=== PATIENT | female | born 1940 | race Caucasian/White ===

== ENCOUNTER 2020-07-22 11:00 | Outpatient (RCR) | payer MEDICARE, SELFPAY ==
--- NOTE | 2020-08-18 10:13 | MHC.PT.DC ---
[facility] [place] Office [place] Office [place] Office [address] Tamika Chowdhury [address] [phone] F: [phone] F: [phone] F: [phone] F: [phone] Physical Therapy Discharge Report Diagnosis: closed fx of phalanx of R great toe Date of Surgery: NA Date of Evaluation: 06/17/20 Date of Discharge: 07/22/20 Treatments to Date: 12 Cancellations to Date: 0 No Shows to Date: 0 Discharge Status: Achieved Goals Improved Function Independent with HEP Discharge Summary: Patient is I in program, improved balance noted, improved pain tolerance noted. She has an extensive HEP to continue on her own and is able to continue independently and safely. She demos no LOB when challenged dynamically. Educated on continuing HEP and speaking with MD about referral back to cardiac rehab as she reports that she would like to return. Also educated her on following up about a podiatry referral for hallux valgus and shoe inserts. DC to HEP at this time, chart was kept open for 30 days prior to DC in case patient returned with questions or needed re-ed about HEP Electronically signed by: Akanksha Tracey PT Please sign and return to therapist. Thank you for your referral.
== END 2020-08-18 10:39 | disposition home or self-care (01) ==
LOC: HO.PTCHIC 11:00
PROVIDERS: PCP Internal Medicine; Visit Provider Physician Assistant
DX: S92.414D Nondisplaced fracture of proximal phalanx of right great toe, subsequent encounter for fracture with routine healing (principal); X58.XXXD Exposure to other specified factors, subsequent encounter
CPT/HCPCS: 97110; 97112

== ENCOUNTER 2020-07-26 07:22 | Outpatient (REF) | payer MEDICARE, SELFPAY ==
[2020-07-26 10:26] LABS: Alanine Aminotransferase 12 U/L (0-31); Anion Gap 11 (12-20); Aspartate Amino Transferase 27 U/L (5-31); Blood Urea Nitrogen 19 mg/dL (9-16); Calcium 8.8 mg/dL (8.4-10.2); Carbon Dioxide 30 mmol/L (22-29); Chloride 104 mmol/L (96-108); Cholesterol 132 mg/dL; Estimated Glomerular Filt Rate 58; Glucose Random 84 mg/dL (60-115); HDL Cholesterol 46 mg/dL; LDL Cholesterol Calculated 74 mg/dl; Potassium 3.8 mmol/l (3.3-5.1); Sodium 141 mmol/L (135-145); Triglycerides 63 mg/dL
== END 2020-07-26 07:23 | disposition home or self-care (01) ==
LOC: HO.LAB 07:22
PROVIDERS: PCP Internal Medicine; Visit Provider Nurse Practitioner Family
DX: I25.10 Atherosclerotic heart disease of native coronary artery without angina pectoris (principal)
CPT/HCPCS: 80048; 80061; 84450; 84460

== ENCOUNTER → 2020-08-26 13:02 | Outpatient (BNVA) | payer MEDICARE, SELFPAY | PROVIDERS: PCP Internal Medicine; Visit Provider Internal Medicine Cardiovascular Disease | DX: Z45.018 Encounter for adjustment and management of other part of cardiac pacemaker (principal); I50.30 Unspecified diastolic (congestive) heart failure; I48.20 Chronic atrial fibrillation, unspecified; I25.10 Atherosclerotic heart disease of native coronary artery without angina pectoris; Z79.01 Long term (current) use of anticoagulants; Z79.899 Other long term (current) drug therapy | CPT/HCPCS: 99212 ==

== ENCOUNTER 2020-11-25 13:18 | Outpatient (REF) | payer MEDICARE, SELFPAY ==
[2020-11-25 15:38] LABS: Anion Gap 12 (12-20); Blood Urea Nitrogen 24 mg/dL (9-16); Carbon Dioxide 29 mmol/L (22-29); Chloride 100 mmol/L (96-108); Estimated Glomerular Filt Rate 51; Glucose Random 99 mg/dL (60-115); Potassium 4.2 mmol/L (3.3-5.1); Sodium 137 mmol/L (135-145)
[2020-11-25 15:43] LABS: B Type Natriuretic Peptide 147 pg/mL (<100)
== END 2020-11-25 13:19 | disposition home or self-care (01) ==
LOC: HO.LAB 13:18
PROVIDERS: PCP Internal Medicine; Visit Provider Internal Medicine Cardiovascular Disease
DX: I50.30 Unspecified diastolic (congestive) heart failure (principal); I48.20 Chronic atrial fibrillation, unspecified; I25.10 Atherosclerotic heart disease of native coronary artery without angina pectoris; Z79.01 Long term (current) use of anticoagulants; Z79.899 Other long term (current) drug therapy; Z45.018 Encounter for adjustment and management of other part of cardiac pacemaker
CPT/HCPCS: 36415; 80048; 83880; 99212

== ENCOUNTER 2021-02-10 10:57 | Outpatient (REF) | payer MEDICARE, SELFPAY ==
[2021-02-10 12:45] LABS: Anion Gap 12 (12-20); Blood Urea Nitrogen 31 mg/dL (9-16); Calcium 9.9 mg/dL (8.4-10.2); Carbon Dioxide 31 mmol/L (22-29); Chloride 104 mmol/L (96-108); Estimated Glomerular Filt Rate 47; Glucose Random 97 mg/dL (60-115); Sodium 142 mmol/L (135-145)
== END 2021-02-10 10:58 | disposition home or self-care (01) ==
LOC: HO.LAB 10:57
PROVIDERS: PCP Internal Medicine; Referring Provider Internal Medicine; Visit Provider Internal Medicine Cardiovascular Disease
DX: I50.30 Unspecified diastolic (congestive) heart failure (principal); I48.20 Chronic atrial fibrillation, unspecified; I25.10 Atherosclerotic heart disease of native coronary artery without angina pectoris; I71.4 Abdominal aortic aneurysm, without rupture; Z95.0 Presence of cardiac pacemaker; Z79.899 Other long term (current) drug therapy
CPT/HCPCS: 36415; 80048; 99212

== ENCOUNTER 2021-04-07 08:54 | Outpatient (REF) | payer MEDICARE, SELFPAY ==
--- NOTE | ~2021-04-07 | MM_ITS ---
EXAMINATION: BONE DENSITOMETRY CLINICAL INDICATION: Other specified disorders of bone density and structure. COMPARISON: Previous BD dated 12/18/2017 and baseline BD dated 04/28/2008. TECHNIQUE: Using a ALOSKO DXA System (software version: 13.1) manufactured by [employer], dual-energy x-ray absorptiometry was performed of the lumbar spine and left hip. The images are of good technical quality. Summary results are attached. FINDINGS: AP SPINE L1-L4: Current: BMD 1.147 g/cm2, Z-score 1.6, T-score -0.3, normal, 0.3% decrease from previous, 9.0% decrease from baseline (<5% change is not significant). Prior: BMD 1.151 g/cm2. Baseline: BMD 1.261 g/cm2. LEFT FEMUR, NECK: Current: BMD 0.651 g/cm2, Z-score -0.5, T-score -2.8, osteoporosis. Prior: BMD 0.702 g/cm2. Baseline: BMD 0.796 g/cm2. LEFT FEMUR, TOTAL: Current: BMD 0.661 g/cm2, Z-score -0.6, T-score -2.7, osteoporosis, 13.4% decrease from previous, 24.1% decrease from baseline (<5% change is not significant). Prior: BMD 0.763 g/cm2. Baseline: BMD 0.871 g/cm2. IDENTIFIED RISK FACTORS: Height loss, low calcium intake, history of fracture (adult), menopause. HISTORY OF FRACTURE: Wrist. Other. MEDICATIONS: None listed. MM/XR DEXA axial skeleton IMPRESSION: 1. DIAGNOSIS: Severe osteoporosis based on the lowest T-score value of -2.8 in the femur neck and fracture history applying World Health Organization criteria. 2. 10-YEAR FRACTURE RISK PREDICTION, FRAX: Major osteoporotic fracture (clinical spine, forearm, hip or shoulder) 30.6%. Hip fracture 11.4%. 3. Treatment Recommendations: NOF guidelines recommend consideration for treatment in postmenopausal women and men age 50 and older presenting with the following: -A hip or vertebral (clinical or morphometric) fracture. -T-score less than or equal to -2.5 at the femoral neck or spine after appropriate evaluation to exclude secondary causes. -Low bone mass at the hip or spine and a 10-year fracture probability by FRAX of greater than or equal to 3% for hip fracture or greater than or equal to 20% for major osteoporotic fracture based on the [place] adapted WHO algorithm. 4. Other Recommendations: All treatment decisions require clinical judgment and consideration of individual patient factors, including patient preferences, comorbidities, previous drug use, risk factors not captured in the FRAX model (e.g. frailty, falls, vitamin D deficiency, increased bone turnover, interval significant decline in bone density) and possible under or overestimation of fracture risk by FRAX. Additional medical evaluation for secondary cause of low bone mineral density may be appropriate. FUTURE SCAN RECOMMENDATION: People with diagnosed cases of osteoporosis or at high risk for fracture should have regular bone mineral density tests. For patients eligible for Medicare, routine testing is allowed once every 2 years. The testing frequency can be increased to one year for patients who have rapidly progressing disease, those who are receiving or discontinuing medical therapy to restore bone mass, or have additional risk factors.
== END 2021-04-07 08:55 | disposition home or self-care (01) ==
LOC: HO.MAMMO 08:54
PROVIDERS: Visit Provider Internal Medicine
DX: Z13.820 Encounter for screening for osteoporosis (principal); M85.89 Other specified disorders of bone density and structure, multiple sites; R29.890 Loss of height; E58 Dietary calcium deficiency; Z78.0 Asymptomatic menopausal state
CPT/HCPCS: 77080

== ENCOUNTER → 2021-05-06 08:24 | Outpatient (REF) | payer MEDICARE, SELFPAY ==
--- NOTE | 2021-05-06 08:28 | CA_ITS ---
Transthoracic Echocardiogram Patient (Last, First, Middle): Bobbi Dow M Gender: Female Date of : 1940 Age: 80 Procedure Date: 05/06/2021 Procedure Type: Transthoracic Echocardiogram Location: OP Height: 160.02 cm Weight: 62.6 kg BSA: 1.65 m2 Heart Rate: bpm BP: 142 / 68 mmHg Geoscientist: Referring MD: Leonard Smart MD Symptoms: I50.30 - Unspecified diastolic (congestive) heart failure Study Quality: Good ECG Rhythm: Atrial Fibrillation Conclusions: - The left ventricular systolic function is mildly decreased. The calculated ejection fraction is 53% by biplane method. - The basal inferior segment is akinetic. - There is mildly decreased right ventricular systolic function. - Severe biatrial enlargement. - There is moderate mitral valve regurgitation. The mitral regurgitation jet is a wall impinging jet. Possible underestimation. - There is severe tricuspid valve regurgitation. - The right ventricular systolic pressure is 73 mmHg. Severe pulmonary hypertension is present. Findings Left Ventricle Normal left ventricular cavity size. There is normal left ventricular wall thickness. The left ventricular systolic function is mildly decreased. The calculated ejection fraction is 53% by biplane method. Diastolic function is indeterminate on the basis of available data. Wall Motion Rest Echo Findings The basal inferior segment is akinetic. Right Ventricle Normal right ventricular cavity size. There is mildly decreased right ventricular systolic function. There is a pacemaker wire seen in the right ventricle. TAPSE 1.5cm. Atria Severe biatrial enlargement. Aortic Valve There is a normal trileaflet aortic valve. There is mild calcification of the aortic valve. There is no aortic valve stenosis. There is mild aortic valve regurgitation. Mitral Valve The posterior mitral leaflet has restricted mobility. There is mild mitral annular calcification. There is moderate mitral valve regurgitation. The mitral regurgitation jet is a wall impinging jet. There is no mitral valve stenosis. Pulmonic Valve The pulmonic valve was not well visualized. There is trace to mild pulmonic valve regurgitation. Tricuspid Valve Normal tricuspid valve structure. There is severe tricuspid valve regurgitation. The right ventricular systolic pressure is 73 mmHg. Severe pulmonary hypertension is present. Great Vessels The asc aorta is normal in size. Small plaque is seen in the sino tubular ridge. Venous The inferior vena cava is moderately dilated. Pericardium/Pleural There is no evidence of pericardial effusion. Prior Study Comparison No significant change compared to prior study dated: 03/24/2020. Measurements 2D Linear Measurements RVIDd: 3.95 RVIDd Index: 2.39 IVSd: 1.01 0.6-0.9/0.6-1.0 cm LVIDd: 5.06 3.9-5.3/4.2-5.9 cm LVIDd Index: 3.07 2.4-3.2/2.2-3.1 cm/m2 LVIDs: 3.33 2.0-3.6 cm LVPWd: 1.11 0.7-1.1 cm Ao Root: 3.10 2.1-3.5 cm LA Diam: 5.50 2.7-3.8/3.0-4.0 cm LAIDs Index: 3.33 1.5-2.3 cm/m2 LV Mass: 250.22 67-162/88-224 g LV Mass Index: 151.65 43-95/49-115 g/m2 LVOT Diam: 2.00 3.0+(-)1.3 cm 2D Systolic Function EF 4C: 46.90 >55% EF 2C: 54.10 >55% EF BiP: 53.10 >55% Mitral Valve MR Vol - PW Dopp: 64.40 MR VTI: 1.61 MR ERO: 40.00 MR Alias Servando: 0.32 MR RAD: 1.00 Aortic Valve AoV Pk Servando: 1.95 AoV Mn Servando: 1.15 AoV VTI: 0.38 AoV Pk Grad: 15.00 Aov Mn Grad: 6.00 SEBASTIAN Cont.VTI: 1.48 LVOT LVOT Pk Servando: 0.75 LVOT Mn Servando: 0.51 LVOT VTI: 0.18 LVOT Pk Grad: 2.00 LVOT Mn Grad: 1.00 LVOT Diam: 2.00 LVOT Area: 3.14 Right Ventricle TAPSE (mm): 1.46 Tricuspid Valve TR Pk Servando: 3.82 TR Pk Grad: 58.00 RA Press: 15.00 RVSP: 73.00 Great Vessels Aorta Ao Root-2D: 3.10 2.0-3.7 cm Ao Asc: 3.20 2.1-3.4 cm Ao Arch: 2.20 Updated in Other Vendor System with Status of Final Dario Flowers MD electronically signed on 05/07/2021 1:50:16 PM with status of Final
== END ==
LOC: HO.CARD 08:24
PROVIDERS: Visit Provider Internal Medicine Cardiovascular Disease
DX: I50.30 Unspecified diastolic (congestive) heart failure (principal)
CPT/HCPCS: 93306

== ENCOUNTER 2021-05-09 07:48 | Outpatient (REF) | payer MEDICARE, SELFPAY ==
--- NOTE | ~2021-05-09 | US_ITS ---
EXAMINATION: US RETROPERITONEAL LIMITED (AORTA) CLINICAL INFORMATION: Abdominal aortic aneurysm, without rupture. COMPARISON: Ultrasound abdominal aorta dated 11/21/2018 and 10/29/2017. TECHNIQUE: Ballesteros-scale, color Doppler and spectral Doppler evaluation of the abdominal aorta. FINDINGS: There is scattered atherosclerotic disease. In addition, there is a 3.3 x 3.6 cm mid abdominal aortic aneurysm. Previously, this area measured 3.2 x 3.6 cm on a study dated 11/21/2018. The measurements of the aorta in maximum AP and transverse dimensions respectively are as follows: Proximal: 2.8 x 2.7 cm. Mid: 3.3 x 3.6 cm. Distal: 2.9 x 2.9 cm. PSV: 45 cm/sec The measurements of the common iliac arteries in maximum dimensions are as follows: Right: AP: 1.1 cm. TRV: 1.4 cm. There is diffuse atherosclerotic plaque present with elevated velocities suggesting hemodynamically significant stenoses. Left: AP: 1.0 cm. TRV: 1.2 cm. There is diffuse atherosclerotic plaque present with elevated velocities suggesting hemodynamically significant stenoses. The inferior vena cava is mildly prominent at the junction with the diaphragm, measuring 4.0 cm. US/US abdominal aortic aneurysm IMPRESSION: 1.There is diffuse atherosclerotic plaque present with elevated velocities suggesting hemodynamically significant stenoses. 2. Possible bilateral iliac artery hemodynamically significant disease.
== END 2021-05-09 07:49 | disposition home or self-care (01) ==
LOC: HO.US 07:48
PROVIDERS: Visit Provider Internal Medicine Cardiovascular Disease
DX: I71.4 Abdominal aortic aneurysm, without rupture (principal)
CPT/HCPCS: 76706

== ENCOUNTER 2021-05-19 12:32 | Outpatient (REF) | payer MEDICARE, SELFPAY ==
[2021-05-19 14:40] LABS: Anion Gap 14 (12-20); Blood Urea Nitrogen 30 mg/dL (9-16); Calcium 9.4 mg/dL (8.4-10.2); Carbon Dioxide 25 mmol/L (22-29); Chloride 103 mmol/L (96-108); Estimated Glomerular Filt Rate 48; Glucose Random 96 mg/dL (60-115); Magnesium 2.3 mg/dL (1.6-2.6); Potassium 4.3 mmol/L (3.3-5.1); Sodium 138 mmol/L (135-145)
== END 2021-05-19 12:33 | disposition home or self-care (01) ==
LOC: HO.LAB 12:32
PROVIDERS: PCP Internal Medicine; Referring Provider Internal Medicine; Visit Provider Internal Medicine Cardiovascular Disease
DX: I50.30 Unspecified diastolic (congestive) heart failure (principal); I48.20 Chronic atrial fibrillation, unspecified; I73.9 Peripheral vascular disease, unspecified; I25.10 Atherosclerotic heart disease of native coronary artery without angina pectoris; Z79.01 Long term (current) use of anticoagulants; Z45.018 Encounter for adjustment and management of other part of cardiac pacemaker
CPT/HCPCS: 36415; 80048; 83735; 93005; 99212

== ENCOUNTER 2021-07-07 12:50 | Outpatient (REF) | payer MEDICARE, SELFPAY ==
--- NOTE | ~2021-07-07 | US_ITS ---
EXAMINATION: US LOWER EXTREMITY DUPLEX, BILATERAL CLINICAL INFORMATION: R93.6 - Abnormal findings on diagnostic imaging of limbs. COMPARISON: Ultrasound 05/09/2021, CT abdomen and pelvis 03/24/2020 TECHNIQUE: Real-time ultrasound and Doppler techniques (integrating B-mode 2-D vascular images, Doppler spectral analysis and color-flow Doppler imaging) were utilized to interrogate the lower extremities. FINDINGS: RIGHT LEG: Common iliac artery: 177 cm/s, multiphasic External iliac artery: 144 cm/s, multiphasic Common femoral artery: 132 cm/s, multiphasic There is a prominent irregular shadowing plaque at the mid to distal portion of the common femoral. Profunda femoris artery: 109 cm/s, high resistance monophasic Superficial femoral artery (proximal): 135 cm/s, multiphasic Superficial femoral artery (mid): 96.7 cm/s, multiphasic Superficial femoral artery (distal): 123 cm/s, multiphasic Popliteal artery: 85.7 cm/s, multiphasic Peroneal artery: 58.5 cm/s, multiphasic Distal posterior tibial artery: 69.6 cm/s, multiphasic LEFT LEG: Common iliac artery: 109 cm/s, multiphasic External iliac artery: 64.7 cm/s, multiphasic Common femoral artery: 98.8 cm/s, multiphasic Profunda femoris artery: 85.7 cm/s, multiphasic Superficial femoral artery (proximal): 101 cm/s, multiphasic Superficial femoral artery (mid): 96.9 cm/s, multiphasic Superficial femoral artery (distal): 94.4 cm/s, multiphasic Popliteal artery: 75.8 cm/s, multiphasic Peroneal artery: 66.2 cm/s, multiphasic Posterior tibial artery: 58 cm/s, multiphasic In the left lower quadrant, there is an anechoic cystic 2.7 x 2.2 x 2.7 cm structure without internal features adjacent to the iliac vessels which likely corresponds with left adnexal cyst seen on prior CT. US/US arterial duplex LE BI IMPRESSION: On the right wall, there is prominent, irregular plaque at the mid to distal portion of the common femoral artery, multiphasic flow is seen throughout the right lower extremity arterial vasculature. No evidence of hemodynamically significant stenosis of the left lower extremity vasculature.
== END 2021-07-07 12:51 | disposition home or self-care (01) ==
LOC: HO.US 12:50
PROVIDERS: Visit Provider Nurse Practitioner Family
DX: I10 Essential (primary) hypertension (principal); I71.4 Abdominal aortic aneurysm, without rupture; R93.6 Abnormal findings on diagnostic imaging of limbs
CPT/HCPCS: 93925

== ENCOUNTER 2021-08-16 16:29 | Outpatient (REF) | payer MEDICARE, SELFPAY ==
[2021-08-16 17:05] LABS: Appearance Urine CLEAR; Color Urine YELLOW; Glucose Urine UA NEG (NEG); Leukocyte Esterase Urine NEG (NEG); Nitrite Urine NEG (NEG); Specific Gravity - Urine <= 1.005 (1.005-1.025); UACC Culture Trigger NO; Urine Blood TRACE (NEG); Urine Ketones NEG (NEG); Urine Protein NEG (NEG-TRACE)
[2021-08-16 17:16] LABS: Bacteria Urine TRACE /LPF; Mucus Urine TRACE /LPF; Squamous Epithelial Cell Urine TRACE /LPF
[2021-08-16 17:17] LABS: RBC Urine 0-2 /HPF (0); WBC Urine 0 /HPF (0-4)
== END 2021-08-16 16:30 | disposition home or self-care (01) ==
LOC: HO.LAB 16:29
PROVIDERS: PCP Internal Medicine; Visit Provider Internal Medicine
DX: R31.9 Hematuria, unspecified (principal)
CPT/HCPCS: 81001

== ENCOUNTER 2021-10-10 14:00 | Outpatient (RCR) | payer MEDICARE, SELFPAY ==
--- NOTE | 2021-07-20 14:16 | MHC.PT.EP ---
[facility] [place] Office [place] Office [place] Office [address] Elise Chowdhury [address] [phone] F: [phone] F: [phone] F: [phone] F: [phone] Physical Therapy Plan of Care Date of Evaluation: Date of Surgery: Diagnosis: This is an 80 yo female presenting to skilled PT with a script for BLE weakness. Assessment: This is an 80 yo female presenting to skilled PT with a script for BLE weakness. Patient reporting to PT stating that she would like to improve the strength in B feet and legs as well as improve balance. She also reports that she wants to stop or reduce muscle cramps at night. The patient also reports that she would like to go to the [facility] gym activities however would like to start with PT first to build confidence. She has been doing a lot of yard work and reports increased symptoms in feet when standing loner than 2 hrs. Pain is located BLE and feet, described as pressure and burning at times. She has symptoms at rest and with movement. She has an extensive cardiac history and has impaired sensation and blood flow in BLE. Assessment reveals pain that ranges up to a 6/10. She demos decreased ankle ROM, decreased BLE strength, impaired gait pattern with decreased balance (observed and with measurable tests ie Michelle SOPT and DGI), impaired sensation in BLE as well as gross functional decline with standing tolerance, walking and general strength. She is a good candidate for skilled PT 2x/wk for 5wks. Frequency and Duration: The patient will be seen 2x/wk for 5wks Short Term Goals: I in HEP Shelter Goals: Start classes at [facility] Improve BLE strength to at least 4+/5 Improve DGI by 5 points Tolerate at least 20 secs in all balance Michelle components Treatment Plan: Modalities to reduce pain, spasms and effusion. Manual therapy to restore motion and function. Therapeutic exercise to improve strength and flexibility. Neuromuscular re-education for posture and balance. Therapeutic activities to return to functional activities of daily living. Electronically signed by: Akanksha Tracey PT Please sign and return to therapist. Thank you for your referral.
--- NOTE | 2021-10-13 13:18 | MHC.PT.DC ---
[facility] [place] Office [place] Office [place] Office [address] Tamika Chowdhury [address] [phone] F: [phone] F: [phone] F: [phone] F: [phone] Physical Therapy Discharge Report Diagnosis: This is an 80 yo female presenting to skilled PT with a script for BLE weakness. Date of Surgery: Date of Evaluation: 07/20/21 Date of Discharge: 10/13/21 Treatments to Date: 11 Cancellations to Date: 0 No Shows to Date: 0 Discharge Status: Achieved Goals Improved Function Independent with HEP Discharge Summary: At the last tx session HEP was reviewed and added a BKFO due to some acute pain from trying exercise equipment at the [facility]. She overall has 4/5 grossly strength of LEs. She has started [facility] ex independently. Her DGI was 18/24 compared to 15/24 at . She is able to demonstrate improved functional balance in the clinic. She is motivated to continue with HEP and appropriate to d/c to HEP at this time. Electronically signed by: Akanksha Tracey PT Please sign and return to therapist. Thank you for your referral.
== END 2021-10-13 13:19 | disposition home or self-care (01) ==
LOC: HO.PTCHIC 14:00
PROVIDERS: PCP Internal Medicine; Visit Provider Internal Medicine
DX: R29.898 Other symptoms and signs involving the musculoskeletal system (principal)
CPT/HCPCS: 97110; 97112; 97162

== ENCOUNTER → 2021-11-17 10:59 | Outpatient (BNVA) | payer MEDICARE, SELFPAY | PROVIDERS: PCP Internal Medicine; Referring Provider Internal Medicine; Visit Provider Internal Medicine Cardiovascular Disease | DX: Z45.018 Encounter for adjustment and management of other part of cardiac pacemaker (principal); I48.20 Chronic atrial fibrillation, unspecified; I25.10 Atherosclerotic heart disease of native coronary artery without angina pectoris | CPT/HCPCS: 99212 ==

== ENCOUNTER 2021-11-18 08:48 | Outpatient (REF) | payer MEDICARE, SELFPAY ==
[2021-11-18 10:23] LABS: Anion Gap 11 (12-20); Blood Urea Nitrogen 31 mg/dL (9-16); Calcium 9.5 mg/dL (8.4-10.2); Carbon Dioxide 28 mmol/L (22-29); Chloride 108 mmol/L (96-108); Cholesterol 138 mg/dL; Estimated Glomerular Filt Rate 50; Glucose Random 95 mg/dL (60-115); HDL Cholesterol 48 mg/dL; LDL Cholesterol Calculated 82 mg/dl; Potassium 4.5 mmol/L (3.3-5.1); Sodium 142 mmol/L (135-145); Triglycerides 43 mg/dL
== END 2021-11-18 08:49 | disposition home or self-care (01) ==
LOC: HO.LAB 08:48
PROVIDERS: PCP Internal Medicine; Visit Provider Internal Medicine Cardiovascular Disease
DX: I73.9 Peripheral vascular disease, unspecified (principal); I48.20 Chronic atrial fibrillation, unspecified; I25.10 Atherosclerotic heart disease of native coronary artery without angina pectoris
CPT/HCPCS: 36415; 80048; 80061

== ENCOUNTER 2022-02-20 07:59 | Emergency (ER) | payer MEDICARE, SELFPAY ==
--- NOTE | 2022-02-20 | ECG_ITS ---
Test Reason : cp Blood Pressure : / mmHG Vent. Rate : 079 BPM Atrial Rate : 082 BPM P-R Int : 000 ms QRS Dur : 104 ms QT Int : 378 ms P-R-T Axes : 000 -30 014 degrees QTc Int : 433 ms Atrial fibrillation Left axis deviation Minimal voltage criteria for LVH, may be normal variant ( Saleem product ) Possible Anterior infarct , age undetermined Abnormal ECG When compared with ECG of 23-MAR-2020 12:46, No significant changes seen Referred By: Generic ED Physician Electronically Signed By:JACQUE CRUMP
--- NOTE | ~2022-02-20 | XR_ITS ---
EXAMINATION: XR CHEST CLINICAL INFORMATION: Weakness COMPARISON: 03/29/2020 TECHNIQUE: Frontal view of the chest was obtained. FINDINGS: Dual-lead pacemaker stably positioned with respect to the enlarged cardiac silhouette. Pulmonary venous congestion. Rox B-lines diffuse prominence of the interstitial. No pleural effusion or pneumothorax. No acute or suspicious osseous abnormalities. XR/XR chest 1V IMPRESSION: Cardiomegaly and pulmonary venous congestion with mild interstitial edema.
[2022-02-20 08:26] LABS: MANUAL DIFF FLAG NO
[2022-02-20 08:27] VITALS: BP 145/70; PULSE 80; RESP 18; TEMP 36.9; O2SAT 98; BMI 23.2
[2022-02-20 08:33] LABS: Basophils Percent Auto 0.9 % (0-2); Eosinophils Absolute Auto 0.1 X10*3/uL (0.0-0.4); Eosinophils Percent Auto 1.6 % (0-4); Hematocrit 35.7 % (37.0-47.0); Hemoglobin 12.1 g/dl (12.0-16.0); Imm Gran Abs Auto 0.01 X10*3/uL (0.00-0.03); Imm Gran Pct Auto 0.2 % (0.0-0.4); Lymphocytes Absolute Auto 0.8 X10*3/uL (1.2-4.9); Lymphocytes Percent Auto 18.3 % (20-40); Mean Corpuscular HGB Conc 33.9 g/dl (31.0-35.0); Mean Corpuscular Hemoglobin 31.7 pg (27.0-33.0); Mean Corpuscular Volume 93.5 fL (80.0-98.0); Mean Platelet Volume 9.8 fL (9.4-12.3); Monocytes Absolute Auto 0.5 X10*3/uL (0.1-1.2); Monocytes Percent Auto 11.3 % (2-11); Neutrophils Absolute Auto 2.9 x10*3/uL (2.0-8.3); Neutrophils Percent Auto 67.7 % (45-73); Platelet Count 120 X10*3/uL (160-400); Red Blood Count 3.82 X10*6/uL (4.20-5.50); Red Cell Distribution Width 12.9 % (11.0-16.0); White Blood Count 4.3 X10*3/uL (4.8-10.8)
[2022-02-20 08:51] LABS: Anion Gap 14 (12-20); Carbon Dioxide 23 mmol/L (22-29); Chloride 99 mmol/L (96-108); Magnesium 2.1 mg/dL (1.6-2.6); Potassium 4.3 mmol/L (3.3-5.1); Sodium 132 mmol/L (135-145)
[2022-02-20 09:10] LABS: Appearance Urine CLEAR; Glucose Urine UA NEG (NEG); Leukocyte Esterase Urine NEG (NEG); Nitrite Urine NEG (NEG); PH 6.5 (5.0-8.0); Specific Gravity - Urine <= 1.005 (1.005-1.025); Urine Blood NEG (NEG); Urine Ketones NEG (NEG); Urine Protein NEG (NEG-TRACE)
[2022-02-20 09:12] LABS: Blood Urea Nitrogen 21 mg/dL (9-16); Calcium 9.4 mg/dL (8.4-10.2); Creatinine Clr Calc Pharmacy 36.6; Estimated Glomerular Filt Rate 54; Glucose Random 109 mg/dL (60-115)
[2022-02-20 09:13] LABS: Color Urine COLORLESS
[2022-02-20 09:23] LABS: COVID-19 Test Negative (Negative); IDNOW Serial# 55D5AD1C
[2022-02-20 09:45] VITALS: BP 135/61; PULSE 70; RESP 15; O2SAT 97
--- NOTE | 2022-02-20 09:54 | ED.CHESTPAIN ---
HPI - Chest Pain General Chief Complaint: Chest Pain Stated Complaint: heart problems , cramps Time Seen by Provider: 02/20/22 08:27 Source: patient, family and old records reviewed Mode of arrival: ambulatory Limitations: no limitations History of Present Illness MD complaint: chest pain (restless legs, muscle cramps, doesn't feel well, palpitations) Onset (ago): week(s) (2) Timing of current episode: episodic Prior episodes: Yes Onset: during rest and during exertion Pain location: substernal Pain radiation: none Severity: mild Quality: heaviness Relieving factors: nothing Exacerbating factors: movement Context: other (no recent events did receive 4th booster on mother's day) Associated symptoms: dyspnea, palpitations and other (muscle cramps, overall doesn't feel well, wiped out, fatigue, no recent dental work or procedures prior endocarditis in the past of [place]) Treatment prior to arrival: none Related Data Home Medications Medication Instructions Recorded Confirmed furosemide 40 mg tablet 40 mg PO QAM tab 05/19/21 11/17/21 Previous Rx's Medication Instructions Recorded amoxicillin 500 mg capsule 2,000 mg PO ONCE #4 cap 03/16/21 diphenhydramine HCl 25 mg capsule 25 mg PO BID PRN 3 Days #6 cap 05/19/21 (Benadryl) valsartan 40 mg tablet 40 mg PO BID #180 tab 08/31/21 apixaban 5 mg tablet (Eliquis) 5 mg PO BID 90 Days #180 tab 11/18/21 atorvastatin 20 mg tablet 20 mg PO BEDTIME 90 Days #90 tab 11/18/21 lorazepam 0.5 mg tablet (Ativan) 0.5 mg PO BEDTIME PRN #5 tab 02/20/22 Allergies Allergy/AdvReac Type Severity Reaction Status Date / Time ibuprofen [IBUPROFEN] Allergy Severe THROAT LUMP Unverified 07/05/21 14:34 olmesartan [From BENICAR] Allergy Severe WHEEZING Unverified 07/05/21 14:34 Gadolinium-Containing Allergy Mild HIVES Unverified 07/05/21 14:34 Contrast Medi [Gadolinium-Containing Agents] Iodinated Contrast Media Allergy Mild RASH Unverified 07/05/21 14:34 [IV Dye, Iodine Containing] oneil Allergy Mild RASH Unverified 07/05/21 14:34 Sulfa (Sulfonamide Allergy Mild RASH Verified 07/05/21 14:34 Antibiotics) amiodarone [AMIODARONE] Allergy Unknown THYROID Verified 07/05/21 14:34 TOXICOSIS amlodipine [From NORVASC] Allergy Unknown WHEEZING Verified 07/05/21 14:34 aspirin [ASPIRIN] Allergy Unknown THROAT Verified 07/05/21 14:34 LUMP HEAVY WHEEZING, wheezing, wheezing azithromycin [From ZITHROMAX] Allergy Unknown NAUSEA/VOMITING, Verified 07/05/21 14:34 nausea and vomiting bee pollen [Bee Stings] Allergy Unknown EDEMA, ALL Unverified 07/05/21 14:34 INSECT STINGS capsaicin [CAPSAICIN] Allergy Unknown RASH Unverified 07/05/21 14:34 clopidogrel [From PLAVIX] Allergy Unknown THROAT Verified 07/05/21 14:34 LUMP HEAVY WHEEZING diltiazem [Cardizem] Allergy Unknown rash Verified 07/05/21 14:34 methimazole [METHIMAZOLE] Allergy Unknown RASH Verified 07/05/21 14:34 sulfamethoxazole Allergy Unknown RASH Unverified 07/05/21 14:34 [From BACTRIM] trimethoprim [From BACTRIM] Allergy Unknown RASH Unverified 07/05/21 14:34 escitalopram [From Lexapro] Allergy Wheezing Verified 07/05/21 15:01 clarithromycin [From Biaxin] AdvReac Mild N/V Verified 07/05/21 14:34 codeine [Codeine] AdvReac Mild N/V Verified 07/05/21 14:34 levofloxacin [From Levaquin] AdvReac Mild N/V Unverified 07/05/21 14:34 Dye [facility] Blue 1 Allergy Unknown rash Uncoded 07/05/21 14:34 Review of Systems Review of Systems: Constitutional : No Weight loss, No Fever, pos Chills, pos malaise ENT/Mouth : No sore throat, No Rhinorrhea Eyes: No Eye Pain, No Swelling Cardiovascular : pos Chest Pain, pos SOB, no Dyspnea on Exertion, No Orthopnea, No Edema, pos Palpitations Respiratory : No Cough, No Sputum Gastrointestinal : pos Nausea, No Vomiting, No Diarrhea, No abdominal Pain, No Hematochezia, No Melena Genitourinary : No Dysuria, No Urinary Frequency Musculoskeletal : No joint pain, No Myalgias, No Joint Swelling, pos muscle cramps Skin : No Skin Lesions, No rash Neuro : pos Weakness, No Numbness, No Dizziness, No Headache Psych : No Anxiety/Panic, No Depression Heme/Lymph: No Bruising, No Lymphadenopathy Endocrine : No Polyuria, No Polydipsia All other systems reviewed and are negative [facility] Past Medical History Attestation statement: The following information was validated with the patient. 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 Paternal Grandfather CVD (cardiovascular disease) Paternal Grandmother No problems noted. Child No Financial Resp No problems noted. Social History Social History Housing: House Alcohol intake: current Alcohol intake frequency: a few times a week Alcohol type: hard liquor Patient Tobacco Use Status: Former Tobacco user Years Smoked: 40 years Use of substances other than those prescribed or required for medical reasons: No Advance Directives: No Advance Directives Information Provided: No Current occupational status: retired Physical Exam Vital Signs: Vital Signs: Last Vital Signs Temp 98.5 F 02/20/22 08:27 Pulse 70 02/20/22 09:45 Resp 15 02/20/22 09:45 BP 135/61 02/20/22 09:45 Pulse Ox 97 02/20/22 09:45 BMI result Body Mass Index 23.2 Appearance: Alert. Oriented X3. No acute distress. Eyes: Pupils equal, round and reactive to light. ENT: Pharynx normal. Neck: Normal inspection. Neck supple. CVS: Normal heart rate and rhythm. Pulses normal. Murmur noted Respiratory: No respiratory distress. Breath sounds normal. Abdomen: Soft and nontender. Skin: Skin warm and dry. Normal skin color. Normal skin turgor. Extremities: No lower extremity edema. No calf ttp Neuro: Oriented X 3. No motor deficit. No sensory deficit. Course Course Course Narrative: refuses lasix, mild edema mild elevation in BNP, no pneumonia no UTI, trop flat, infl markers negative, CPK negative cultures sent off no acute findings today HR has been in 80s and 70s while in ED hx of endocarditis but has no WBC count no infl markers and cultures were sent off discussed sending home with medications - low dose family requesting for sleep family to stay with patient given age and eliquis use MDM - Chest Pain MDM Narrative Medical decision making narrative: 81 yo female with hx of CAD, CHF, endocarditis, afib on eliquis, osteophenia, AAA, PPM, tricuspid regurgitation here with c/o just not feeling well x 2 weeks - at this time will need labs, cultures, CXR, UA, BNP, troponin and EKG - she has some chest pain as well troponin 28. Malaise in setting of prior endocarditis but patient denies recent procedures or events. Lab Data Result diagrams: 02/20/22 08:22 02/20/22 08:22 Labs: Lab Results 02/20/22 02/20/22 02/20/22 Range/Units 08:22 08:22 08:22 WBC 4.3 L (4.8-10.8) X10*3/uL RBC 3.82 L (4.20-5.50) X10*6/uL Hgb 12.1 (12.0-16.0) g/dl Hct 35.7 L (37.0-47.0) % MCV 93.5 (80.0-98.0) fL MCH 31.7 (27.0-33.0) pg MCHC 33.9 (31.0-35.0) g/dl RDW 12.9 (11.0-16.0) % Plt Count 120 L (160-400) X10*3/uL MPV 9.8 (9.4-12.3) fL Immature Gran % (Auto) 0.2 (0.0-0.4) % Neut % (Auto) 67.7 (45-73) % Lymph % (Auto) 18.3 L (20-40) % [place] % (Auto) 11.3 H (2-11) % Eos % (Auto) 1.6 (0-4) % Baso % (Auto) 0.9 (0-2) % Lymph # (Auto) 0.8 L (1.2-4.9) X10*3/uL [place] # (Auto) 0.5 (0.1-1.2) X10*3/uL Eos # (Auto) 0.1 (0.0-0.4) X10*3/uL Baso # (Auto) 0.0 (0.0-0.2) X10*3/uL Abs Immat Gran (auto) 0.01 (0.00-0.03) X10*3/uL Absolute Neuts (auto) 2.9 (2.0-8.3) x10*3/uL Absolute Nucleated RBC 0.000 (0.0-0.012) X10*3/uL Nucleated RBC % (auto) 0.0 (0.0-0.2) /100WBC Sodium 132 L (135-145) mmol/L Potassium 4.3 (3.3-5.1) mmol/L Chloride 99 (96-108) mmol/L Carbon Dioxide 23 (22-29) mmol/L Anion Gap 14 (12-20) BUN 21 H (9-16) mg/dL Creatinine 0.98 (0.5-1.4) mg/dL Estim Creat Clear Calc 36.6 Estimated GFR 54 Random Glucose 109 (60-115) mg/dL Lactic Acid (0.5-2.0) mmol/L Calcium 9.4 (8.4-10.2) mg/dL Magnesium 2.1 (1.6-2.6) mg/dL Total Creatine Kinase 66 (26-140) U/L Troponin I High Sens 28.0 H (<3.5-17.0) ng/L C-Reactive Protein (< or = 0.50) mg/dL B-Natriuretic Peptide (<100) pg/mL Procalcitonin ng/mL Urine Color Urine Appearance Urine pH (5.0-8.0) Ur Specific [place] (1.005-1.025) Urine Protein (NEG-TRACE) MG/DL Urine Glucose (UA) (NEG) MG/DL Urine Ketones (NEG) MG/DL Urine Blood (NEG) Urine Nitrite (NEG) Ur Leukocyte Esterase (NEG) COVID-19 ([facility]) (Negative) COVID-19 Clin Com 02/20/22 02/20/22 02/20/22 Range/Units 08:59 08:59 10:03 WBC (4.8-10.8) X10*3/uL RBC (4.20-5.50) X10*6/uL Hgb (12.0-16.0) g/dl Hct (37.0-47.0) % MCV (80.0-98.0) fL MCH (27.0-33.0) pg MCHC (31.0-35.0) g/dl RDW (11.0-16.0) % Plt Count (160-400) X10*3/uL MPV (9.4-12.3) fL Immature Gran % (Auto) (0.0-0.4) % Neut % (Auto) (45-73) % Lymph % (Auto) (20-40) % [place] % (Auto) (2-11) % Eos % (Auto) (0-4) % Baso % (Auto) (0-2) % Lymph # (Auto) (1.2-4.9) X10*3/uL [place] # (Auto) (0.1-1.2) X10*3/uL Eos # (Auto) (0.0-0.4) X10*3/uL Baso # (Auto) (0.0-0.2) X10*3/uL Abs Immat Gran (auto) (0.00-0.03) X10*3/uL Absolute Neuts (auto) (2.0-8.3) x10*3/uL Absolute Nucleated RBC (0.0-0.012) X10*3/uL Nucleated RBC % (auto) (0.0-0.2) /100WBC Sodium (135-145) mmol/L Potassium (3.3-5.1) mmol/L Chloride (96-108) mmol/L Carbon Dioxide (22-29) mmol/L Anion Gap (12-20) BUN (9-16) mg/dL Creatinine (0.5-1.4) mg/dL Estim Creat Clear Calc Estimated GFR Random Glucose (60-115) mg/dL Lactic Acid 0.9 (0.5-2.0) mmol/L Calcium (8.4-10.2) mg/dL Magnesium (1.6-2.6) mg/dL Total Creatine Kinase (26-140) U/L Troponin I High Sens (<3.5-17.0) ng/L C-Reactive Protein (< or = 0.50) mg/dL B-Natriuretic Peptide (<100) pg/mL Procalcitonin ng/mL Urine Color COLORLESS Urine Appearance CLEAR Urine pH 6.5 (5.0-8.0) Ur Specific [place] <= 1.005 (1.005-1.025) Urine Protein NEG (NEG-TRACE) MG/DL Urine Glucose (UA) NEG (NEG) MG/DL Urine Ketones NEG (NEG) MG/DL Urine Blood NEG (NEG) Urine Nitrite NEG (NEG) Ur Leukocyte Esterase NEG (NEG) COVID-19 ([facility]) Negative (Negative) COVID-19 Clin Com See Note 02/20/22 02/20/22 02/20/22 Range/Units 10:03 10:03 10:03 WBC (4.8-10.8) X10*3/uL RBC (4.20-5.50) X10*6/uL Hgb (12.0-16.0) g/dl Hct (37.0-47.0) % MCV (80.0-98.0) fL MCH (27.0-33.0) pg MCHC (31.0-35.0) g/dl RDW (11.0-16.0) % Plt Count (160-400) X10*3/uL MPV (9.4-12.3) fL Immature Gran % (Auto) (0.0-0.4) % Neut % (Auto) (45-73) % Lymph % (Auto) (20-40) % [place] % (Auto) (2-11) % Eos % (Auto) (0-4) % Baso % (Auto) (0-2) % Lymph # (Auto) (1.2-4.9) X10*3/uL [place] # (Auto) (0.1-1.2) X10*3/uL Eos # (Auto) (0.0-0.4) X10*3/uL Baso # (Auto) (0.0-0.2) X10*3/uL Abs Immat Gran (auto) (0.00-0.03) X10*3/uL Absolute Neuts (auto) (2.0-8.3) x10*3/uL Absolute Nucleated RBC (0.0-0.012) X10*3/uL Nucleated RBC % (auto) (0.0-0.2) /100WBC Sodium (135-145) mmol/L Potassium (3.3-5.1) mmol/L Chloride (96-108) mmol/L Carbon Dioxide (22-29) mmol/L Anion Gap (12-20) BUN (9-16) mg/dL Creatinine (0.5-1.4) mg/dL Estim Creat Clear Calc Estimated GFR Random Glucose (60-115) mg/dL Lactic Acid (0.5-2.0) mmol/L Calcium (8.4-10.2) mg/dL Magnesium (1.6-2.6) mg/dL Total Creatine Kinase (26-140) U/L Troponin I High Sens 30.1 H (<3.5-17.0) ng/L C-Reactive Protein 0.32 (< or = 0.50) mg/dL B-Natriuretic Peptide 199 H (<100) pg/mL Procalcitonin 0.20 ng/mL Urine Color Urine Appearance Urine pH (5.0-8.0) Ur Specific [place] (1.005-1.025) Urine Protein (NEG-TRACE) MG/DL Urine Glucose (UA) (NEG) MG/DL Urine Ketones (NEG) MG/DL Urine Blood (NEG) Urine Nitrite (NEG) Ur Leukocyte Esterase (NEG) COVID-19 ([facility]) (Negative) COVID-19 Clin Com ECG Data ECG #1: Attestation: I personally reviewed and interpreted this ECG as follows: ECG interpretation date: 02/20/22 ECG interpretation time: 12:37 Interpretation: Rate: 70s Rhythm: afib [place]: keft Normal QRS complex. ST T wave : normal no [place] qTC: normal prior studies: no change from prior The study has been interpreted contemporaneously by me. . 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
[2022-02-20 10:23] LABS: Lactic Acid 0.9 mmol/L (0.5-2.0)
[2022-02-20 10:31] LABS: C Reactive Protein 0.32 mg/dL (< or = 0.50)
[2022-02-20 10:34] LABS: Troponin-I High Sensitivity 30.1 ng/L (<3.5-17.0)
[2022-02-20 11:08] LABS: B Type Natriuretic Peptide 199 pg/mL (<100)
== END 2022-02-20 13:11 | disposition home or self-care (01) ==
PROVIDERS: Emergency Provider Emergency Medicine; PCP Internal Medicine
DX: R07.89 Other chest pain (principal); G25.81 Restless legs syndrome; R00.2 Palpitations; R06.02 Shortness of breath; Z20.822 Contact with and (suspected) exposure to COVID-19; Z79.899 Other long term (current) drug therapy; Z87.891 Personal history of nicotine dependence
CPT/HCPCS: 36415; 71045; 80048; 80051; 81003; 82550; 83605; 83735; 83880; 84145; 84484; 85025; 86140; 87635; 93005; 96374; 99284

== ENCOUNTER 2022-02-24 11:38 | Outpatient (REF) | payer MEDICARE, SELFPAY ==
--- NOTE | ~2022-02-24 | XR_ITS ---
EXAMINATION: XR FOOT, LEFT CLINICAL INFORMATION: Left foot pain. COMPARISON: None TECHNIQUE: AP, lateral, and oblique views of the left foot. FINDINGS: There is generalized osteopenia. The interphalangeal and metatarsophalangeal joints are unremarkable. Moderate tarsometatarsal degenerative joint changes are seen with joint space narrowing, periarticular sclerosis and marginal osteophyte formation. A prominent osteophyte is seen along the dorsal margin. The tarsal bones are normally aligned. Mild dorsal soft tissue swelling is seen. XR/XR foot LT min 3V IMPRESSION: Mild focal dorsal soft tissue swelling overlying moderate tarsometatarsal degenerative joint changes suggesting osteoarthritis. No overt acute osseous abnormality.
== END 2022-02-24 11:39 | disposition home or self-care (01) ==
LOC: HO.HMGCX 11:38
PROVIDERS: PCP Internal Medicine; Visit Provider Internal Medicine
DX: S99.922D Unspecified injury of left foot, subsequent encounter (principal)
CPT/HCPCS: 73630

== ENCOUNTER → 2022-04-04 13:52 | Outpatient (BNVA) | payer MEDICARE, SELFPAY | PROVIDERS: PCP Internal Medicine; Visit Provider Surgery Vascular Surgery | DX: I83.11 Varicose veins of right lower extremity with inflammation (principal); I73.9 Peripheral vascular disease, unspecified; I71.4 Abdominal aortic aneurysm, without rupture | CPT/HCPCS: 99202 ==

== ENCOUNTER 2022-04-06 10:02 | Outpatient (REF) | payer MEDICARE, SELFPAY ==
--- NOTE | ~2022-04-06 | US_ITS ---
EXAMINATION: US LOWER EXTREMITY VENOUS (REFLUX EXAM), BILATERAL CLINICAL INDICATION: Chronic venous insufficiency with varicose veins with pain and inflammation COMPARISON: None. TECHNIQUE: Color flow triplex imaging and compression Doppler was performed to evaluate both the deep and the superficial systems bilaterally. To evaluate the superficial system, the examination was performed in the upright position. Color-flow Doppler ultrasound and compression ultrasound were utilized. In addition, maneuvers were utilized to demonstrate reflux. FINDINGS: 1. DEEP VENOUS ULTRASOUND OF THE RIGHT LOWER EXTREMITY: Common Femoral Vein: Compressible, normal respiratory variation and augmented flow. Femoral Vein: Compressible, normal color flow and augmentation. Popliteal Vein: Compressible, normal augmentation. Deep Reflux: There is no evidence of reflux in the deep system in either the common femoral vein or the popliteal vein. There is no evidence of a Duckworth's cyst. 2. SUPERFICIAL ULTRASOUND WITH DOPPLER OF RIGHT LOWER EXTREMITY: GREAT SAPHENOUS VEIN: Saphenofemoral Junction: 9.1 mm; No evidence of reflux. Proximal Thigh: 8.3 mm; No evidence of reflux. Mid Thigh: 1.6 mm; No evidence of reflux. Above Knee: 1.6 mm; reflux measuring 2.9 seconds At Knee: 4.6 mm; reflux measuring 3.0 seconds Below Knee: 3.1 mm; No evidence of reflux. Mid Calf: 2.4 mm; reflux measuring greater than 3 seconds Ankle: 3.9 mm; No evidence of reflux. DUPLICATED GREAT SAPHENOUS VEIN: There is a lateral duplicated great saphenous vein measuring 5.6 mm without significant reflux SMALL SAPHENOUS VEIN: Proximal: 2.5 mm; No evidence of reflux. Distal: 2.7 mm; No evidence of reflux. VEIN OF GIACOMINI: None Imaged. PERFORATORS: None Imaged VARICOSITIES: Varicose vein seen arising from the lateral duplicated great saphenous vein at the level of the groin measuring 4.7 mm without significant reflux. There is a varicose vein branch arising from the proximal great saphenous vein in the thigh measuring 3.4 mm without significant reflux. Varicose vein branch is seen off the distal thigh great saphenous vein measuring 2.3 mm with reflux of 3 seconds. There is a varicose vein branch seen in the proximal calf off the great saphenous vein measuring 3.1 mm with reflux measuring greater than 3 seconds 3. DEEP VENOUS ULTRASOUND OF THE LEFT LOWER EXTREMITY: Common Femoral Vein: Compressible, normal respiratory variation and augmented flow. Femoral Vein: Compressible, normal color flow and augmentation. Popliteal Vein: Compressible, normal augmentation. Deep Reflux: There is no evidence of reflux in the deep system in either the common femoral vein or the popliteal vein. There is no evidence of a Duckworth's cyst. 4. SUPERFICIAL ULTRASOUND WITH DOPPLER OF LEFT LOWER EXTREMITY: GREAT SAPHENOUS VEIN: Saphenofemoral Junction: 12.9 mm; No evidence of reflux. Proximal Thigh: 6.2 mm; No evidence of reflux. Mid Thigh: 2.2 mm; No evidence of reflux. Above Knee: 3.2 mm; reflux measuring 2.9 seconds At Knee: 2.3 mm; reflux measuring 2.8 seconds Below Knee: 3.8 mm; No evidence of reflux. Mid Calf: 1.8 mm; No evidence of reflux. Ankle: 2.0 mm; No evidence of reflux. DUPLICATED GREAT SAPHENOUS VEIN: There is a lateral duplicated great saphenous vein measuring 2.8 mm without significant reflux SMALL SAPHENOUS VEIN: Proximal: 1.9 mm; No evidence of reflux. Distal: 2.1 mm; No evidence of reflux. VEIN OF GIACOMINI: None Imaged. PERFORATORS: None Imaged VARICOSITIES: There is a varicose vein branch arising off the great saphenous vein in the proximal thigh measuring 3.4 mm with reflux measuring 2.9 seconds. US/US venous duplex LE BI IMPRESSION: 1. No evidence of deep venous thrombosis 2. Segmental areas of reflux in the bilateral great saphenous veins 3. Bilateral lower extremity varicose veins, right greater than left as described above
== END 2022-04-06 10:03 | disposition home or self-care (01) ==
LOC: HO.US 10:02
PROVIDERS: PCP Internal Medicine; Visit Provider Surgery Vascular Surgery
DX: I83.11 Varicose veins of right lower extremity with inflammation (principal)
CPT/HCPCS: 93970

== ENCOUNTER → 2022-04-13 14:15 | Outpatient (BNVA) | payer MEDICARE, SELFPAY | PROVIDERS: PCP Internal Medicine; Visit Provider Surgery Vascular Surgery | DX: I83.11 Varicose veins of right lower extremity with inflammation (principal); I71.4 Abdominal aortic aneurysm, without rupture | CPT/HCPCS: 99212 ==

== ENCOUNTER 2022-05-03 13:45 | Outpatient (REF) | payer MEDICARE, SELFPAY ==
[2022-05-03 14:55] LABS: Anion Gap 12 (12-20); Blood Urea Nitrogen 27 mg/dL (9-16); Calcium 9.1 mg/dL (8.4-10.2); Carbon Dioxide 25 mmol/L (22-29); Chloride 104 mmol/L (96-108); Estimated Glomerular Filt Rate 51; Glucose Random 96 mg/dL (60-115); Potassium 4.2 mmol/L (3.3-5.1); Sodium 137 mmol/L (135-145)
[2022-05-03 14:59] LABS: B Type Natriuretic Peptide 228 pg/mL (<100)
== END 2022-05-03 13:46 | disposition home or self-care (01) ==
LOC: HO.LAB 13:45
PROVIDERS: PCP Internal Medicine; Visit Provider Internal Medicine Cardiovascular Disease
DX: Z45.018 Encounter for adjustment and management of other part of cardiac pacemaker (principal); I50.30 Unspecified diastolic (congestive) heart failure; I25.10 Atherosclerotic heart disease of native coronary artery without angina pectoris; I48.91 Unspecified atrial fibrillation
CPT/HCPCS: 36415; 80048; 83880; 99212

== ENCOUNTER → 2022-05-05 12:40 | Outpatient (REF) | payer MEDICARE, SELFPAY ==
--- NOTE | 2022-05-05 12:43 | CA_ITS ---
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 The visually estimated ejection fraction is between 45-50%. - The basal inferior and basal inferoseptal segments are akinetic. - There is mildly decreased right ventricular systolic function. - Severe biatrial enlargement. - There is moderate mitral valve regurgitation. - There is severe tricuspid valve regurgitation. - Mild pulmonary hypertension is present. Findings Left Ventricle Normal left ventricular cavity size. The left ventricular systolic function is mildly decreased. The visually estimated ejection fraction is between 45 50%. There is evidence of regional wall motion abnormalities. Diastolic function is indeterminate on the basis of available data. There is mild septal asymmetric hypertrophy. Wall Motion Rest Echo Findings The basal inferior and basal inferoseptal segments are akinetic. Right Ventricle Moderately increased right ventricular cavity size. There is mildly decreased right ventricular systolic function. There is a pacemaker wire seen in the right ventricle. Atria Severe biatrial enlargement. Aortic Valve There is mild calcification of the aortic valve. There is no aortic valve stenosis. There is mild aortic valve regurgitation. Mitral Valve The posterior mitral leaflet has restricted mobility. There is moderate mitral valve regurgitation. The mitral regurgitation jet is a wall impinging jet. There is no mitral valve stenosis. Pulmonic Valve There is trace to mild pulmonic valve regurgitation. Tricuspid Valve There is severe tricuspid valve regurgitation. The right ventricular systolic pressure is 44 mmHg. Mild pulmonary hypertension is present. Great Vessels The asc aorta is normal in size. Small plaque is seen in the sino tubular ridge. Venous The inferior vena cava is dilated and collapses less than 50% with inspiration. Pericardium/Pleural There is no evidence of pericardial effusion. Prior Study Comparison Changes noted compared to prior study dated: 05/06/2021. Pulmonary hypertension improved, but could also be underestimation. Measurements 2D Linear Measurements IVSd: 1.02 0.6-0.9/0.6-1.0 cm LVIDd: 4.98 3.9-5.3/4.2-5.9 cm LVIDd Index: 3.09 2.4-3.2/2.2-3.1 cm/m2 LVIDs: 3.52 2.0-3.6 cm LVPWd: 0.88 0.7-1.1 cm LA Diam: 5.10 2.7-3.8/3.0-4.0 cm LAIDs Index: 3.17 1.5-2.3 cm/m2 LV Mass: 209.95 67-162/88-224 g LV Mass Index: 130.40 43-95/49-115 g/m2 LVOT Diam: 2.30 3.0+(-)1.3 cm 2D Systolic Function EF 4C: 49.50 >55% Mitral Valve MR Vol - PW Dopp: 68.25 MR VTI: 1.75 MR ERO: 39.00 MR Alias Servando: 0.39 MR RAD: 0.90 Aortic Valve AoV Pk Servando: 1.33 AoV Mn Servando: 0.89 AoV VTI: 0.24 AoV Pk Grad: 7.00 Aov Mn Grad: 3.00 SEBASTIAN Cont.VTI: 2.16 AI Pk Servando: 3.37 AI [place]: 1.82 LVOT LVOT Pk Servando: 0.61 LVOT Mn Servando: 0.42 LVOT VTI: 0.13 LVOT Pk Grad: 1.00 LVOT Mn Grad: 1.00 LVOT Diam: 2.30 LVOT Area: 4.15 Right Ventricle TAPSE (mm): 15.50 TVS' Servando: 11.60 Tricuspid Valve TR Pk Servando: 2.71 TR Pk Grad: 29.00 RA Press: 15.00 RVSP: 44.00 Great Vessels Aorta Sinus of Valsalva: 3.30 2.0-3.5 cm Ao Asc: 3.40 2.1-3.4 cm Pulmonary Valve PV Pk Servando: 0.73 Peak PV Grad: 2.00 Updated in Other Vendor System with Status of Final Dario Flowers MD electronically signed on 05/07/2022 11:37:33 AM with status of Final
== END ==
LOC: HO.CARD 12:40
PROVIDERS: Visit Provider Internal Medicine Cardiovascular Disease
DX: I50.30 Unspecified diastolic (congestive) heart failure (principal)
CPT/HCPCS: 93306

== ENCOUNTER 2022-06-14 10:45 | Outpatient (REF) | payer MEDICARE, SELFPAY ==
--- NOTE | ~2022-06-14 | XR_ITS ---
EXAMINATION: XR HIP, RIGHT CLINICAL INFORMATION: Right hip pain. COMPARISON: Right femur radiographs dated 05/06/2020. TECHNIQUE: Two views of the right hip. FINDINGS: Severe right hip joint space narrowing with mild subchondral sclerosis. Marginal osteophytes with femoral neck buttressing. No concerning lytic or blastic osseous lesion. No acute fracture or dislocation. Partially visualized degenerative arthritis at the right sacroiliac joint and symphysis pubis. XR/XR hip RT min 2V IMPRESSION: Severe right hip osteoarthritis, progressed when compared to the prior radiographs.
== END 2022-06-14 10:46 | disposition home or self-care (01) ==
LOC: HO.HMGCX 10:45
PROVIDERS: PCP Internal Medicine; Visit Provider Internal Medicine
DX: M25.551 Pain in right hip (principal); M16.11 Unilateral primary osteoarthritis, right hip
CPT/HCPCS: 73502

== ENCOUNTER 2022-07-05 15:30 | Outpatient (REF) | payer MEDICARE, SELFPAY ==
[2022-07-05 15:45] LABS: MANUAL DIFF FLAG NO
[2022-07-05 15:59] LABS: Eosinophils Absolute Auto 0.1 X10*3/uL (0.0-0.4); Eosinophils Percent Auto 1.3 % (0-4); Hemoglobin 12.1 g/dl (12.0-16.0); Imm Gran Abs Auto 0.01 X10*3/uL (0.00-0.03); Imm Gran Pct Auto 0.2 % (0.0-0.4); Mean Corpuscular Volume 100.5 fL (80.0-98.0); Mean Platelet Volume 10.5 fL (9.4-12.3); PLT CLUMP 1; SCAN SMEAR FLAG 1
[2022-07-05 16:01] LABS: Basophils Percent Auto 0.9 % (0-2); Hematocrit 37.4 % (37.0-47.0); Lymphocytes Percent Auto 20.5 % (20-40); Mean Corpuscular HGB Conc 32.4 g/dl (31.0-35.0); Mean Corpuscular Hemoglobin 32.5 pg (27.0-33.0); Monocytes Absolute Auto 0.5 X10*3/uL (0.1-1.2); Monocytes Percent Auto 9.7 % (2-11); Neutrophils Absolute Auto 3.1 x10*3/uL (2.0-8.3); Neutrophils Percent Auto 67.4 % (45-73); Platelet Count 114 X10*3/uL (160-400); Red Blood Count 3.72 X10*6/uL (4.20-5.50); White Blood Count 4.6 X10*3/uL (4.8-10.8)
[2022-07-05 16:19] LABS: Anion Gap 17 (12-20); Blood Urea Nitrogen 30 mg/dL (9-16); Calcium 8.7 mg/dL (8.4-10.2); Carbon Dioxide 22 mmol/L (22-29); Chloride 104 mmol/L (96-108); Estimated Glomerular Filt Rate 45; Glucose Random 98 mg/dL (60-115); Potassium 4.5 mmol/L (3.3-5.1); Sodium 138 mmol/L (135-145)
[2022-07-05 16:29] LABS: B Type Natriuretic Peptide 234 pg/mL (<100)
== END 2022-07-05 15:31 | disposition home or self-care (01) ==
LOC: HO.LAB 15:30
PROVIDERS: PCP Internal Medicine; Visit Provider Nurse Practitioner Family
DX: I50.9 Heart failure, unspecified (principal); R06.02 Shortness of breath; I48.91 Unspecified atrial fibrillation; I34.0 Nonrheumatic mitral (valve) insufficiency; I07.1 Rheumatic tricuspid insufficiency
CPT/HCPCS: 36415; 80048; 83880; 85025; 99212

== ENCOUNTER 2022-07-10 12:26 | Outpatient (REF) | payer MEDICARE, SELFPAY ==
--- NOTE | ~2022-07-10 | XR_ITS ---
EXAMINATION: XR PELVIS CLINICAL INFORMATION: Hip pain COMPARISON: Radiographs right hip 06/14/2022, CT abdomen and pelvis 05/06/2020. TECHNIQUE: AP view of the pelvis. FINDINGS: No fracture, dislocation, or destructive process. No diastases SI joints or pubis. There are degenerative changes lower lumbar spine with dextrocurvature. Multilevel disc narrowing and bridging osteophytes similar to CT 2019. Again, there are degenerative changes bilateral SI joints and mild osteitis pubis. There are osteoarthritic changes right hip similar to recent films 06/14/2022. Mild osteoarthritis left hip. XR/XR pelvis 1-2V IMPRESSION: -Multilevel degenerative changes lumbosacral spine. Mild osteitis pubis. -Osteoarthritis right hip.
== END 2022-07-10 12:27 | disposition home or self-care (01) ==
LOC: HO.HOSX 12:26
PROVIDERS: Visit Provider Physician Assistant
DX: M25.551 Pain in right hip (principal); M16.11 Unilateral primary osteoarthritis, right hip
CPT/HCPCS: 72170; 99202

== ENCOUNTER 2022-07-13 09:45 | Outpatient (REF) | payer MEDICARE, SELFPAY ==
[2022-07-13 11:23] LABS: Appearance Urine Clear; Color Urine Yellow; Glucose Urine UA Negative (Negative); Leukocyte Esterase Urine Negative (Negative); Nitrite Urine Negative (Negative); PH 6.5 (5.0-9.0); Urine Blood Negative (Negative); Urine Ketones Negative (Negative); Urine Protein Negative (Neg-Trace)
== END 2022-07-13 09:46 | disposition home or self-care (01) ==
LOC: HO.HMGCLDS 09:45
PROVIDERS: PCP Internal Medicine; Visit Provider Internal Medicine
DX: R31.9 Hematuria, unspecified (principal)
CPT/HCPCS: 81003

== ENCOUNTER 2022-08-08 11:40 | Outpatient (REF) | payer MEDICARE, SELFPAY ==
[2022-08-08 13:07] LABS: Anion Gap 17 (12-20); Blood Urea Nitrogen 38 mg/dL (9-16); Calcium 9.1 mg/dL (8.4-10.2); Carbon Dioxide 22 mmol/L (22-29); Chloride 106 mmol/L (96-108); Estimated Glomerular Filt Rate 51; Glucose Random 87 mg/dL (60-115); Potassium 4.6 mmol/L (3.3-5.1); Sodium 140 mmol/L (135-145)
[2022-08-08 13:13] LABS: B Type Natriuretic Peptide 217 pg/mL (<100)
== END 2022-08-08 11:41 | disposition home or self-care (01) ==
LOC: HO.LAB 11:40
PROVIDERS: PCP Internal Medicine; Visit Provider Internal Medicine Cardiovascular Disease
DX: I50.9 Heart failure, unspecified (principal); I48.91 Unspecified atrial fibrillation; I25.10 Atherosclerotic heart disease of native coronary artery without angina pectoris; Z95.0 Presence of cardiac pacemaker
CPT/HCPCS: 36415; 80048; 83880; 99212

== ENCOUNTER 2022-09-07 14:00 | Outpatient (RCR) | payer MEDICARE, SELFPAY ==
--- NOTE | 2022-07-19 15:01 | MHC.PT.EP ---
[facility] [place] Office [place] Office [place] Office [address] Tamika Chowdhury [address] [phone] F: [phone] F: [phone] F: [phone] F: [phone] Physical Therapy Plan of Care Date of Evaluation: Date of Surgery: Diagnosis: OA of R hip Assessment: Patient is an 81 year old L handed female who presents with s/s consistent with R hip OA/pain. She does not work but does like to stay active and is currently enjoying working outside in her garden before winter. Patient past medical history is complex and includes pacemaker, AAA, osteoporosis and CHF in addition to other co-morbidities. Current impairments include pain, posture, ROM, strength, activity tolerance and functional mobility. Functional limitations include decreased ability to walk, transfer, stand, negotiate stairs, sleep, garden and be active. Patient is motivated with good rehab potential. Skilled PT will address impairments and functional limitations in order to achieve goals. Frequency and Duration: The patient will be seen 2x/week for 5 weeks Short Term Goals: I with HEP - 2 weeks R hip ER to 30 - 3 weeks Able to use stepper 10 min without rest - 3 weeks [place] Goals: Hip flexion AROM 110 - 5 weeks LEFS 40/80 - 5 weeks R hip strength 4-/5 - 5 weeks ABle to walk/stand > 30 minutes - 5 weeks Treatment Plan: Modalities to reduce pain, spasms and effusion. Manual therapy to restore motion and function. Therapeutic exercise to improve strength and flexibility. Neuromuscular re-education for posture and balance. Therapeutic activities to return to functional activities of daily living. Electronically signed by: Poli Laurent, PT Please sign and return to therapist. Thank you for your referral.
--- NOTE | 2022-09-19 10:50 | MHC.PT.DC ---
[facility] [place] Office [place] Office [place] Office [address] Tamika Chowdhury [address] [phone] F: [phone] F: [phone] F: [phone] F: [phone] Physical Therapy Discharge Report Diagnosis: OA of R hip Date of Surgery: Date of Evaluation: 07/19/22 Date of Discharge: 09/19/22 Treatments to Date: 14 Cancellations to Date: No Shows to Date: Discharge Status: Improved Function Independent with HEP Discharge Summary: 09/06; Pt challenged with balance exs. Pt bridge is able to perform with less pain and difficulty. Pt transfering I onto and off bed. Pt DC with HEP 09/05; Pt gets relief from exs. Pt has 1 visit remaining before DC. 08/29; Pt I with HEP. Pt has 2 anila appts and DC. 08/23; Pt I with transfer on table supine to prone. Pt quad and psaos tight in prone. 100 knee flexion. 08/22; Pt c/o ant L hip pain with add stretch reduced range and trent[place] well 08/17; Pt reported feeling better after stretches and exs. Pt exs daily at home. 08/15; Pt challenged with foam balance exs. Pt R hip int rot 15 degrees afterpasive stretching. 08/10; Pt amb in with guarded gait, but after RX felt looser. Pt challenged withbalnce activities. Int rot limited with c/o groin pain. 08/08; Pt fatigued after hip strengthening. Pt cont with int rot limitation. Improved strides with gait with sc. 10.25; Pt has pain with int rot and limitation. Pt fatigued after hip strengthening. [place] well. 07/26; Pt amb with walking stick. Pt very limited with rotations and hip ext. Pt tole exs with no c/o increased pain, only stretching. NV add hip abd, ext 07/24/22: pt has been having a lot of pain from flu shot and weather and overall not feeling great. believes she is too old for hip replacement as well. 07/21/22: pt progressed with ROM today. pt requires a good attitude to cut through her pessimistic nature at times. she does participate in what is asked of her so far. Patient is an 81 year old L handed female who presents with s/s consistent with R hip OA/pain. She does not work but does like to stay active and is currently enjoying working outside in her garden before winter. Patient past medical history is complex and includes pacemaker, AAA, osteoporosis and CHF in addition to other co-morbidities. Current impairments include pain, posture, ROM, strength, activity tolerance and functional mobility. Functional limitations include decreased ability to walk, transfer, stand, negotiate stairs, sleep, garden and be active. Patient is motivated with good rehab potential. Skilled PT will address impairments and functional limitations in order to achieve goals. Electronically signed by: Poli Laurent, PT Please sign and return to therapist. Thank you for your referral.
== END 2022-09-19 10:55 | disposition home or self-care (01) ==
LOC: HO.PTCHIC 14:00
PROVIDERS: Visit Provider Physician Assistant
DX: M16.11 Unilateral primary osteoarthritis, right hip (principal)
CPT/HCPCS: 97110; 97112; 97163

== ENCOUNTER → 2022-10-13 10:46 | Outpatient (BNVA) | payer MEDICARE, SELFPAY | PROVIDERS: PCP Internal Medicine; Visit Provider Surgery | DX: Z45.010 Encounter for checking and testing of cardiac pacemaker pulse generator [battery] (principal); Z92.29 Personal history of other drug therapy; Z79.01 Long term (current) use of anticoagulants | CPT/HCPCS: 99202 ==

== ENCOUNTER 2022-10-25 12:30 | Outpatient (REF) | payer MEDICARE, SELFPAY ==
[2022-10-25 12:42] LABS: MANUAL DIFF FLAG NO
[2022-10-25 13:47] LABS: INTERNATIONAL NORM RATIO 1.4 (0.9-1.1); Prothrombin Time 15.8 SEC (10.0-13.1)
[2022-10-25 13:49] LABS: Basophils Percent Auto 0.7 % (0-2); Eosinophils Absolute Auto 0.1 X10*3/uL (0.0-0.4); Hematocrit 39.6 % (37.0-47.0); Hemoglobin 12.6 g/dl (12.0-16.0); Imm Gran Abs Auto 0.01 X10*3/uL (0.00-0.03); Imm Gran Pct Auto 0.2 % (0.0-0.4); Lymphocytes Absolute Auto 1.1 X10*3/uL (1.2-4.9); Lymphocytes Percent Auto 26.8 % (20-40); Mean Corpuscular HGB Conc 31.8 g/dl (31.0-35.0); Mean Corpuscular Hemoglobin 32.3 pg (27.0-33.0); Mean Corpuscular Volume 101.5 fL (80.0-98.0); Mean Platelet Volume 11.3 fL (9.4-12.3); Monocytes Absolute Auto 0.5 X10*3/uL (0.1-1.2); Monocytes Percent Auto 12.8 % (2-11); Neutrophils Absolute Auto 2.3 x10*3/uL (2.0-8.3); Neutrophils Percent Auto 57.5 % (45-73); Platelet Count 102 X10*3/uL (160-400); Red Cell Distribution Width 14.5 % (11.0-16.0); White Blood Count 4.1 X10*3/uL (4.8-10.8)
[2022-10-25 14:37] LABS: Anion Gap 12 (12-20); Blood Urea Nitrogen 34 mg/dL (9-16); Calcium 9.1 mg/dL (8.4-10.2); Carbon Dioxide 26 mmol/L (22-29); Chloride 106 mmol/L (96-108); Estimated Glomerular Filt Rate 40; Glucose Random 90 mg/dL (60-115); Potassium 4.2 mmol/L (3.3-5.1); Sodium 140 mmol/L (135-145)
== END 2022-10-25 12:31 | disposition home or self-care (01) ==
LOC: HO.LAB 12:30
PROVIDERS: PCP Internal Medicine; Visit Provider Nurse Practitioner Family
DX: Z95.0 Presence of cardiac pacemaker (principal)
CPT/HCPCS: 36415; 80048; 85025; 85610

== ENCOUNTER 2022-11-02 06:00 | Day surgery (SDC) | payer MEDICARE, SELFPAY ==
[2022-10-26 13:26] VITALS: BMI 22.6
--- NOTE | 2022-11-01 09:37 | HO.ANESPROP2 ---
Documented by User: Uma Guillen NP 11/01/22 09:42 HPI - Anesthesia Eval Consult details Narrative: 81yo F for Pacemaker Generator Change Eliquis for afib *Multiple Med Allergies* PMFSH Active Problems Active Problems: All Active Problems (Updated 10/13/22 @ 13:26 by Elise Ramirez PA-C) Pacemaker at end of battery life (Acute) Cardiac pacemaker in situ (Acute ~2009) Atrial fibrillation, chronic (Acute ~2009) History of penitentiary anticoagulant use (Acute ~2009) CAD (coronary artery disease) (Acute) CHF (congestive heart failure) (Acute) AAA (abdominal aortic aneurysm) (Acute) Hypertension, essential (Acute) Mitral regurgitation (Acute) Tricuspid regurgitation (Acute) PVD (peripheral vascular disease) (Acute) Varicose veins of right lower extremity with inflammation (Acute) Shortness of breath (Acute) Edema (Acute) Osteoporosis (Acute ~2020) Tubular adenoma of colon (Acute ~2000) Major depression, recurrent (Acute) Anxiety, generalized (Acute) Difficulty sleeping (Acute) Leg cramps (Acute) Primary osteoarthritis of right hip (Acute) Blood in urine (Acute) Ex-smoker (Acute) Hearing impaired (Acute) Diverticulosis (Acute) Lactose intolerance (Acute) Abnormal ultrasound of lower extremity (Acute) Fall (Acute) Superficial bruising of abdominal wall (Acute) Traumatic ecchymosis of left lower leg (Acute) Traumatic ecchymosis of left shoulder (Acute) Traumatic hematoma of head (Acute) Hip pain, right (Acute) Past Medical History Medical History AAA (abdominal aortic aneurysm) Atrial fibrillation, chronic (~2009) Blood in urine CAD (coronary artery disease) Cardiac pacemaker in situ (~2009) Diverticulosis Ex-smoker Hearing impaired History of cardiac arrest (~2009) 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 (~2009) History of right breast cancer (~1992) Hypertension, essential Lactose intolerance Mitral regurgitation Osteoporosis (~2020) Tricuspid regurgitation Tubular adenoma of colon (~2000) Family History Family History Father CVD (cardiovascular disease) Mother CVD (cardiovascular disease) Myocardial infarction Maternal Grandmother Unknown family medical history Maternal Grandfather No problems noted. Paternal Grandfather CVD (cardiovascular disease) Paternal Grandmother No problems noted. Child No Financial Resp No problems noted. Surgical History Surgical History History of cardiac cath History of cardioversion History of colonoscopy History of eye surgery History of hand surgery History of heart artery stent History of lumpectomy History of pacemaker Social History Social History Housing: House Are you a primary manager progressive care to a significant other at home: No Do you presently have visiting nurse or other home services: No Alcohol intake: current Alcohol intake frequency: a few times a month Alcohol type: hard liquor Patient Tobacco Use Status: Former Tobacco user Quit Date: age 59 Tobacco use type: Cigarette Years Smoked: 40 e-Cigarette/Vaping Use: Never Used Use of substances other than those prescribed or required for medical reasons: No Have you been hit, kicked, punched, or otherwise hurt by someone within the past year? If so, by whom?: No Are you DNR?: Yes Advance Directives Information Provided: Yes (has MOLST FORM) Advance Directives on File: Yes Advance Directives Date on File: 10/29/17 Recently lost weight without trying: No Eating poorly because of decreased appetite: No Nutrition Risks: Surgical patient >75years Poor oral hygiene: No Current occupational status: retired Cognitive needs: No Hearing needs: Yes (deaf in right ear, left ear has a hearing aid) Vision needs: Yes Meds Allergies Allergy/AdvReac Type Severity Reaction Status Date / Time ibuprofen [IBUPROFEN] Allergy Severe THROAT LUMP Verified 10/13/22 11:26 olmesartan [From BENICAR] Allergy Severe WHEEZING Verified 10/13/22 11:26 Gadolinium-Containing Allergy Mild HIVES Verified 10/13/22 11:26 Contrast Medi [Gadolinium-Containing Agents] Iodinated Contrast Media Allergy Mild RASH Verified 10/13/22 11:26 [IV Dye, Iodine Containing] oneil Allergy Mild RASH Verified 10/13/22 11:26 Sulfa (Sulfonamide Allergy Mild RASH Verified 10/13/22 11:26 Antibiotics) amiodarone [AMIODARONE] Allergy Unknown THYROID Verified 10/13/22 11:26 TOXICOSIS amlodipine [From NORVASC] Allergy Unknown WHEEZING Verified 10/13/22 11:26 aspirin [ASPIRIN] Allergy Unknown THROAT Verified 10/13/22 11:26 LUMP HEAVY WHEEZING, wheezing, wheezing azithromycin [From ZITHROMAX] Allergy Unknown NAUSEA/VOMITING, Verified 10/13/22 11:26 nausea and vomiting bee pollen [Bee Stings] Allergy Unknown EDEMA, ALL Verified 10/13/22 11:26 INSECT STINGS capsaicin [CAPSAICIN] Allergy Unknown RASH Verified 10/13/22 11:26 clopidogrel [From PLAVIX] Allergy Unknown THROAT Verified 10/13/22 11:26 LUMP HEAVY WHEEZING diltiazem [Cardizem] Allergy Unknown rash Verified 10/13/22 11:26 methimazole [METHIMAZOLE] Allergy Unknown RASH Verified 10/13/22 11:26 sulfamethoxazole Allergy Unknown RASH Verified 10/13/22 11:26 [From BACTRIM] trimethoprim [From BACTRIM] Allergy Unknown RASH Verified 10/13/22 11:26 escitalopram [From Lexapro] Allergy Wheezing Verified 10/13/22 11:26 clarithromycin [From Biaxin] AdvReac Mild N/V Verified 10/13/22 11:26 codeine [Codeine] AdvReac Mild N/V Verified 10/13/22 11:26 levofloxacin [From Levaquin] AdvReac Mild N/V Verified 10/13/22 11:26 Dye JAIL Blue 1 Allergy Unknown rash Uncoded 10/13/22 11:26 Home Medications Medication Instructions Recorded Confirmed Last Taken Type furosemide 40 mg tablet 20 mg PO QAM for edema 08/08/22 10/26/22 Unknown History Exam Exam Date and Time: November 01, 2022 0937 Height,Weight and Vital Signs: Height 5 ft 3 in Weight 58.06 kg Pertinent Lab Results Pertinent Lab Results: Laboratory Tests 10/25/22 10/25/22 12:42 12:42 WBC 4.1 L Hgb 12.6 Hct 39.6 Plt Count 102 L Sodium 140 Potassium 4.2 Chloride 106 Carbon Dioxide 26 BUN 34 H Creatinine 1.27 Narrative Narrative: Cardiac Device Check 08/2022 Details: Single-chamber Medtronic pacemaker in place.? Programmed in VVI at 50 beats per minute.? Ventricular pacing 15.6% of the time.? Ventricular pacing thresholds adequate.? Ventricular sensitivity is adequate.? Pacing lead impedance is stable.? Battery life is at about 5 months EKG 02/2022 Vent. Rate : 079 BPM ? ? Atrial Rate : 082 BPM ?? P-R Int : 000 ms? QRS Dur : 104 ms ? ? QT Int : 378 ms ? ? ? P-R-T Axes : 000 -30 014 degrees ?? QTc Int : 433 ms ? Atrial fibrillation Left axis deviation Minimal voltage criteria for LVH, may be normal variant ( Saleem product ) Possible Anterior infarct , age undetermined Abnormal ECG When compared with ECG of 23-MAR-2020 12:46, No significant changes seen ECHO 04/2022 Conclusions: - The left ventricular systolic function is mildly decreased.? ? The visually estimated ejection fraction is between 45-50%.? ? ? - The basal inferior and basal inferoseptal segments are ? akinetic.? - There is mildly decreased right ventricular systolic function. - Severe biatrial enlargement. ? - There is moderate mitral valve regurgitation.? - There is severe tricuspid valve regurgitation. ? - Mild pulmonary hypertension is present.? ? ? Assessment and Plan Assessment Anesthesia Assessment: Chart Reviewed Documented by User: Avtar Carney MD 11/02/22 08:23 [facility] Past Medical History Medical History AAA (abdominal aortic aneurysm) Atrial fibrillation, chronic (~2009) Blood in urine CAD (coronary artery disease) Cardiac pacemaker in situ (~2009) Diverticulosis Ex-smoker Hearing impaired History of cardiac arrest (~2009) History of penitentiary anticoagulant use (~2009) History of right breast cancer (~1992) Hypertension, essential Lactose intolerance Mitral regurgitation Osteoporosis (~2020) Tricuspid regurgitation Tubular adenoma of colon (~2000) Family History Family History Father CVD (cardiovascular disease) Mother CVD (cardiovascular disease) Myocardial infarction Maternal Grandmother Unknown family medical history Maternal Grandfather No problems noted. Paternal Grandfather CVD (cardiovascular disease) Paternal Grandmother No problems noted. Child No Financial Resp No problems noted. Family history of problems with anesthesia: No Surgical History Surgical History History of cardiac cath History of cardioversion History of colonoscopy History of eye surgery History of hand surgery History of heart artery stent History of lumpectomy History of pacemaker History of Problems with Anesthesia: No Social History Social History Housing: House Are you a primary manager progressive care to a significant other at home: No Do you presently have visiting nurse or other home services: No Alcohol intake: current Alcohol intake frequency: a few times a month Alcohol type: hard liquor Patient Tobacco Use Status: Former Tobacco user Quit Date: age 59 Tobacco use type: Cigarette Years Smoked: 40 e-Cigarette/Vaping Use: Never Used Use of substances other than those prescribed or required for medical reasons: No Have you been hit, kicked, punched, or otherwise hurt by someone within the past year? If so, by whom?: No Are you DNR?: Yes Advance Directives Information Provided: Yes (has MOLST FORM) Advance Directives on File: Yes Advance Directives Date on File: 10/29/17 Recently lost weight without trying: No Eating poorly because of decreased appetite: No Nutrition Risks: Surgical patient >75years Poor oral hygiene: No Current occupational status: retired Cognitive needs: No Hearing needs: Yes (deaf in right ear, left ear has a hearing aid) Vision needs: Yes Meds Allergies Allergy/AdvReac Type Severity Reaction Status Date / Time ibuprofen [IBUPROFEN] Allergy Severe THROAT LUMP Verified 10/13/22 11:26 olmesartan [From BENICAR] Allergy Severe WHEEZING Verified 10/13/22 11:26 Gadolinium-Containing Allergy Mild HIVES Verified 10/13/22 11:26 Contrast Medi [Gadolinium-Containing Agents] Iodinated Contrast Media Allergy Mild RASH Verified 10/13/22 11:26 [IV Dye, Iodine Containing] oneil Allergy Mild RASH Verified 10/13/22 11:26 Sulfa (Sulfonamide Allergy Mild RASH Verified 10/13/22 11:26 Antibiotics) amiodarone [AMIODARONE] Allergy Unknown THYROID Verified 10/13/22 11:26 TOXICOSIS amlodipine [From NORVASC] Allergy Unknown WHEEZING Verified 10/13/22 11:26 aspirin [ASPIRIN] Allergy Unknown THROAT Verified 10/13/22 11:26 LUMP HEAVY WHEEZING, wheezing, wheezing azithromycin [From ZITHROMAX] Allergy Unknown NAUSEA/VOMITING, Verified 10/13/22 11:26 nausea and vomiting bee pollen [Bee Stings] Allergy Unknown EDEMA, ALL Verified 10/13/22 11:26 INSECT STINGS capsaicin [CAPSAICIN] Allergy Unknown RASH Verified 10/13/22 11:26 clopidogrel [From PLAVIX] Allergy Unknown THROAT Verified 10/13/22 11:26 LUMP HEAVY WHEEZING diltiazem [Cardizem] Allergy Unknown rash Verified 10/13/22 11:26 methimazole [METHIMAZOLE] Allergy Unknown RASH Verified 10/13/22 11:26 sulfamethoxazole Allergy Unknown RASH Verified 10/13/22 11:26 [From BACTRIM] trimethoprim [From BACTRIM] Allergy Unknown RASH Verified 10/13/22 11:26 escitalopram [From Lexapro] Allergy Wheezing Verified 10/13/22 11:26 clarithromycin [From Biaxin] AdvReac Mild N/V Verified 10/13/22 11:26 codeine [Codeine] AdvReac Mild N/V Verified 10/13/22 11:26 levofloxacin [From Levaquin] AdvReac Mild N/V Verified 10/13/22 11:26 Dye JAIL Blue 1 Allergy Unknown rash Uncoded 10/13/22 11:26 Home Medications Medication Instructions Recorded Confirmed Last Taken Type furosemide 40 mg tablet 20 mg PO QAM for edema 08/08/22 10/26/22 Unknown History Exam Airway Mallampati Class: II TM Dist: >3cm Neck ROM: Limited Loose/Missing/Broken Teeth: No Heart: irreg Lungs: cta Assessment and Plan Final Anesthetic Review Family History of Problems with Anesthesia: No History of Problems with Anesthesia: No NPO: Yes ASA Class: III Final Preanesthetic Review: No Changes in Pt Med Stat, Meds/Allgs Chart Reviewed, Consent Obtained/Reviewed, Anes Risks/Benef Reviewed and DNR Form (If Appl.) Patient Risk: Intermediate Procedure Risk: Low Anesthetic Plan Anesthetic Plan: Agree w/ Assess. and Plan Disposition: Standard PACU
[2022-11-02] MEDS: Lactated Ringers 1,000 ML 50 ML IVCONT (06:28)
[2022-11-02 06:49] VITALS: BP 121/64; PULSE 75; RESP 18; TEMP 36.6; O2SAT 98
--- NOTE | 2022-11-02 07:32 | PC.NURSE ---
Dr. Carney aware that patient states that bilateral lower leg edema is her baseline - 1-2+. He is also aware that patient stated that she is not sleeping well at night x many months due to feeling as if she has trouble breathing. States seeing Dr. Bing blake. LILIYA. Dr. Carney aware.
--- NOTE | 2022-11-02 07:44 | PC.NURSE ---
written order for procedure in chart from dr. yanez. [facility] unavailable to him.
--- NOTE | 2022-11-02 08:49 | P.OP_ITS ---
Operative Note Operative Note Date of Service: 11/02/22 Narrative: Preoperative diagnosis: Pacemaker end of life Postoperative diagnosis: Same Operation: Dual-chamber pacemaker generator change Surgeon: Benjie Barlow MD Anesthesia: Local with sedation Specimens: None EBL: Minimal Operative findings: The generator were removed was a Medtronic with serial number [id number]. the pacemaker implanted was a Medtronic serial number [id number]. Pacemaker lead parameters were in the atrial lead P waves probably AFib or flutter 0.5 mV and impedance of 380 Ohms. In the ventricular lead R- wave 10.5 mV with an impedance of 399 Ohms and a threshold of 1 volt at 0.4 milliseconds stable when compared to prior interrogation. Patient tolerated the procedure well. Operation in detail: The patient was brought the operating room, placed supine on the operative table, anesthesia monitoring devices were placed, and the patient was gently sedated. The left infraclavicular area was then prepped and draped in a standard sterile fashion and a time-out was performed confirming the correct patient, site, and procedure. After injection of local anesthetic, a 3 cm incision was made directly over the old pacemaker generator which was palpable. This was carried down with combin ation of sharp dissection and minimal electrocautery to open up the capsule at the generator was within. The generator was were then removed from its pocket and the leads were taken out of the receptacles and placed directly into the new generator. These leads were then tested and were working appropriately. The pocket was then copiously irrigated with antibiotic solution and the excess wire and generator were then placed back into the pocket. The wound was then closed with a deep running 3-0 Vicryl suture followed by running 3-0 Vicryl suture and Dermabond glue on the skin. Patient tolerated the procedure well. Patient was then awoken from anesthesia and brought to the recovery room in stable condition.
[2022-11-02 08:52] VITALS: BP 102/53; PULSE 65; RESP 16; TEMP 37.2; O2SAT 94
[2022-11-02 09:07] VITALS: BP 101/52; PULSE 60; RESP 16; TEMP 37.1; O2SAT 95
== END 2022-11-02 09:41 | disposition home or self-care (01) ==
PROVIDERS: PCP Internal Medicine; Visit Provider Surgery
PROC: (CPT 33228; principal; 2022-11-02 07:30)
DX: Z45.018 Encounter for adjustment and management of other part of cardiac pacemaker (principal); I48.20 Chronic atrial fibrillation, unspecified; I71.40 Abdominal aortic aneurysm, without rupture, unspecified; I07.1 Rheumatic tricuspid insufficiency; I25.10 Atherosclerotic heart disease of native coronary artery without angina pectoris; Z98.61 Coronary angioplasty status; I10 Essential (primary) hypertension; M81.0 Age-related osteoporosis without current pathological fracture; I34.0 Nonrheumatic mitral (valve) insufficiency; Z79.01 Long term (current) use of anticoagulants; Z79.899 Other long term (current) drug therapy; Z88.1 Allergy status to other antibiotic agents; Z88.2 Allergy status to sulfonamides; Z88.8 Allergy status to other drugs, medicaments and biological substances; Z91.041 Radiographic dye allergy status; Z87.891 Personal history of nicotine dependence
CPT/HCPCS: 33228; C1785; J0690; J3010; J3370

== ENCOUNTER 2022-11-08 10:59 | Outpatient (REF) | payer MEDICARE, SELFPAY ==
[2022-11-08 13:39] LABS: Anion Gap 13 (12-20); Blood Urea Nitrogen 48 mg/dL (9-16); Calcium 9.2 mg/dL (8.4-10.2); Carbon Dioxide 26 mmol/L (22-29); Chloride 106 mmol/L (96-108); Estimated Glomerular Filt Rate 40; Glucose Random 87 mg/dL (60-115); Magnesium 2.2 mg/dL (1.6-2.6); Potassium 4.6 mmol/L (3.3-5.1); Sodium 140 mmol/L (135-145)
[2022-11-08 13:41] LABS: B Type Natriuretic Peptide 821 pg/mL (<100)
== END 2022-11-08 11:00 | disposition home or self-care (01) ==
LOC: HO.LAB 10:59
PROVIDERS: PCP Internal Medicine; Referring Provider Internal Medicine; Visit Provider Internal Medicine Cardiovascular Disease
DX: I50.30 Unspecified diastolic (congestive) heart failure (principal); I48.20 Chronic atrial fibrillation, unspecified; I25.10 Atherosclerotic heart disease of native coronary artery without angina pectoris; Z79.899 Other long term (current) drug therapy; Z95.0 Presence of cardiac pacemaker
CPT/HCPCS: 36415; 80048; 83735; 83880; 99212

== ENCOUNTER → 2022-11-17 09:30 | Outpatient (BNVA) | payer MEDICARE, SELFPAY | PROVIDERS: PCP Internal Medicine; Visit Provider Surgery | DX: Z13.89 Encounter for screening for other disorder (principal) ==

== ENCOUNTER 2022-12-21 13:06 | Outpatient (REF) | payer MEDICARE, SELFPAY ==
[2022-12-21 15:43] LABS: B Type Natriuretic Peptide 1271 pg/mL (<100)
[2022-12-21 15:44] LABS: Anion Gap 19 (12-20); Blood Urea Nitrogen 48 mg/dL (9-16); Calcium 9.5 mg/dL (8.4-10.2); Carbon Dioxide 22 mmol/L (22-29); Chloride 105 mmol/L (96-108); Estimated Glomerular Filt Rate 31; Glucose Random 97 mg/dL (60-115); Magnesium 2.5 mg/dL (1.6-2.6); Potassium 4.4 mmol/L (3.3-5.1); Sodium 142 mmol/L (135-145)
== END 2022-12-21 13:07 | disposition home or self-care (01) ==
LOC: HO.LAB 13:06
PROVIDERS: PCP Internal Medicine; Referring Provider Internal Medicine; Visit Provider Internal Medicine Cardiovascular Disease
DX: I50.30 Unspecified diastolic (congestive) heart failure (principal)
CPT/HCPCS: 36415; 80048; 83735; 83880; 99212

== ENCOUNTER 2022-12-28 11:02 | Outpatient (REF) | payer MEDICARE, SELFPAY ==
[2022-12-28 12:58] LABS: B Type Natriuretic Peptide 533 pg/mL (<100)
[2022-12-28 12:59] LABS: Anion Gap 13 (12-20); Blood Urea Nitrogen 46 mg/dL (9-16); Calcium 8.7 mg/dL (8.4-10.2); Carbon Dioxide 25 mmol/L (22-29); Chloride 104 mmol/L (96-108); Estimated Glomerular Filt Rate 33; Glucose Random 131 mg/dL (60-115); Magnesium 2.6 mg/dL (1.6-2.6); Potassium 4.4 mmol/L (3.3-5.1); Sodium 138 mmol/L (135-145)
== END 2022-12-28 11:03 | disposition home or self-care (01) ==
LOC: HO.LAB 11:02
PROVIDERS: Visit Provider Internal Medicine Cardiovascular Disease
DX: I48.20 Chronic atrial fibrillation, unspecified (principal); I73.9 Peripheral vascular disease, unspecified; I10 Essential (primary) hypertension
CPT/HCPCS: 36415; 80048; 83735; 83880

== ENCOUNTER → 2023-02-05 14:06 | Outpatient (BNVA) | payer MEDICARE, SELFPAY | PROVIDERS: PCP Internal Medicine; Referring Provider Internal Medicine; Visit Provider Internal Medicine Cardiovascular Disease | DX: I50.9 Heart failure, unspecified (principal); I25.10 Atherosclerotic heart disease of native coronary artery without angina pectoris; I10 Essential (primary) hypertension; I48.20 Chronic atrial fibrillation, unspecified; R53.83 Other fatigue; R63.5 Abnormal weight gain; R60.0 Localized edema; Z98.890 Other specified postprocedural states; Z95.5 Presence of coronary angioplasty implant and graft; Z95.0 Presence of cardiac pacemaker | CPT/HCPCS: 99212 ==

== ENCOUNTER 2023-02-14 09:09 | Outpatient (REF) | payer MEDICARE, SELFPAY ==
[2023-02-14 11:08] LABS: B Type Natriuretic Peptide 841 pg/mL (<100)
[2023-02-14 11:14] LABS: Anion Gap 13 (12-20); Blood Urea Nitrogen 42 mg/dL (9-16); Calcium 9.1 mg/dL (8.4-10.2); Carbon Dioxide 28 mmol/L (22-29); Chloride 104 mmol/L (96-108); Estimated Glomerular Filt Rate 34; Glucose Random 93 mg/dL (60-115); Potassium 3.8 mmol/L (3.3-5.1); Sodium 141 mmol/L (135-145)
== END 2023-02-14 09:10 | disposition home or self-care (01) ==
LOC: HO.LAB 09:09
PROVIDERS: PCP Internal Medicine; Visit Provider Internal Medicine Cardiovascular Disease
DX: I50.9 Heart failure, unspecified (principal)
CPT/HCPCS: 36415; 80048; 83880

== ENCOUNTER → 2023-03-15 11:20 | Outpatient (BNVA) | payer MEDICARE, SELFPAY | PROVIDERS: PCP Internal Medicine; Referring Provider Internal Medicine; Visit Provider Internal Medicine Cardiovascular Disease | DX: Z45.018 Encounter for adjustment and management of other part of cardiac pacemaker (principal); I50.9 Heart failure, unspecified; I25.10 Atherosclerotic heart disease of native coronary artery without angina pectoris; I48.20 Chronic atrial fibrillation, unspecified | CPT/HCPCS: 99212 ==

== ENCOUNTER 2023-03-19 08:58 | Outpatient (REF) | payer MEDICARE, SELFPAY ==
[2023-03-19 11:43] LABS: B Type Natriuretic Peptide 413 pg/mL (<100)
[2023-03-19 11:56] LABS: Anion Gap 16 (12-20); Blood Urea Nitrogen 42 mg/dL (9-16); Calcium 9.1 mg/dL (8.4-10.2); Carbon Dioxide 27 mmol/L (22-29); Chloride 101 mmol/L (96-108); Estimated Glomerular Filt Rate 37; Glucose Random 137 mg/dL (60-115); Magnesium 2.4 mg/dL (1.6-2.6); Potassium 3.6 mmol/L (3.3-5.1); Sodium 140 mmol/L (135-145)
== END 2023-03-19 08:59 | disposition home or self-care (01) ==
LOC: HO.LAB 08:58
PROVIDERS: PCP Internal Medicine; Visit Provider Internal Medicine Cardiovascular Disease
DX: I50.30 Unspecified diastolic (congestive) heart failure (principal)
CPT/HCPCS: 36415; 80048; 83735; 83880

== ENCOUNTER 2023-03-23 11:27 | Emergency (ER) | payer MEDICARE, SELFPAY ==
[2023-03-23 11:36] VITALS: BP 126/72; PULSE 89; RESP 20; TEMP 36.8; O2SAT 98; BMI 19.9
--- NOTE | 2023-03-23 11:37 | ED.GENADULT ---
HPI - General Adult General Chief complaint: Epistaxis Stated complaint: NOSE BLEED Time Seen by Provider: 03/23/23 11:36 Source: patient and EMS Mode of arrival: EMS Limitations: no limitations History of Present Illness HPI narrative: Patient is a 82 year old assigned female at with a history of chronic a-fib not on anticoagulation medications, PVD, and CHF presenting to the emergency department today with a nose bleed. Patient states that she has had a right sided nose bleed for a few hours today and this is the third time over the last month that her right nostril has begun bleeding. Patient denies any dizziness, lightheadedness, abdominal pain, nausea, vomiting, fever, chills, blurry vision, double vision, loss of vision, chest pain, difficulty breathing, shortness of breath, back pain, night sweats, pain with urination, increased urinary frequency, increased urinary urgency, blood in her urine or stool, syncope or a near syncopal episode, recent trauma or falls, bowel incontinence, bladder incontinence, bowel retention, bladder retention, or any other complaints at this time. Onset (ago): hour(s) Severity: mild Severity scale (1-10): 3 Relieving factors: none Exacerbating factors: none Associated symptoms: denies other symptoms Treatments prior to arrival: none Related Data Previous Rx's Medication Instructions Recorded bumetanide 2 mg tablet 2 mg PO DAILY #30 tabs 02/05/23 metolazone 2.5 mg tablet 2.5 mg PO Q OTHER DAY #20 tabs 03/15/23 potassium chloride 20 mEq oral 20 meq PO BID 30 days #60 ea 03/15/23 packet Allergies Allergy/AdvReac Type Severity Reaction Status Date / Time ibuprofen [IBUPROFEN] Allergy Severe THROAT LUMP Verified 02/05/23 14:14 olmesartan [From BENICAR] Allergy Severe WHEEZING Verified 02/05/23 14:14 Gadolinium-Containing Allergy Mild HIVES Verified 02/05/23 14:14 Contrast Medi [Gadolinium-Containing Agents] Iodinated Contrast Media Allergy Mild RASH Verified 02/05/23 14:14 [IV Dye, Iodine Containing] oneil Allergy Mild RASH Verified 02/05/23 14:14 Sulfa (Sulfonamide Allergy Mild RASH Verified 02/05/23 14:14 Antibiotics) amiodarone [AMIODARONE] Allergy Unknown THYROID Verified 02/05/23 14:14 TOXICOSIS amlodipine [From NORVASC] Allergy Unknown WHEEZING Verified 02/05/23 14:14 aspirin [ASPIRIN] Allergy Unknown THROAT Verified 02/05/23 14:14 LUMP HEAVY WHEEZING, wheezing, wheezing azithromycin [From ZITHROMAX] Allergy Unknown NAUSEA/VOMITING, Verified 02/05/23 14:14 nausea and vomiting bee pollen [Bee Stings] Allergy Unknown EDEMA, ALL Verified 02/05/23 14:14 INSECT STINGS capsaicin [CAPSAICIN] Allergy Unknown RASH Verified 02/05/23 14:14 clopidogrel [From PLAVIX] Allergy Unknown THROAT Verified 02/05/23 14:14 LUMP HEAVY WHEEZING diltiazem [Cardizem] Allergy Unknown rash Verified 02/05/23 14:14 methimazole [METHIMAZOLE] Allergy Unknown RASH Verified 02/05/23 14:14 sulfamethoxazole Allergy Unknown RASH Verified 02/05/23 14:14 [From BACTRIM] trimethoprim [From BACTRIM] Allergy Unknown RASH Verified 02/05/23 14:14 escitalopram [From Lexapro] Allergy Wheezing Verified 02/05/23 14:14 clarithromycin [From Biaxin] AdvReac Mild N/V Verified 02/05/23 14:14 codeine [Codeine] AdvReac Mild N/V Verified 02/05/23 14:14 levofloxacin [From Levaquin] AdvReac Mild N/V Verified 02/05/23 14:14 Dye HALF-WAY Blue 1 Allergy Unknown rash Uncoded 10/13/22 11:26 Review of Systems Constitutional: Constitutional: Reports no additional constitutional complaints, Denies chills, Denies fever(s) and Denies night sweats Eyes: Eyes: Reports no additional eye complaints, Denies blurry vision, Denies change in vision, Denies diplopia, Denies eye discharge, Denies loss of vision and Denies eye pain ENT: Denies dizziness and Reports epistaxis Cardiovascular: Cardiovascular: Reports no additional cardiovascular complaints, Denies chest pain, Denies lightheadedness, Denies Loss of Consciousness and Denies dyspnea Respiratory: Respiratory: Reports no additional respiratory complaints and Denies dyspnea Gastrointestinal: Gastrointestinal: Reports no additional gastrointestinal complaints, Denies abdominal pain, Denies melena, Denies hematochezia, Denies change in bowel habits and Denies change in stool character Genitourinary: Genitourinary: Denies hematuria, Denies urinary frequency, Denies dysuria, Denies urinary incontinence, Denies urinary hesitancy and Denies urinary urgency Musculoskeletal: Musculoskeletal: Reports no additional musculoskeletal complaints, Denies numbness and Denies tingling Neurologic: Denies dizziness, Denies loss of vision, Denies numbness and Denies tingling Psychiatric: Psychiatric: Reports no additional psychiatric complaints Endocrine: Endocrine: Reports no additional endocrine complaints Hematologic/Lymphatic: Hematologic/Lymphatic: Reports no additional hematologic/lymphatic complaints Allergic/Immunologic: Allergic/Immunologic: Reports no additional allergic/immunologic complaints [facility] Past Medical History Attestation statement: The following information was validated with the patient. 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) History of right breast cancer (~1992) Hypertension, essential Lactose intolerance Mitral regurgitation Osteoporosis (~2020) Pacemaker at end of battery life Tricuspid regurgitation Tubular adenoma of colon (~2000) Surgical History History of cardiac cath History of cardioversion History of colonoscopy History of eye surgery History of hand surgery History of heart artery stent History of lumpectomy History of pacemaker Family History Family History Father CVD (cardiovascular disease) Mother CVD (cardiovascular disease) Myocardial infarction Maternal Grandmother Unknown family medical history Maternal Grandfather No problems noted. Paternal Grandfather CVD (cardiovascular disease) Paternal Grandmother No problems noted. Child No Financial Resp No problems noted. Social History Social History Housing: House Are you a primary health care / medical job titles to a significant other at home: No Do you presently have visiting nurse or other home services: No Alcohol intake: current Alcohol intake frequency: a few times a month Alcohol type: hard liquor Patient Tobacco Use Status: Former Tobacco user Quit Date: age 59 Tobacco use type: Cigarette Years Smoked: 40 e-Cigarette/Vaping Use: Never Used Advance Directives: Yes Advance Directives on File: Yes Advance Directives Date on File: 10/29/17 Current occupational status: retired Cognitive needs: No Hearing needs: Yes (deaf in right ear, left ear has a hearing aid) Vision needs: Yes Physical Exam ED Vital Signs: Vital Signs - 24 hr 03/23/23 11:36 Temperature 98.3 F Pulse Rate 89 Respiratory Rate 20 Blood Pressure 126/72 Pulse Oximetry 98 Oxygen Delivery Method Room Air BMI result Body Mass Index 19.9 Const General: cooperative, no acute distress, alert and awake Nutritional Appearance: well nourished Orientation/consciousness: patient oriented x3 Limitations: no limitations HENMT Head: Yes normal to inspection and Yes atraumatic Ears: hearing grossly normal bilaterally and external ears normal General nose exam: Normal external nose present, no nasal discharge noted and Epistaxis present on the right anterior source, active bleeding and clots present Face and sinus: Yes normal facial exam, No abrasion and No laceration Mouth: Normal oral and palatal mucosa present, no drooling and no muffled voice Eyes General: appearance normal, both eyes and all related structures Periorbital: periorbital findings normal Eyelids: Yes eyelids normal Conjunctivae: conjunctivae normal Pupils: Equal, round and reactive pupils present EOM: EOMs intact bilaterally Neck Neck: Yes normal visual inspection, Yes full ROM and Yes no lymphadenopathy Chest Chest palpation & inspection: normal inspection of the chest Resp Effort & Inspection: normal respiratory effort and able to speak in complete sentences GI Inspection: Yes normal to inspection Neuro General: patient oriented x3 and moves all extremities Cranial nerves: Yes Equal, round and reactive pupils present Cognition (Neuro): normal cognition Motor exam (neuro): 5/5 motor strength present throughout Sensory Exam: Normal double simultaneous stimulation for sensation Coordination: [id number] test normal Extrem General: Yes normal to inspection, Yes full ROM and Yes capillary refill normal Psych Appearance: grossly normal Mental Status: mental status grossly normal Affect: normal affect Attitude: cooperative Thought process: Normal thought process present Thought content: Normal thought content present Insight: Good insight present (Psych) Medications Administered Discontinued Medications Generic Name Dose Route Start Last Admin Trade Name Freq PRN Reason Stop Dose Admin Cocaine HCl 4 ml 03/23/23 11:43 03/23/23 11:49 Cocaine Hcl 4 % 4 Ml Solution TOPICAL 03/23/23 11:44 4 ml ONCE ONE Administration Protocol Oxymetazoline HCl 2 spray 03/23/23 11:43 03/23/23 11:49 Oxymetazoline Hcl 0.05 % Nasal 15 Ml [place] NOSTRIL-B 03/23/23 11:44 2 spray ONCE ONE Administration Tranexamic Acid 500 mg 03/23/23 11:43 03/23/23 11:49 Tranexamic Acid 1,000 Mg/10 Ml Vial INTRANASAL 03/23/23 11:44 500 mg ONCE ONE Administration Procedures Epistaxis Control Time Out Performed: Yes Nostril: Yes right Nose prepped with: Yes cocaine 4% Direct inspection: Yes anterior source identified Direct inspection method: Yes otoscope Clots removed by: Yes suction Epistaxis treatment: Yes nasal tampon Results of treatment: Yes bleeding controlled and Yes treatment well tolerated Complications: Yes none Medical Decision Making Medical Decision Making MDM Narrative: Patient is an 82 year old assigned female at with a history of a-fib not on anticoagulant medications, CHF, and PVD presenting to the emergency department today with a nose bleed. Patient's physical exam was as noted in the physical exam portion of this chart. Patient's nose was temporarily packed with a rhino-rocket and re-examined after 30 minutes. Patient's bleeding stopped upon re-eval, packing was removed, and patient continued to have bleeding controlled. I explained my physical exam findings to the patient and the patient's daughter. I answered all questions asked by the patient and the patient's daughter. I stressed the importance of the patient taking her medication as prescribed. I stressed the importance of the patient following up with her primary care provider and an ENT. I stressed the importance of the patient returning to the emergency department immediately if her symptoms were to worsen or if she were to develop any dizziness, shortness of breath, difficulty breathing, chest pain, blurry vision, loss of vision, nausea, vomiting, abdominal pain, fever, chills, back pain, or any other complaints. Patient and the patient's daughter verbalized agreement and understanding with this treatment plan and discharge. Differential Diagnosis Differential Diagnoses: The differential diagnosis associated with the presentation includes epistaxis Admission/Observation Consideration of admission/observation: Escalation of care including admission/observation considered Had the bleeding been unable to be controlled, patient would have been transferred to a facility with an ENT. Independent Historian Clinical information obtained from an independent historian. History obtained from or confirmed by: Other (patient's daughter provided additional history and confirmed the history provided by the patient) Critical Care Time Critical Care Time Critical Care Time: Yes Total Critical Care Time: 30 Attestation: I spent 30 minutes of Critical Care Time with this patient. This does not include time spent on separately reported billable procedures. Discharge Plan Discharge Clinical Impression: Epistaxis Patient Disposition: Home, Self-Care Instructions: Nosebleed (ED) Additional Instructions: Do NOT blow your nose for 72 hours. Follow up with your primary care provider and an ENT. Return to the emergency department immediately if your symptoms worsen or if you develop any dizziness, shortness of breath, difficulty breathing, chest pain, blurry vision, loss of vision, nausea, vomiting, abdominal pain, fever, chills, back pain, or any other complaints. Prescriptions: No Action potassium chloride 20 mEq packet 20 meq PO BID 30 Days Qty: 60 5RF Rx Instructions: Pt needs oral packets as she can not swallow the pill form bumetanide 2 mg tablet 2 mg PO DAILY Qty: 30 5RF metolazone 2.5 mg tablet 2.5 mg PO Q OTHER DAY Qty: 20 2RF Ref[place]: [facility] [place]] (Call to establish and follow up with a primary care provider. If you already have a primary care provider, please follow up with them.) [facility] [place] Group] (Call to establish and follow up with a primary care provider. If you already have a primary care provider, please follow up with them.) [facility] [Provider Group] (Call to establish and follow up with a primary care provider. If you already have a primary care provider, please follow up with them.) [facility] [Physician] - (Call to establish and follow up with an ENT specialist. ) Interventions: ED Discharge Assessment Last Done: 03/23/23 13:23 Discharge Date/Time: 03/23/23 13:39 Print Language: Hungarian
[2023-03-23] MEDS: Cocaine HCl 4 % 4 ML SOLUTION TOPICAL (11:49)
[2023-03-23] MEDS: Oxymetazoline HCl 0.05 % Nasal 15 ML SPRAY 2 SPRAY NOSTRIL-B (11:49)
[2023-03-23] MEDS: Tranexamic Acid 1,000 MG/10 ML VIAL 500 MG INTRANASAL (11:49)
== END 2023-03-23 13:39 | disposition home or self-care (01) ==
PROVIDERS: Emergency Provider Emergency Medicine
DX: R04.0 Epistaxis (principal); Z79.899 Other long term (current) drug therapy
CPT/HCPCS: 30901; 99283; C9143

== ENCOUNTER 2023-05-08 09:37 | Outpatient (RCR) | payer MEDICARE, SELFPAY ==
--- NOTE | 2023-05-08 12:35 | MHC.PT.EP ---
[facility] [place] [facility] [place] [facility] [place] [facility] [address] Tamika Chowdhury [address] [phone] F: [phone] F: [phone] F: [phone] F: [phone] Physical Therapy Plan of Care Date of Evaluation: Date of Surgery: Diagnosis: This is an 82 yo female presenting to skilled PT with a script for BLE strengthening. Assessment: This is an 82 yo female presenting to skilled PT with a script for BLE strengthening. This patient has been to this facility a number of times in the past for the same diagnosis. Today she reports that things in general have been getting harder including but not limited to ADLs, yardwork and balance. She wants to work on her strength for her UE and LE. In terms of pain she has restless leg syndrome, muscle cramps in her legs and arms and swelling from cardiac involvement. Currently she is ambulating with a walking stick, lives at home alone and has grab bars in the bathroom. She has occasional help from neighbors but could reports that she could use services. She has a transfer chair and walker at home (uses this more for exercises or when she is having a hard time with mobility due to her heart). Her laundry is in the basement and she lives on the second floor (she occasionally needs to scoot up on her bottom and has a hand rail ascending on the right only). She is fearful of falling, declining health and age related decline in general body strength and functional mobility. Assessment reveals pain that ranges from 4-7/10. Patient demos decreased shoulder and cervical ROM, strength of UB and LB, impaired balance noted per MALACHI SOPT, decreased gait pattern and need for AD training/functional training and decreased endurance. Based on functional limitations, impaired QOL and decreased balance patient is a good candidate for skilled PT 2x/wk for 4wks. Frequency and Duration: The patient will be seen 2x/wk for 4wks Short Term Goals: (in 2 weeks) I in [facility] Demo proper functional squat mechanics, safety with transfers and gait Baseline for [facility] [employer] Goals: (in 4 weeks) transition to I program on own vs senior center demo at least 1 MMT grade improvement in BLE understand safe balance exercises to maintain on own at home Treatment Plan: Modalities to reduce pain, spasms and effusion. Manual therapy to restore motion and function. Therapeutic exercise to improve strength and flexibility. Neuromuscular re-education for posture and balance. Therapeutic activities to return to functional activities of daily living. Electronically signed by: Akanksha Tracey PT Please sign and return to therapist. Thank you for your referral.
--- NOTE | 2023-06-15 07:59 | MHC.PT.DC ---
[facility] [place] Office [place] Office [place] Office [address] Tamika Chowdhury [address] [phone] F: [phone] F: [phone] F: [phone] F: [phone] Physical Therapy Discharge Report Diagnosis: This is an 82 yo female presenting to skilled PT with a script for BLE strengthening. Date of Surgery: Date of Evaluation: 05/08/23 Date of Discharge: 06/06/23 Treatments to Date: 1 Cancellations to Date: 0 No Shows to Date: 0 Discharge Status: Patient Elected to Stop Discharge Summary: This is an 82 yo female presenting to skilled PT with a script for BLE strengthening. This patient has been to this facility a number of times in the past for the same diagnosis. Today she reports that things in general have been getting harder including but not limited to ADLs, yardwork and balance. She wants to work on her strength for her UE and LE. In terms of pain she has restless leg syndrome, muscle cramps in her legs and arms and swelling from cardiac involvement. Currently she is ambulating with a walking stick, lives at home alone and has grab bars in the bathroom. She has occasional help from neighbors but could reports that she could use services. She has a transfer chair and walker at home (uses this more for exercises or when she is having a hard time with mobility due to her heart). Her laundry is in the basement and she lives on the second floor (she occasionally needs to scoot up on her bottom and has a hand rail ascending on the right only). She is fearful of falling, declining health and age related decline in general body strength and functional mobility. Assessment reveals pain that ranges from 4-7/10. Patient demos decreased shoulder and cervical ROM, strength of UB and LB, impaired balance noted per MALACHI SOPT, decreased gait pattern and need for AD training/functional training and decreased endurance. Based on functional limitations, impaired QOL and decreased balance patient is a good candidate for skilled PT 2x/wk for 4wks. Patient called the following week to cancel remaining visits due to complications with her health. Her chart was kept open for 30 days in case her status changed and then DC'd. Electronically signed by: Akanksha Tracey PT Please sign and return to therapist. Thank you for your referral.
== END 2023-06-15 07:59 | disposition home or self-care (01) ==
LOC: HO.PTCHIC 09:37
PROVIDERS: PCP Internal Medicine; Visit Provider Internal Medicine
DX: R29.898 Other symptoms and signs involving the musculoskeletal system (principal)
CPT/HCPCS: 97110; 97162; 97163

== ENCOUNTER 2023-05-15 10:32 | Outpatient (AMB) | payer MEDICARE, SELFPAY ==
[2023-05-15 10:39] VITALS: BP 120/74; PULSE 72; BMI 20.4
--- NOTE | 2023-05-15 10:39 | MHC.OFFVIS ---
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: Plate Shop Helper Present Accompanied by: Friend Allergies ibuprofen [IBUPROFEN] Allergy (Severe, Verified 03/30/23 12:09) THROAT LUMP olmesartan [From BENICAR] Allergy (Severe, Verified 03/30/23 12:09) WHEEZING Gadolinium-Containing Contrast Medi [Gadolinium-Containing Agents] Allergy (Mild, Verified 03/30/23 12:09) HIVES Iodinated Contrast Media [IV Dye, Iodine Containing] Allergy (Mild, Verified 03/30/23 12:09) RASH oneil Allergy (Mild, Verified 03/30/23 12:09) RASH Sulfa (Sulfonamide Antibiotics) Allergy (Mild, Verified 03/30/23 12:09) RASH amiodarone [AMIODARONE] Allergy (Unknown, Verified 03/30/23 12:09) THYROID TOXICOSIS amlodipine [From NORVASC] Allergy (Unknown, Verified 03/30/23 12:09) WHEEZING aspirin [ASPIRIN] Allergy (Unknown, Verified 03/30/23 12:09) THROAT LUMP HEAVY WHEEZING, wheezing, wheezing azithromycin [From ZITHROMAX] Allergy (Unknown, Verified 03/30/23 12:09) NAUSEA/VOMITING, nausea and vomiting bee pollen [Bee Stings] Allergy (Unknown, Verified 03/30/23 12:09) EDEMA, ALL INSECT STINGS capsaicin [CAPSAICIN] Allergy (Unknown, Verified 03/30/23 12:09) RASH clopidogrel [From PLAVIX] Allergy (Unknown, Verified 03/30/23 12:09) THROAT LUMP HEAVY WHEEZING diltiazem [Cardizem] Allergy (Unknown, Verified 03/30/23 12:09) rash methimazole [METHIMAZOLE] Allergy (Unknown, Verified 03/30/23 12:09) RASH sulfamethoxazole [From BACTRIM] Allergy (Unknown, Verified 03/30/23 12:09) RASH trimethoprim [From BACTRIM] Allergy (Unknown, Verified 03/30/23 12:09) RASH escitalopram [From Lexapro] Allergy (Verified 03/30/23 12:09) Wheezing clarithromycin [From Biaxin] Adverse Reaction (Mild, Verified 03/30/23 12:09) N/V codeine [Codeine] Adverse Reaction (Mild, Verified 03/30/23 12:09) N/V levofloxacin [From Levaquin] Adverse Reaction (Mild, Verified 03/30/23 12:09) N/V Dye [facility] Blue 1 Allergy (Unknown, Uncoded 10/13/22 11:26) rash Medication List - Last Reconciled 05/15/23 by Leonard Smart MD amoxicillin 2,000 mg (4 x 500 mg) PO ONCE bumetanide 2 mg PO DAILY metolazone 2.5 mg PO DAILY PRN potassium chloride 20 mEq PO BID 30 days HPI HPI Comments History of Present Illness Details Bobbi comes for follow-up of her heart failure. She has had good response to addition of metolazone. Her weight today is 118 lb. Finally she does not have worsening shortness of breath, orthopnea, leg edema, abdominal distension. She is most bothered by her recurrent nose bleeds. She underwent repeat cauterization of her right nostril yesterday in the ENT office. She is very discussed it with this. She is currently not on any blood thinners. She says she is very anxious about this. She has not had any lightheadedness or low blood pressure issues at home. She continues to have issues with cramping. 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) History of right breast cancer (~1992) Hypertension, essential Lactose intolerance Mitral regurgitation Osteoporosis (~2020) Pacemaker at end of battery life Tricuspid regurgitation Tubular adenoma of colon (~2000) Surgical History History of cardiac cath History of cardioversion History of colonoscopy History of eye surgery History of hand surgery History of heart artery stent History of lumpectomy History of pacemaker Family History Father CVD (cardiovascular disease) Mother CVD (cardiovascular disease) Myocardial infarction Maternal Grandmother Unknown family medical history Maternal Grandfather No problems noted. Paternal Grandfather CVD (cardiovascular disease) Paternal Grandmother No problems noted. Child No Financial Resp No problems noted. Social History Housing: House Are you a primary resident care supervisor to a significant other at home: No Do you presently have visiting nurse or other home services: No Alcohol intake: current Alcohol intake frequency: a few times a month Alcohol type: hard liquor Patient Tobacco Use Status: Former Tobacco user Quit Date: age 59 Tobacco use type: Cigarette Years Smoked: 40 e-Cigarette/Vaping Use: Never Used Advance Directives Date on File: 10/29/17 Current occupational status: retired Cognitive needs: No Hearing needs: Yes (deaf in right ear, left ear has a hearing aid) Vision needs: Yes Review of Systems Const Denies chills, Denies fatigue, Denies fever(s), Denies frequent falls, Denies weakness, Denies weight gain and Denies weight loss ENT Denies dizziness Card Denies chest pain, Denies leg edema, Denies lightheadedness, Denies palpitations, Denies dyspnea, Denies dyspnea on exertion, Denies orthopnea and Denies other (loss of consciousness) Resp Denies cough, Denies dyspnea and Denies dyspnea on exertion GI Denies hematochezia and Denies change in stool character Musc Denies abnormal gait, Denies muscle weakness, Denies numbness, Denies radiating pain into limb and Denies tingling Neuro Denies abnormal gait, Denies dizziness, Denies frequent falls, Denies numbness, Denies tingling and Denies weakness Endo Denies fatigue and Denies palpitations Physical Exam Vital Signs: Last Vital Signs Pulse 72 05/15/23 10:39 BP 120/74 05/15/23 10:39 BMI result Body Mass Index 20.4 Const General: cooperative, comfortable and no acute distress Orientation/consciousness: patient oriented x3 Neck Other: Pulsation of neck vein, likely V wave from TR Neck: Yes normal visual inspection and Yes no JVD (Pulsatile V-waves) Resp Effort & Inspection: normal respiratory effort Auscultation: clear to auscultation bilaterally, no crackles, no rales, no rhonchi and no wheezes Cardio Rate: regular rate Rhythm: abnormal rhythm Heart sounds: S1 normal heart sound present, S2 normal heart sound present, no gallops, Murmur heart sound present (Systolic murmur in mitral position) and no rubs Peripheral pulses: Peripheral pulses 2+ throughout GI Inspection: Yes Abdominal wall edema Neuro General: patient oriented x3 Extrem Other: Trace pitting edema in each lower leg, left upper leg General: Yes normal to inspection, No clubbing, No cyanosis and Yes edema Psych Appearance: grossly normal Mental Status: mental status grossly normal Speech and movement: Normal speech and movement present Office Procedures Cardiac Device Check Cardiac Device Check Details: Single-chamber Medtronic pacemaker in place. Programmed in VVI at 60 beats per minute. Ventricular pacing less than 50% of the time. Ventricular pacing thresholds adequate. Ventricular sensing is adequate. Pacing lead impedance is stable. Battery life is adequate 55029-MQ Cardiac Device Check, leadless/single lead pacemaker Procedure code (CPT) selection complete Assessment & Plan Assessment & Plan (1) CHF (congestive heart failure): Code(s): I50.9 - Heart failure, unspecified Plan: CHF, advanced with underlying significant tricuspid regurgitation as well as mitral regurgitation, predominantly right-sided heart failure syndrome related to chronic atrial fibrillation marked right atrial enlargement related to atrial fibrillation secondary tricuspid regurgitation. Clinically today appears much improved additional metolazone. Her dry weight is 118 lb. We advised to continue to monitor her weight on a daily basis and use metolazone on days when she has weight gain and/or has abdominal distention leg edema. Management of heart failure was discussed. Overall prognosis is limited and guarded. This was discussed with her. Management will be strictly by diuretic therapy. Goals of therapy were discussed. Encouraged to participate in physical therapy and exercise program. Will check electrolytes today including magnesium given that she has significant cramping. Need for diuretic therapy was discussed with her. (2) Atrial fibrillation, chronic: Onset Date: ~2009 Code(s): I48.20 - Chronic atrial fibrillation, unspecified Plan: Chronic rate control atrial fibrillation. Continue current rate control strategy with currently not on any medications. She is having recurrent epistaxis and has stopped her oral anticoagulant therapy. We discussed the risk of stroke. Discussed the alternatives with Watchman device. She is currently not interested as this will require bridging oral anticoagulation therapy. (3) Cardiac pacemaker in situ: Onset Date: ~2009 Comment: (single-chamber Medtronic - DCPP placed 2009 - now VVI - replaced 2022) Code(s): Z95.0 - Presence of cardiac pacemaker Plan: Cardiac pacemaker in-situ, working well. Reprogrammed for adequate function. Follow up in 3 months time. (4) CAD (coronary artery disease): Comment: (s/p stented RCA 2009 and circumflex 2013) Code(s): I25.10 - Atherosclerotic heart disease of [place]in[place] coronary artery without angina pectoris Plan: CAD stable without any symptoms of angina at current point in time. Currently not on statin therapy which has been recommended in the past. She is currently not interested any new medications. Also not on any antihypertensives but her blood pressure is well optimized advised to call me with any symptoms of angina. Will follow up in the clinic in 3 months time. Greater than 40 minutes was spent in managing her complex care Orders: Orders Basic Metabolic Panel Today I50.9 - Heart failure, unspecified B Type Natriuretic Peptide Today I50.9 - Heart failure, unspecified Magnesium Today I50.30 - Unspecified diastolic (congestive) heart failure, I50.9 - Heart failure, unspecified Medications: Refilled amoxicillin take 1-2 hr prior to dental work 2,000 mg (4 x 500 mg) PO ONCE 4 caps 1RF Coding Level of Care Code Est Pt Level 5 (95794) Diagnoses CHF (congestive heart failure) I50.9 Atrial fibrillation, chronic I48.20 Cardiac pacemaker in situ Z95.0 CAD (coronary artery disease) I25.10 CPT Codes Cardiac Device Check - Cardiac Device 1: [id number] Cardiac Device Check, leadless/single lead pacemaker ([id number])
== END 2023-05-15 11:31 | disposition home or self-care (01) ==
PROVIDERS: PCP Internal Medicine; Referring Provider Internal Medicine; Visit Provider Internal Medicine Cardiovascular Disease
DX: I50.9 Heart failure, unspecified (principal); I48.20 Chronic atrial fibrillation, unspecified; Z95.0 Presence of cardiac pacemaker; I25.10 Atherosclerotic heart disease of native coronary artery without angina pectoris
CPT/HCPCS: 93279; 99215

== ENCOUNTER 2023-05-15 10:32 | Outpatient (REF) | payer MEDICARE, SELFPAY ==
[2023-05-15 13:10] LABS: Anion Gap 12 (12-20); Blood Urea Nitrogen 47 mg/dL (9-16); Calcium 9.3 mg/dL (8.4-10.2); Carbon Dioxide 28 mmol/L (22-29); Chloride 102 mmol/L (96-108); Estimated Glomerular Filt Rate 40; Glucose Random 98 mg/dL (60-115); Magnesium 2.6 mg/dL (1.6-2.6); Potassium 3.9 mmol/L (3.3-5.1); Sodium 138 mmol/L (135-145)
[2023-05-15 13:14] LABS: B Type Natriuretic Peptide 706 pg/mL (<100)
== END 2023-05-15 10:33 | disposition home or self-care (01) ==
LOC: HO.LAB 10:32
PROVIDERS: PCP Internal Medicine; Referring Provider Internal Medicine; Visit Provider Internal Medicine Cardiovascular Disease
DX: I50.30 Unspecified diastolic (congestive) heart failure (principal)
CPT/HCPCS: 36415; 80048; 83735; 83880; 99212

== ENCOUNTER 2023-05-17 11:13 | Emergency (ER) | payer MEDICARE, SELFPAY ==
[2023-05-17 11:40] VITALS: BP 108/56; BP 129/60; PULSE 58; PULSE 62; RESP 16; TEMP 36.6; O2SAT 96; O2SAT 98; BMI 20.3
--- NOTE | 2023-05-17 11:47 | ED.GENADULT ---
HPI - General Adult General Chief complaint: Epistaxis Stated complaint: NOSEBLEED FEELING WEAK Time Seen by Provider: 05/17/23 11:40 Source: patient and EMS Mode of arrival: EMS Limitations: no limitations History of Present Illness HPI narrative: Patient is an 82 year old assigned female at with a history of chronic a-fib not on anticoagulation medications, PVD, and CHF presenting to the emergency department today with a nose bleed. Patient states that previously had a right sided nose bleed, was seen here, the bleeding was fixed and she was better. Patient states that on Sunday of this week, 05/14/2023, she saw ENT who cauterized some vessels in her right nostril. Patient states that this morning she picked at a scab in her right nostril and 10 minutes later, she began to have a nose bleed. Patient states that her nose has since stopped bleeding since she arrived. Patient denies any dizziness, lightheadedness, abdominal pain, nausea, vomiting, fever, chills, blurry vision, double vision, loss of vision, chest pain, difficulty breathing, shortness of breath, back pain, night sweats, pain with urination, increased urinary frequency, increased urinary urgency, blood in her urine or stool, syncope or a near syncopal episode, recent trauma or falls, bowel incontinence, bladder incontinence, bowel retention, bladder retention, or any other complaints at this time. Onset (ago): minute(s) Severity: mild Relieving factors: none Exacerbating factors: none Associated symptoms: denies other symptoms Treatments prior to arrival: none Related Data Home Medications Medication Instructions Recorded Confirmed metolazone 2.5 mg tablet 2.5 mg PO DAILY PRN 05/15/23 05/15/23 Previous Rx's Medication Instructions Recorded bumetanide 2 mg tablet 2 mg PO DAILY #30 tabs 02/05/23 potassium chloride 20 mEq oral 20 meq PO BID 30 days #60 ea 03/15/23 packet amoxicillin 500 mg capsule 2,000 mg PO ONCE #4 caps 05/15/23 Allergies Allergy/AdvReac Type Severity Reaction Status Date / Time ibuprofen [IBUPROFEN] Allergy Severe THROAT LUMP Verified 03/30/23 12:09 olmesartan [From BENICAR] Allergy Severe WHEEZING Verified 03/30/23 12:09 Gadolinium-Containing Allergy Mild HIVES Verified 03/30/23 12:09 Contrast Medi [Gadolinium-Containing Agents] Iodinated Contrast Media Allergy Mild RASH Verified 03/30/23 12:09 [IV Dye, Iodine Containing] oneil Allergy Mild RASH Verified 03/30/23 12:09 Sulfa (Sulfonamide Allergy Mild RASH Verified 03/30/23 12:09 Antibiotics) amiodarone [AMIODARONE] Allergy Unknown THYROID Verified 03/30/23 12:09 TOXICOSIS amlodipine [From NORVASC] Allergy Unknown WHEEZING Verified 03/30/23 12:09 aspirin [ASPIRIN] Allergy Unknown THROAT Verified 03/30/23 12:09 LUMP HEAVY WHEEZING, wheezing, wheezing azithromycin [From ZITHROMAX] Allergy Unknown NAUSEA/VOMITING, Verified 03/30/23 12:09 nausea and vomiting bee pollen [Bee Stings] Allergy Unknown EDEMA, ALL Verified 03/30/23 12:09 INSECT STINGS capsaicin [CAPSAICIN] Allergy Unknown RASH Verified 03/30/23 12:09 clopidogrel [From PLAVIX] Allergy Unknown THROAT Verified 03/30/23 12:09 LUMP HEAVY WHEEZING diltiazem [Cardizem] Allergy Unknown rash Verified 03/30/23 12:09 methimazole [METHIMAZOLE] Allergy Unknown RASH Verified 03/30/23 12:09 sulfamethoxazole Allergy Unknown RASH Verified 03/30/23 12:09 [From BACTRIM] trimethoprim [From BACTRIM] Allergy Unknown RASH Verified 03/30/23 12:09 escitalopram [From Lexapro] Allergy Wheezing Verified 03/30/23 12:09 clarithromycin [From Biaxin] AdvReac Mild N/V Verified 03/30/23 12:09 codeine [Codeine] AdvReac Mild N/V Verified 03/30/23 12:09 levofloxacin [From Levaquin] AdvReac Mild N/V Verified 03/30/23 12:09 Dye [facility] Blue 1 Allergy Unknown rash Uncoded 10/13/22 11:26 Review of Systems Constitutional: Constitutional: Reports no additional constitutional complaints, Denies chills, Denies fever(s) and Denies night sweats Eyes: Eyes: Reports no additional eye complaints, Denies blurry vision, Denies change in vision, Denies diplopia, Denies eye discharge, Denies loss of vision and Denies eye pain ENT: Denies dizziness and Reports epistaxis (right nostril - now resolved.) Cardiovascular: Cardiovascular: Reports no additional cardiovascular complaints, Denies chest pain, Denies lightheadedness, Denies Loss of Consciousness and Denies dyspnea Respiratory: Respiratory: Reports no additional respiratory complaints and Denies dyspnea Gastrointestinal: Gastrointestinal: Reports no additional gastrointestinal complaints, Denies abdominal pain, Denies melena, Denies hematochezia, Denies change in bowel habits and Denies change in stool character Genitourinary: Genitourinary: Denies hematuria, Denies urinary frequency, Denies dysuria, Denies urinary incontinence, Denies urinary hesitancy and Denies urinary urgency Musculoskeletal: Musculoskeletal: Reports no additional musculoskeletal complaints, Denies numbness and Denies tingling Neurologic: Denies dizziness, Denies loss of vision, Denies numbness and Denies tingling Psychiatric: Psychiatric: Reports no additional psychiatric complaints Endocrine: Endocrine: Reports no additional endocrine complaints Hematologic/Lymphatic: Hematologic/Lymphatic: Reports no additional hematologic/lymphatic complaints Allergic/Immunologic: Allergic/Immunologic: Reports no additional allergic/immunologic complaints [facility] Past Medical History Attestation statement: The following information was validated with the patient. 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) History of right breast cancer (~1992) Hypertension, essential Lactose intolerance Mitral regurgitation Osteoporosis (~2020) Pacemaker at end of battery life Superficial bruising of abdominal wall Traumatic ecchymosis of left lower leg Traumatic ecchymosis of left shoulder Traumatic hematoma of head Tricuspid regurgitation Tubular adenoma of colon (~2000) Surgical History History of cardiac cath History of cardioversion History of colonoscopy History of eye surgery History of hand surgery History of heart artery stent History of lumpectomy History of pacemaker Family History Family History Father CVD (cardiovascular disease) Mother CVD (cardiovascular disease) Myocardial infarction Maternal Grandmother Unknown family medical history Maternal Grandfather No problems noted. Paternal Grandfather CVD (cardiovascular disease) Paternal Grandmother No problems noted. Child No Financial Resp No problems noted. Social History Social History Housing: House Are you a primary pet care worker to a significant other at home: No Do you presently have visiting nurse or other home services: No Alcohol intake: never Patient Tobacco Use Status: Former Tobacco user Quit Date: age 59 Tobacco use type: Cigarette Years Smoked: 40 Smoked in Last 30 Days: No e-Cigarette/Vaping Use: Never Used Use of substances other than those prescribed or required for medical reasons: No Advance Directives: Yes Advance Directives on File: Yes Advance Directives Date on File: 10/29/17 Current occupational status: retired Cognitive needs: No Hearing needs: Yes (deaf in right ear, left ear has a hearing aid) Vision needs: Yes Physical Exam ED Vital Signs: Vital Signs - 24 hr 05/17/23 11:40 Temperature 97.9 F Pulse Rate 58 Respiratory Rate 16 Blood Pressure 108/56 L Pulse Oximetry 96 Oxygen Delivery Method Room Air BMI result Body Mass Index 20.3 Const General: cooperative, no acute distress, alert and awake Nutritional Appearance: well nourished Orientation/consciousness: patient oriented x3 Limitations: no limitations HENMT Head: Yes normal to inspection and Yes atraumatic Ears: hearing grossly normal bilaterally and external ears normal General nose exam: Normal external nose present, no nasal discharge noted and no epistaxis Face and sinus: Yes normal facial exam, No abrasion and No laceration Mouth: Normal oral and palatal mucosa present, no drooling and no muffled voice Eyes General: appearance normal, both eyes and all related structures Periorbital: periorbital findings normal Eyelids: Yes eyelids normal Conjunctivae: conjunctivae normal Pupils: Equal, round and reactive pupils present EOM: EOMs intact bilaterally Neck Neck: Yes normal visual inspection, Yes full ROM and Yes no lymphadenopathy Chest Chest palpation & inspection: normal inspection of the chest Resp Effort & Inspection: normal respiratory effort and able to speak in complete sentences GI Inspection: Yes normal to inspection Neuro General: patient oriented x3 and moves all extremities Cranial nerves: Yes Equal, round and reactive pupils present Cognition (Neuro): normal cognition Motor exam (neuro): 5/5 motor strength present throughout Sensory Exam: Normal double simultaneous stimulation for sensation Coordination: [id number] test normal Extrem General: Yes normal to inspection, Yes full ROM and Yes capillary refill normal Psych Appearance: grossly normal Mental Status: mental status grossly normal Affect: normal affect Attitude: cooperative Thought process: Normal thought process present Thought content: Normal thought content present Insight: Good insight present (Psych) Medical Decision Making Medical Decision Making MDM Narrative: Patient is an 82 year old assigned female at with a history of a-fib not on anticoagulant medications, CHF, and PVD presenting to the emergency department today with a nose bleed. Patient's physical exam was as noted in the physical exam portion of this chart. Patient was kept in the department for >1 hour and never had bleeding while in the department. I explained my physical exam findings to the patient. I answered all questions asked by the patient and. I stressed the importance of the patient taking her medication as prescribed. I stressed the importance of the patient following up with her primary care provider and her ENT. I stressed the importance of the patient returning to the emergency department immediately if her symptoms were to worsen or if she were to develop any dizziness, shortness of breath, difficulty breathing, chest pain, blurry vision, loss of vision, nausea, vomiting, abdominal pain, fever, chills, back pain, or any other complaints. Patient verbalized agreement and understanding with this treatment plan and discharge. Differential Diagnosis Differential Diagnoses: The differential diagnosis associated with the presentation includes Resolved epistaxis Chronic epistaxis Independent Historian Clinical information obtained from an independent historian. History obtained from or confirmed by: EMS (EMS provided additional history and confirmed the history provided by the patient. ) External Record Review External record reviewed: Other (reviewed previous ED recrods.) Discharge Plan Discharge Clinical Impression: Epistaxis Patient Disposition: Home, Self-Care Instructions: Nosebleed (ED) Additional Instructions: Do NOT blow your nose. Follow up with your primary care provider and your ENT. Return to the emergency department immediately if your symptoms worsen or if you develop any dizziness, shortness of breath, difficulty breathing, chest pain, blurry vision, loss of vision, nausea, vomiting, abdominal pain, fever, chills, back pain, or any other complaints. Prescriptions: No Action potassium chloride 20 mEq packet 20 meq PO BID 30 Days Qty: 60 5RF Rx Instructions: Pt needs oral packets as she can not swallow the pill form bumetanide 2 mg tablet 2 mg PO DAILY Qty: 30 5RF amoxicillin 500 mg capsule 2,000 mg PO ONCE Qty: 4 1RF Rx Instructions: take 1-2 hr prior to dental work metolazone 2.5 mg tablet 2.5 mg PO DAILY PRN [place]: [facility] [place] [facility] [place]] (Call to establish and follow up with a primary care provider. If you already have a primary care provider, please follow up with them.) [facility] [place] [facility] Group] (Call to establish and follow up with a primary care provider. If you already have a primary care provider, please follow up with them.) [facility] [place] [facility] [place] Group] (Call to establish and follow up with a primary care provider. If you already have a primary care provider, please follow up with them.) [facility] [Physician] - (Follow up with your ENT.) Print Language: Venezuelan
[2023-05-17 14:33] VITALS: BP 105/44; PULSE 60; RESP 16; TEMP 36.6; O2SAT 97
== END 2023-05-17 15:20 | disposition home or self-care (01) ==
PROVIDERS: Emergency Provider Student in an Organized Health Care Education/Training Program
DX: R04.0 Epistaxis (principal)
CPT/HCPCS: 99283; 99284

== ENCOUNTER → 2023-05-17 23:59 | Outpatient (BNV) | payer MEDICARE, OTHER, SELFPAY ==
--- NOTE | 2023-05-21 11:04 | A.OFFVIS_ITS ---
Intake Intake Visit Reasons: Remote Pacer monitoring- Clinical Ink Allergies ibuprofen [IBUPROFEN] Allergy (Severe, Verified 05/20/23 20:31) THROAT LUMP olmesartan [From BENICAR] Allergy (Severe, Verified 05/20/23 20:31) WHEEZING Gadolinium-Containing Contrast Medi [Gadolinium-Containing Agents] Allergy (Mild, Verified 05/20/23 20:31) HIVES Iodinated Contrast Media [IV Dye, Iodine Containing] Allergy (Mild, Verified 05/20/23 20:31) RASH oneil Allergy (Mild, Verified 05/20/23 20:31) RASH Sulfa (Sulfonamide Antibiotics) Allergy (Mild, Verified 05/20/23 20:31) RASH amiodarone [AMIODARONE] Allergy (Unknown, Verified 05/20/23 20:31) THYROID TOXICOSIS amlodipine [From NORVASC] Allergy (Unknown, Verified 05/20/23 20:31) WHEEZING aspirin [ASPIRIN] Allergy (Unknown, Verified 05/20/23 20:31) THROAT LUMP HEAVY WHEEZING, wheezing, wheezing azithromycin [From ZITHROMAX] Allergy (Unknown, Verified 05/20/23 20:31) NAUSEA/VOMITING, nausea and vomiting bee pollen [Bee Stings] Allergy (Unknown, Verified 05/20/23 20:31) EDEMA, ALL INSECT STINGS capsaicin [CAPSAICIN] Allergy (Unknown, Verified 05/20/23 20:31) RASH clopidogrel [From PLAVIX] Allergy (Unknown, Verified 05/20/23 20:31) THROAT LUMP HEAVY WHEEZING diltiazem [Cardizem] Allergy (Unknown, Verified 05/20/23 20:31) rash methimazole [METHIMAZOLE] Allergy (Unknown, Verified 05/20/23 20:31) RASH sulfamethoxazole [From BACTRIM] Allergy (Unknown, Verified 05/20/23 20:31) RASH trimethoprim [From BACTRIM] Allergy (Unknown, Verified 05/20/23 20:31) RASH escitalopram [From Lexapro] Allergy (Verified 05/20/23 20:31) Wheezing clarithromycin [From Biaxin] Adverse Reaction (Mild, Verified 05/20/23 20:31) N/V codeine [Codeine] Adverse Reaction (Mild, Verified 05/20/23 20:31) N/V levofloxacin [From Levaquin] Adverse Reaction (Mild, Verified 05/20/23 20:31) N/V Dye [facility] Blue 1 Allergy (Unknown, Uncoded 10/13/22 11:26) rash PFSH Medical History AAA (abdominal aortic aneurysm) Abnormal ultrasound of lower extremity Atrial fibrillation, chronic (~2009) Blood in urine CAD (coronary artery disease) Cardiac pacemaker in situ (~2009) Diverticulosis Ex-smoker Fall Hearing impaired Hip pain, right History of cardiac arrest (~2009) 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 (~2009) History of right breast cancer (~1992) Hypertension, essential Lactose intolerance Mitral regurgitation Osteoporosis (~2020) Pacemaker at end of battery life Superficial bruising of abdominal wall Traumatic ecchymosis of left lower leg Traumatic ecchymosis of left shoulder Traumatic hematoma of head Tricuspid regurgitation Tubular adenoma of colon (~2000) Surgical History History of cardiac cath History of cardioversion History of colonoscopy History of eye surgery History of hand surgery History of heart artery stent History of lumpectomy History of pacemaker Family History Father CVD (cardiovascular disease) Mother CVD (cardiovascular disease) Myocardial infarction Maternal Grandmother Unknown family medical history Maternal Grandfather No problems noted. Paternal Grandfather CVD (cardiovascular disease) Paternal Grandmother No problems noted. Child No Financial Resp No problems noted. Social History Housing: House Are you a primary furnace caretaker to a significant other at home: No Do you presently have visiting nurse or other home services: No Alcohol intake: never Patient Tobacco Use Status: Former Tobacco user Quit Date: age 59 Tobacco use type: Cigarette Years Smoked: 40 e-Cigarette/Vaping Use: Never Used Advance Directives Date on File: 10/29/17 Current occupational status: retired Cognitive needs: No Hearing needs: Yes (deaf in right ear, left ear has a hearing aid) Vision needs: Yes Office Procedures Cardiac Device Check Cardiac Device Check Details: Remote pacemaker report generated 05/17/2023. Pacemaker function is adequate [id number] Cardiac Device Interrogation, pacemaker Procedure code (CPT) selection complete Coding Level of Care Code Procedure Only Diagnoses CPT Codes Cardiac Device Check - Cardiac Device 12: [id number] Cardiac Device Interrogation, pacemaker ([id number])
== END ==
PROVIDERS: Visit Provider Internal Medicine Cardiovascular Disease
DX: I48.20 Chronic atrial fibrillation, unspecified (principal); Z95.0 Presence of cardiac pacemaker
CPT/HCPCS: 93294

== ENCOUNTER 2023-05-20 20:30 | Emergency (ER) | payer MEDICARE, SELFPAY ==
[2023-05-20 20:32] VITALS: BP 115/49; PULSE 87; RESP 18; TEMP 36.7; O2SAT 96; BMI 26.4
[2023-05-20 21:08] LABS: MANUAL DIFF FLAG NO
[2023-05-20 21:09] LABS: Basophils Percent Auto 0.9 % (0-2); Eosinophils Absolute Auto 0.1 X10*3/uL (0.0-0.4); Eosinophils Percent Auto 1.7 % (0-4); Hematocrit 35.4 % (37.0-47.0); Hemoglobin 11.6 g/dl (12.0-16.0); Imm Gran Abs Auto 0.01 X10*3/uL (0.00-0.03); Imm Gran Pct Auto 0.2 % (0.0-0.4); Lymphocytes Absolute Auto 0.9 X10*3/uL (1.2-4.9); Lymphocytes Percent Auto 20.4 % (20-40); Mean Corpuscular HGB Conc 32.8 g/dl (31.0-35.0); Mean Corpuscular Hemoglobin 33.2 pg (27.0-33.0); Mean Corpuscular Volume 101.4 fL (80.0-98.0); Mean Platelet Volume 10.7 fL (9.4-12.3); Monocytes Absolute Auto 0.5 X10*3/uL (0.1-1.2); Neutrophils Absolute Auto 3.1 x10*3/uL (2.0-8.3); Neutrophils Percent Auto 66.8 % (45-73); Red Blood Count 3.49 X10*6/uL (4.20-5.50); Red Cell Distribution Width 14.1 % (11.0-16.0); White Blood Count 4.6 X10*3/uL (4.8-10.8)
[2023-05-20 21:16] LABS: INTERNATIONAL NORM RATIO 1.3 (0.9-1.1); Prothrombin Time 15.7 SEC (11.1-13.3)
[2023-05-20 21:19] LABS: Partial Thromboplastin Time 32.5 SEC (26.0-36.4)
[2023-05-20 21:31] LABS: Alanine Aminotransferase 10 U/L (0-31); Alkaline Phosphatase 85 U/L (39-117); Anion Gap 18 (12-20); Aspartate Amino Transferase 28 U/L (5-31); Bilirubin Total 2.2 mg/dL (0.0-1.0); Blood Urea Nitrogen 60 mg/dL (9-16); Calcium 9.3 mg/dL (8.4-10.2); Carbon Dioxide 24 mmol/L (22-29); Chloride 103 mmol/L (96-108); Creatinine Clr Calc Pharmacy 17.9; Estimated Glomerular Filt Rate 30; Glucose Random 103 mg/dL (60-115); Potassium 3.8 mmol/L (3.3-5.1); Sodium 141 mmol/L (135-145); Total Protein 7.4 g/dL (6.5-8.0)
[2023-05-20 21:35] LABS: Platelet Count 97 X10*3/uL (160-400)
--- NOTE | 2023-05-20 21:51 | ED_ITS ---
HPI - General Adult General Chief complaint: Epistaxis Stated complaint: nose bleed all week. wont stop Time Seen by Provider: 05/20/23 21:50 Source: patient, family (patient's daughter), EMS and old records reviewed Mode of arrival: EMS Limitations: no limitations History of Present Illness HPI narrative: Patient is an 82 year old assigned female at with a history of chronic a- fib not on anticoagulation medications, PVD, and CHF presenting to the emergency department today with a nose bleed and intermittent lightheadedness. Patient states that previously had a right sided nose bleed, was seen here, the bleeding was fixed and she was better. Patient states that on Sunday of last week, 05/14/2023, she saw ENT who cauterized some vessels in her right nostril. Patient states that she continues to get intermittent right sided nose bleeds. Patient states that the bleeding has again stopped as she arrived in the department tonight. Patient denies any dizziness, abdominal pain, nausea, vomiting, fever, chills, blurry vision, double vision, loss of vision, chest pain, difficulty breathing, shortness of breath, back pain, night sweats, pain with urination, increased urinary frequency, increased urinary urgency, blood in her urine or stool, syncope or a near syncopal episode, recent trauma or falls, bowel incontinence, bladder incontinence, bowel retention, bladder retention, or any other complaints at this time. Onset (ago): week(s) Relieving factors: none Exacerbating factors: none Associated symptoms: denies other symptoms Treatments prior to arrival: none Related Data Home Medications Medication Instructions Recorded Confirmed metolazone 2.5 mg tablet 2.5 mg PO DAILY PRN 05/15/23 05/15/23 Previous Rx's Medication Instructions Recorded bumetanide 2 mg tablet 2 mg PO DAILY #30 tabs 02/05/23 potassium chloride 20 mEq oral 20 meq PO BID 30 days #60 ea 03/15/23 packet amoxicillin 500 mg capsule 2,000 mg PO ONCE #4 caps 05/15/23 Allergies Allergy/AdvReac Type Severity Reaction Status Date / Time ibuprofen [IBUPROFEN] Allergy Severe THROAT LUMP Verified 05/20/23 20:31 olmesartan [From BENICAR] Allergy Severe WHEEZING Verified 05/20/23 20:31 Gadolinium-Containing Allergy Mild HIVES Verified 05/20/23 20:31 Contrast Medi [Gadolinium-Containing Agents] Iodinated Contrast Media Allergy Mild RASH Verified 05/20/23 20:31 [IV Dye, Iodine Containing] oneil Allergy Mild RASH Verified 05/20/23 20:31 Sulfa (Sulfonamide Allergy Mild RASH Verified 05/20/23 20:31 Antibiotics) amiodarone [AMIODARONE] Allergy Unknown THYROID Verified 05/20/23 20:31 TOXICOSIS amlodipine [From NORVASC] Allergy Unknown WHEEZING Verified 05/20/23 20:31 aspirin [ASPIRIN] Allergy Unknown THROAT Verified 05/20/23 20:31 LUMP HEAVY WHEEZING, wheezing, wheezing azithromycin [From ZITHROMAX] Allergy Unknown NAUSEA/VOMITING, Verified 05/20/23 20:31 nausea and vomiting bee pollen [Bee Stings] Allergy Unknown EDEMA, ALL Verified 05/20/23 20:31 INSECT STINGS capsaicin [CAPSAICIN] Allergy Unknown RASH Verified 05/20/23 20:31 clopidogrel [From PLAVIX] Allergy Unknown THROAT Verified 05/20/23 20:31 LUMP HEAVY WHEEZING diltiazem [Cardizem] Allergy Unknown rash Verified 05/20/23 20:31 methimazole [METHIMAZOLE] Allergy Unknown RASH Verified 05/20/23 20:31 sulfamethoxazole Allergy Unknown RASH Verified 05/20/23 20:31 [From BACTRIM] trimethoprim [From BACTRIM] Allergy Unknown RASH Verified 05/20/23 20:31 escitalopram [From Lexapro] Allergy Wheezing Verified 05/20/23 20:31 clarithromycin [From Biaxin] AdvReac Mild N/V Verified 05/20/23 20:31 codeine [Codeine] AdvReac Mild N/V Verified 05/20/23 20:31 levofloxacin [From Levaquin] AdvReac Mild N/V Verified 05/20/23 20:31 Dye [facility] Blue 1 Allergy Unknown rash Uncoded 10/13/22 11:26 Review of Systems Constitutional: Constitutional: Reports no additional constitutional complaints, Denies chills, Denies fever(s) and Denies night sweats Eyes: Eyes: Reports no additional eye complaints, Denies blurry vision, Denies change in vision, Denies diplopia, Denies eye discharge, Denies loss of vision and Denies eye pain ENT: Denies dizziness and Reports epistaxis (intermittently over the last few weeks, now absent.) Cardiovascular: Cardiovascular: Reports no additional cardiovascular complaints, Denies chest pain, Denies lightheadedness, Denies Loss of Consciousness and Denies dyspnea Respiratory: Respiratory: Reports no additional respiratory complaints and Denies dyspnea Gastrointestinal: Gastrointestinal: Reports no additional gastrointestinal complaints, Denies abdominal pain, Denies melena, Denies hematochezia, Denies change in bowel habits and Denies change in stool character Genitourinary: Genitourinary: Denies hematuria, Denies urinary frequency, Denies dysuria, Denies urinary incontinence, Denies urinary hesitancy and Denies urinary urgency Musculoskeletal: Musculoskeletal: Reports no additional musculoskeletal complaints, Denies numbness and Denies tingling Neurologic: Denies dizziness, Denies loss of vision, Denies numbness and Denies tingling Comments: intermittent lightheadedness Psychiatric: Psychiatric: Reports no additional psychiatric complaints Endocrine: Endocrine: Reports no additional endocrine complaints Hematologic/Lymphatic: Hematologic/Lymphatic: Reports no additional hematologic/lymphatic complaints Allergic/Immunologic: Allergic/Immunologic: Reports no additional allergic/immunologic complaints [facility] Past Medical History Attestation statement: The following information was validated with the patient. (all information was validated with the patient's daughter) Source: old records reviewed and obtained from family (patient's daughter provided additional history and confirmed the history provided by the patient.) Medical History AAA (abdominal aortic aneurysm) Abnormal ultrasound of lower extremity Atrial fibrillation, chronic (~2009) Blood in urine CAD (coronary artery disease) Cardiac pacemaker in situ (~2009) Diverticulosis Ex-smoker Fall Hearing impaired Hip pain, right History of cardiac arrest (~2009) History of nursing home anticoagulant use (~2009) History of right breast cancer (~1992) Hypertension, essential Lactose intolerance Mitral regurgitation Osteoporosis (~2020) Pacemaker at end of battery life Superficial bruising of abdominal wall Traumatic ecchymosis of left lower leg Traumatic ecchymosis of left shoulder Traumatic hematoma of head Tricuspid regurgitation Tubular adenoma of colon (~2000) Surgical History History of cardiac cath History of cardioversion History of colonoscopy History of eye surgery History of hand surgery History of heart artery stent History of lumpectomy History of pacemaker Family History Family History Father CVD (cardiovascular disease) Mother CVD (cardiovascular disease) Myocardial infarction Maternal Grandmother Unknown family medical history Maternal Grandfather No problems noted. Paternal Grandfather CVD (cardiovascular disease) Paternal Grandmother No problems noted. Child No Financial Resp No problems noted. Social History Social History Housing: House Are you a primary district manager primary care sales to a significant other at home: No Do you presently have visiting nurse or other home services: No Alcohol intake: never Patient Tobacco Use Status: Former Tobacco user Quit Date: age 59 Tobacco use type: Cigarette Years Smoked: 40 Smoked in Last 30 Days: No e-Cigarette/Vaping Use: Never Used Advance Directives: Yes Advance Directives on File: Yes Advance Directives Date on File: 10/29/17 Current occupational status: retired Cognitive needs: No Hearing needs: Yes (deaf in right ear, left ear has a hearing aid) Vision needs: Yes Physical Exam ED Vital Signs: Vital Signs - 24 hr 05/20/23 20:32 05/20/23 23:16 Temperature 98.1 F Pulse Rate 87 67 Respiratory Rate 18 14 Blood Pressure 115/49 L 120/60 Pulse Oximetry 96 97 Oxygen Delivery Method Room Air Room Air BMI result Body Mass Index 26.4 Const General: cooperative, no acute distress, alert and awake Nutritional Appearance: well nourished Orientation/consciousness: patient oriented x3 Limitations: no limitations HENMT Head: Yes normal to inspection and Yes atraumatic Ears: hearing grossly normal bilaterally and external ears normal General nose exam: Normal external nose present, no nasal discharge noted and no epistaxis Face and sinus: Yes normal facial exam, No abrasion and No laceration Mouth: Normal oral and palatal mucosa present, no drooling and no muffled voice Eyes General: appearance normal, both eyes and all related structures Periorbital: periorbital findings normal Eyelids: Yes eyelids normal Conjunctivae: conjunctivae normal Pupils: Equal, round and reactive pupils present EOM: EOMs intact bilaterally Neck Neck: Yes normal visual inspection, Yes full ROM and Yes no lymphadenopathy Chest Chest palpation & inspection: normal inspection of the chest Resp Effort & Inspection: normal respiratory effort and able to speak in complete sentences Auscultation: clear to auscultation bilaterally Cardio Rate: regular rate Rhythm: regular rhythm GI Inspection: Yes normal to inspection Neuro General: patient oriented x3 and moves all extremities Cranial nerves: Yes Equal, round and reactive pupils present Cognition (Neuro): normal cognition Motor exam (neuro): 5/5 motor strength present throughout Sensory Exam: Normal double simultaneous stimulation for sensation Coordination: [id number] test normal Extrem General: Yes normal to inspection, Yes full ROM and Yes capillary refill normal Psych Appearance: grossly normal Mental Status: mental status grossly normal Affect: normal affect Attitude: cooperative Thought process: Normal thought process present Thought content: Normal thought content present Insight: Good insight present (Psych) Medications Administered Discontinued Medications Generic Name Dose Route Start Last Admin Trade Name Freq PRN Reason Stop Dose Admin Sodium Chloride 1,000 mls @ 999 mls/hr 05/20/23 22:00 05/20/23 22:18 Ns IV 05/20/23 23:00 999 mls/hr .[id number] YUSEF Administration Medical Decision Making Medical Decision Making [facility] Narrative: Patient is an 82 year old assigned female at with a history of a-fib not on anticoagulant medications, CHF, and PVD presenting to the emergency department today with a resolved nose bleed and intermittent lightheadedness. Patient's physical exam was as noted in the physical exam portion of this chart. Patient was kept in the department for >1 hour and never had bleeding while in the department. Patient's lab work showed a slightly elevated CR of 1.62. The rest of the patient's results were grossly normal. Patient was given a liter of fluid while in the department. I explained my physical exam findings to the patient and the patient's daughter. I answered all questions asked by the patient and the patient's daughter. I stressed the importance of the patient taking her medication as prescribed. I stressed the importance of the patient following up with her primary care provider and an ENT. The patient expressed concern that her current ENT would not be able to reach the bleeding source and requested that I provide her with information about other ENTs in the area. Patient again declined to have her nose packed. I stressed the importance of the patient returning to the emergency department immediately if her symptoms were to worsen or if she were to develop any dizziness, shortness of breath, difficulty breathing, chest pain, blurry vision, loss of vision, nausea, vomiting, abdominal pain, fever, chills, back pain, or any other complaints. Patient and the patient's daughter verbalized agreement and understanding with this treatment plan and discharge. Differential Diagnosis Differential Diagnoses: The differential diagnosis associated with the presentation includes Resolved nose bleed Intermittent lightheadedness Dehydration Anxiety Admission/Observation Consideration of admission/observation: Escalation of care including admission/observation considered Patient would have been admitted to the hospital had her work up had any findings where hospital admission was appropriate and her clinical presentation warranted hospital admission. Lab Data [facility] Lab Attestation statement: I reviewed the patient's lab results. My interpretation of these results are in the MDM portion of this note. 05/20/23 21:01 05/20/23 21:01 Labs: Lab Results 05/20/23 05/20/23 05/20/23 Range/Units 21:01 21: 21:01 WBC 4.6 L (4.8-10.8) X10*3/uL RBC 3.49 L (4.20-5.50) X10*6/uL Hgb 11.6 L (12.0-16.0) g/dl Hct 35.4 L (37.0-47.0) % MCV 101.4 H (80.0-98.0) fL MCH 33.2 H (27.0-33.0) pg MCHC 32.8 (31.0-35.0) g/dl RDW 14.1 (11.0-16.0) % Plt Count 97 L (160-400) X10*3/uL MPV 10.7 (9.4-12.3) fL Immature Gran % (Auto) 0.2 (0.0-0.4) % Neut % (Auto) 66.8 (45-73) % Lymph % (Auto) 20.4 (20-40) % [place] % (Auto) 10.0 (2-11) % Eos % (Auto) 1.7 (0-4) % Baso % (Auto) 0.9 (0-2) % Lymph # (Auto) 0.9 L (1.2-4.9) X10*3/uL [place] # (Auto) 0.5 (0.1-1.2) X10*3/uL Eos # (Auto) 0.1 (0.0-0.4) X10*3/uL Baso # (Auto) 0.0 (0.0-0.2) X10*3/uL Abs Immat Gran (auto) 0.01 (0.00-0.03) X10*3/uL Absolute Neuts (auto) 3.1 (2.0-8.3) x10*3/uL Absolute Nucleated RBC 0.000 (0.0-0.012) X10*3/uL Nucleated RBC % (auto) 0.0 (0.0-0.2) /100WBC PT 15.7 H (11.1-13.3) SEC INR 1.3 H (0.9-1.1) APTT 32.5 (26.0-36.4) SEC Sodium 141 (135-145) mmol/L Potassium 3.8 (3.3-5.1) mmol/L Chloride 103 (96-108) mmol/L Carbon Dioxide 24 (22-29) mmol/L Anion Gap 18 (12-20) BUN 60 H (9-16) mg/dL Creatinine 1.62 H (0.5-1.4) mg/dL Estim Creat Clear Calc 17.9 Estimated GFR 30 Random Glucose 103 (60-115) mg/dL Calcium 9.3 (8.4-10.2) mg/dL Total Bilirubin 2.2 H (0.0-1.0) mg/dL AST 28 (5-31) U/L ALT 10 (0-31) U/L Alkaline Phosphatase 85 (39-117) U/L Total Protein 7.4 (6.5-8.0) g/dL Albumin 4.0 (3.5-5.0) g/dL Independent Historian Clinical information obtained from an independent historian. History obtained from or confirmed by: Other (patient's daughter provided additional history and confirmed the history provided by the patient.) External Record Review External record reviewed: Other (reviewed all previous records.) Critical Care Time Critical Care Time Critical Care Time: Yes Total Critical Care Time: 40 Attestation: I spent 40 minutes of Critical Care Time with this patient. This does not include time spent on separately reported billable procedures. Discharge Plan Discharge Clinical Impression: Epistaxis, recurrent, Dehydration Patient Disposition: Home, Self-Care Instructions: Dehydration (ED), Nosebleed (ED) Additional Instructions: Drink plenty of fluids. DO NOT BLOW YOUR NOSE. Follow up with your primary care provider and an ENT. Return to the emergency department immediately if your symptoms worsen or if you develop any dizziness, shortness of breath, difficulty breathing, chest pain, blurry vision, loss of vision, nausea, vomiting, abdominal pain, fever, chills, back pain, or any other complaints. [facility], [facility] phone # [phone] [place] phone # [phone] [facility] Locations: [place], [place], [place], [place], [place] Phone (for all locations) # [phone] [facility] phone # [phone] [facility] phone # [phone] Prescriptions: No Action potassium chloride 20 mEq packet 20 meq PO BID 30 Days Qty: 60 5RF Rx Instructions: Pt needs oral packets as she can not swallow the pill form bumetanide 2 mg tablet 2 mg PO DAILY Qty: 30 5RF amoxicillin 500 mg capsule 2,000 mg PO ONCE Qty: 4 1RF Rx Instructions: take 1-2 hr prior to dental work metolazone 2.5 mg tablet 2.5 mg PO DAILY PRN Interventions: ED Discharge Assessment Last Done: 05/20/23 23:17 Discharge Date/Time: 05/20/23 23:17
[2023-05-20] MEDS: 0.9 % Sodium Chloride 1,000 ML 999 ML IV (22:18)
[2023-05-20 23:16] VITALS: BP 120/60; PULSE 67; RESP 14; O2SAT 97
== END 2023-05-20 23:17 | disposition home or self-care (01) ==
PROVIDERS: Physician Assistant; Emergency Provider Internal Medicine
DX: R04.0 Epistaxis (principal); E86.0 Dehydration; Z87.891 Personal history of nicotine dependence; Z79.899 Other long term (current) drug therapy
CPT/HCPCS: 36415; 80053; 85025; 85610; 85730; 99284

== ENCOUNTER 2023-05-29 12:09 | Outpatient (AMB) | payer MEDICARE, SELFPAY ==
[2023-05-29 12:13] VITALS: BP 110/54; PULSE 58; O2SAT 98; BMI 26.7
--- NOTE | 2023-05-29 12:13 | MHC.PC.OV ---
Vital Signs 05/29/23 12:13 Height 4 ft 8 in Weight 119 lb 4 oz BMI 26.7 BP 110/54 L Blood Pressure Location Lt brachial Position Sitting Pulse 58 Pulse Source Pulse Oximeter Pulse Oximetry (%) 98 Oxygen Delivery Method Room Air Intake Visit Reasons: Discuss anxiety medication Allergies ibuprofen [IBUPROFEN] Allergy (Severe, Verified 05/29/23 12:14) THROAT LUMP olmesartan [From BENICAR] Allergy (Severe, Verified 05/29/23 12:14) WHEEZING Gadolinium-Containing Contrast Medi [Gadolinium-Containing Agents] Allergy (Mild, Verified 05/29/23 12:14) HIVES Iodinated Contrast Media [IV Dye, Iodine Containing] Allergy (Mild, Verified 05/29/23 12:14) RASH oneil Allergy (Mild, Verified 05/29/23 12:14) RASH Sulfa (Sulfonamide Antibiotics) Allergy (Mild, Verified 05/29/23 12:14) RASH amiodarone [AMIODARONE] Allergy (Unknown, Verified 05/29/23 12:14) THYROID TOXICOSIS amlodipine [From NORVASC] Allergy (Unknown, Verified 05/29/23 12:14) WHEEZING aspirin [ASPIRIN] Allergy (Unknown, Verified 05/29/23 12:14) THROAT LUMP HEAVY WHEEZING, wheezing, wheezing azithromycin [From ZITHROMAX] Allergy (Unknown, Verified 05/29/23 12:14) NAUSEA/VOMITING, nausea and vomiting bee pollen [Bee Stings] Allergy (Unknown, Verified 05/29/23 12:14) EDEMA, ALL INSECT STINGS capsaicin [CAPSAICIN] Allergy (Unknown, Verified 05/29/23 12:14) RASH clopidogrel [From PLAVIX] Allergy (Unknown, Verified 05/29/23 12:14) THROAT LUMP HEAVY WHEEZING diltiazem [Cardizem] Allergy (Unknown, Verified 05/29/23 12:14) rash methimazole [METHIMAZOLE] Allergy (Unknown, Verified 05/29/23 12:14) RASH sulfamethoxazole [From BACTRIM] Allergy (Unknown, Verified 05/29/23 12:14) RASH trimethoprim [From BACTRIM] Allergy (Unknown, Verified 05/29/23 12:14) RASH escitalopram [From Lexapro] Allergy (Verified 05/29/23 12:14) Wheezing clarithromycin [From Biaxin] Adverse Reaction (Mild, Verified 05/29/23 12:14) N/V codeine [Codeine] Adverse Reaction (Mild, Verified 05/29/23 12:14) N/V levofloxacin [From Levaquin] Adverse Reaction (Mild, Verified 05/29/23 12:14) N/V Dye LONG-TERM Blue 1 Allergy (Unknown, Uncoded 10/13/22 11:26) rash Medication List - Last Reconciled 05/29/23 by Mimi Benjamin MD bumetanide 2 mg PO DAILY metolazone 2.5 mg PO DAILY PRN potassium chloride 20 mEq PO BID 30 days Tobacco use date assessed: 05/29/23 Fall risk assessment: No Falls in past year Last assessed Fall Risk: 05/29/23 Dental Screening Dental Screen Date: 05/29/23 Did you have a dental visit in the last 12 months?: Yes Did you have a dental problem in the last 6 months where you did not have access to dental care?: No Was dental information given to patient?: No HPI Discuss anxiety medication HPI Details Patient is elderly female who is dealing with cardiac issues Which is causing extreme fatigue and tiredness now also feeling depressed Tells me that she feels lonely and cry easily. Having difficulty sleeping at night as well She is here today with her daughter patient is in wheelchair. I am starting her on Lexapro 5 mg she is to have follow-up in 3 weeks Also complaining of constipation and is taking Dulcolax which is helping. 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) History of right breast cancer (~1992) Hypertension, essential Lactose intolerance Mitral regurgitation Osteoporosis (~2020) Pacemaker at end of battery life Superficial bruising of abdominal wall Traumatic ecchymosis of left lower leg Traumatic ecchymosis of left shoulder Traumatic hematoma of head Tricuspid regurgitation Tubular adenoma of colon (~2000) Surgical History History of cardiac cath History of cardioversion History of colonoscopy History of eye surgery History of hand surgery History of heart artery stent History of lumpectomy History of pacemaker Family History Father CVD (cardiovascular disease) Mother CVD (cardiovascular disease) Myocardial infarction Maternal Grandmother Unknown family medical history Maternal Grandfather No problems noted. Paternal Grandfather CVD (cardiovascular disease) Paternal Grandmother No problems noted. Child No Financial Resp No problems noted. Social History Housing: House Are you a primary career professional to a significant other at home: No Do you presently have visiting nurse or other home services: No Alcohol intake: never Patient Tobacco Use Status: Former Tobacco user Quit Date: age 59 Tobacco use type: Cigarette Years Smoked: 40 e-Cigarette/Vaping Use: Never Used Advance Directives Date on File: 10/29/17 Current occupational status: retired Cognitive needs: No Hearing needs: Yes (deaf in right ear, left ear has a hearing aid) Vision needs: Yes Questionnaire PHQ-9 Over the last 2 weeks, how often have you been bothered by any of the following problems? 1. Little interest or pleasure in doing things: nearly every day 2. Feeling down, depressed, or hopeless: nearly every day 3. Trouble falling or staying asleep, or sleeping too much: nearly every day 4. Feeling tired or having little energy: nearly every day 5. Poor appetite or overeating: more than half the days 6. Feeling bad about yourself - or that you are a failure or have let yourself or your family down: several days 7. Trouble concentrating on things, such as reading the newspaper or watching television: not at all 8. Moving or speaking so slowly that other people could have noticed. Or the opposite - being so fidgety or restless that you have been moving around a lot more than usual: not at all 9. Thoughts that you would be better off or of hurting yourself in some way: not at all Total score: 15 Depression Screening Interpretation: Positive 18752 - PHQ-9 Billing: Yes Source: Developed by Drs. Derek Stock, Anali Alfaro, Taco Conti and colleagues, with an educational brandan from [employer]. AUDIT C Alcohol Use Questionnaire (AUDIT-C) 1. How often do you have a drink containing alcohol?: Never 3. How often do you have six or more drinks on one occasion?: Never Total Score: 0 Score Reviewed/Action Taken: Yes Review of Systems Const Denies chills and Denies fever(s) Card Denies chest pain Resp Denies cough and Denies hemoptysis GI Denies diarrhea and Denies nausea Skin/Breast Denies rash Neuro Reports no additional complaints Psych Reports no additional complaints Endo Reports no additional complaints Physical exam (Primary Care) Vital Signs: Last Vital Signs Pulse 58 05/29/23 12:13 BP 110/54 L 05/29/23 12:13 Pulse Ox 98 05/29/23 12:13 Oxygen Delivery Method Room Air 05/29/23 12:13 BMI result Body Mass Index 26.7 Tobacco/Smoking Status: Tobacco use Status Tobacco use date assessed 05/29/23 05/29/23 12:15 Patient Tobacco Use Status Former Tobacco user 05/29/23 12:15 Tobacco use type Cigarette 05/29/23 12:15 e-Cigarette/Vaping Use Never Used 05/29/23 12:15 Depression Screening Interpretation: Positive Const General: cooperative, comfortable and no acute distress Orientation/consciousness: patient oriented x3 HENMT Head: Yes normocephalic Eyes General: appearance normal, both eyes and all related structures Resp Effort & Inspection: normal respiratory effort, no cough and no stridor Cardio Heart sounds: S1 normal heart sound present and S2 normal heart sound present Skin General skin exam: turgor normal Neuro General: patient oriented x3, tone normal and moves all extremities Assessment and Plan Assessment & Plan (1) Thrombocytopenia: Code(s): D69.6 - Thrombocytopenia, unspecified (2) Atrial fibrillation, chronic: Onset Date: ~2009 Code(s): I48.20 - Chronic atrial fibrillation, unspecified (3) CHF (congestive heart failure): Code(s): I50.9 - Heart failure, unspecified (4) Major depression, recurrent: Code(s): F33.9 - Major depressive disorder, recurrent, unspecified Plan Patient is elderly female who is dealing with cardiac issues Which is causing extreme fatigue and tiredness now also feeling depressed Tells me that she feels lonely and cry easily. Having difficulty sleeping at night She is here today with her daughter patient is in wheelchair. I am starting her on Lexapro 5 mg she is to have follow-up in 3 weeks Also complaining of constipation and is taking Dulcolax which is helping. Going over her labs I noticed that her platelet count is dropping gradually I am booking appointment with hematology to discuss it further Especially that patient is having recurrent nose bleed as well she is currently seeing Dr. Eid for that. Orders: Referrals Hematology & Oncology Referral D69.6 - Thrombocytopenia, unspecified Medications: New escitalopram oxalate 5 mg PO DAILY 30 tabs 0RF 30 days Coding Level of Care Code Est Pt Level 4 (16105) Diagnoses Thrombocytopenia D69.6 Atrial fibrillation, chronic I48.20 CHF (congestive heart failure) I50.9 Major depression, recurrent F33.9
== END 2023-05-29 12:55 | disposition home or self-care (01) ==
PROVIDERS: Visit Provider Internal Medicine
DX: D69.6 Thrombocytopenia, unspecified (principal); I48.20 Chronic atrial fibrillation, unspecified; I50.9 Heart failure, unspecified; F33.9 Major depressive disorder, recurrent, unspecified
CPT/HCPCS: 99214

== ENCOUNTER 2023-06-06 07:29 | Outpatient (REF) | payer MEDICARE, SELFPAY ==
--- NOTE | ~2023-06-06 | CT_ITS ---
EXAMINATION: CT MAXILLOFACIAL WITHOUT CONTRAST CLINICAL INFORMATION: Recurrent epistaxis COMPARISON: None TECHNIQUE: Multidetector helical imaging was performed in the axial plane using landmarks protocol with generation of coronal and sagittal reformatted images. This CT examination was performed using dose optimization techniques as appropriate, variously including the following: *Automated exposure control *Adjustment of mA and/or kV according to patient size (this includes techniques or standardized protocols for targeted exams where dose is matched to indication/reason for exam; i.e. extremities or head) *Use of iterative reconstruction technique DLP: 82 mGy-cm FINDINGS: FRONTAL SINUSES AND DRAINAGE PATHWAYS: The frontal sinuses are clear. The frontal recesses are patent. MAXILLARY SINUSES AND DRAINAGE PATHWAYS: Trace mucosal thickening in the alveolar recess of the right maxillary sinus. Left maxillary sinus is clear.. The maxillary ostia and infundibula are patent. ETHMOID SINUSES: The ethmoid air cells are clear. The ethmoid roofs appear intact and are symmetric. SPHENOID SINUS AND DRAINAGE PATHWAYS: The sphenoid sinus is clear.. The sphenoid ostia and sphenoethmoidal recesses are patent. NASAL PASSAGE: The nasal passages are clear. The osseous nasal septum is slightly deviated to the right with small rightward osseous spur projecting towards the right middle turbinate. Paradoxical middle turbinates are noted. ADDITIONAL RELEVANT FINDINGS: The lamina papyracea are intact. No demonstrated abnormalities of the orbits. The carotid canals are normally covered by bone. No significant maxillary periapical disease. The temporomandibular joints are normal. The mastoid air cells and middle ear cavities are well aerated. Limited evaluation of the intracranial structures without significant abnormalities. CT/CT sinus wo IV con IMPRESSION: The paranasal sinuses and nasal cavity are clear. No etiology for epistaxis is identified. Mild rightward deviation and osseous spurring of the nasal septum
== END 2023-06-06 07:30 | disposition home or self-care (01) ==
LOC: HO.CT 07:29
PROVIDERS: Visit Provider Otolaryngology
DX: R04.0 Epistaxis (principal)
CPT/HCPCS: 70486

== ENCOUNTER → 2023-06-06 08:45 | Outpatient (BNV) | payer MEDICARE, SELFPAY | PROVIDERS: PCP Internal Medicine; Visit Provider Internal Medicine | DX: D61.818 Other pancytopenia (principal); D64.9 Anemia, unspecified | CPT/HCPCS: 99204; 99213; 99214 ==

== ENCOUNTER 2023-06-19 08:50 | Outpatient (AMB) | payer MEDICARE, SELFPAY ==
--- NOTE | 2023-06-19 08:51 | MHC.PC.OV ---
Intake Visit Reasons: 3 week follow up/Per Dr. Benjamin Allergies ibuprofen [IBUPROFEN] Allergy (Severe, Verified 06/19/23 08:52) THROAT LUMP olmesartan [From BENICAR] Allergy (Severe, Verified 06/19/23 08:52) WHEEZING Gadolinium-Containing Contrast Medi [Gadolinium-Containing Agents] Allergy (Mild, Verified 06/19/23 08:52) HIVES Iodinated Contrast Media [IV Dye, Iodine Containing] Allergy (Mild, Verified 06/19/23 08:52) RASH oneil Allergy (Mild, Verified 06/19/23 08:52) RASH Sulfa (Sulfonamide Antibiotics) Allergy (Mild, Verified 06/19/23 08:52) RASH amiodarone [AMIODARONE] Allergy (Unknown, Verified 06/19/23 08:52) THYROID TOXICOSIS amlodipine [From NORVASC] Allergy (Unknown, Verified 06/19/23 08:52) WHEEZING aspirin [ASPIRIN] Allergy (Unknown, Verified 06/19/23 08:52) THROAT LUMP HEAVY WHEEZING, wheezing, wheezing azithromycin [From ZITHROMAX] Allergy (Unknown, Verified 06/19/23 08:52) NAUSEA/VOMITING, nausea and vomiting bee pollen [Bee Stings] Allergy (Unknown, Verified 06/19/23 08:52) EDEMA, ALL INSECT STINGS capsaicin [CAPSAICIN] Allergy (Unknown, Verified 06/19/23 08:52) RASH clopidogrel [From PLAVIX] Allergy (Unknown, Verified 06/19/23 08:52) THROAT LUMP HEAVY WHEEZING diltiazem [Cardizem] Allergy (Unknown, Verified 06/19/23 08:52) rash methimazole [METHIMAZOLE] Allergy (Unknown, Verified 06/19/23 08:52) RASH sulfamethoxazole [From BACTRIM] Allergy (Unknown, Verified 06/19/23 08:52) RASH trimethoprim [From BACTRIM] Allergy (Unknown, Verified 06/19/23 08:52) RASH escitalopram [From Lexapro] Allergy (Verified 06/19/23 08:52) Wheezing clarithromycin [From Biaxin] Adverse Reaction (Mild, Verified 06/19/23 08:52) N/V codeine [Codeine] Adverse Reaction (Mild, Verified 06/19/23 08:52) N/V levofloxacin [From Levaquin] Adverse Reaction (Mild, Verified 09/12/23 08:52) N/V Dye [facility] Blue 1 Allergy (Unknown, Uncoded 10/13/22 11:26) rash Medication List - Last Reconciled 06/19/23 by Mimi Benjamin MD bumetanide 2 mg PO DAILY escitalopram oxalate 5 mg PO DAILY 30 days metolazone 2.5 mg PO DAILY PRN potassium chloride 20 mEq PO BID 30 days Tobacco use date assessed: 06/19/23 Fall risk assessment: No Falls in past year Last assessed Fall Risk: 06/19/23 Dental Screening Dental Screen Date: 06/19/23 Did you have a dental visit in the last 12 months?: Yes Did you have a dental problem in the last 6 months where you did not have access to dental care?: No Was dental information given to patient?: Patient has dentist HPI 3 week follow up/Per Dr. Benjamin HPI Details Patient is 82-year-old female with multiple medical problems including congestive heart failure atrial fibrillation failure to thrive Depression difficulty sleeping unable to gain weight. She is seeing number of providers Recently she had seen Hematology [facility] for pancytopenia and had labs done. She wanted me to go over the lab reports which I did for the patient her hemoglobin is slightly low but stable. I have noticed her creatinine is 1.6. Patient tells me that she was told by Cardiology not to drink more than 4 or 5 cups of water a day. There is a possibility that creatinine values high because of dehydration. I would like her to repeat labs again I have told her to drink 3 cups of water in the morning before she go for the blood test. She has been started on Lexapro 5 mg when she verbalized to feeling very depressed last time she was crying easily unable to sleep at night She is doing much better she has stopped crying and her moods are stable now. However she is still struggling with sleeping. We will book another telemedicine visit in 1 week to go over the lab reports. 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) History of cardiac arrest (~2009) Osteoporosis (~2020) Tubular adenoma of colon (~2000) Pacemaker at end of battery life Blood in urine Superficial bruising of abdominal wall Traumatic ecchymosis of left lower leg Traumatic ecchymosis of left shoulder Traumatic hematoma of head Fall Hip pain, right Abnormal ultrasound of lower extremity AAA (abdominal aortic aneurysm) CAD (coronary artery disease) Cardiac pacemaker in situ (~2009) Mitral regurgitation Tricuspid regurgitation Diverticulosis Ex-smoker Hearing impaired Lactose intolerance History of right breast cancer (~1992) Hypertension, essential Atrial fibrillation, chronic (~2009) Surgical History History of colonoscopy History of hand surgery History of heart artery stent History of pacemaker History of lumpectomy History of cardiac cath History of cardioversion History of eye surgery Family History Father CVD (cardiovascular disease) Mother CVD (cardiovascular disease) Myocardial infarction Maternal Grandmother Unknown family medical history Maternal Grandfather No problems noted. Paternal Grandfather CVD (cardiovascular disease) Paternal Grandmother No problems noted. Child No Financial Resp No problems noted. Social History Household Members: Children Housing: House Are you a primary medical care administrator to a significant other at home: No Do you presently have visiting nurse or other home services: No Alcohol intake: never Patient Tobacco Use Status: Former Tobacco user Quit Date: age 59 Tobacco use type: Cigarette Years Smoked: 40 e-Cigarette/Vaping Use: Never Used Advance Directives Date on File: 10/29/17 service: No Current occupational status: retired Cognitive needs: No Hearing needs: Yes (deaf in right ear, left ear has a hearing aid) Vision needs: Yes Questionnaire AUDIT C Alcohol Use Questionnaire (AUDIT-C) 1. How often do you have a drink containing alcohol?: Never 3. How often do you have six or more drinks on one occasion?: Never Total Score: 0 Score Reviewed/Action Taken: Yes Review of Systems Const Denies chills and Denies fever(s) Card Denies chest pain Resp Denies cough and Denies hemoptysis GI Denies diarrhea and Denies nausea Skin/Breast Denies rash Neuro Reports no additional complaints Psych Reports no additional complaints Endo Reports no additional complaints Physical exam (Primary Care) Tobacco/Smoking Status: Tobacco use Status Tobacco use date assessed 06/19/23 06/19/23 08:53 Patient Tobacco Use Status Former Tobacco user 06/19/23 08:53 Tobacco use type Cigarette 06/19/23 08:53 e-Cigarette/Vaping Use Never Used 06/19/23 08:53 Telehealth Telehealth Location of provider rendering services: practice address Location of patient: address on file Patient Identification confirmed using: Name, : Yes Telehealth method: voice only Patient verbally consented to treatment: Yes Patient verbally consented to billing insurance company: Yes Patient informed of any privacy concerns related to visit: Yes Assessment and Plan Assessment & Plan (1) Elevated creatine kinase: Code(s): R74.8 - Abnormal levels of other serum enzymes (2) Major depression, recurrent: Code(s): F33.9 - Major depressive disorder, recurrent, unspecified Qualifiers: Active/Remission status: in partial remission Qualified Code(s): F33.41 - Major depressive disorder, recurrent, in partial remission (3) Pancytopenia: Code(s): D61.818 - Other pancytopenia (4) Thrombocytopenia: Code(s): D69.6 - Thrombocytopenia, unspecified (5) Atrial fibrillation, chronic: Onset Date: ~2009 Code(s): I48.20 - Chronic atrial fibrillation, unspecified (6) Difficulty sleeping: Code(s): G47.9 - Sleep disorder, unspecified Plan Patient is 82-year-old female with multiple medical problems including congestive heart failure atrial fibrillation failure to thrive Depression difficulty sleeping unable to gain weight. She is seeing number of providers Recently she had seen Hematology [facility] for pancytopenia and had labs done. She wanted me to go over the lab reports which I did for the patient her hemoglobin is slightly low but stable. I have noticed her creatinine is 1.6. Patient tells me that she was told by Cardiology not to drink more than 4 or 5 cups of water a day. There is a possibility that creatinine values high because of dehydration. I would like her to repeat labs again I have told her to drink 3 cups of water in the morning before she go for the blood test. She has been started on Lexapro 5 mg when she verbalized to feeling very depressed last time she was crying easily unable to sleep at night She is doing much better she has stopped crying and her moods are stable now. However she is still struggling with sleeping. We will book another telemedicine visit in 1 week to go over the lab reports. Orders: Orders Complete Blood Count Auto Diff Today D61.818 - Other pancytopenia, D69.6 - Thrombocytopenia, unspecified, F33.9 - Major depressive disorder, recurrent, unspecified, G47.9 - Sleep disorder, unspecified, I48.20 - Chronic atrial fibrillation, unspecified, R74.8 - Abnormal levels of other serum enzymes Basic Metabolic Panel Today D61.818 - Other pancytopenia, D69.6 - Thrombocytopenia, unspecified, F33.9 - Major depressive disorder, recurrent, unspecified, G47.9 - Sleep disorder, unspecified, I48.20 - Chronic atrial fibrillation, unspecified, R74.8 - Abnormal levels of other serum enzymes Medications: Changed From escitalopram oxalate 5 mg PO DAILY 30 days 30 tabs 0RF To escitalopram oxalate 5 mg PO DAILY 90 days 90 tabs 0RF Coding Level of Care Code Tele Est Pt Level 4 (22466) Diagnoses Elevated creatine kinase R74.8 Recurrent major depressive disorder, in partial remission F33.41 Active/Remission status: in partial remission Pancytopenia D61.818 Thrombocytopenia D69.6 Atrial fibrillation, chronic I48.20 Difficulty sleeping G47.9 Comment 5 prep, 15 with patient, 10 charting / meds
== END 2023-06-19 14:43 | disposition home or self-care (01) ==
LOC: HO.HMGC 08:50
PROVIDERS: PCP Internal Medicine; Visit Provider Internal Medicine
DX: D69.6 Thrombocytopenia, unspecified (principal); F33.41 Major depressive disorder, recurrent, in partial remission; D61.818 Other pancytopenia; I48.20 Chronic atrial fibrillation, unspecified; R74.8 Abnormal levels of other serum enzymes; G47.9 Sleep disorder, unspecified
CPT/HCPCS: 99443

== ENCOUNTER 2023-06-20 09:36 | Outpatient (REF) | payer MEDICARE, SELFPAY ==
[2023-06-20 10:05] LABS: MANUAL DIFF FLAG NO
[2023-06-20 10:17] LABS: Basophils Absolute Auto 0.1 X10*3/uL (0.0-0.2); Basophils Percent Auto 1.3 % (0-2); Eosinophils Absolute Auto 0.1 X10*3/uL (0.0-0.4); Eosinophils Percent Auto 2.6 % (0-4); Hematocrit 35.8 % (37.0-47.0); Hemoglobin 11.7 g/dl (12.0-16.0); Imm Gran Abs Auto 0.01 X10*3/uL (0.00-0.03); Imm Gran Pct Auto 0.3 % (0.0-0.4); Lymphocytes Absolute Auto 1.4 X10*3/uL (1.2-4.9); Lymphocytes Percent Auto 34.4 % (20-40); Mean Corpuscular HGB Conc 32.7 g/dl (31.0-35.0); Mean Corpuscular Hemoglobin 33.1 pg (27.0-33.0); Mean Corpuscular Volume 101.4 fL (80.0-98.0); Monocytes Absolute Auto 0.5 X10*3/uL (0.1-1.2); Neutrophils Absolute Auto 1.9 x10*3/uL (2.0-8.3); Neutrophils Percent Auto 49.4 % (45-73); Red Blood Count 3.53 X10*6/uL (4.20-5.50); Red Cell Distribution Width 13.8 % (11.0-16.0); White Blood Count 3.9 X10*3/uL (4.8-10.8)
[2023-06-20 10:25] LABS: Platelet Count 94 X10*3/uL (160-400)
[2023-06-20 10:40] LABS: Anion Gap 14 (12-20); Blood Urea Nitrogen 33 mg/dL (9-16); Calcium 8.9 mg/dL (8.4-10.2); Carbon Dioxide 26 mmol/L (22-29); Chloride 102 mmol/L (96-108); Estimated Glomerular Filt Rate 39; Glucose Random 100 mg/dL (60-115); Potassium 3.6 mmol/L (3.3-5.1); Sodium 138 mmol/L (135-145)
== END 2023-06-20 09:37 | disposition home or self-care (01) ==
LOC: HO.LAB 09:36
PROVIDERS: Visit Provider Internal Medicine
DX: D61.818 Other pancytopenia (principal); I48.20 Chronic atrial fibrillation, unspecified; F33.9 Major depressive disorder, recurrent, unspecified; G47.9 Sleep disorder, unspecified; R74.8 Abnormal levels of other serum enzymes
CPT/HCPCS: 36415; 80048; 85025

== ENCOUNTER 2023-06-28 08:15 | Outpatient (AMB) | payer MEDICARE, SELFPAY ==
--- NOTE | 2023-06-28 08:16 | MHC.PC.OV ---
Intake Visit Reasons: Discuss Lab~ Allergies ibuprofen [IBUPROFEN] Allergy (Severe, Verified 06/28/23 08:16) THROAT LUMP olmesartan [From BENICAR] Allergy (Severe, Verified 06/28/23 08:16) WHEEZING Gadolinium-Containing Contrast Medi [Gadolinium-Containing Agents] Allergy (Mild, Verified 06/28/23 08:16) HIVES Iodinated Contrast Media [IV Dye, Iodine Containing] Allergy (Mild, Verified 06/28/23 08:16) RASH oneil Allergy (Mild, Verified 06/28/23 08:16) RASH Sulfa (Sulfonamide Antibiotics) Allergy (Mild, Verified 06/28/23 08:16) RASH amiodarone [AMIODARONE] Allergy (Unknown, Verified 06/28/23 08:16) THYROID TOXICOSIS amlodipine [From NORVASC] Allergy (Unknown, Verified 06/28/23 08:16) WHEEZING aspirin [ASPIRIN] Allergy (Unknown, Verified 06/28/23 08:16) THROAT LUMP HEAVY WHEEZING, wheezing, wheezing azithromycin [From ZITHROMAX] Allergy (Unknown, Verified 06/28/23 08:16) NAUSEA/VOMITING, nausea and vomiting bee pollen [Bee Stings] Allergy (Unknown, Verified 06/28/23 08:16) EDEMA, ALL INSECT STINGS capsaicin [CAPSAICIN] Allergy (Unknown, Verified 06/28/23 08:16) RASH clopidogrel [From PLAVIX] Allergy (Unknown, Verified 06/28/23 08:16) THROAT LUMP HEAVY WHEEZING diltiazem [Cardizem] Allergy (Unknown, Verified 06/28/23 08:16) rash methimazole [METHIMAZOLE] Allergy (Unknown, Verified 06/28/23 08:16) RASH sulfamethoxazole [From BACTRIM] Allergy (Unknown, Verified 06/28/23 08:16) RASH trimethoprim [From BACTRIM] Allergy (Unknown, Verified 06/28/23 08:16) RASH escitalopram [From Lexapro] Allergy (Verified 06/28/23 08:16) Wheezing clarithromycin [From Biaxin] Adverse Reaction (Mild, Verified 06/28/23 08:16) N/V codeine [Codeine] Adverse Reaction (Mild, Verified 06/28/23 08:16) N/V levofloxacin [From Levaquin] Adverse Reaction (Mild, Verified 06/28/23 08:16) N/V Dye DETENTION Blue 1 Allergy (Unknown, Uncoded 10/13/22 11:26) rash Medication List - Last Reconciled 06/28/23 by Mimi Benjamin MD bumetanide 2 mg PO DAILY escitalopram oxalate 5 mg PO DAILY 90 days metolazone 2.5 mg PO DAILY PRN potassium chloride 20 mEq PO BID 30 days Tobacco use date assessed: 06/28/23 Last assessed Fall Risk: 06/28/23 Dental Screening Dental Screen Date: 06/28/23 Did you have a dental visit in the last 12 months?: No Did you have a dental problem in the last 6 months where you did not have access to dental care?: No Was dental information given to patient?: Patient declined HPI Discuss Lab~ HPI Details Patient is 82-year-old female this is a tele medicine is to go over her labs. Her kidney functions has improved from last month her creatinine is no 1.31 it was 1.62. BUN has also reduced. Her H&H is stable. Patient have abdominal ultrasound scheduled for tomorrow, she continued to have constipation. However she is moving her bowels every day but they are hard she can see the She is taking Dulcolax. She does not offer any other complaints today. 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) History of cardiac arrest (~2009) Osteoporosis (~2020) Tubular adenoma of colon (~2000) Pacemaker at end of battery life Blood in urine Superficial bruising of abdominal wall Traumatic ecchymosis of left lower leg Traumatic ecchymosis of left shoulder Traumatic hematoma of head Fall Hip pain, right Abnormal ultrasound of lower extremity AAA (abdominal aortic aneurysm) CAD (coronary artery disease) Cardiac pacemaker in situ (~2009) Mitral regurgitation Tricuspid regurgitation Diverticulosis Ex-smoker Hearing impaired Lactose intolerance History of right breast cancer (~1992) Hypertension, essential Atrial fibrillation, chronic (~2009) Surgical History History of colonoscopy History of hand surgery History of heart artery stent History of pacemaker History of lumpectomy History of cardiac cath History of cardioversion History of eye surgery Family History Father CVD (cardiovascular disease) Mother CVD (cardiovascular disease) Myocardial infarction Maternal Grandmother Unknown family medical history Maternal Grandfather No problems noted. Paternal Grandfather CVD (cardiovascular disease) Paternal Grandmother No problems noted. Child No Financial Resp No problems noted. Social History Household Members: Children Housing: House Are you a primary long term care pharmacist to a significant other at home: No Do you presently have visiting nurse or other home services: No Alcohol intake: never Patient Tobacco Use Status: Former Tobacco user Quit Date: age 59 Tobacco use type: Cigarette Years Smoked: 40 e-Cigarette/Vaping Use: Never Used Advance Directives Date on File: 10/29/17 service: No Current occupational status: retired Cognitive needs: No Hearing needs: Yes (deaf in right ear, left ear has a hearing aid) Vision needs: Yes Questionnaire AUDIT C Alcohol Use Questionnaire (AUDIT-C) 1. How often do you have a drink containing alcohol?: Never 3. How often do you have six or more drinks on one occasion?: Never Total Score: 0 Score Reviewed/Action Taken: Yes Review of Systems Const Denies chills and Denies fever(s) ENT Denies epistaxis and Denies nasal discharge Card Denies chest pain Resp Denies chest congestion, Denies cough and Denies hemoptysis GI Denies diarrhea and Denies nausea Skin/Breast Denies rash Neuro Reports no additional complaints Psych Reports no additional complaints Endo Reports no additional complaints Physical exam (Primary Care) Tobacco/Smoking Status: Tobacco use Status Tobacco use date assessed 06/28/23 06/28/23 08:17 Patient Tobacco Use Status Former Tobacco user 06/28/23 08:17 Tobacco use type Cigarette 06/28/23 08:17 e-Cigarette/Vaping Use Never Used 06/28/23 08:17 Telehealth Telehealth Location of provider rendering services: practice address Location of patient: address on file Patient Identification confirmed using: Name, : Yes Telehealth method: voice only Patient verbally consented to treatment: Yes Patient verbally consented to billing insurance company: Yes Patient informed of any privacy concerns related to visit: Yes Minutes spent on Phone/Video with Pt.: 13 Assessment and Plan Assessment & Plan (1) Pancytopenia: Code(s): D61.818 - Other pancytopenia Plan Patient is 82-year-old female this is a tele medicine is to go over her labs. Her kidney functions has improved from last month her creatinine is no 1.31 it was 1.62. BUN has also reduced. Her H&H is stable. plts are stable and are in 90s Patient have abdominal ultrasound scheduled for tomorrow, she continued to have constipation. However she is moving her bowels every day but they are hard she can see the She is taking Dulcolax. She does not offer any other complaints today. Coding Level of Care Code Tele Est Pt Level 3 (15734) Diagnoses Pancytopenia D61.818
== END 2023-06-28 09:35 | disposition home or self-care (01) ==
LOC: HO.HMGC 08:15
PROVIDERS: PCP Internal Medicine; Visit Provider Internal Medicine
DX: D61.818 Other pancytopenia (principal)
CPT/HCPCS: 99442

== ENCOUNTER 2023-06-29 09:08 | Outpatient (REF) | payer MEDICARE, SELFPAY ==
--- NOTE | ~2023-06-29 | US_ITS ---
EXAMINATION: US ABDOMEN COMPLETE CLINICAL INFORMATION: Question hepatosplenomegaly. COMPARISON: CT abdomen and pelvis 05/06/2020. Renal ultrasound 02/06/2019. X-ray KUB 01/11/2017. TECHNIQUE: Real-time imaging of the abdominal viscera. FINDINGS: PANCREAS: Normal. ABDOMINAL AORTA: Abdominal aorta is aneurysmally dilated and measured 3.6 x 3.5 cm and distally INFERIOR VENA CAVA: Inferior vena cava is prominent, measured 4.5 cm LIVER: Liver is cirrhotic with mildly nodular contour, surrounded by trace of ascites. There left lobe of the liver measured 9.1 cm in the right lobe measured 15.5 cm. The liver contour is normal. Parenchymal echogenicity is normal. No focal hepatic lesion. There is no intrahepatic biliary duct dilatation seen. GALLBLADDER: Gallbladder wall isn't thickened and there are impacted stones in the gallbladder neck gallbladder wall measured 1.0 cm there is trace of pericholecystic fluid sonographic Jaffe's sign reported negative COMMON BILE DUCT: Normal in caliber measuring 0.5 cm in diameter. RIGHT KIDNEY: There is lower pole 3.0 x 2.1 x 2.2 cm cyst in interpolar area 0.8 x 0.5 x 0.6 cm cyst. No hydronephrosis or renal calculi. The kidney measures 10.6 cm in maximum dimension. LEFT KIDNEY: There are several small cysts with the largest in the interpolar area measured 1.2 x 1.1 x 1.4 cm in the upper pole 0.8 x 0.7 x 0.5 cm No hydronephrosis or renal calculi. The kidney measures 10.4 cm in maximum dimension. SPLEEN: Normal. The spleen measures 10.1 cm in maximum dimension. FREE FLUID: None. US/US abdomen complete IMPRESSION: 1. Cirrhotic liver with trace of ascites. 2. Cholelithiasis with impacted stones in the gallbladder neck. Thickened gallbladder wall. 3. Bilateral renal cysts. 4. Abdominal aortic aneurysm.
== END 2023-06-29 09:09 | disposition home or self-care (01) ==
LOC: HO.US 09:08
PROVIDERS: PCP Internal Medicine; Visit Provider Internal Medicine
DX: D69.6 Thrombocytopenia, unspecified (principal)
CPT/HCPCS: 76700

== ENCOUNTER 2023-08-16 12:48 | Outpatient (AMB) | payer MEDICARE, SELFPAY ==
--- NOTE | 2023-08-16 12:55 | MHC.OFFVIS ---
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 Allergies ibuprofen [IBUPROFEN] Allergy (Severe, Verified 06/28/23 08:16) THROAT LUMP olmesartan [From BENICAR] Allergy (Severe, Verified 06/28/23 08:16) WHEEZING Gadolinium-Containing Contrast Medi [Gadolinium-Containing Agents] Allergy (Mild, Verified 06/28/23 08:16) HIVES Iodinated Contrast Media [IV Dye, Iodine Containing] Allergy (Mild, Verified 06/28/23 08:16) RASH oneil Allergy (Mild, Verified 06/28/23 08:16) RASH Sulfa (Sulfonamide Antibiotics) Allergy (Mild, Verified 06/28/23 08:16) RASH amiodarone [AMIODARONE] Allergy (Unknown, Verified 06/28/23 08:16) THYROID TOXICOSIS amlodipine [From NORVASC] Allergy (Unknown, Verified 06/28/23 08:16) WHEEZING aspirin [ASPIRIN] Allergy (Unknown, Verified 06/28/23 08:16) THROAT LUMP HEAVY WHEEZING, wheezing, wheezing azithromycin [From ZITHROMAX] Allergy (Unknown, Verified 06/28/23 08:16) NAUSEA/VOMITING, nausea and vomiting bee pollen [Bee Stings] Allergy (Unknown, Verified 06/28/23 08:16) EDEMA, ALL INSECT STINGS capsaicin [CAPSAICIN] Allergy (Unknown, Verified 06/28/23 08:16) RASH clopidogrel [From PLAVIX] Allergy (Unknown, Verified 06/28/23 08:16) THROAT LUMP HEAVY WHEEZING diltiazem [Cardizem] Allergy (Unknown, Verified 06/28/23 08:16) rash methimazole [METHIMAZOLE] Allergy (Unknown, Verified 06/28/23 08:16) RASH sulfamethoxazole [From BACTRIM] Allergy (Unknown, Verified 06/28/23 08:16) RASH trimethoprim [From BACTRIM] Allergy (Unknown, Verified 06/28/23 08:16) RASH escitalopram [From Lexapro] Allergy (Verified 06/28/23 08:16) Wheezing clarithromycin [From Biaxin] Adverse Reaction (Mild, Verified 06/28/23 08:16) N/V codeine [Codeine] Adverse Reaction (Mild, Verified 06/28/23 08:16) N/V levofloxacin [From Levaquin] Adverse Reaction (Mild, Verified 06/28/23 08:16) N/V Dye CARE HOME Blue 1 Allergy (Unknown, Uncoded 10/13/22 11:26) rash Medication List - Last Reconciled 08/16/23 by Leonard Smart MD bumetanide 2 mg PO DAILY escitalopram oxalate 5 mg PO DAILY metolazone 2.5 mg PO DAILY PRN potassium chloride 20 mEq PO DAILY PRN HPI HPI Comments History of Present Illness Details Bobbi comes for follow-up. She says she was recently told in Hematology that she has cirrhosis or liver and is blind in to see GI in the future. She continues to have symptoms of fatigue. She took metolazone about a week ago, this is the 1st time she took in the last 3 months. She has been otherwise taking bumetanide. Her dry weight is 110 111 lb. She denies any prolonged palpitation irregular heartbeat. No lightheadedness, syncope. No orthopnea, PND. She tries to walk with help of her wheelchair around the corner. She has been losing muscle mass. 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) History of cardiac arrest (~2009) Osteoporosis (~2020) Tubular adenoma of colon (~2000) Pacemaker at end of battery life Blood in urine Superficial bruising of abdominal wall Traumatic ecchymosis of left lower leg Traumatic ecchymosis of left shoulder Traumatic hematoma of head Fall Hip pain, right Abnormal ultrasound of lower extremity AAA (abdominal aortic aneurysm) CAD (coronary artery disease) Cardiac pacemaker in situ (~2009) Mitral regurgitation Tricuspid regurgitation Diverticulosis Ex-smoker Hearing impaired Lactose intolerance History of right breast cancer (~1992) Hypertension, essential Atrial fibrillation, chronic (~2009) Surgical History History of colonoscopy History of hand surgery History of heart artery stent History of pacemaker History of lumpectomy History of cardiac cath History of cardioversion History of eye surgery Family History Father CVD (cardiovascular disease) Mother CVD (cardiovascular disease) Myocardial infarction Maternal Grandmother Unknown family medical history Maternal Grandfather No problems noted. Paternal Grandfather CVD (cardiovascular disease) Paternal Grandmother No problems noted. Child No Financial Resp No problems noted. Social History Household Members: Children Housing: House Are you a primary intensive care medicine specialist to a significant other at home: No Do you presently have visiting nurse or other home services: No Alcohol intake: never Patient Tobacco Use Status: Former Tobacco user Quit Date: age 59 Tobacco use type: Cigarette Years Smoked: 40 e-Cigarette/Vaping Use: Never Used Advance Directives Date on File: 10/29/17 service: No Current occupational status: retired Cognitive needs: No Hearing needs: Yes (deaf in right ear, left ear has a hearing aid) Vision needs: Yes Review of Systems Const Denies chills, Denies fatigue, Denies fever(s), Denies frequent falls, Denies weakness, Denies weight gain and Denies weight loss ENT Denies dizziness Card Denies chest pain, Denies leg edema, Denies lightheadedness, Denies palpitations, Denies dyspnea, Denies dyspnea on exertion, Denies orthopnea and Denies other (loss of consciousness) Resp Denies cough, Denies dyspnea and Denies dyspnea on exertion GI Denies hematochezia and Denies change in stool character Musc Denies abnormal gait, Denies muscle weakness, Denies numbness, Denies radiating pain into limb and Denies tingling Neuro Denies abnormal gait, Denies dizziness, Denies frequent falls, Denies numbness, Denies tingling and Denies weakness Endo Denies fatigue and Denies palpitations Physical Exam Vital Signs: Last Vital Signs Pulse 60 08/16/23 12:56 BP 118/64 08/16/23 12:56 BMI result Body Mass Index 18.9 Const General: cooperative, comfortable and no acute distress Orientation/consciousness: patient oriented x3 Neck Other: Pulsation of neck vein, likely V wave from TR Neck: Yes normal visual inspection and Yes no JVD (Pulsatile V-waves) Resp Effort & Inspection: normal respiratory effort Auscultation: clear to auscultation bilaterally, no crackles, no rales, no rhonchi and no wheezes Cardio Rate: regular rate Rhythm: abnormal rhythm Heart sounds: S1 normal heart sound present, S2 normal heart sound present, no gallops, Murmur heart sound present (Systolic murmur in mitral position) and no rubs Peripheral pulses: Peripheral pulses 2+ throughout GI Inspection: Yes Abdominal wall edema Neuro General: patient oriented x3 Extrem Other: Trace pitting edema in each lower leg, left upper leg General: Yes normal to inspection, No clubbing, No cyanosis and Yes edema Psych Appearance: grossly normal Mental Status: mental status grossly normal Speech and movement: Normal speech and movement present Office Procedures Cardiac Device Check Cardiac Device Check Details: Single-chamber Medtronic pacemaker in place. Programmed in VVI at 60 beats per minute. Ventricular pacing 67% of the time. Ventricular pacing thresholds adequate and reprogrammed to enhance battery life. Ventricular sensing is adequate. Pacing lead impedance is stable. Battery life is excellent at about 13 years 21220-[id number] Cardiac Device Check, leadless/single lead pacemaker Procedure code (CPT) selection complete Assessment & Plan Assessment & Plan (1) CHF (congestive heart failure): Code(s): I50.9 - Heart failure, unspecified Plan: Patient with congestive heart failure, clinically appears to be euvolemic and well compensated. This is secondary to multiple factors including chronic atrial fibrillation with massive biatrial enlargement with predominantly right heart failure related to RV systolic dysfunction severe tricuspid regurgitation. Overall prognosis is guarded. Some of her symptoms are related to chronic atrial fibrillation as well as RV dysfunction. There is no treatment besides avoidance of congestiion. We discussed about weight base management of heart failure. Continue current bumetanide dose and metolazone as need be if she has greater than 2 lb weight gain in a day. She understands this management well. Continue to monitor renal function every 3 months. Overall progressive nature of RV dysfunction with severe tricuspid regurgitation was noted. She also has cirrhosis or liver most likely due to significant tricuspid regurgitation right heart failure. (2) CAD (coronary artery disease): Comment: (s/p stented RCA 2009 and circumflex 2013) Code(s): I25.10 - Atherosclerotic heart disease of [place] coronary artery without angina pectoris Plan: Remote CAD without any obvious symptoms at current point time. No symptoms of angina. However most likely masked by her reduced exercise capacity. She is currently not on aspirin therapy as she does not want to take it due to recurrent epistaxis in the past. She also not on statin therapy and may not be advisable given her advanced heart failure syndrome as well as cirrhosis of the liver. Blood pressure is well optimized at this point in time. (3) Atrial fibrillation, chronic: Onset Date: ~2009 Code(s): I48.20 - Chronic atrial fibrillation, unspecified Plan: Chronic rate control atrial fibrillation. Currently not on any rate control strategy. She is also not on oral anticoagulation therapy as of her own volition due to recurrent epistaxis. Risk of stroke was discussed with her. (4) Cardiac pacemaker in situ: Onset Date: ~2009 Comment: (single-chamber Medtronic - DCPP placed 2009 - now VVI - replaced 2022) Code(s): Z95.0 - Presence of cardiac pacemaker Plan: Cardiac pacemaker in-situ for bradycardia with chronic atrial fibrillation. Pacemaker is working well. Will follow remotely. (5) Tricuspid regurgitation: Code(s): I07.1 - Rheumatic tricuspid insufficiency Plan: Significant tricuspid regurgitation which is related to significant enlargement of right atrium is right ventricle and pacemaker lead. This is unlikely to be amenable to repair as this appears to be more off of mechanical problem. This was discussed with her. Progressive nature of heart failure syndrome related tricuspid regurgitation was discussed with her. Will follow up with her in 3 months time. Thank you for allowing me to partake in the care. Orders: Orders CA echo transthoracic complete Today I50.9 - Heart failure, unspecified Medications: Changed From escitalopram oxalate 5 mg PO DAILY 90 days 90 tabs 0RF To escitalopram oxalate 5 mg PO DAILY From potassium chloride Pt needs oral packets as she can not swallow the pill form 20 mEq PO BID 30 days 60 ea 5RF To potassium chloride Pt needs oral packets as she can not swallow the pill form 20 mEq PO DAILY PRN Coding Level of Care Code Est Pt Level 5 (72507) Diagnoses CHF (congestive heart failure) I50.9 CAD (coronary artery disease) I25.10 Atrial fibrillation, chronic I48.20 Cardiac pacemaker in situ Z95.0 Tricuspid regurgitation I07.1 CPT Codes Cardiac Device Check - Cardiac Device 1: [id number] Cardiac Device Check, leadless/single lead pacemaker ([id number])
[2023-08-16 12:56] VITALS: BP 118/64; PULSE 60; BMI 18.9
== END 2023-08-16 13:25 | disposition home or self-care (01) ==
PROVIDERS: PCP Internal Medicine; Visit Provider Internal Medicine Cardiovascular Disease
DX: I50.9 Heart failure, unspecified (principal); I25.10 Atherosclerotic heart disease of native coronary artery without angina pectoris; I48.20 Chronic atrial fibrillation, unspecified; Z95.0 Presence of cardiac pacemaker; I07.1 Rheumatic tricuspid insufficiency
CPT/HCPCS: 93279; 99214

== ENCOUNTER → 2023-08-16 12:48 | Outpatient (BNVA) | payer MEDICARE, SELFPAY | PROVIDERS: PCP Internal Medicine; Visit Provider Internal Medicine Cardiovascular Disease | DX: Z45.018 Encounter for adjustment and management of other part of cardiac pacemaker (principal); I25.10 Atherosclerotic heart disease of native coronary artery without angina pectoris; I50.9 Heart failure, unspecified; I48.20 Chronic atrial fibrillation, unspecified; I07.1 Rheumatic tricuspid insufficiency | CPT/HCPCS: 99212 ==

== ENCOUNTER → 2023-08-16 23:59 | Outpatient (BNV) | payer MEDICARE, SELFPAY ==
--- NOTE | 2023-08-17 15:56 | A.OFFVIS_ITS ---
Intake Intake Visit Reasons: Remote Device Check- [employer] Allergies ibuprofen [IBUPROFEN] Allergy (Severe, Verified 06/28/23 08:16) THROAT LUMP olmesartan [From BENICAR] Allergy (Severe, Verified 06/28/23 08:16) WHEEZING Gadolinium-Containing Contrast Medi [Gadolinium-Containing Agents] Allergy (Mild, Verified 06/28/23 08:16) HIVES Iodinated Contrast Media [IV Dye, Iodine Containing] Allergy (Mild, Verified 06/28/23 08:16) RASH oneil Allergy (Mild, Verified 06/28/23 08:16) RASH Sulfa (Sulfonamide Antibiotics) Allergy (Mild, Verified 06/28/23 08:16) RASH amiodarone [AMIODARONE] Allergy (Unknown, Verified 06/28/23 08:16) THYROID TOXICOSIS amlodipine [From NORVASC] Allergy (Unknown, Verified 06/28/23 08:16) WHEEZING aspirin [ASPIRIN] Allergy (Unknown, Verified 06/28/23 08:16) THROAT LUMP HEAVY WHEEZING, wheezing, wheezing azithromycin [From ZITHROMAX] Allergy (Unknown, Verified 06/28/23 08:16) NAUSEA/VOMITING, nausea and vomiting bee pollen [Bee Stings] Allergy (Unknown, Verified 06/28/23 08:16) EDEMA, ALL INSECT STINGS capsaicin [CAPSAICIN] Allergy (Unknown, Verified 06/28/23 08:16) RASH clopidogrel [From PLAVIX] Allergy (Unknown, Verified 06/28/23 08:16) THROAT LUMP HEAVY WHEEZING diltiazem [Cardizem] Allergy (Unknown, Verified 06/28/23 08:16) rash methimazole [METHIMAZOLE] Allergy (Unknown, Verified 06/28/23 08:16) RASH sulfamethoxazole [From BACTRIM] Allergy (Unknown, Verified 06/28/23 08:16) RASH trimethoprim [From BACTRIM] Allergy (Unknown, Verified 06/28/23 08:16) RASH escitalopram [From Lexapro] Allergy (Verified 06/28/23 08:16) Wheezing clarithromycin [From Biaxin] Adverse Reaction (Mild, Verified 06/28/23 08:16) N/V codeine [Codeine] Adverse Reaction (Mild, Verified 06/28/23 08:16) N/V levofloxacin [From Levaquin] Adverse Reaction (Mild, Verified 06/28/23 08:16) N/V Dye SNF Blue 1 Allergy (Unknown, Uncoded 10/13/22 11:26) rash PFSH Medical History 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) History of cardiac arrest (~2009) Osteoporosis (~2020) Tubular adenoma of colon (~2000) Pacemaker at end of battery life Blood in urine Superficial bruising of abdominal wall Traumatic ecchymosis of left lower leg Traumatic ecchymosis of left shoulder Traumatic hematoma of head Fall Hip pain, right Abnormal ultrasound of lower extremity AAA (abdominal aortic aneurysm) CAD (coronary artery disease) Cardiac pacemaker in situ (~2009) Mitral regurgitation Tricuspid regurgitation Diverticulosis Ex-smoker Hearing impaired Lactose intolerance History of right breast cancer (~1992) Hypertension, essential Atrial fibrillation, chronic (~2009) Surgical History History of colonoscopy History of hand surgery History of heart artery stent History of pacemaker History of lumpectomy History of cardiac cath History of cardioversion History of eye surgery Family History Father CVD (cardiovascular disease) Mother CVD (cardiovascular disease) Myocardial infarction Maternal Grandmother Unknown family medical history Maternal Grandfather No problems noted. Paternal Grandfather CVD (cardiovascular disease) Paternal Grandmother No problems noted. Child No Financial Resp No problems noted. Social History Household Members: Children Housing: House Are you a primary care companion to a significant other at home: No Do you presently have visiting nurse or other home services: No Alcohol intake: never Patient Tobacco Use Status: Former Tobacco user Quit Date: age 59 Tobacco use type: Cigarette Years Smoked: 40 e-Cigarette/Vaping Use: Never Used Advance Directives Date on File: 10/29/17 service: No Current occupational status: retired Cognitive needs: No Hearing needs: Yes (deaf in right ear, left ear has a hearing aid) Vision needs: Yes Office Procedures Cardiac Device Check Cardiac Device Check Details: Remote pacemaker report generated 08/16/2023. Pacemaker function is adequate [id number] Cardiac Device Interrogation, pacemaker Procedure code (CPT) selection complete Coding Level of Care Code Procedure Only CPT Codes Cardiac Device Check - Cardiac Device 12: [id number] Cardiac Device Interrogation, pacemaker ([id number])
== END ==
PROVIDERS: PCP Internal Medicine; Visit Provider Internal Medicine Cardiovascular Disease
DX: I48.20 Chronic atrial fibrillation, unspecified (principal); Z95.0 Presence of cardiac pacemaker
CPT/HCPCS: 93294

== ENCOUNTER → 2023-09-12 12:49 | Outpatient (REF) | payer MEDICARE, SELFPAY ==
--- NOTE | 2023-09-12 12:55 | CA_ITS ---
Transthoracic Echocardiogram Patient (Last, First, Middle): Bobbi Dow M Gender: Female Date of : 1940 Age: 82 Procedure Date: 09/12/2023 Procedure Type: Transthoracic Echocardiogram Location: OP Height: 162.56 cm Weight: 49.9 kg BSA: 1.52 m2 Heart Rate: 76 bpm BP: 118 / 60 mmHg [employer] Psychologist: FOUZIA Referring MD: Leonard Smart MD Symptoms: I50.9 - Heart failure, unspecified Study Quality: Adequate ECG Rhythm: Paced Conclusions: - The left ventricular systolic function is moderately decreased. The visually estimated ejection fraction is between 30-35%. - Evidence suggests grade III (severe) diastolic dysfunction. - The apical inferior, basal inferior, apical septum, and mid anteroseptal segments are akinetic. - Moderately increased right ventricular cavity size. - Severe biatrial enlargement. - There is severe mitral valve regurgitation. The mitral regurgitation jet is directed posteriorly. - There is severe tricuspid valve regurgitation. - Severe pulmonary hypertension is present. - The inferior vena cava is severely dilated and collapses less than 50% with inspiration. Findings Left Ventricle Normal left ventricular cavity size. There is normal left ventricular wall thickness. The left ventricular systolic function is moderately decreased. The visually estimated ejection fraction is between 30-35%. There is evidence of regional wall motion abnormalities. Evidence suggests grade III (severe) diastolic dysfunction. Wall Motion Rest Echo Findings The apical inferior, basal inferior, apical septum, and mid anteroseptal segments are akinetic. Right Ventricle Moderately increased right ventricular cavity size. There is mildly decreased right ventricular systolic function. Atria Severe biatrial enlargement. Aortic Valve There is mild calcification of the aortic valve. There is mild aortic valve regurgitation. No significant aortic stenosis. Mitral Valve There is mild anterior mitral leaflet thickening. The posterior mitral leaflet has restricted mobility. There is mild mitral annular calcification. There is severe mitral valve regurgitation. The mitral regurgitation jet is directed posteriorly. Pulmonic Valve There is trace pulmonic valve regurgitation. Tricuspid Valve There is severe tricuspid valve regurgitation. Severe pulmonary hypertension is present. Great Vessels The asc aorta is normal in size. Small plaque is seen in the sino tubular ridge. Venous The inferior vena cava is severely dilated and collapses less than 50% with inspiration. Pericardium/Pleural There is no evidence of pericardial effusion. Prior Study Comparison Changes noted compared to prior study dated: 05/05/2022. LVEF decreased. Measurements 2D Linear Measurements IVSd: 0.73 0.6-0.9/0.6-1.0 cm LVIDd: 4.94 3.9-5.3/4.2-5.9 cm LVIDd Index: 3.25 2.4-3.2/2.2-3.1 cm/m2 LVIDs: 4.20 2.0-3.6 cm LVPWd: 0.66 0.7-1.1 cm LA Diam: 5.50 2.7-3.8/3.0-4.0 cm LAIDs Index: 3.62 1.5-2.3 cm/m2 LV Mass: 138.16 67-162/88-224 g LV Mass Index: 90.89 43-95/49-115 g/m2 LVOT Diam: 2.10 3.0+(-)1.3 cm 2D Systolic Function EF 4C: 46.90 >55% Mitral Valve MV Pk E: 1.60 MV PK A: 0.49 MV Decel Time: 150.00 E/A: 3.30 E'Lateral: 12.10 E'Medial: 7.22 E/E' Med: 22.20 E/E' Lat: 13.20 PHT: 44.00 MVA PHT: 5.00 Decel Box Elder: 10.64 MR Vol - PW Dopp: 63.55 MR VTI: 1.55 MR ERO: 41.00 MR Alias Servando: 0.41 MR RAD: 0.90 Aortic Valve AoV Pk Servando: 1.54 AoV Mn Servando: 1.04 AoV VTI: 0.28 AoV Pk Grad: 10.00 Aov Mn Grad: 5.00 SEBASTIAN Cont.VTI: 1.54 AI Pk Servando: 3.35 AI VTI: 1.52 AI Box Elder: 1.83 LVOT LVOT Pk Servando: 0.69 LVOT Mn Servando: 0.53 LVOT VTI: 0.15 LVOT Pk Grad: 2.00 LVOT Mn Grad: 1.00 LVOT Diam: 2.10 LVOT Area: 3.46 Diastolic Function MV Pk E: 1.60 MV Pk A: 0.49 E/A: 3.30 E'Medial: 7.22 E/E' Med: 22.20 E' Laterial: 12.10 E/E' Lat: 13.20 Right Ventricle TAPSE (mm): 18.90 TVS' Servando: 9.30 Tricuspid Valve TR Pk Servando: 3.89 TR Pk Grad: 61.00 RA Press: 15.00 RVSP: 76.00 Great Vessels Aorta Sinus of Valsalva: 3.10 2.0-3.5 cm Ao Asc: 2.90 2.1-3.4 cm Pulmonary Valve PV Pk Servando: 0.55 Peak PV Grad: 1.00 TN Pk Servando: 2.17 Updated in Other Vendor System with Status of Final Dario Flowers MD electronically signed on 09/14/2023 2:54:26 PM with status of Final
== END ==
LOC: HO.CARD 12:49
PROVIDERS: PCP Internal Medicine; Visit Provider Internal Medicine Cardiovascular Disease
DX: I50.9 Heart failure, unspecified (principal)
CPT/HCPCS: 93306

== ENCOUNTER → 2023-09-12 12:55 | Outpatient (BNV) | payer MEDICARE, SELFPAY | PROVIDERS: PCP Internal Medicine; Visit Provider Internal Medicine | DX: I34.0 Nonrheumatic mitral (valve) insufficiency (principal); I35.1 Nonrheumatic aortic (valve) insufficiency | CPT/HCPCS: 93306 ==

== ENCOUNTER 2023-09-27 12:43 | Outpatient (REF) | payer MEDICARE, SELFPAY ==
[2023-09-27 15:54] LABS: Thyroid Stimulating Hormone 2.74 uIU/mL (0.32-4.0)
[2023-09-28 08:18] LABS: HBS Num1 > 1000.00 mIU/mL (0-7.99); HBc Num1 3.39 S/CO (0.00-0.79); HBsAGNum1 0.45 S/CO (0.00-0.99); Hepatitis A Antibody IgM 0.11 Index (0-0.79); Hepatitis B Surface Antigen Negative (Negative); ~HepC Num1 0.15 S/CO (0.00-0.79); ~Hepatitis A Antibody IgM Nonreactive (Nonreactive); ~Hepatitis B Surface Antibody REACTIVE (Nonreactive); ~Hepatitis C Antibody Nonreactive (Nonreactive)
[2023-09-28 09:08] LABS: HBc Num2 3.45 S/CO; HBc Num3 3.53 S/CO; Hepatitis B Core Antibody Reactive (Nonreactive)
[2023-09-28 12:23] LABS: Alpha Fetoprotein 1.6 ng/mL
[2023-09-28 21:49] LABS: Alpha 1 Anti-trypsin 191 mg/dL (83-199); Transglutaminase IgA 1.3 U/mL
[2023-10-02 15:22] LABS: Anti Nuclear Antibody Screen POSITIVE (NEGATIVE); Anti Nuclear Antibody Titer 1:40 titer
[2023-10-02 15:29] LABS: Mitochondrial Antibodies NEGATIVE (NEGATIVE)
[2023-10-02 16:49] LABS: Smooth Muscle Antibody 24 U (<20)
[2023-10-04 15:32] LABS: Endomysial IgA Antibody Negative (Negative)
== END 2023-09-27 12:44 | disposition home or self-care (01) ==
LOC: HO.LAB 12:43
PROVIDERS: PCP Internal Medicine; Visit Provider Physician Assistant
DX: K74.60 Unspecified cirrhosis of liver (principal); D64.9 Anemia, unspecified; R79.89 Other specified abnormal findings of blood chemistry; K59.09 Other constipation; Z92.29 Personal history of other drug therapy; Z95.0 Presence of cardiac pacemaker; Z11.59 Encounter for screening for other viral diseases; Z72.89 Other problems related to lifestyle
CPT/HCPCS: 36415; 82103; 82105; 84443; 86015; 86038; 86039; 86231; 86364; 86381; 86704; 86706; 86709; 86803; 87340; 99202

== ENCOUNTER 2023-09-27 12:43 | Outpatient (AMB) | payer MEDICARE, SELFPAY ==
--- NOTE | 2023-09-27 12:46 | MHC.OFFVIS ---
Intake Vital Signs 09/27/23 12:47 Height 5 ft 4 in Weight 105 lb 13.15 oz BMI 18.2 BP 114/60 Blood Pressure Location Lt brachial Position Sitting Pulse 56 Pulse Oximetry (%) 98 Intake Visit Reasons: Anemia - Per Dr. Rosario Intake Note: Patient presents to in office visit today as a new patient for anemia. CC: Patient reports a lot of weight loss (about 17 pounds), liver issues, and heart failure. Last colonoscopy in [address] Johnson. Allergies ibuprofen [IBUPROFEN] Allergy (Severe, Verified 09/27/23 12:53) THROAT LUMP olmesartan [From BENICAR] Allergy (Severe, Verified 09/27/23 12:53) WHEEZING Gadolinium-Containing Contrast Medi [Gadolinium-Containing Agents] Allergy (Mild, Verified 09/27/23 12:53) HIVES Iodinated Contrast Media [IV Dye, Iodine Containing] Allergy (Mild, Verified 09/27/23 12:53) RASH oneil Allergy (Mild, Verified 09/27/23 12:53) RASH Sulfa (Sulfonamide Antibiotics) Allergy (Mild, Verified 09/27/23 12:53) RASH amiodarone [AMIODARONE] Allergy (Unknown, Verified 09/27/23 12:53) THYROID TOXICOSIS amlodipine [From NORVASC] Allergy (Unknown, Verified 09/27/23 12:53) WHEEZING aspirin [ASPIRIN] Allergy (Unknown, Verified 09/27/23 12:53) THROAT LUMP HEAVY WHEEZING, wheezing, wheezing azithromycin [From ZITHROMAX] Allergy (Unknown, Verified 09/27/23 12:53) NAUSEA/VOMITING, nausea and vomiting bee pollen [Bee Stings] Allergy (Unknown, Verified 09/27/23 12:53) EDEMA, ALL INSECT STINGS capsaicin [CAPSAICIN] Allergy (Unknown, Verified 09/27/23 12:53) RASH clopidogrel [From PLAVIX] Allergy (Unknown, Verified 09/27/23 12:53) THROAT LUMP HEAVY WHEEZING diltiazem [Cardizem] Allergy (Unknown, Verified 09/27/23 12:53) rash methimazole [METHIMAZOLE] Allergy (Unknown, Verified 09/27/23 12:53) RASH sulfamethoxazole [From BACTRIM] Allergy (Unknown, Verified 09/27/23 12:53) RASH trimethoprim [From BACTRIM] Allergy (Unknown, Verified 09/27/23 12:53) RASH escitalopram [From Lexapro] Allergy (Verified 09/27/23 12:53) Wheezing clarithromycin [From Biaxin] Adverse Reaction (Mild, Verified 09/27/23 12:53) N/V codeine [Codeine] Adverse Reaction (Mild, Verified 09/27/23 12:53) N/V levofloxacin [From Levaquin] Adverse Reaction (Mild, Verified 09/27/23 12:53) N/V Dye MCFP Blue 1 Allergy (Unknown, Uncoded 10/13/22 11:26) rash HPI HPI Comments History of Present Illness Details A 82 y/o F- referrred with anemia- she is here with her daughter-they say - were not aware that she had any liver issues. She does report having some type of hepatitis many years ago she bleed with hepatitis-C. 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 She has been losing weight, however she is very self-sufficient She makes it very clear if she has any issues she does not want any invasive treatment Appetite is not great, She tends to be constipated however associates with not eating very much. She has no nausea, vomiting fever or chills. No abdominal pain or rectal US/US abdomen complete IMPRESSION: 1. Cirrhotic liver with trace of ascites. 2. Cholelithiasis with impacted stones in the gallbladder neck. Thickened gallbladder wall. 3. Bilateral renal cysts. 4. Abdominal aortic aneurysm. [facility] Medical History (Updated 10/03/23 @ 11:52 by Nasra Acuna PA-C) History of watermaster anticoagulant use (~2009) History of cardiac arrest (~2009) Osteoporosis (~2020) Tubular adenoma of colon (~2000) Pacemaker at end of battery life Blood in urine Superficial bruising of abdominal wall Traumatic ecchymosis of left lower leg Traumatic ecchymosis of left shoulder Traumatic hematoma of head Fall Hip pain, right Abnormal ultrasound of lower extremity AAA (abdominal aortic aneurysm) CAD (coronary artery disease) Cardiac pacemaker in situ (~2009) Mitral regurgitation Tricuspid regurgitation Diverticulosis Ex-smoker Hearing impaired Lactose intolerance History of right breast cancer (~1992) Hypertension, essential Atrial fibrillation, chronic (~2009) Surgical History History of colonoscopy History of hand surgery History of heart artery stent History of pacemaker History of lumpectomy History of cardiac cath History of cardioversion History of eye surgery Family History Father CVD (cardiovascular disease) Mother CVD (cardiovascular disease) Myocardial infarction Maternal Grandmother Unknown family medical history Maternal Grandfather No problems noted. Paternal Grandfather CVD (cardiovascular disease) Paternal Grandmother No problems noted. Child No Financial Resp No problems noted. Social History Household Members: Children Housing: House Are you a primary critical care cns to a significant other at home: No Do you presently have visiting nurse or other home services: No Alcohol intake: never Patient Tobacco Use Status: Former Tobacco user Quit Date: age 59 Tobacco use type: Cigarette Years Smoked: 40 e-Cigarette/Vaping Use: Never Used Advance Directives Date on File: 10/29/17 service: No Current occupational status: retired Cognitive needs: No Hearing needs: Yes (deaf in right ear, left ear has a hearing aid) Vision needs: Yes Review of Systems Const All systems reviewed & are unremarkable except as noted in HPI and below Denies anorexia, Denies chills, Denies fever(s), Reports poor appetite and Reports weight loss Card Denies chest pain and Denies dyspnea Resp Denies dyspnea GI Denies abdominal pain, Denies hematochezia, Reports constipation, Denies heartburn, Denies nausea and Denies vomiting Physical Exam Vital Signs: Last Vital Signs Pulse 56 09/27/23 12:47 BP 114/60 09/27/23 12:47 Pulse Ox 98 09/27/23 12:47 BMI result Body Mass Index 18.2 Const General: cooperative and comfortable Nutritional Appearance: thin Orientation/consciousness: patient oriented x3 Limitations: no limitations Eyes Sclerae: sclerae normal Resp Effort & Inspection: normal respiratory effort and able to speak in complete sentences Auscultation: clear to auscultation bilaterally, no rales, rhonchi and no wheezes Cardio Rate: regular rate Rhythm: regular rhythm Heart sounds: S1 normal heart sound present and S2 normal heart sound present GI Palpation (GI): Soft to palpation, nontender and no guarding Percussion: Yes normal to percussion Auscultation: normal bowel sounds Skin General skin exam: no rashes or lesions noted Neuro General: patient oriented x3 Psych Appearance: well kempt Mental Status: mental status grossly normal Speech and movement: Clear speech present Affect: normal affect Attitude: cooperative Thought process: Normal thought process present Thought content: Normal thought content present Insight: Good insight present (Psych) Judgement: Good judgement present (Psych) Results Reviewed Results Reviewed: US/US abdomen complete IMPRESSION: 1. Cirrhotic liver with trace of ascites. 2. Cholelithiasis with impacted stones in the gallbladder neck. Thickened gallbladder wall. 3. Bilateral renal cysts. 4. Abdominal aortic aneurysm. Assessment & Plan Assessment & Plan (1) Cirrhosis: Comment: Q6 month eval U/S/ labs- U/S due December- Code(s): K74.60 - Unspecified cirrhosis of liver Plan: Labs and ultrasound (2) Anemia: Code(s): D64.9 - Anemia, unspecified Plan: Recheck labs, (3) Chronic constipation: Comment: Hard stool-stool softener Code(s): K59.09 - Other constipation Plan: Maintain high-fiber diet Colace 200 q.h.s. (4) History of watermaster anticoagulant use: Onset Date: ~2009 Code(s): Z92.29 - Personal history of other drug therapy (5) Cardiac pacemaker in situ: Onset Date: ~2009 Comment: (single-chamber Medtronic - DCPP placed 2009 - now VVI - replaced 2022) Code(s): Z95.0 - Presence of cardiac pacemaker Plan: Continue to follow with cardiology Plan labs today repeat U/S December Orders: Orders MASHA Reflex Titer and Pattern 09/27/23 K74.60 - Unspecified cirrhosis of liver Mitochondrial Antibody 09/27/23 K74.60 - Unspecified cirrhosis of liver Alpha 1 Anti-trypsin 09/27/23 K74.60 - Unspecified cirrhosis of liver Endomysial IgA rflx Titer 09/27/23 D64.9 - Anemia, unspecified Transglutaminase IgA 09/27/23 K74.60 - Unspecified cirrhosis of liver Smooth Muscle Antibody 09/27/23 K74.60 - Unspecified cirrhosis of liver Hepatitis A,B,C Profile 09/27/23 R79.89 - Other specified abnormal findings of blood chemistry Alpha Fetoprotein 09/27/23 K74.60 - Unspecified cirrhosis of liver Thyroid Stimulating Hormone 09/27/23 D64.9 - Anemia, unspecified, K74.60 - Unspecified cirrhosis of liver US abdomen complete 09/27/23 K74.60 - Unspecified cirrhosis of liver Medications: New docusate sodium (Colace) 200 mg (2 x 100 mg) PO BEDTIME 60 caps 5RF Patient Instructions: A very pleasant, alert 82-year-old female referred with anemia she is accompanied by her daughter-history unclear Review of records-discussed labs as well as ultrasound-cirrhosis Importance of abstaining from alcohol Monitoring every 6 months with blood work as well as abdominal ultrasound which will be due in December order placed Opportunity for questions, answered to their satisfaction Consulted also with Dr. Mondragon, patient prefers no invasive interventions. She will do labs to include hepatitis serologies-for further eval Encouraged to call with questions or concerns Will follow back to discuss results of labs as well as weight monitor Coding Level of Care Code New Pt Level 4 (29383) Diagnoses Cirrhosis K74.60 Anemia D64.9 Chronic constipation K59.09 History of nursing home anticoagulant use Z92.29 Cardiac pacemaker in situ Z95.0 Time Spent (min) 45 Comment Daughter present, consulted
[2023-09-27 12:47] VITALS: BP 114/60; PULSE 56; O2SAT 98; BMI 18.2
== END 2023-09-27 13:40 | disposition home or self-care (01) ==
PROVIDERS: PCP Internal Medicine; Visit Provider Physician Assistant
DX: K74.60 Unspecified cirrhosis of liver (principal); D64.9 Anemia, unspecified; K59.09 Other constipation; Z92.29 Personal history of other drug therapy; Z95.0 Presence of cardiac pacemaker
CPT/HCPCS: 99204; 99214

== ENCOUNTER 2023-10-11 08:31 | Outpatient (AMB) | payer MEDICARE, SELFPAY ==
--- NOTE | 2023-10-11 09:33 | MHC.PC.OV ---
Intake Visit Reasons: Medication F/U [phone] Allergies ibuprofen [IBUPROFEN] Allergy (Severe, Verified 10/11/23) THROAT LUMP olmesartan [From BENICAR] Allergy (Severe, Verified 10/11/23) WHEEZING Gadolinium-Containing Contrast Medi [Gadolinium-Containing Agents] Allergy (Mild, Verified 10/11/23) HIVES Iodinated Contrast Media [IV Dye, Iodine Containing] Allergy (Mild, Verified 10/11/23) RASH oneil Allergy (Mild, Verified 10/11/23) RASH Sulfa (Sulfonamide Antibiotics) Allergy (Mild, Verified 10/11/23) RASH amiodarone [AMIODARONE] Allergy (Unknown, Verified 10/11/23) THYROID TOXICOSIS amlodipine [From NORVASC] Allergy (Unknown, Verified 10/11/23) WHEEZING aspirin [ASPIRIN] Allergy (Unknown, Verified 10/11/23) THROAT LUMP HEAVY WHEEZING, wheezing, wheezing azithromycin [From ZITHROMAX] Allergy (Unknown, Verified 10/11/23) NAUSEA/VOMITING, nausea and vomiting bee pollen [Bee Stings] Allergy (Unknown, Verified 10/11/23) EDEMA, ALL INSECT STINGS capsaicin [CAPSAICIN] Allergy (Unknown, Verified 10/11/23) RASH clopidogrel [From PLAVIX] Allergy (Unknown, Verified 10/11/23) THROAT LUMP HEAVY WHEEZING diltiazem [Cardizem] Allergy (Unknown, Verified 10/11/23:) rash methimazole [METHIMAZOLE] Allergy (Unknown, Verified 10/11/23) RASH sulfamethoxazole [From BACTRIM] Allergy (Unknown, Verified 10/11/23) RASH trimethoprim [From BACTRIM] Allergy (Unknown, Verified 10/11/23) RASH escitalopram [From Lexapro] Allergy (Verified 10/11/23) Wheezing clarithromycin [From Biaxin] Adverse Reaction (Mild, Verified 10/11/23:) N/V codeine [Codeine] Adverse Reaction (Mild, Verified 10/11/23) N/V levofloxacin [From Levaquin] Adverse Reaction (Mild, Verified 10/11/23 09:33) N/V Dye INTERMEDIATE Blue 1 Allergy (Unknown, Uncoded 10/13/22 11:26) rash Medication List - Last Reconciled 10/11/23 by Mimi Benjamin MD bumetanide 2 mg PO DAILY docusate sodium (Colace) 200 mg (2 x 100 mg) PO BEDTIME escitalopram oxalate 5 mg PO DAILY metolazone 2.5 mg PO DAILY PRN Tobacco use date assessed: 10/11/23 Fall risk assessment: No Falls in past year Last assessed Fall Risk: 10/11/23 Dental Screening Dental Screen Date: 10/11/23 Did you have a dental visit in the last 12 months?: No Did you have a dental problem in the last 6 months where you did not have access to dental care?: No Was dental information given to patient?: No HPI Medication F/U [phone] HPI Details Patient is 82-year-old female this is a telemedicine conference Patient suffer from anxiety and is benefitting from Lexapro 5 mg she is requesting a refill on that which I have sent for 3 months and 1 refill. She also had ultrasound of her abdomen which showed cirrhosis of liver and gallstones. She has appointment with Dr Mondragon to go over the plan. 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 use (~2009) History of cardiac arrest (~2009) Osteoporosis (~2020) Tubular adenoma of colon (~2000) Pacemaker at end of battery life Blood in urine Superficial bruising of abdominal wall Traumatic ecchymosis of left lower leg Traumatic ecchymosis of left shoulder Traumatic hematoma of head Fall Hip pain, right Abnormal ultrasound of lower extremity AAA (abdominal aortic aneurysm) CAD (coronary artery disease) Cardiac pacemaker in situ (~2009) Mitral regurgitation Tricuspid regurgitation Diverticulosis Ex-smoker Hearing impaired Lactose intolerance History of right breast cancer (~1992) Hypertension, essential Atrial fibrillation, chronic (~2009) Surgical History History of colonoscopy History of hand surgery History of heart artery stent History of pacemaker History of lumpectomy History of cardiac cath History of cardioversion History of eye surgery Family History Father CVD (cardiovascular disease) Mother CVD (cardiovascular disease) Myocardial infarction Maternal Grandmother Unknown family medical history Maternal Grandfather No problems noted. Paternal Grandfather CVD (cardiovascular disease) Paternal Grandmother No problems noted. Child No Financial Resp No problems noted. Social History Household Members: Children Housing: House Are you a primary assistant child care teacher to a significant other at home: No Do you presently have visiting nurse or other home services: No Alcohol intake: never Patient Tobacco Use Status: Former Tobacco user Quit Date: age 59 Tobacco use type: Cigarette Years Smoked: 40 e-Cigarette/Vaping Use: Never Used Advance Directives Date on File: 10/29/17 service: No Current occupational status: retired Cognitive needs: No Hearing needs: Yes (deaf in right ear, left ear has a hearing aid) Vision needs: Yes Questionnaire AUDIT C Alcohol Use Questionnaire (AUDIT-C) 1. How often do you have a drink containing alcohol?: Never 3. How often do you have six or more drinks on one occasion?: Never Total Score: 0 Score Reviewed/Action Taken: Yes Review of Systems Const Denies chills and Denies fever(s) ENT Denies epistaxis and Denies nasal discharge Card Denies chest pain Resp Denies chest congestion, Denies cough and Denies hemoptysis Skin/Breast Denies rash Neuro Reports no additional complaints Psych Reports no additional complaints Endo Reports no additional complaints Physical exam (Primary Care) Tobacco/Smoking Status: Tobacco use Status Tobacco use date assessed 10/11/23 10/11/23 09:35 Patient Tobacco Use Status Former Tobacco user 10/11/23 09:35 Tobacco use type Cigarette 10/11/23 09:35 e-Cigarette/Vaping Use Never Used 10/11/23 09:35 Telehealth Telehealth Location of provider rendering services: practice address Location of patient: address on file Patient Identification confirmed using: Name, : Yes Telehealth method: voice only Patient verbally consented to treatment: Yes Patient verbally consented to billing insurance company: Yes Patient informed of any privacy concerns related to visit: Yes Minutes spent on Phone/Video with Pt.: 16 Assessment and Plan Assessment & Plan (1) Major depression, recurrent: Code(s): F33.9 - Major depressive disorder, recurrent, unspecified Qualifiers: Active/Remission status: in partial remission Qualified Code(s): F33.41 - Major depressive disorder, recurrent, in partial remission (2) Anxiety, generalized: Code(s): F41.1 - Generalized anxiety disorder (3) Cirrhosis: Comment: Q6 month eval U/S/ labs- U/S due December- Code(s): K74.60 - Unspecified cirrhosis of liver Qualifiers: Hepatic cirrhosis type: unspecified hepatic cirrhosis Ascites presence: with ascites Qualified Code(s): K74.60 - Unspecified cirrhosis of liver; R18.8 - Other ascites Plan Patient is 82-year-old female this is a telemedicine conference Patient suffer from anxiety and is benefitting from Lexapro 5 mg she is requesting a refill on that which I have sent for 3 months and 1 refill. She also had ultrasound of her abdomen which showed cirrhosis of liver and gallstones. She has appointment with Dr Mondragon to go over the plan. Medications: Refilled escitalopram oxalate 5 mg PO DAILY 90 tabs 1RF escitalopram oxalate 5 mg PO DAILY 90 tabs 0RF Coding Level of Care Code Tele New Pt Level 3 (55888) Diagnoses Recurrent major depressive disorder, in partial remission F33.41 Active/Remission status: in partial remission Anxiety, generalized F41.1 Cirrhosis of liver with ascites, unspecified hepatic cirrhosis type K74.60; R18.8 Hepatic cirrhosis type: unspecified hepatic cirrhosis Ascites presence: with ascites
== END 2023-10-11 16:17 | disposition home or self-care (01) ==
LOC: HO.HMGC 08:31
PROVIDERS: PCP Internal Medicine; Visit Provider Internal Medicine
DX: F33.41 Major depressive disorder, recurrent, in partial remission (principal); K74.60 Unspecified cirrhosis of liver; F41.1 Generalized anxiety disorder; R18.8 Other ascites
CPT/HCPCS: 99442

== ENCOUNTER 2023-11-02 08:26 | Outpatient (REF) | payer MEDICARE, SELFPAY ==
--- NOTE | ~2023-11-02 | US_ITS ---
EXAMINATION: US ABDOMEN COMPLETE CLINICAL INFORMATION: Unspecified cirrhosis of liver. COMPARISON: Ultrasound abdomen complete 06/29/2023. CT chest, abdomen and pelvis 05/06/2020. Renal ultrasound 02/06/2019. X-ray KUB 01/11/2017. TECHNIQUE: Real-time imaging of the abdominal viscera. Limited visualization due to bowel gas. FINDINGS: PANCREAS: Limited visualization of pancreatic tail and head. Imaged portion of pancreatic body is unremarkable. ABDOMINAL AORTA: Redemonstration of distal abdominal aortic aneurysm measuring 3.3 cm AP and 3.3 cm transverse, previously 3.6 x 3.5 cm. INFERIOR VENA CAVA: Enlarged inferior vena cava measures 4.5 cm, previously 4.5 cm. LIVER: Redemonstration of cirrhotic appearance of the liver. Increased hepatic parenchymal heterogeneity and echogenicity could be associated with hepatocellular disease/hepatic steatosis and substantially limits visualization. Right hepatic lobe measures 15 cm and left hepatic lobe 9 cm. Trace amount of ascites along the inferior margin of the liver. GALLBLADDER: Multiple gallstones. Gallbladder wall thickness of 0.36 cm. COMMON BILE DUCT: Normal in caliber measuring 0.2 cm in diameter. RIGHT KIDNEY: Multiple renal cysts, largest mid pole 3 x 2 x 2 cm with benign features. Additional smaller cysts are difficult to characterize due to limited visualization. No hydronephrosis or renal calculi. The kidney measures 11.0 cm in maximum dimension. LEFT KIDNEY: 1.0 cm mid pole cyst with benign features. Additional smaller cysts, some of which are difficult to characterize due to bowel gas. No hydronephrosis or renal calculi. The kidney measures 10.4 cm in maximum dimension. SPLEEN: Normal. The spleen measures 10.2 cm in maximum dimension. FREE FLUID: None. US/US abdomen complete IMPRESSION: 1. Redemonstration of distal abdominal aortic aneurysm measuring 3.3 cm AP and 3.3 cm transverse, previously 3.6 x 3.5 cm. Enlarged inferior vena cava. 2. Redemonstration of cirrhotic appearance of the liver with trace adjacent ascites. Increased hepatic parenchymal heterogeneity and echogenicity could be associated with hepatocellular disease/hepatic steatosis and substantially limits visualization. 3. Cholelithiasis with gallbladder wall thickening of 0.36 cm.
== END 2023-11-02 08:27 | disposition home or self-care (01) ==
LOC: HO.US 08:26
PROVIDERS: PCP Internal Medicine; Visit Provider Physician Assistant
DX: K74.60 Unspecified cirrhosis of liver (principal)
CPT/HCPCS: 76700

== ENCOUNTER 2023-11-19 11:21 | Outpatient (AMB) | payer MEDICARE, SELFPAY ==
--- NOTE | 2023-11-19 11:26 | MHC.OFFVIS ---
Intake Vital Signs 11/19/23 11:27 Height 5 ft 4 in Weight 110 lb 3.698 oz BMI 18.9 BP 120/56 L Blood Pressure Location Lt brachial Position Sitting Pulse 66 Intake Visit Reasons: 3 mth fu Intake Note: 3 month follow-up with [employer] check c/o Insemination Worker Required: No Switchman: Switchman Present Accompanied by: Daughter Allergies ibuprofen [IBUPROFEN] Allergy (Severe, Verified 10/11/23 09:) THROAT LUMP olmesartan [From BENICAR] Allergy (Severe, Verified 10/11/23:) WHEEZING Gadolinium-Containing Contrast Medi [Gadolinium-Containing Agents] Allergy (Mild, Verified 10/11/23:) HIVES Iodinated Contrast Media [IV Dye, Iodine Containing] Allergy (Mild, Verified 10/11/23) RASH oneil Allergy (Mild, Verified 10/11/23) RASH Sulfa (Sulfonamide Antibiotics) Allergy (Mild, Verified 10/11/23:) RASH amiodarone [AMIODARONE] Allergy (Unknown, Verified 10/11/23) THYROID TOXICOSIS amlodipine [From NORVASC] Allergy (Unknown, Verified 10/11/23:) WHEEZING aspirin [ASPIRIN] Allergy (Unknown, Verified 10/11/23:) THROAT LUMP HEAVY WHEEZING, wheezing, wheezing azithromycin [From ZITHROMAX] Allergy (Unknown, Verified 10/11/23:) NAUSEA/VOMITING, nausea and vomiting bee pollen [Bee Stings] Allergy (Unknown, Verified 10/11/23:) EDEMA, ALL INSECT STINGS capsaicin [CAPSAICIN] Allergy (Unknown, Verified 10/11/23) RASH clopidogrel [From PLAVIX] Allergy (Unknown, Verified 10/11/23:) THROAT LUMP HEAVY WHEEZING diltiazem [Cardizem] Allergy (Unknown, Verified 10/11/23:) rash methimazole [METHIMAZOLE] Allergy (Unknown, Verified 10/11/23) RASH sulfamethoxazole [From BACTRIM] Allergy (Unknown, Verified 10/11/23:) RASH trimethoprim [From BACTRIM] Allergy (Unknown, Verified 10/11/23:) RASH escitalopram [From Lexapro] Allergy (Verified 01/04/24 09:33) Wheezing clarithromycin [From Biaxin] Adverse Reaction (Mild, Verified 10/11/23 09:33) N/V codeine [Codeine] Adverse Reaction (Mild, Verified 10/11/23 09:33) N/V levofloxacin [From Levaquin] Adverse Reaction (Mild, Verified 10/11/23 09:33) N/V Dye [facility] Allergy (Unknown, Uncoded 10/13/22 11:26) rash HPI HPI Comments History of Present Illness Details Bobbi comes for follow-up. She has been doing well from cardiac perspective. Her main complaint currently is chronic constipation. She manages her fluid with extra metolazone which she says in last month she has been taking almost once every week. Her symptoms of early decompensation are leg edema, abdominal distension in the pelvic area. Patient then takes metolazone in couple of days her symptoms resolved. She denies any significant palpitations. Currently not on any blood thinners. Comes for pacemaker evaluation. Echocardiogram in September showed moderate to severe LV systolic dysfunction with possible severe eccentric mitral regurgitation as well as severe tricuspid regurgitation which is known. She is significant biatrial enlargement related to a chronic AFib. 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) History of cardiac arrest (~2009) Osteoporosis (~2020) Tubular adenoma of colon (~2000) Pacemaker at end of battery life Blood in urine Superficial bruising of abdominal wall Traumatic ecchymosis of left lower leg Traumatic ecchymosis of left shoulder Traumatic hematoma of head Fall Hip pain, right Abnormal ultrasound of lower extremity AAA (abdominal aortic aneurysm) CAD (coronary artery disease) Cardiac pacemaker in situ (~2009) Mitral regurgitation Tricuspid regurgitation Diverticulosis Ex-smoker Hearing impaired Lactose intolerance History of right breast cancer (~1992) Hypertension, essential Atrial fibrillation, chronic (~2009) Surgical History History of colonoscopy History of hand surgery History of heart artery stent History of pacemaker History of lumpectomy History of cardiac cath History of cardioversion History of eye surgery Family History Father CVD (cardiovascular disease) Mother CVD (cardiovascular disease) Myocardial infarction Maternal Grandmother Unknown family medical history Maternal Grandfather No problems noted. Paternal Grandfather CVD (cardiovascular disease) Paternal Grandmother No problems noted. Child No Financial Resp No problems noted. Social History Household Members: Children Housing: House Are you a primary home care attendant to a significant other at home: No Do you presently have visiting nurse or other home services: No Alcohol intake: never Patient Tobacco Use Status: Former Tobacco user Quit Date: age 59 Tobacco use type: Cigarette Years Smoked: 40 e-Cigarette/Vaping Use: Never Used Advance Directives Date on File: 10/29/17 service: No Current occupational status: retired Cognitive needs: No Hearing needs: Yes (deaf in right ear, left ear has a hearing aid) Vision needs: Yes Review of Systems Const Denies chills, Denies fatigue, Denies fever(s), Denies frequent falls, Denies weakness, Denies weight gain and Denies weight loss ENT Denies dizziness Card Denies chest pain, Denies leg edema, Denies lightheadedness, Denies palpitations, Denies dyspnea, Denies dyspnea on exertion, Denies orthopnea and Denies other (loss of consciousness) Resp Denies cough, Denies dyspnea and Denies dyspnea on exertion GI Denies hematochezia and Denies change in stool character Musc Denies abnormal gait, Denies muscle weakness, Denies numbness, Denies radiating pain into limb and Denies tingling Neuro Denies abnormal gait, Denies dizziness, Denies frequent falls, Denies numbness, Denies tingling and Denies weakness Endo Denies fatigue and Denies palpitations Physical Exam Vital Signs: Last Vital Signs Pulse 66 11/19/23 11:27 BP 120/56 L 11/19/23 11:27 BMI result Body Mass Index 18.9 Const General: cooperative, comfortable and no acute distress Nutritional Appearance: thin and other (Frail elderly woman) Orientation/consciousness: patient oriented x3 Neck Other: Pulsation of neck vein, likely V wave from TR Neck: Yes normal visual inspection and Yes no JVD (Pulsatile V-waves) Resp Effort & Inspection: normal respiratory effort Auscultation: clear to auscultation bilaterally, no crackles, no rales, no rhonchi and no wheezes Cardio Rate: regular rate Rhythm: abnormal rhythm Heart sounds: S1 normal heart sound present, S2 normal heart sound present, no gallops, Murmur heart sound present (Systolic murmur in mitral position) systolic holo and no rubs Peripheral pulses: Peripheral pulses 2+ throughout GI Inspection: Yes Abdominal wall edema Neuro General: patient oriented x3 Extrem Other: Trace pitting edema in each lower leg, left upper leg General: Yes normal to inspection, No clubbing, No cyanosis and Yes edema Psych Appearance: grossly normal Mental Status: mental status grossly normal Speech and movement: Normal speech and movement present Office Procedures Cardiac Device Check Cardiac Device Check Details: Single-chamber Medtronic pacemaker in place. Programmed in VVI. Ventricular pacing thresholds excellent. Battery life is excellent. RV pacing lead impedance is stable. To rates of high ventricular rate consistent with atrial fibrillation rapid ventricular response [id number] Cardiac Device Check, leadless/single lead pacemaker Procedure code (CPT) selection complete Assessment & Plan Assessment & Plan (1) Atrial fibrillation, chronic: Onset Date: ~2009 Code(s): I48.20 - Chronic atrial fibrillation, unspecified Plan: Chronic atrial fibrillation rate control. Significant biatrial enlargement with secondary valvular issues with heart failure syndrome. Clinically euvolemic and well compensated current diuretic dose. Has not been able to tolerate any other medications. Currently not on oral anticoagulation due to patient preference. (2) CAD (coronary artery disease): Comment: (s/p stented RCA 2009 and circumflex 2013) Code(s): I25.10 - Atherosclerotic heart disease of [place] coronary artery without angina pectoris Plan: CAD with remote stenting without any symptoms of angina at current point time. Her limitations related to heart failure syndrome. Continue aggressive medical management. Blood pressure is well optimized. Not on statin therapy due to patient preference. Blood pressure is optimally controlled. Continue maintain activity level as tolerated. (3) CHF (congestive heart failure): Code(s): I50.9 - Heart failure, unspecified Plan: Heart failure with now systolic dysfunction with moderate to severe LV systolic dysfunction with secondary severe mitral regurgitation as well as severe tricuspid regurgitation related to severe biatrial enlargement related to chronic atrial fibrillation. We discussed about potentially evaluating mitral valve further with a transesophageal echocardiogram with consideration for possible repair. Patient is not interested in any invasive procedure. She understands the risk. Continue current diuretic regimen which is the only medication she can currently tolerate. She has not tolerated neurohormonal modulation the past due to low blood pressure. Management of heart failure were discussed. Goals of therapy were discussed. Overall prognosis is guarded. Will follow up in the clinic in 3 months time, sooner p.r.n.. Thank you for allowing me to partake in her care Coding Level of Care Code Est Pt Level 4 (67170) Diagnoses Atrial fibrillation, chronic I48.20 CAD (coronary artery disease) I25.10 CHF (congestive heart failure) I50.9 CPT Codes Cardiac Device Check - Cardiac Device 1: [id number] Cardiac Device Check, leadless/single lead pacemaker ([id number])
[2023-11-19 11:27] VITALS: BP 120/56; PULSE 66; BMI 18.9
== END 2023-11-19 14:41 | disposition home or self-care (01) ==
PROVIDERS: PCP Internal Medicine; Visit Provider Internal Medicine Cardiovascular Disease
DX: I48.20 Chronic atrial fibrillation, unspecified (principal); I25.10 Atherosclerotic heart disease of native coronary artery without angina pectoris; I50.9 Heart failure, unspecified; Z95.0 Presence of cardiac pacemaker
CPT/HCPCS: 93279; 99214

== ENCOUNTER 2023-11-19 11:21 | Outpatient (AMB) | payer MEDICARE, SELFPAY ==
--- NOTE | 2023-11-19 11:24 | A.OFFVIS_ITS ---
Intake Vital Signs 11/19/23 11:25 Height 5 ft 4 in Weight 111 lb 8.862 oz BMI 19.1 BP 120/56 L Blood Pressure Location Lt brachial Position Sitting Pulse 67 Intake Visit Reasons: 2 month follow up Intake Note: pt its here in the office for a 2 mnth f/up pt states that she its feeling week other then that pt states that she it feeling ok. 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 Required: No Accompanied by: Self / Same As Patient Allergies ibuprofen [IBUPROFEN] Allergy (Severe, Verified 10/11/23:) THROAT LUMP olmesartan [From BENICAR] Allergy (Severe, Verified 10/11/23:) WHEEZING Gadolinium-Containing Contrast Medi [Gadolinium-Containing Agents] Allergy (Mild, Verified 10/11/23:) HIVES Iodinated Contrast Media [IV Dye, Iodine Containing] Allergy (Mild, Verified 10/11/23) RASH oneil Allergy (Mild, Verified 10/11/23:) RASH Sulfa (Sulfonamide Antibiotics) Allergy (Mild, Verified 10/11/23) RASH amiodarone [AMIODARONE] Allergy (Unknown, Verified 10/11/23) THYROID TOXICOSIS amlodipine [From NORVASC] Allergy (Unknown, Verified 10/11/23:) WHEEZING aspirin [ASPIRIN] Allergy (Unknown, Verified 10/11/23) THROAT LUMP HEAVY WHEEZING, wheezing, wheezing azithromycin [From ZITHROMAX] Allergy (Unknown, Verified 10/11/23:) NAUSEA/VOMITING, nausea and vomiting bee pollen [Bee Stings] Allergy (Unknown, Verified 10/11/23) EDEMA, ALL INSECT STINGS capsaicin [CAPSAICIN] Allergy (Unknown, Verified 10/11/23) RASH clopidogrel [From PLAVIX] Allergy (Unknown, Verified 10/11/23:) THROAT LUMP HEAVY WHEEZING diltiazem [Cardizem] Allergy (Unknown, Verified 10/11/23) rash methimazole [METHIMAZOLE] Allergy (Unknown, Verified 10/11/23) RASH sulfamethoxazole [From BACTRIM] Allergy (Unknown, Verified 10/11/23) RASH trimethoprim [From BACTRIM] Allergy (Unknown, Verified 01/04/24 09:33) RASH escitalopram [From Lexapro] Allergy (Verified 10/11/23 09:33) Wheezing clarithromycin [From Biaxin] Adverse Reaction (Mild, Verified 10/11/23 09:33) N/V codeine [Codeine] Adverse Reaction (Mild, Verified 10/11/23 09:33) N/V levofloxacin [From Levaquin] Adverse Reaction (Mild, Verified 10/11/23 09:33) N/V Dye [facility] Blue 1 Allergy (Unknown, Uncoded 10/13/22 11:26) rash HPI HPI Comments History of Present Illness Details An 83 y/o f/u - after dx cirrhosis- unknown etiology- , review labs- she says she feels weak- Reviewed labs, U/S- Seen by Dwight mild elev MASHA- ? autoimmune- PLT-discussed EGD-/ colonoscopy previosly-prefers nothing invasive Apetite is very good- obsessed with U/s findings of gallstones- had low back pain for a couple hours- last week -resolved - no recurrence- uses a walker- my pay role. Constipation- comes and goes- not big on fiber- has taken colace intermittently Last colonoscopy- 2012 Dr Johnson- fo hx colon polyps- no N/V/ D/abdominal pain- fever or chills Has f/U cardiology today- says her heart is weak-no CP or SOB- Daughter present- Dr. 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) History of cardiac arrest (~2009) Osteoporosis (~2020) Tubular adenoma of colon (~2000) Pacemaker at end of battery life Blood in urine Superficial bruising of abdominal wall Traumatic ecchymosis of left lower leg Traumatic ecchymosis of left shoulder Traumatic hematoma of head Fall Hip pain, right Abnormal ultrasound of lower extremity AAA (abdominal aortic aneurysm) CAD (coronary artery disease) Cardiac pacemaker in situ (~2009) Mitral regurgitation Tricuspid regurgitation Diverticulosis Ex-smoker Hearing impaired Lactose intolerance History of right breast cancer (~1992) Hypertension, essential Atrial fibrillation, chronic (~2009) Surgical History History of colonoscopy History of hand surgery History of heart artery stent History of pacemaker History of lumpectomy History of cardiac cath History of cardioversion History of eye surgery Family History Father CVD (cardiovascular disease) Mother CVD (cardiovascular disease) Myocardial infarction Maternal Grandmother Unknown family medical history Maternal Grandfather No problems noted. Paternal Grandfather CVD (cardiovascular disease) Paternal Grandmother No problems noted. Child No Financial Resp No problems noted. Social History Household Members: Children Housing: House Are you a primary assistant child care teacher to a significant other at home: No Do you presently have visiting nurse or other home services: No Alcohol intake: never Patient Tobacco Use Status: Former Tobacco user Quit Date: age 59 Tobacco use type: Cigarette Years Smoked: 40 e-Cigarette/Vaping Use: Never Used Advance Directives Date on File: 10/29/17 service: No Current occupational status: retired Cognitive needs: No Hearing needs: Yes (deaf in right ear, left ear has a hearing aid) Vision needs: Yes Review of Systems Const All systems reviewed & are unremarkable except as noted in HPI and below Denies chills, Denies fatigue, Denies fever(s), Denies frequent falls, Denies headache(s), Denies weakness, Denies weight gain and Denies weight loss ENT Denies dizziness and Denies headache(s) Card Denies chest pain, Denies leg edema, Denies lightheadedness, Denies palpitations, Denies dyspnea and Denies dyspnea on exertion Resp Denies cough, Denies dyspnea and Denies dyspnea on exertion GI Denies abdominal pain, Denies bloating, Denies hematochezia, Reports constipation, Denies heartburn, Denies nausea and Denies vomiting Musc Reports abnormal gait, Reports back pain, Reports muscle weakness, Denies numbness, Denies radiating pain into limb and Denies tingling Neuro Reports abnormal gait, Denies dizziness, Denies frequent falls, Denies headache(s), Denies numbness, Denies tingling and Denies weakness Endo Denies fatigue and Denies palpitations Physical Exam Vital Signs: Last Vital Signs Pulse 67 11/19/23 11:25 BP 120/56 L 11/19/23 11:25 BMI result Body Mass Index 19.1 Const General: cooperative, no acute distress and alert Nutritional Appearance: thin Orientation/consciousness: patient oriented x3 Limitations: physical limitations Eyes Sclerae: sclerae normal Resp Effort & Inspection: normal respiratory effort and able to speak in complete sentences Neuro General: patient oriented x3 Extrem General: Yes edema (trace) Psych Appearance: well kempt Speech and movement: Clear speech present Affect: Anxious affect present Attitude: cooperative Results Reviewed Results Reviewed: US/US abdomen complete IMPRESSION: 1. Redemonstration of distal abdominal aortic aneurysm measuring 3.3 cm AP and 3.3 cm transverse, previously 3.6 x 3.5 cm. Enlarged inferior vena cava. 2. Redemonstration of cirrhotic appearance of the liver with trace adjacent ascites. Increased hepatic parenchymal heterogeneity and echogenicity could be associated with hepatocellular disease/hepatic steatosis and substantially limits visualization. 3. Cholelithiasis with gallbladder wall thickening of 0.36 cm. Assessment & Plan Assessment & Plan (1) Cirrhosis: Comment: Q6 month eval- discusse wen bx- she declines discussed [id number] age declines any invasive procedures Code(s): K74.60 - Unspecified cirrhosis of liver Qualifiers: Ascites presence: with ascites Hepatic cirrhosis type: unspecified hepatic cirrhosis Qualified Code(s): K74.60 - Unspecified cirrhosis of liver; R18.8 - Other ascites Plan: 6 months- (2) Cholelithiases: Comment: u/s- nrml enzymes- no abd. pain Code(s): K80.20 - Calculus of gallbladder without cholecystitis without obstruction Plan: If becomes symptomatic- send to surgeon (3) Chronic constipation: Comment: Hard stool-stool softener Code(s): K59.09 - Other constipation Plan: colace miralax HFD- lit given Plan symptom- controll- constipation- consistent bowel regimen monitor sx if abd- pain- surgical consult Medications: New polyethylene glycol 3350 (Miralax) 17 grams PO DAILY 510 grams 6RF Patient Instructions: black coffee- green tea milk thistle- colace miralax HFD- lit given Call with any concerns- Coding Level of Care Code Est Pt Level 4 (59961) Diagnoses Cirrhosis of liver with ascites, unspecified hepatic cirrhosis type K74.60; R18.8 Ascites presence: with ascites Hepatic cirrhosis type: unspecified hepatic cirrhosis Cholelithiases K80.20 Chronic constipation K59.09 Time Spent (min) 35 Comment S/P, daughter present-
[2023-11-19 11:25] VITALS: BP 120/56; PULSE 67; BMI 19.1
== END 2023-11-19 12:14 | disposition home or self-care (01) ==
PROVIDERS: PCP Internal Medicine; Visit Provider Physician Assistant
DX: K74.60 Unspecified cirrhosis of liver (principal); R18.8 Other ascites; K80.20 Calculus of gallbladder without cholecystitis without obstruction; K59.09 Other constipation
CPT/HCPCS: 99214

== ENCOUNTER → 2023-11-19 11:21 | Outpatient (BNVA) | payer MEDICARE, SELFPAY | PROVIDERS: PCP Internal Medicine; Visit Provider Physician Assistant | DX: Z45.018 Encounter for adjustment and management of other part of cardiac pacemaker (principal); I48.20 Chronic atrial fibrillation, unspecified; I25.10 Atherosclerotic heart disease of native coronary artery without angina pectoris; I50.9 Heart failure, unspecified | CPT/HCPCS: 99212 ==

== ENCOUNTER → 2023-12-20 23:59 | Outpatient (BNV) | payer MEDICARE, SELFPAY ==
--- NOTE | 2023-12-20 18:26 | A.OFFVIS_ITS ---
Intake Intake Visit Reasons: Remote Device Check- [employer] Allergies ibuprofen [IBUPROFEN] Allergy (Severe, Verified 10/11/23 09:) THROAT LUMP olmesartan [From BENICAR] Allergy (Severe, Verified 10/11/23:) WHEEZING Gadolinium-Containing Contrast Medi [Gadolinium-Containing Agents] Allergy (Mild, Verified 10/11/23 09:) HIVES Iodinated Contrast Media [IV Dye, Iodine Containing] Allergy (Mild, Verified 10/11/23:) RASH oneil Allergy (Mild, Verified 10/11/23:) RASH Sulfa (Sulfonamide Antibiotics) Allergy (Mild, Verified 10/11/23:) RASH amiodarone [AMIODARONE] Allergy (Unknown, Verified 10/11/23) THYROID TOXICOSIS amlodipine [From NORVASC] Allergy (Unknown, Verified 10/11/23:) WHEEZING aspirin [ASPIRIN] Allergy (Unknown, Verified 10/11/23 09:) THROAT LUMP HEAVY WHEEZING, wheezing, wheezing azithromycin [From ZITHROMAX] Allergy (Unknown, Verified 10/11/23:) NAUSEA/VOMITING, nausea and vomiting bee pollen [Bee Stings] Allergy (Unknown, Verified 10/11/23:) EDEMA, ALL INSECT STINGS capsaicin [CAPSAICIN] Allergy (Unknown, Verified 10/11/23:) RASH clopidogrel [From PLAVIX] Allergy (Unknown, Verified 10/11/23:) THROAT LUMP HEAVY WHEEZING diltiazem [Cardizem] Allergy (Unknown, Verified 10/11/23 09:) rash methimazole [METHIMAZOLE] Allergy (Unknown, Verified 10/11/23:) RASH sulfamethoxazole [From BACTRIM] Allergy (Unknown, Verified 10/11/23:) RASH trimethoprim [From BACTRIM] Allergy (Unknown, Verified 10/11/23:) RASH escitalopram [From Lexapro] Allergy (Verified 10/11/23:) Wheezing clarithromycin [From Biaxin] Adverse Reaction (Mild, Verified 10/11/23 09:33) N/V codeine [Codeine] Adverse Reaction (Mild, Verified 10/11/23 09:33) N/V levofloxacin [From Levaquin] Adverse Reaction (Mild, Verified 10/11/23 09:33) N/V Dye [facility] Allergy (Unknown, Uncoded 10/13/22 11:26) rash PFSH Medical History 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) History of cardiac arrest (~2009) Osteoporosis (~2020) Tubular adenoma of colon (~2000) Pacemaker at end of battery life Blood in urine Superficial bruising of abdominal wall Traumatic ecchymosis of left lower leg Traumatic ecchymosis of left shoulder Traumatic hematoma of head Fall Hip pain, right Abnormal ultrasound of lower extremity AAA (abdominal aortic aneurysm) CAD (coronary artery disease) Cardiac pacemaker in situ (~2009) Mitral regurgitation Tricuspid regurgitation Diverticulosis Ex-smoker Hearing impaired Lactose intolerance History of right breast cancer (~1992) Hypertension, essential Atrial fibrillation, chronic (~2009) Surgical History History of colonoscopy History of hand surgery History of heart artery stent History of pacemaker History of lumpectomy History of cardiac cath History of cardioversion History of eye surgery Family History Father CVD (cardiovascular disease) Mother CVD (cardiovascular disease) Myocardial infarction Maternal Grandmother Unknown family medical history Maternal Grandfather No problems noted. Paternal Grandfather CVD (cardiovascular disease) Paternal Grandmother No problems noted. Child No Financial Resp No problems noted. Social History Household Members: Children Housing: House Are you a primary healthcare administrative assistant to a significant other at home: No Do you presently have visiting nurse or other home services: No Alcohol intake: never Patient Tobacco Use Status: Former Tobacco user Quit Date: age 59 Tobacco use type: Cigarette Years Smoked: 40 e-Cigarette/Vaping Use: Never Used Advance Directives Date on File: 10/29/17 service: No Current occupational status: retired Cognitive needs: No Hearing needs: Yes (deaf in right ear, left ear has a hearing aid) Vision needs: Yes Office Procedures Cardiac Device Check Cardiac Device Check Details: Remote pacemaker report generated 12/20/2023. Pacemaker function is adequate [id number] Cardiac Device Interrogation, pacemaker Procedure code (CPT) selection complete Assessment & Plan Assessment & Plan (1) Cardiac pacemaker in situ: Onset Date: ~2009 Comment: (single-chamber Medtronic - DCPP placed 2009 - now VVI - replaced 2022) Code(s): Z95.0 - Presence of cardiac pacemaker Plan: See above Coding Level of Care Code Procedure Only Diagnoses Cardiac pacemaker in situ Z95.0 CPT Codes Cardiac Device Check - Cardiac Device 12: [id number] Cardiac Device Interrogation, pacemaker ([id number])
== END ==
PROVIDERS: PCP Internal Medicine; Visit Provider Internal Medicine Cardiovascular Disease
DX: I48.20 Chronic atrial fibrillation, unspecified (principal); Z95.0 Presence of cardiac pacemaker
CPT/HCPCS: 93294

== ENCOUNTER 2024-02-21 15:27 | Outpatient (AMB) | payer MEDICARE, SELFPAY ==
--- NOTE | 2024-02-21 15:30 | A.OFFVIS_ITS ---
Vital Signs 02/21/24 15:31 Height 5 ft 4 in Weight 113 lb BMI 19.4 BP 108/64 Blood Pressure Location Lt brachial Position Sitting Pulse 62 Intake Visit Reasons: 3 mth f/up Intake Note: 3 month follow-up with [employer] check c/o fatigue and unsteadness Rn Hematology Required: No Hair Mixer: Hair Mixer Present Accompanied by: Family/Other Allergies ibuprofen [IBUPROFEN] Allergy (Severe, Verified 10/11/23 09:33) THROAT LUMP olmesartan [From BENICAR] Allergy (Severe, Verified 10/11/23 09:) WHEEZING Gadolinium-Containing Contrast Medi [Gadolinium-Containing Agents] Allergy (Mild, Verified 10/11/23:) HIVES Iodinated Contrast Media [IV Dye, Iodine Containing] Allergy (Mild, Verified 10/11/23) RASH oneil Allergy (Mild, Verified 10/11/23:) RASH Sulfa (Sulfonamide Antibiotics) Allergy (Mild, Verified 10/11/23 09:) RASH amiodarone [AMIODARONE] Allergy (Unknown, Verified 10/11/23:) THYROID TOXICOSIS amlodipine [From NORVASC] Allergy (Unknown, Verified 10/11/23:) WHEEZING aspirin [ASPIRIN] Allergy (Unknown, Verified 10/11/23:) THROAT LUMP HEAVY WHEEZING, wheezing, wheezing azithromycin [From ZITHROMAX] Allergy (Unknown, Verified 10/11/23:) NAUSEA/VOMITING, nausea and vomiting bee pollen [Bee Stings] Allergy (Unknown, Verified 10/11/23 09:) EDEMA, ALL INSECT STINGS capsaicin [CAPSAICIN] Allergy (Unknown, Verified 10/11/23:) RASH clopidogrel [From PLAVIX] Allergy (Unknown, Verified 10/11/23:) THROAT LUMP HEAVY WHEEZING diltiazem [Cardizem] Allergy (Unknown, Verified 10/11/23:) rash methimazole [METHIMAZOLE] Allergy (Unknown, Verified 10/11/23) RASH sulfamethoxazole [From BACTRIM] Allergy (Unknown, Verified 10/11/23:) RASH trimethoprim [From BACTRIM] Allergy (Unknown, Verified 10/11/23:) RASH escitalopram [From Lexapro] Allergy (Verified 01/04/24 09:33) Wheezing clarithromycin [From Biaxin] Adverse Reaction (Mild, Verified 10/11/23 09:33) N/V codeine [Codeine] Adverse Reaction (Mild, Verified 10/11/23 09:33) N/V levofloxacin [From Levaquin] Adverse Reaction (Mild, Verified 10/11/23 09:33) N/V Dye [facility] Blue 1 Allergy (Unknown, Uncoded 10/13/22 11:26) rash Medication List - Last Reconciled 02/21/24 by Leonard Smart MD bumetanide 2 mg PO DAILY docusate sodium (Colace) 200 mg PO BEDTIME PRN escitalopram oxalate 5 mg PO DAILY metolazone 2.5 mg PO DAILY PRN polyethylene glycol 3350 (Miralax) 17 grams PO DAILY PRN HPI Comments Details: Lauren comes for follow-up. She says she has had gradually worsening weakness although she denies any worsening shortness of breath. She is very unclear about her weight gain although she says she had about 116 lb at 1 time. She has not able to tell me accurately. She did take metolazone intermittently but is under the impression she can only take it once a week. She is taking her bumetanide as prescribed. She has not very happy with the diuretic regimen. She comes today saying whether she would be a candidate for left ventricular assist device. She has not been able to tolerate other neurohormonal modulation. Currently not on oral anticoagulation for atrial fibrillation as per her wishes. Denies any palpitations. No lightheadedness, syncope. 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) History of cardiac arrest (~2009) Osteoporosis (~2020) Tubular adenoma of colon (~2000) Pacemaker at end of battery life Blood in urine Superficial bruising of abdominal wall Traumatic ecchymosis of left lower leg Traumatic ecchymosis of left shoulder Traumatic hematoma of head Fall Hip pain, right Abnormal ultrasound of lower extremity AAA (abdominal aortic aneurysm) CAD (coronary artery disease) Cardiac pacemaker in situ (~2009) Mitral regurgitation Tricuspid regurgitation Diverticulosis Ex-smoker Hearing impaired Lactose intolerance History of right breast cancer (~1992) Hypertension, essential Atrial fibrillation, chronic (~2009) Surgical History History of colonoscopy History of hand surgery History of heart artery stent History of pacemaker History of lumpectomy History of cardiac cath History of cardioversion History of eye surgery Family History Father CVD (cardiovascular disease) Mother CVD (cardiovascular disease) Myocardial infarction Maternal Grandmother Unknown family medical history Maternal Grandfather No problems noted. Paternal Grandfather CVD (cardiovascular disease) Paternal Grandmother No problems noted. Child No Financial Resp No problems noted. Social History Household Members: Children Housing: House Are you a primary child day care teacher to a significant other at home: No Do you presently have visiting nurse or other home services: No Alcohol intake: never Patient Tobacco Use Status: Former Tobacco user Quit Date: age 59 Tobacco use type: Cigarette Years Smoked: 40 e-Cigarette/Vaping Use: Never Used Advance Directives Date on File: 10/29/17 service: No Current occupational status: retired Cognitive needs: No Hearing needs: Yes (deaf in right ear, left ear has a hearing aid) Vision needs: Yes Review of Systems Const Denies chills, Denies fatigue, Denies fever(s), Denies frequent falls, Denies weakness, Denies weight gain and Denies weight loss ENT Denies dizziness Card Denies chest pain, Denies leg edema, Denies lightheadedness, Denies palpitations, Denies dyspnea, Denies dyspnea on exertion, Denies orthopnea and Denies other (loss of consciousness) Resp Denies cough, Denies dyspnea and Denies dyspnea on exertion GI Denies hematochezia and Denies change in stool character Musc Denies abnormal gait, Denies muscle weakness, Denies numbness, Denies radiating pain into limb and Denies tingling Neuro Denies abnormal gait, Denies dizziness, Denies frequent falls, Denies numbness, Denies tingling and Denies weakness Endo Denies fatigue and Denies palpitations Physical Exam Vital Signs: Last Vital Signs Pulse 62 02/21/24 15:31 BP 108/64 02/21/24 15:31 BMI result Body Mass Index 19.4 Const General: cooperative, comfortable and no acute distress Nutritional Appearance: thin and other (Frail elderly woman) Orientation/consciousness: patient oriented x3 Neck Other: Pulsation of neck vein, likely V wave from TR Neck: Yes normal visual inspection and Yes no JVD (Pulsatile V-waves) Resp Effort & Inspection: normal respiratory effort Auscultation: clear to auscultation bilaterally, no crackles, no rales, no rhonchi and no wheezes Cardio Rate: regular rate Rhythm: abnormal rhythm Heart sounds: S1 normal heart sound present, S2 normal heart sound present, no gallops, Murmur heart sound present (Systolic murmur in mitral position) systolic holo and no rubs Peripheral pulses: Peripheral pulses 2+ throughout GI Inspection: Yes Abdominal wall edema Neuro General: patient oriented x3 Extrem Other: Trace pitting edema in each lower leg, left upper leg General: Yes normal to inspection, No clubbing, No cyanosis and Yes edema Psych Appearance: grossly normal Mental Status: mental status grossly normal Speech and movement: Normal speech and movement present Office Procedures Cardiac Device Check Cardiac Device Check Details: Single-chamber Medtronic pacemaker in place. Battery life is excellent at 12.4. Programmed in VVI at 60 beats per minute. Ventricular pacing 70% of the time. [id number] Cardiac Device Check, leadless/single lead pacemaker Procedure code (CPT) selection complete Assessment & Plan Assessment & Plan (1) CHF (congestive heart failure): Code(s): I50.9 - Heart failure, unspecified Category: Medical Plan: CHF, difficult to manage given multiple comorbidities including advancing age, LV systolic dysfunction now, chronic atrial fibrillation, secondary mitral and tricuspid regurgitation related to biatrial chamber enlargement and frailty. Also low blood pressure not allowing use of neurohormonal modulators. We discussed about management again about the heart failure. Discussed that she has not a candidate for left ventricular assist device. Management would be with diuretic and decongestant therapy. Again goals of therapy were discussed. Daily weight monitoring avoidance of salt loading was discussed. Continue current bumetanide therapy. Also discussed with her about use of metolazone therapy when she has weight gain. She shows understanding. Her daughter was present as well. (2) Atrial fibrillation, chronic: Onset Date: ~2009 Code(s): I48.20 - Chronic atrial fibrillation, unspecified Category: Medical Plan: Chronic atrial fibrillation, currently rate controlled. Not on any rate control medications. Given significant biatrial enlargement and chronicity of atrial fibrillation again discussed with her that rhythm control is not possible although she is questioning that. She has declined oral anticoagulation therapy. Will follow with her in 3 months time Orders: Orders XR chest 2V 02/21/24 Leonard Smart MD I50.9 - Heart failure, unspecified Basic Metabolic Panel 02/21/24 Leonard Smart MD I50.9 - Heart failure, unspecified Medications: Changed From polyethylene glycol 3350 (Miralax) 17 grams PO DAILY 510 grams 6RF To polyethylene glycol 3350 (Miralax) 17 grams PO DAILY PRN Nasra Acuna PA-C From docusate sodium (Colace) 200 mg (2 x 100 mg) PO BEDTIME 60 caps 5RF To docusate sodium (Colace) 200 mg PO BEDTIME PRN Nasra Acuna PA-C Coding Level of Care Code Est Pt Level 4 (33468) Diagnoses CHF (congestive heart failure) I50.9 Atrial fibrillation, chronic I48.20 CPT Codes Cardiac Device Check - Cardiac Device 1: 32961-EP Cardiac Device Check, leadless/single lead pacemaker ([id number])
[2024-02-21 15:31] VITALS: BP 108/64; PULSE 62; BMI 19.4
== END 2024-02-21 16:03 | disposition home or self-care (01) ==
PROVIDERS: PCP Internal Medicine; Referring Provider Internal Medicine; Visit Provider Internal Medicine Cardiovascular Disease
DX: I50.9 Heart failure, unspecified (principal); I48.20 Chronic atrial fibrillation, unspecified; Z95.0 Presence of cardiac pacemaker
CPT/HCPCS: 93279; 99214

== ENCOUNTER 2024-02-21 15:27 | Outpatient (REF) | payer MEDICARE, SELFPAY ==
--- NOTE | ~2024-02-21 | XR_ITS ---
EXAMINATION: XR CHEST CLINICAL INFORMATION: Heart failure, unspecified COMPARISON: Chest 02/20/2022 TECHNIQUE: 2 views of the chest were obtained. FINDINGS: Dual lead pacemaker stable position with respect to the markedly enlarged cardiac silhouette. There is pulmonary vascular redistribution consistent with mild CHF. There is no focal consolidation. No pneumothorax. No pleural effusion. No Rox B lines. Degenerative changes are seen in the thoracic spine. XR/XR chest 2V IMPRESSION: Marked cardiomegaly with mild CHF.
[2024-02-21 18:11] LABS: Anion Gap 15 (12-20); Blood Urea Nitrogen 59 mg/dL (9-16); Calcium 9.3 mg/dL (8.4-10.2); Carbon Dioxide 30 mmol/L (22-29); Chloride 99 mmol/L (96-108); Estimated Glomerular Filt Rate 36; Glucose Random 100 mg/dL (60-115); Sodium 141 mmol/L (135-145)
== END 2024-02-21 15:28 | disposition home or self-care (01) ==
LOC: HO.XRAY 15:27
PROVIDERS: PCP Internal Medicine; Visit Provider Internal Medicine Cardiovascular Disease
DX: I50.9 Heart failure, unspecified (principal); I48.20 Chronic atrial fibrillation, unspecified; R26.81 Unsteadiness on feet
CPT/HCPCS: 36415; 71046; 80048; 99212

== ENCOUNTER 2024-02-26 10:59 | Outpatient (REF) | payer MEDICARE, SELFPAY ==
[2024-02-26 12:32] LABS: Anion Gap 15 (12-20); Blood Urea Nitrogen 60 mg/dL (9-16); Calcium 9.1 mg/dL (8.4-10.2); Carbon Dioxide 29 mmol/L (22-29); Chloride 101 mmol/L (96-108); Estimated Glomerular Filt Rate 40; Glucose Random 99 mg/dL (60-115); Potassium 3.7 mmol/L (3.3-5.1); Sodium 141 mmol/L (135-145)
== END 2024-02-26 11:00 | disposition home or self-care (01) ==
LOC: HO.LAB 10:59
PROVIDERS: PCP Internal Medicine; Visit Provider Internal Medicine Cardiovascular Disease
DX: I50.9 Heart failure, unspecified (principal)
CPT/HCPCS: 36415; 80048

== ENCOUNTER → 2024-03-19 23:59 | Outpatient (BNV) | payer MEDICARE, SELFPAY ==
--- NOTE | 2024-03-24 13:39 | MHC.OFFVIS ---
Intake Visit Reasons: Remote Device Check- [employer] Allergies ibuprofen [IBUPROFEN] Allergy (Severe, Verified 10/11/23:) THROAT LUMP olmesartan [From BENICAR] Allergy (Severe, Verified 10/11/23) WHEEZING Gadolinium-Containing Contrast Medi [Gadolinium-Containing Agents] Allergy (Mild, Verified 10/11/23:) HIVES Iodinated Contrast Media [IV Dye, Iodine Containing] Allergy (Mild, Verified 10/11/23:) RASH oneil Allergy (Mild, Verified 10/11/23:) RASH Sulfa (Sulfonamide Antibiotics) Allergy (Mild, Verified 10/11/23:) RASH amiodarone [AMIODARONE] Allergy (Unknown, Verified 10/11/23) THYROID TOXICOSIS amlodipine [From NORVASC] Allergy (Unknown, Verified 10/11/23) WHEEZING aspirin [ASPIRIN] Allergy (Unknown, Verified 10/11/23:) THROAT LUMP HEAVY WHEEZING, wheezing, wheezing azithromycin [From ZITHROMAX] Allergy (Unknown, Verified 10/11/23:) NAUSEA/VOMITING, nausea and vomiting bee pollen [Bee Stings] Allergy (Unknown, Verified 10/11/23:) EDEMA, ALL INSECT STINGS capsaicin [CAPSAICIN] Allergy (Unknown, Verified 10/11/23) RASH clopidogrel [From PLAVIX] Allergy (Unknown, Verified 10/11/23:) THROAT LUMP HEAVY WHEEZING diltiazem [Cardizem] Allergy (Unknown, Verified 10/11/23:) rash methimazole [METHIMAZOLE] Allergy (Unknown, Verified 10/11/23:) RASH sulfamethoxazole [From BACTRIM] Allergy (Unknown, Verified 10/11/23:) RASH trimethoprim [From BACTRIM] Allergy (Unknown, Verified 10/11/23:) RASH escitalopram [From Lexapro] Allergy (Verified 10/11/23) Wheezing clarithromycin [From Biaxin] Adverse Reaction (Mild, Verified 10/11/23:33) N/V codeine [Codeine] Adverse Reaction (Mild, Verified 10/11/23 09:33) N/V levofloxacin [From Levaquin] Adverse Reaction (Mild, Verified 10/11/23 09:33) N/V Dye [facility] Blue 1 Allergy (Unknown, Uncoded 10/13/22 11:26) rash PFSH Medical History 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) History of cardiac arrest (~2009) Osteoporosis (~2020) Tubular adenoma of colon (~2000) Pacemaker at end of battery life Blood in urine Superficial bruising of abdominal wall Traumatic ecchymosis of left lower leg Traumatic ecchymosis of left shoulder Traumatic hematoma of head Fall Hip pain, right Abnormal ultrasound of lower extremity AAA (abdominal aortic aneurysm) CAD (coronary artery disease) Cardiac pacemaker in situ (~2009) Mitral regurgitation Tricuspid regurgitation Diverticulosis Ex-smoker Hearing impaired Lactose intolerance History of right breast cancer (~1992) Hypertension, essential Atrial fibrillation, chronic (~2009) Surgical History History of colonoscopy History of hand surgery History of heart artery stent History of pacemaker History of lumpectomy History of cardiac cath History of cardioversion History of eye surgery Family History Father CVD (cardiovascular disease) Mother CVD (cardiovascular disease) Myocardial infarction Maternal Grandmother Unknown family medical history Maternal Grandfather No problems noted. Paternal Grandfather CVD (cardiovascular disease) Paternal Grandmother No problems noted. Child No Financial Resp No problems noted. Social History Household Members: Children Housing: House Are you a primary school childcare attendant to a significant other at home: No Do you presently have visiting nurse or other home services: No Alcohol intake: never Patient Tobacco Use Status: Former Tobacco user Tobacco use type: Cigarette Years Smoked: 40 e-Cigarette/Vaping Use: Never Used Advance Directives Date on File: 10/29/17 service: No Current occupational status: retired Cognitive needs: No Hearing needs: Yes (deaf in right ear, left ear has a hearing aid) Vision needs: Yes Office Procedures Cardiac Device Check Cardiac Device Check [id number] Cardiac Device Interrogation, pacemaker Procedure code (CPT) selection complete Assessment & Plan Assessment & Plan (1) Cardiac pacemaker in situ: Onset Date: ~2009 Comment: (single-chamber Medtronic - DCPP placed 2009 - now VVI - replaced 2022) Code(s): Z95.0 - Presence of cardiac pacemaker Category: Medical Plan: See above Coding Level of Care Code Procedure Only Diagnoses Cardiac pacemaker in situ Z95.0 CPT Codes Cardiac Device Check - Cardiac Device 12: [id number] Cardiac Device Interrogation, pacemaker ([id number])
== END ==
PROVIDERS: PCP Internal Medicine; Visit Provider Internal Medicine Cardiovascular Disease
DX: Z45.018 Encounter for adjustment and management of other part of cardiac pacemaker (principal)
CPT/HCPCS: 93294

== ENCOUNTER 2024-05-27 15:22 | Outpatient (AMB) | payer MEDICARE, SELFPAY ==
[2024-05-27 15:24] VITALS: BP 112/60; PULSE 60; BMI 19.8
--- NOTE | 2024-05-27 15:24 | MHC.OFFVIS ---
Vital Signs 05/27/24 15:24 Height 5 ft 4 in Weight 115 lb 8.356 oz BMI 19.8 BP 112/60 Blood Pressure Location Lt brachial Position Sitting Pulse 60 Pulse Source Monitor Intake Visit Reasons: 3 month follow-up with [employer] Required: No Accompanied by: Daughter Allergies ibuprofen [IBUPROFEN] Allergy (Severe, Verified 10/11/23 09:33) THROAT LUMP olmesartan [From BENICAR] Allergy (Severe, Verified 10/11/23 09:) WHEEZING Gadolinium-Containing Contrast Medi [Gadolinium-Containing Agents] Allergy (Mild, Verified 10/11/23:) HIVES Iodinated Contrast Media [IV Dye, Iodine Containing] Allergy (Mild, Verified 10/11/23:) RASH oneil Allergy (Mild, Verified 10/11/23) RASH Sulfa (Sulfonamide Antibiotics) Allergy (Mild, Verified 10/11/23:) RASH amiodarone [AMIODARONE] Allergy (Unknown, Verified 10/11/23:) THYROID TOXICOSIS amlodipine [From NORVASC] Allergy (Unknown, Verified 10/11/23) WHEEZING aspirin [ASPIRIN] Allergy (Unknown, Verified 10/11/23:) THROAT LUMP HEAVY WHEEZING, wheezing, wheezing azithromycin [From ZITHROMAX] Allergy (Unknown, Verified 10/11/23) NAUSEA/VOMITING, nausea and vomiting bee pollen [Bee Stings] Allergy (Unknown, Verified 10/11/23:) EDEMA, ALL INSECT STINGS capsaicin [CAPSAICIN] Allergy (Unknown, Verified 10/11/23:) RASH clopidogrel [From PLAVIX] Allergy (Unknown, Verified 10/11/23:) THROAT LUMP HEAVY WHEEZING diltiazem [Cardizem] Allergy (Unknown, Verified 10/11/23:) rash methimazole [METHIMAZOLE] Allergy (Unknown, Verified 10/11/23) RASH sulfamethoxazole [From BACTRIM] Allergy (Unknown, Verified 10/11/23) RASH trimethoprim [From BACTRIM] Allergy (Unknown, Verified 10/11/23:) RASH escitalopram [From Lexapro] Allergy (Verified 10/11/23:) Wheezing clarithromycin [From Biaxin] Adverse Reaction (Mild, Verified 10/11/23 09:33) N/V codeine [Codeine] Adverse Reaction (Mild, Verified 10/11/23 09:33) N/V levofloxacin [From Levaquin] Adverse Reaction (Mild, Verified 10/11/23 09:33) N/V Dye [facility] Blue [facility] Allergy (Unknown, Uncoded 10/13/22 11:26) rash Medication List - Last Reconciled 05/27/24 by Leonard Smart MD bumetanide 2 mg PO DAILY docusate sodium (Colace) 200 mg PO BEDTIME PRN escitalopram oxalate 5 mg PO DAILY metolazone 2.5 mg PO DAILY PRN polyethylene glycol 3350 (Miralax) 17 grams PO DAILY PRN HPI Comments Details: Bobbi comes for follow-up, accompanied by her daughter. She says last week she had 3 lb weight gain with abdominal distension no leg edema, and has taken metolazone 3-4 times. After that she lost the weight and she has been feeling okay. Today she comes for follow-up. She has been taking usual bumetanide. She denies any clear orthopnea, PND. Continues to have significant symptoms of fatigue. No bleeding issues. No lightheadedness, syncope. Currently not on oral anticoagulation therapy. [facility] Medical History History of half-way anticoagulant use (~2009) History of cardiac arrest (~2009) Osteoporosis (~2020) Tubular adenoma of colon (~2000) Pacemaker at end of battery life Blood in urine Superficial bruising of abdominal wall Traumatic ecchymosis of left lower leg Traumatic ecchymosis of left shoulder Traumatic hematoma of head Fall Hip pain, right Abnormal ultrasound of lower extremity AAA (abdominal aortic aneurysm) CAD (coronary artery disease) Cardiac pacemaker in situ (~2009) Mitral regurgitation Tricuspid regurgitation Diverticulosis Ex-smoker Hearing impaired Lactose intolerance History of right breast cancer (~1992) Hypertension, essential Atrial fibrillation, chronic (~2009) Surgical History History of colonoscopy History of hand surgery History of heart artery stent History of pacemaker History of lumpectomy History of cardiac cath History of cardioversion History of eye surgery Family History Father CVD (cardiovascular disease) Mother CVD (cardiovascular disease) Myocardial infarction Maternal Grandmother Unknown family medical history Maternal Grandfather No problems noted. Paternal Grandfather CVD (cardiovascular disease) Paternal Grandmother No problems noted. Child No Financial Resp No problems noted. Social History Household Members: Children Housing: House Are you a primary wound care specialist to a significant other at home: No Do you presently have visiting nurse or other home services: No Alcohol intake: never Patient Tobacco Use Status: Former Tobacco user Tobacco use type: Cigarette Years Smoked: 40 e-Cigarette/Vaping Use: Never Used Advance Directives Date on File: 10/29/17 service: No Current occupational status: retired Cognitive needs: No Hearing needs: Yes (deaf in right ear, left ear has a hearing aid) Vision needs: Yes Review of Systems Const Denies chills, Denies fatigue, Denies fever(s), Denies frequent falls, Denies weakness, Denies weight gain and Denies weight loss ENT Denies dizziness Card Denies chest pain, Denies leg edema, Denies lightheadedness, Denies palpitations, Denies dyspnea and Denies dyspnea on exertion Resp Denies cough, Denies dyspnea and Denies dyspnea on exertion GI Denies hematochezia Musc Denies abnormal gait, Denies muscle weakness, Denies numbness, Denies radiating pain into limb and Denies tingling Neuro Denies abnormal gait, Denies dizziness, Denies frequent falls, Denies numbness, Denies tingling and Denies weakness Endo Denies fatigue and Denies palpitations Physical Exam Vital Signs: Last Vital Signs Pulse 60 05/27/24 15:24 BP 112/60 05/27/24 15:24 BMI result Body Mass Index 19.8 Const General: cooperative, comfortable and no acute distress Nutritional Appearance: thin and other (Frail elderly woman) Orientation/consciousness: patient oriented x3 Neck Other: Pulsation of neck vein, likely V wave from TR Neck: Yes normal visual inspection and Yes no JVD (Pulsatile V-waves) Resp Effort & Inspection: normal respiratory effort Auscultation: clear to auscultation bilaterally, no crackles, no rales, no rhonchi and no wheezes Cardio Rate: regular rate Rhythm: abnormal rhythm Heart sounds: S1 normal heart sound present, S2 normal heart sound present, no gallops, Murmur heart sound present (Systolic murmur in mitral position) systolic holo and no rubs Peripheral pulses: Peripheral pulses 2+ throughout GI Inspection: Yes Abdominal wall edema Neuro General: patient oriented x3 Extrem Other: Trace pitting edema in each lower leg, left upper leg General: Yes normal to inspection, No clubbing, No cyanosis and Yes edema Psych Appearance: grossly normal Mental Status: mental status grossly normal Speech and movement: Normal speech and movement present Office Procedures Cardiac Device Check Cardiac Device Check Details: Single-chamber Medtronic pacemaker in place. Battery life is excellent at 12.1 years. Ventricular pacing 70% of the time. Few episodes of nonsustained VT noted. [id number] Cardiac Device Check, leadless/single lead pacemaker Procedure code (CPT) selection complete Assessment & Plan Assessment & Plan (1) CHF (congestive heart failure): Code(s): I50.9 - Heart failure, unspecified Category: Medical Plan: Congestive heart failure in this elderly woman related to systolic dysfunction with most recent echocardiogram showing LVEF of 30 35% with regional wall motion abnormalities suggestive of ischemic cardiomyopathy. She does have prior history of CAD. She also has underlying significant mitral and tricuspid valve regurgitation which is secondary to significant biatrial enlargement. She has severe pulmonary hypertension and has multiple comorbidities. Management with diuretic regimen and she has not been able tolerate any other neurohormonal modulation due to low blood pressure. Overall prognosis is guarded and limited. This was discussed with her. She has done well on current bumetanide therapy with intermittent p.r.n. metolazone therapy. Goals of therapy were discussed. Overall limited long-term outcome was discussed with her. She has other comorbidities including chronic atrial fibrillation, liver abnormality as well as anemia that complicates her management plan. Will check BNP today to assess whether she needs potassium supplementation. This was discussed with her. (2) CAD (coronary artery disease): Comment: (s/p stented RCA 2009 and circumflex 2013) Code(s): I25.10 - Atherosclerotic heart disease of [place] coronary artery without angina pectoris Category: Medical Plan: CAD with prior stenting of the RCA and circumflex artery. Currently off all medications. Does not want to have any statin therapy. Not on antiplatelet therapy due to bleeding risk. Continue to follow clinically. (3) Atrial fibrillation, chronic: Onset Date: ~2009 Code(s): I48.20 - Chronic atrial fibrillation, unspecified Category: Medical Plan: She has longstanding chronic atrial fibrillation in the past has failed rhythm control approach and has no significant biatrial enlargement and secondary severe mitral and tricuspid regurgitation. Continue rate control approach. Rate is adequately control despite being off all medications. Has refused oral anticoagulation therapy despite high thromboembolic risk. She understands the risk of stroke associated with atrial fibrillation. (4) Cardiac pacemaker in situ: Onset Date: ~2009 Comment: (single-chamber Medtronic - DCPP placed 2009 - now VVI - replaced 2022) Code(s): Z95.0 - Presence of cardiac pacemaker Category: Medical Plan: Cardiac pacemaker in-situ, working well. Reprogrammed for adequate functioning. Will follow remotely Follow up in the clinic in 6 months time, sooner p.r.n.. Thank you for allowing me to partake in his care Orders: Orders Basic Metabolic Panel 05/27/24 I50.9 - Heart failure, unspecified CA echo transthoracic complete 6 Months I50.9 - Heart failure, unspecified Coding Level of Care Code Est Pt Level 4 (23345) Diagnoses CHF (congestive heart failure) I50.9 CAD (coronary artery disease) I25.10 Atrial fibrillation, chronic I48.20 Cardiac pacemaker in situ Z95.0 CPT Codes Cardiac Device Check - Cardiac Device 1: [id number] Cardiac Device Check, leadless/single lead pacemaker ([id number])
== END 2024-05-27 15:44 | disposition home or self-care (01) ==
PROVIDERS: PCP Internal Medicine; Visit Provider Internal Medicine Cardiovascular Disease
DX: I50.9 Heart failure, unspecified (principal); I25.10 Atherosclerotic heart disease of native coronary artery without angina pectoris; I48.20 Chronic atrial fibrillation, unspecified; Z95.0 Presence of cardiac pacemaker
CPT/HCPCS: 93279; 99214

== ENCOUNTER → 2024-05-27 15:22 | Outpatient (BNVA) | payer MEDICARE, SELFPAY | PROVIDERS: PCP Internal Medicine; Visit Provider Internal Medicine Cardiovascular Disease | DX: Z13.89 Encounter for screening for other disorder (principal) | CPT/HCPCS: 99212 ==

== ENCOUNTER 2024-05-27 15:48 | Outpatient (REF) | payer MEDICARE, SELFPAY ==
[2024-05-27 16:55] LABS: Anion Gap 12 (12-20); Blood Urea Nitrogen 33 mg/dL (9-16); Calcium 9.2 mg/dL (8.4-10.2); Carbon Dioxide 32 mmol/L (22-29); Chloride 99 mmol/L (96-108); Estimated Glomerular Filt Rate 43; Glucose Random 95 mg/dL (60-115); Potassium 3.1 mmol/L (3.3-5.1); Sodium 140 mmol/L (135-145)
== END 2024-05-27 15:49 | disposition home or self-care (01) ==
LOC: HO.LAB 15:48
PROVIDERS: PCP Internal Medicine; Visit Provider Internal Medicine Cardiovascular Disease
DX: I50.9 Heart failure, unspecified (principal)
CPT/HCPCS: 36415; 80048; 99212

== ENCOUNTER → 2024-06-18 23:59 | Outpatient (BNV) | payer MEDICARE, SELFPAY ==
--- NOTE | 2024-06-30 09:36 | MHC.OFFVIS ---
Intake Visit Reasons: Remote Device Check- [employer]tr[employer] Allergies ibuprofen [IBUPROFEN] Allergy (Severe, Verified 10/11/23:) THROAT LUMP olmesartan [From BENICAR] Allergy (Severe, Verified 10/11/23) WHEEZING Gadolinium-Containing Contrast Medi [Gadolinium-Containing Agents] Allergy (Mild, Verified 10/11/23:) HIVES Iodinated Contrast Media [IV Dye, Iodine Containing] Allergy (Mild, Verified 10/11/23:) RASH oneil Allergy (Mild, Verified 10/11/23:) RASH Sulfa (Sulfonamide Antibiotics) Allergy (Mild, Verified 10/11/23:) RASH amiodarone [AMIODARONE] Allergy (Unknown, Verified 10/11/23) THYROID TOXICOSIS amlodipine [From NORVASC] Allergy (Unknown, Verified 10/11/23) WHEEZING aspirin [ASPIRIN] Allergy (Unknown, Verified 10/11/23:) THROAT LUMP HEAVY WHEEZING, wheezing, wheezing azithromycin [From ZITHROMAX] Allergy (Unknown, Verified 10/11/23:) NAUSEA/VOMITING, nausea and vomiting bee pollen [Bee Stings] Allergy (Unknown, Verified 10/11/23:) EDEMA, ALL INSECT STINGS capsaicin [CAPSAICIN] Allergy (Unknown, Verified 10/11/23) RASH clopidogrel [From PLAVIX] Allergy (Unknown, Verified 10/11/23:) THROAT LUMP HEAVY WHEEZING diltiazem [Cardizem] Allergy (Unknown, Verified 10/11/23:) rash methimazole [METHIMAZOLE] Allergy (Unknown, Verified 10/11/23:) RASH sulfamethoxazole [From BACTRIM] Allergy (Unknown, Verified 10/11/23:) RASH trimethoprim [From BACTRIM] Allergy (Unknown, Verified 10/11/23:) RASH escitalopram [From Lexapro] Allergy (Verified 10/11/23) Wheezing clarithromycin [From Biaxin] Adverse Reaction (Mild, Verified 10/11/23:33) N/V codeine [Codeine] Adverse Reaction (Mild, Verified 10/11/23 09:33) N/V levofloxacin [From Levaquin] Adverse Reaction (Mild, Verified 10/11/23 09:33) N/V Dye [facility] Blue 1 Allergy (Unknown, Uncoded 10/13/22 11:26) rash [facility] Medical History 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) History of cardiac arrest (~2009) Osteoporosis (~2020) Tubular adenoma of colon (~2000) Pacemaker at end of battery life Blood in urine Superficial bruising of abdominal wall Traumatic ecchymosis of left lower leg Traumatic ecchymosis of left shoulder Traumatic hematoma of head Fall Hip pain, right Abnormal ultrasound of lower extremity AAA (abdominal aortic aneurysm) CAD (coronary artery disease) Cardiac pacemaker in situ (~2009) Mitral regurgitation Tricuspid regurgitation Diverticulosis Ex-smoker Hearing impaired Lactose intolerance History of right breast cancer (~1992) Hypertension, essential Atrial fibrillation, chronic (~2009) Surgical History History of colonoscopy History of hand surgery History of heart artery stent History of pacemaker History of lumpectomy History of cardiac cath History of cardioversion History of eye surgery Family History Father CVD (cardiovascular disease) Mother CVD (cardiovascular disease) Myocardial infarction Maternal Grandmother Unknown family medical history Maternal Grandfather No problems noted. Paternal Grandfather CVD (cardiovascular disease) Paternal Grandmother No problems noted. Child No Financial Resp No problems noted. Social History Household Members: Children Housing: House Are you a primary occasional caregiver to a significant other at home: No Do you presently have visiting nurse or other home services: No Alcohol intake: never Patient Tobacco Use Status: Former Tobacco user Tobacco use type: Cigarette Years Smoked: 40 e-Cigarette/Vaping Use: Never Used Advance Directives Date on File: 10/29/17 service: No Current occupational status: retired Cognitive needs: No Hearing needs: Yes (deaf in right ear, left ear has a hearing aid) Vision needs: Yes Office Procedures Cardiac Device Check Cardiac Device Check Details: Remote pacemaker report generated 06/18/2024. Pacemaker function is adequate. [id number] Cardiac Device Interrogation, pacemaker Procedure code (CPT) selection complete Assessment & Plan Assessment & Plan (1) Cardiac pacemaker in situ: Onset Date: ~2009 Comment: (single-chamber Medtronic - DCPP placed 2009 - now VVI - replaced 2022) Code(s): Z95.0 - Presence of cardiac pacemaker Category: Medical Plan: See above Coding Level of Care Code Procedure Only Diagnoses Cardiac pacemaker in situ Z95.0 CPT Codes Cardiac Device Check - Cardiac Device 12: [id number] Cardiac Device Interrogation, pacemaker ([id number])
== END ==
PROVIDERS: PCP Internal Medicine; Visit Provider Internal Medicine Cardiovascular Disease
DX: Z45.018 Encounter for adjustment and management of other part of cardiac pacemaker (principal)
CPT/HCPCS: 93294

== ENCOUNTER 2024-07-24 08:03 | Outpatient (AMB) | payer MEDICARE, SELFPAY ==
[2024-07-24 08:06] VITALS: BP 110/74; PULSE 58; O2SAT 97; BMI 20.4
--- NOTE | 2024-07-24 08:06 | AM.OFFWIN_ITS ---
Intake Vital Signs 07/24/24 08:06 Height 5 ft 4 in Weight 119 lb BMI 20.4 BP 110/74 Blood Pressure Location Lt brachial Position Sitting Pulse 58 Pulse Source Pulse Oximeter Pulse Oximetry (%) 97 Oxygen Delivery Method Room Air Intake Visit Reasons: EP ?UTI Intake Note: Patient here for dark urine and noticed blood on her pad over the weekend but s ymptoms seem to have improved. Patient Tobacco Use Status: Former Tobacco user Allergies ibuprofen [IBUPROFEN] Allergy (Severe, Verified 07/24/24 08:17) THROAT LUMP olmesartan [From BENICAR] Allergy (Severe, Verified 07/24/24 08:17) WHEEZING Gadolinium-Containing Contrast Medi [Gadolinium-Containing Agents] Allergy (Mild, Verified 07/24/24 08:17) HIVES Iodinated Contrast Media [IV Dye, Iodine Containing] Allergy (Mild, Verified 07/24/24 08:17) RASH oneil Allergy (Mild, Verified 07/24/24 08:17) RASH Sulfa (Sulfonamide Antibiotics) Allergy (Mild, Verified 07/24/24 08:17) RASH amiodarone [AMIODARONE] Allergy (Unknown, Verified 07/24/24 08:17) THYROID TOXICOSIS amlodipine [From NORVASC] Allergy (Unknown, Verified 07/24/24 08:17) WHEEZING aspirin [ASPIRIN] Allergy (Unknown, Verified 07/24/24 08:17) THROAT LUMP HEAVY WHEEZING, wheezing, wheezing azithromycin [From ZITHROMAX] Allergy (Unknown, Verified 07/24/24 08:17) NAUSEA/VOMITING, nausea and vomiting bee pollen [Bee Stings] Allergy (Unknown, Verified 07/24/24 08:17) EDEMA, ALL INSECT STINGS capsaicin [CAPSAICIN] Allergy (Unknown, Verified 07/24/24 08:17) RASH clopidogrel [From PLAVIX] Allergy (Unknown, Verified 07/24/24 08:17) THROAT LUMP HEAVY WHEEZING diltiazem [Cardizem] Allergy (Unknown, Verified 07/24/24 08:17) rash methimazole [METHIMAZOLE] Allergy (Unknown, Verified 07/24/24 08:17) RASH sulfamethoxazole [From BACTRIM] Allergy (Unknown, Verified 07/24/24 08:17) RASH trimethoprim [From BACTRIM] Allergy (Unknown, Verified 07/24/24 08:17) RASH escitalopram [From Lexapro] Allergy (Verified 07/24/24 08:17) Wheezing clarithromycin [From Biaxin] Adverse Reaction (Mild, Verified 07/24/24 08:17) N/V codeine [Codeine] Adverse Reaction (Mild, Verified 07/24/24 08:17) N/V levofloxacin [From Levaquin] Adverse Reaction (Mild, Verified 07/24/24 08:17) N/V Dye [facility] Blue 1 Allergy (Unknown, Uncoded 07/24/24 08:17) rash Do you need a note to return to daycare/school/sports/work: No HPI HPI Comments History of Present Illness Details Patient is an 83-year-old female complaining burning with urination 5 days ago as well as some blood on her pad 4 days ago, she denies fevers, low back pain but does have some lower abdominal pain. She tells me she has chronic constipation and that is probably what it is from. 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) History of cardiac arrest (~2009) Osteoporosis (~2020) Tubular adenoma of colon (~2000) Pacemaker at end of battery life Blood in urine Superficial bruising of abdominal wall Traumatic ecchymosis of left lower leg Traumatic ecchymosis of left shoulder Traumatic hematoma of head Fall Hip pain, right Abnormal ultrasound of lower extremity AAA (abdominal aortic aneurysm) CAD (coronary artery disease) Cardiac pacemaker in situ (~2009) Mitral regurgitation Tricuspid regurgitation Diverticulosis Ex-smoker Hearing impaired Lactose intolerance History of right breast cancer (~1992) Hypertension, essential Atrial fibrillation, chronic (~2009) Surgical History History of colonoscopy History of hand surgery History of heart artery stent History of pacemaker History of lumpectomy History of cardiac cath History of cardioversion History of eye surgery Family History Father CVD (cardiovascular disease) Mother CVD (cardiovascular disease) Myocardial infarction Maternal Grandmother Unknown family medical history Maternal Grandfather No problems noted. Paternal Grandfather CVD (cardiovascular disease) Paternal Grandmother No problems noted. Child No Financial Resp No problems noted. Social History Household Members: Children Housing: House Are you a primary career and guidance counselor to a significant other at home: No Do you presently have visiting nurse or other home services: No Alcohol intake: never Patient Tobacco Use Status: Former Tobacco user Tobacco use type: Cigarette Years Smoked: 40 e-Cigarette/Vaping Use: Never Used Advance Directives Date on File: 10/29/17 service: No Current occupational status: retired Cognitive needs: No Hearing needs: Yes (deaf in right ear, left ear has a hearing aid) Vision needs: Yes Review of Systems Const All systems reviewed & are unremarkable except as noted in HPI and below Physical Exam Vital Signs: Last Vital Signs Pulse 58 07/24/24 08:06 BP 110/74 07/24/24 08:06 Pulse Ox 97 07/24/24 08:06 Oxygen Delivery Method Room Air 07/24/24 08:06 BMI result Body Mass Index 20.4 Const General: cooperative, healthy appearing, comfortable and no acute distress Orientation/consciousness: patient oriented x3 HEENT Head: Yes normal to inspection Ears: hearing grossly normal bilaterally General nose exam: Normal external nose present Face and sinus: Yes normal facial exam Neck Neck: Yes normal visual inspection, Yes trachea midline and Yes supple Resp Effort & Inspection: normal respiratory effort and able to speak in complete sentences GI Inspection: Yes normal to inspection Palpation (GI): Soft to palpation and Tenderness to palpation present (GI) suprapubicly General: Yes no CVA tenderness Back/Spine/Pelvis Back: no CVA tenderness Skin General skin exam: no rashes or lesions noted Neuro General: patient oriented x3 Psych Appearance: grossly normal Speech and movement: Normal speech and movement present Attitude: cooperative Thought process: Normal thought process present Insight: Good insight present (Psych) Judgement: Good judgement present (Psych) Results AMB Urinalysis, Automated UA Leukoctes 15 Francisca/uL Last Edit by RICKI Good on 07/24/24 08:5 1 UA Nitrite Negative Last Edit by RICKI Good on 07/24/24 08:51 UA Urobilinogen 0.2 mg/dL Last Edit by RICKI Good on 07/24/24 08:51 UA Protein 15 mg/dL Last Edit by RICKI Good on 07/24/24 08:51 UA pH 6.0 Last Edit by RICKI Good on 07/24/24 08:51 UA Blood 3 Mihai/uL Last Edit by RICKI Good on 07/24/24 08:51 UA Specific [place] 1.015 Last Edit by RICKI Good on 07/24/24 08:51 UA Ketone Negative Last Edit by RICKI Good on 07/24/24 08:51 UA Bilirubin 0 mg/dL Last Edit by RICKI Good on 07/24/24 08:51 UA Glucose 0 mg/dL Last Edit by RICKI Good on 07/24/24 08:51 Results Reviewed Results Reviewed: Laboratory Last Values Urine pH (Auto) 6.0 07/24/24 08:50 Specific [place] (Auto) 1.015 07/24/24 08:50 Urine Protein (Auto) 15 mg/dL 07/24/24 08:50 Glucose (UA)(Auto) 0 mg/dL 07/24/24 08:50 Urine Ketones (Auto) Negative 07/24/24 08:50 Urine Blood (Auto) 3 Mihai/uL 07/24/24 08:50 Urine Nitrite (Auto) Negative 07/24/24 08:50 Urine Bilirubin (Auto) 0 mg/dL 07/24/24 08:50 Urine Urobilinogen (Auto) 0.2 mg/dL 07/24/24 08:50 Leukocyte Esterase (Auto) 15 Francisca/uL 07/24/24 08:50 Assessment & Plan Assessment & Plan (1) UTI (urinary tract infection): Code(s): N39.0 - Urinary tract infection, site not specified Qualifiers: Hematuria presence: with hematuria Urinary tract infection type: acute cystitis Qualified Code(s): N30.01 - Acute cystitis with hematuria Plan: Vital signs are stable. UA positive for leukocyte esterase and blood, no history of kidney stones physical exam she had no CVA tenderness, likely UTI, we will treat with a cephalosporin with her many allergies. Plan See above Orders: Orders AMB Urinalysis Automated Today Z13.9 - Encounter for screening, unspecified Medications: New cefuroxime axetil 500 mg PO Q12H 10 tabs 0RF Coding Level of Care Code Est Pt Level 3 (60893) Diagnoses Acute cystitis with hematuria N30.01 Hematuria presence: with hematuria Urinary tract infection type: acute cystitis
== END 2024-07-24 08:45 | disposition home or self-care (01) ==
PROVIDERS: PCP Internal Medicine; Visit Provider Physician Assistant
DX: Z13.9 Encounter for screening, unspecified (principal); N30.01 Acute cystitis with hematuria

== ENCOUNTER → 2024-07-24 08:03 | Outpatient (BNVA) | payer MEDICARE, SELFPAY | PROVIDERS: PCP Internal Medicine; Visit Provider Physician Assistant | DX: N30.01 Acute cystitis with hematuria (principal) | CPT/HCPCS: 81003; 99212 ==

== ENCOUNTER 2024-08-15 10:54 | Outpatient (AMB) | payer MEDICARE, SELFPAY ==
--- NOTE | 2024-08-15 10:58 | MHC.OFFVIS ---
Vital Signs 08/15/24 10:59 Height 5 ft 4 in Weight 114 lb BMI 19.6 BP 122/62 Blood Pressure Location Lt brachial Position Sitting Pulse 42 L Intake Visit Reasons: Chronic constipation/ Nasra pt Intake Note: Bobbi presents in the office as a follow up Nasra patient for Chronic Constipation. CC: She states she is here today for constipation. She states that she had a lot of appts that had to be rescheduled and could not wait anymore. No pains in the stomach just the issue with the hard stools. Allergies ibuprofen [IBUPROFEN] Allergy (Severe, Verified 08/15/24 11:02) THROAT LUMP olmesartan [From BENICAR] Allergy (Severe, Verified 08/15/24 11:02) WHEEZING Gadolinium-Containing Contrast Medi [Gadolinium-Containing Agents] Allergy (Mild, Verified 08/15/24 11:02) HIVES Iodinated Contrast Media [IV Dye, Iodine Containing] Allergy (Mild, Verified 08/15/24 11:02) RASH oneil Allergy (Mild, Verified 08/15/24 11:02) RASH Sulfa (Sulfonamide Antibiotics) Allergy (Mild, Verified 08/15/24 11:02) RASH amiodarone [AMIODARONE] Allergy (Unknown, Verified 08/15/24 11:02) THYROID TOXICOSIS amlodipine [From NORVASC] Allergy (Unknown, Verified 08/15/24 11:02) WHEEZING aspirin [ASPIRIN] Allergy (Unknown, Verified 08/15/24 11:02) THROAT LUMP HEAVY WHEEZING, wheezing, wheezing azithromycin [From ZITHROMAX] Allergy (Unknown, Verified 08/15/24 11:02) NAUSEA/VOMITING, nausea and vomiting bee pollen [Bee Stings] Allergy (Unknown, Verified 08/15/24 11:02) EDEMA, ALL INSECT STINGS capsaicin [CAPSAICIN] Allergy (Unknown, Verified 08/15/24 11:02) RASH clopidogrel [From PLAVIX] Allergy (Unknown, Verified 08/15/24 11:02) THROAT LUMP HEAVY WHEEZING diltiazem [Cardizem] Allergy (Unknown, Verified 08/15/24 11:02) rash methimazole [METHIMAZOLE] Allergy (Unknown, Verified 08/15/24 11:02) RASH sulfamethoxazole [From BACTRIM] Allergy (Unknown, Verified 08/15/24 11:02) RASH trimethoprim [From BACTRIM] Allergy (Unknown, Verified 08/15/24 11:02) RASH escitalopram [From Lexapro] Allergy (Verified 08/15/24 11:02) Wheezing clarithromycin [From Biaxin] Adverse Reaction (Mild, Verified 08/15/24 11:02) N/V codeine [Codeine] Adverse Reaction (Mild, Verified 08/15/24 11:02) N/V levofloxacin [From Levaquin] Adverse Reaction (Mild, Verified 08/15/24 11:02) N/V Dye ALF Blue 1 Allergy (Unknown, Uncoded 08/15/24 11:02) rash HPI Comments Details: 83 y.o F with PMH of 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 [place] [facility] [place] cirrhosis since at least 2019 based on clinical data available in [facility]. Started seeing GI last year for cirrhosis care but pt not interested in many interventions including EGD for variceal screening. Reports that at 83 she'd prefer to minimize procedures as much as possible, understands risk of potentially life threatening variceal hemorrhage. Main complaint is severe constipation. Has BM 2-3 times a week with hard marble like pellets. Frequently digitalises. Has been ongoing x 6 months. With this also notes occ nausea. Also has cholelithiasis but declines surgical referral as will likely opt out of elective CCY anyway. Current meds: Dulcolax 5 mg at night Stool softener BID Miralax as needed Of note - pt also reports x2-3 days of productive cough with progressive shortness of breath. 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) History of cardiac arrest (~2009) Osteoporosis (~2020) Tubular adenoma of colon (~2000) Pacemaker at end of battery life Blood in urine Superficial bruising of abdominal wall Traumatic ecchymosis of left lower leg Traumatic ecchymosis of left shoulder Traumatic hematoma of head Fall Hip pain, right Abnormal ultrasound of lower extremity AAA (abdominal aortic aneurysm) CAD (coronary artery disease) Cardiac pacemaker in situ (~2009) Mitral regurgitation Tricuspid regurgitation Diverticulosis Ex-smoker Hearing impaired Lactose intolerance History of right breast cancer (~1992) Hypertension, essential Atrial fibrillation, chronic (~2009) Surgical History History of colonoscopy History of hand surgery History of heart artery stent History of pacemaker History of lumpectomy History of cardiac cath History of cardioversion History of eye surgery Family History Father CVD (cardiovascular disease) Mother CVD (cardiovascular disease) Myocardial infarction Maternal Grandmother Unknown family medical history Maternal Grandfather No problems noted. Paternal Grandfather CVD (cardiovascular disease) Paternal Grandmother No problems noted. Child No Financial Resp No problems noted. Social History Household Members: Children Housing: House Are you a primary care clinician to a significant other at home: No Do you presently have visiting nurse or other home services: No Alcohol intake: never Patient Tobacco Use Status: Former Tobacco user Tobacco use type: Cigarette Years Smoked: 40 e-Cigarette/Vaping Use: Never Used Advance Directives Date on File: 10/29/17 service: No Current occupational status: retired Cognitive needs: No Hearing needs: Yes (deaf in right ear, left ear has a hearing aid) Vision needs: Yes Review of Systems Const All systems reviewed & are unremarkable except as noted in HPI and below Physical Exam Vital Signs: Last Vital Signs Pulse 42 L 08/15/24 10:59 BP 122/62 08/15/24 10:59 BMI result Body Mass Index 19.6 No apparent distress Nonicteric, muscle wasting Abdomen soft, nondistended, no shifting dullness Alert and oriented x3, able to walk with support Assessment & Plan Assessment & Plan (1) Productive cough: Code(s): R05.8 - Other specified cough Category: Medical (2) Cholelithiases: Code(s): K80.20 - Calculus of gallbladder without cholecystitis without obstruction Category: Medical (3) Chronic constipation: Code(s): K59.09 - Other constipation Category: Medical (4) Cirrhosis: Code(s): K74.60 - Unspecified cirrhosis of liver Category: Medical Qualifiers: Hepatic cirrhosis type: unspecified hepatic cirrhosis Ascites presence: with ascites Qualified Code(s): K74.60 - Unspecified cirrhosis of liver; R18.8 - Other ascites Plan # cirrhosis Appears compensated at this time. Due for updated MELD labs and HCC screening. Also high likelihood of CSPH based on platelet count but pt declines EGD for variceal screening at this time. Will discuss NSBB choice carvedilol vs nadolol with her clinical laboratory service teacher (has underlying SSS and hypotension) to prevent decompensation/variceal hemorrhage. Plan: - MELD labs - US Abd - If ascites +, will review diagnostic para - Nadolol 20 once daily vs coreg 3.125 BID - Does not meet transplant candidacy due to underlying cardiac comorbidities and age # CIC Reviewed that likely due to inadequate fluid and fiber intake. Also cautioned against termite control servicer use of stimulant laxative. Plan: - Improve hydration and fiber intake. Can use OTC supplement - Take miralax daily - Utilise glycerin supp x2 to help with disimpaction as well as for rectal stimulation - Bisacodyl as needed # Gallstones Asymptomatic based on sx. Discussed referral to surgery for consultation. Pt will discuss with fam and get back to us. If wishes to decline, can consider Myron 600 TID # Productive cough Does not appear to have peripheral edema on exam to suggest overload causing sx. Able to lay flat for exam. Will check CXR to r/o PNA Follow up 3 months Orders: Orders Comprehensive Met. Panel Today K74.60 - Unspecified cirrhosis of liver, R18.8 - Other ascites Prothrombin Time INR Today K74.60 - Unspecified cirrhosis of liver, R18.8 - Other ascites Complete Blood Count no Diff Today K74.60 - Unspecified cirrhosis of liver, R18.8 - Other ascites US abdomen complete Today K74.60 - Unspecified cirrhosis of liver, R18.8 - Other ascites XR chest 2V Today R05.8 - Other specified cough Medications: Discontinued potassium chloride ER Discontinued Reason: Patient Completed Course 20 mEq PO BID 60 tabs 5RF Patient Instructions: - Increase hydration to at least 8-12 cups a day - Consider fiber supplementation with psyllium based fiber (available over the counter) - Take miralax 17g mixed in 8 oz of water every day - Take bisacodyl as needed (available over the counter) - Pediatric glycerin supp x 2 to be used as needed for stool impaction (available over the counter) - Chest xray ordered for the cough - can get it done today - For ultrasound of the liver, radiology will call you to book this Coding Level of Care Code Est Pt Level 5 (47064) Complex EM visit Add On G2211 Diagnoses Productive cough R05.8 Cholelithiases K80.20 Chronic constipation K59.09 Cirrhosis of liver with ascites, unspecified hepatic cirrhosis type K74.60; R18.8 Hepatic cirrhosis type: unspecified hepatic cirrhosis Ascites presence: with ascites
[2024-08-15 10:59] VITALS: BP 122/62; PULSE 42; BMI 19.6
== END 2024-08-15 12:01 | disposition home or self-care (01) ==
PROVIDERS: PCP Internal Medicine; Visit Provider Internal Medicine
DX: K59.09 Other constipation (principal); K80.20 Calculus of gallbladder without cholecystitis without obstruction; K74.60 Unspecified cirrhosis of liver; R18.8 Other ascites
CPT/HCPCS: 99214; G2211

== ENCOUNTER 2024-08-15 10:54 | Outpatient (REF) | payer MEDICARE, SELFPAY ==
[2024-08-15 13:08] LABS: Hematocrit 36.4 % (37.0-47.0); Hemoglobin 12.2 g/dl (12.0-16.0); Mean Corpuscular HGB Conc 33.5 g/dl (31.0-35.0); Mean Corpuscular Hemoglobin 33.4 pg (27.0-33.0); Mean Corpuscular Volume 99.7 fL (80.0-98.0); Mean Platelet Volume 10.8 fL (9.4-12.3); Red Blood Count 3.65 X10*6/uL (4.20-5.50); Red Cell Distribution Width 13.5 % (11.0-16.0); White Blood Count 5.1 X10*3/uL (4.8-10.8)
[2024-08-15 13:09] LABS: Platelet Count 97 X10*3/uL (160-400)
[2024-08-15 13:12] LABS: INTERNATIONAL NORM RATIO 1.2 (0.9-1.1); Prothrombin Time 13.7 SEC (10.9-12.4)
[2024-08-15 13:44] LABS: Alanine Aminotransferase 7 U/L (0-31); Albumin Level 3.6 g/dL (3.5-5.0); Alkaline Phosphatase 79 U/L (39-117); Anion Gap 15 (12-20); Aspartate Amino Transferase 36 U/L (5-31); Bilirubin Total 1.9 mg/dL (0.0-1.0); Blood Urea Nitrogen 34 mg/dL (9-16); Calcium 8.6 mg/dL (8.4-10.2); Carbon Dioxide 27 mmol/L (22-29); Chloride 102 mmol/L (96-108); Estimated Glomerular Filt Rate 42; Glucose Random 106 mg/dL (60-115); Potassium 3.5 mmol/L (3.3-5.1); Sodium 140 mmol/L (135-145); Total Protein 6.9 g/dL (6.5-8.0)
== END 2024-08-15 10:55 | disposition home or self-care (01) ==
LOC: HO.LAB 10:54
PROVIDERS: PCP Internal Medicine; Visit Provider Internal Medicine
DX: K74.60 Unspecified cirrhosis of liver (principal); R18.8 Other ascites; R05.8 Other specified cough; K59.09 Other constipation; K80.20 Calculus of gallbladder without cholecystitis without obstruction
CPT/HCPCS: 36415; 71046; 80053; 85027; 85610; 99212

== ENCOUNTER 2024-09-03 11:33 | Outpatient (REF) | payer MEDICARE, SELFPAY ==
[2024-09-03 12:20] LABS: Hematocrit 33.9 % (37.0-47.0); Hemoglobin 11.8 g/dl (12.0-16.0); Mean Corpuscular HGB Conc 34.8 g/dl (31.0-35.0); Mean Corpuscular Hemoglobin 33.7 pg (27.0-33.0); Mean Corpuscular Volume 96.9 fL (80.0-98.0); Mean Platelet Volume 10.3 fL (9.4-12.3); Platelet Count 131 X10*3/uL (160-400); Red Cell Distribution Width 13.2 % (11.0-16.0); White Blood Count 8.8 X10*3/uL (4.8-10.8)
[2024-09-03 13:00] LABS: Alanine Aminotransferase 9 U/L (0-31); Alkaline Phosphatase 70 U/L (39-117); Anion Gap 16 (12-20); Aspartate Amino Transferase 28 U/L (5-31); Bilirubin Total 1.8 mg/dL (0.0-1.0); Blood Urea Nitrogen 47 mg/dL (9-16); Calcium 8.8 mg/dL (8.4-10.2); Carbon Dioxide 25 mmol/L (22-29); Chloride 99 mmol/L (96-108); Estimated Glomerular Filt Rate 48; Glucose Random 150 mg/dL (60-115); Sodium 137 mmol/L (135-145); Total Protein 6.3 g/dL (6.5-8.0)
== END 2024-09-03 11:34 | disposition home or self-care (01) ==
LOC: HO.LAB 11:33
PROVIDERS: PCP Internal Medicine; Visit Provider Internal Medicine
DX: R19.7 Diarrhea, unspecified (principal)
CPT/HCPCS: 36415; 80053; 84443; 85027

== ENCOUNTER 2024-09-04 10:30 | Outpatient (REF) | payer MEDICARE, SELFPAY ==
[2024-09-05 12:53] LABS: CDiff Gene PCR NEGATIVE (Negative)
== END 2024-09-04 10:31 | disposition home or self-care (01) ==
LOC: HO.LNP 10:30
PROVIDERS: Visit Provider Internal Medicine
DX: R19.7 Diarrhea, unspecified (principal)
CPT/HCPCS: 87493

== ENCOUNTER 2024-09-09 09:30 | Outpatient (REF) | payer MEDICARE, SELFPAY | END 2024-09-09 09:31 | disposition home or self-care (01) | LOC: HO.US 09:30 | PROVIDERS: PCP Internal Medicine; Visit Provider Internal Medicine | DX: K74.60 Unspecified cirrhosis of liver (principal); R18.8 Other ascites | CPT/HCPCS: 76700; 99212 ==

== ENCOUNTER 2024-09-09 14:41 | Outpatient (AMB) | payer MEDICARE, SELFPAY ==
--- NOTE | 2024-09-09 14:46 | A.OFFVIS_ITS ---
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 Accompanied by: Daughter Allergies ibuprofen [IBUPROFEN] Allergy (Severe, Verified 08/15/24 11:02) THROAT LUMP olmesartan [From BENICAR] Allergy (Severe, Verified 08/15/24 11:02) WHEEZING Gadolinium-Containing Contrast Medi [Gadolinium-Containing Agents] Allergy (Mild, Verified 08/15/24 11:02) HIVES Iodinated Contrast Media [IV Dye, Iodine Containing] Allergy (Mild, Verified 08/15/24 11:02) RASH oneil Allergy (Mild, Verified 08/15/24 11:02) RASH Sulfa (Sulfonamide Antibiotics) Allergy (Mild, Verified 08/15/24 11:02) RASH amiodarone [AMIODARONE] Allergy (Unknown, Verified 08/15/24 11:02) THYROID TOXICOSIS amlodipine [From NORVASC] Allergy (Unknown, Verified 08/15/24 11:02) WHEEZING aspirin [ASPIRIN] Allergy (Unknown, Verified 08/15/24 11:02) THROAT LUMP HEAVY WHEEZING, wheezing, wheezing azithromycin [From ZITHROMAX] Allergy (Unknown, Verified 08/15/24 11:02) NAUSEA/VOMITING, nausea and vomiting bee pollen [Bee Stings] Allergy (Unknown, Verified 08/15/24 11:02) EDEMA, ALL INSECT STINGS capsaicin [CAPSAICIN] Allergy (Unknown, Verified 08/15/24 11:02) RASH clopidogrel [From PLAVIX] Allergy (Unknown, Verified 08/15/24 11:02) THROAT LUMP HEAVY WHEEZING diltiazem [Cardizem] Allergy (Unknown, Verified 08/15/24 11:02) rash methimazole [METHIMAZOLE] Allergy (Unknown, Verified 08/15/24 11:02) RASH sulfamethoxazole [From BACTRIM] Allergy (Unknown, Verified 08/15/24 11:02) RASH trimethoprim [From BACTRIM] Allergy (Unknown, Verified 08/15/24 11:02) RASH escitalopram [From Lexapro] Allergy (Verified 08/15/24 11:02) Wheezing clarithromycin [From Biaxin] Adverse Reaction (Mild, Verified 08/15/24 11:02) N/V codeine [Codeine] Adverse Reaction (Mild, Verified 08/15/24 11:02) N/V levofloxacin [From Levaquin] Adverse Reaction (Mild, Verified 08/15/24 11:02) N/V Dye USP Blue 1 Allergy (Unknown, Uncoded 08/15/24 11:02) rash Medication List - Last Reconciled 09/09/24 by Leonard Smart MD bumetanide 2 mg PO DAILY PRN carvedilol 3.125 mg PO BID 90 days docusate sodium (Colace) 200 mg PO BEDTIME PRN escitalopram oxalate 5 mg PO DAILY metolazone 2.5 mg PO DAILY PRN polyethylene glycol 3350 (Miralax) 17 grams PO DAILY PRN HPI Comments Details: Bobbi comes for follow-up. Patient says over the last week she has had significant diarrhea and was not able to eat much so she self stopped taking her bumetanide. She also stopped taking her carvedilol but from my last office where she was not supposed to be on carvedilol. She is still not taking carvedilol although she has started taking bumetanide 2 days ago as she started noticing increasing leg swelling. She has no abdominal distension although she says she feels lousy, fatigued and tired. No clear orthopnea, PND, lightheadedness, syncope. 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) History of cardiac arrest (~2009) Osteoporosis (~2020) Tubular adenoma of colon (~2000) Pacemaker at end of battery life Blood in urine Superficial bruising of abdominal wall Traumatic ecchymosis of left lower leg Traumatic ecchymosis of left shoulder Traumatic hematoma of head Fall Hip pain, right Abnormal ultrasound of lower extremity AAA (abdominal aortic aneurysm) CAD (coronary artery disease) Cardiac pacemaker in situ (~2009) Mitral regurgitation Tricuspid regurgitation Diverticulosis Ex-smoker Hearing impaired Lactose intolerance History of right breast cancer (~1992) Hypertension, essential Atrial fibrillation, chronic (~2009) Surgical History History of colonoscopy History of hand surgery History of heart artery stent History of pacemaker History of lumpectomy History of cardiac cath History of cardioversion History of eye surgery Family History Father CVD (cardiovascular disease) Mother CVD (cardiovascular disease) Myocardial infarction Maternal Grandmother Unknown family medical history Maternal Grandfather No problems noted. Paternal Grandfather CVD (cardiovascular disease) Paternal Grandmother No problems noted. Child No Financial Resp No problems noted. Social History Household Members: Children Housing: House Are you a primary career development director to a significant other at home: No Do you presently have visiting nurse or other home services: No Alcohol intake: never Patient Tobacco Use Status: Former Tobacco user Tobacco use type: Cigarette Years Smoked: 40 e-Cigarette/Vaping Use: Never Used Advance Directives Date on File: 10/29/17 service: No Current occupational status: retired Cognitive needs: No Hearing needs: Yes (deaf in right ear, left ear has a hearing aid) Vision needs: Yes Review of Systems Const Denies chills, Denies fatigue, Denies fever(s), Denies frequent falls, Denies weakness, Denies weight gain and Denies weight loss ENT Denies dizziness Card Denies chest pain, Denies leg edema, Denies lightheadedness, Denies palpitations, Denies dyspnea, Denies dyspnea on exertion, Denies orthopnea and Denies other (loss of consciousness) Resp Denies cough, Denies dyspnea and Denies dyspnea on exertion GI Denies hematochezia and Denies change in stool character Musc Denies abnormal gait, Denies muscle weakness, Denies numbness, Denies radiating pain into limb and Denies tingling Neuro Denies abnormal gait, Denies dizziness, Denies frequent falls, Denies numbness, Denies tingling and Denies weakness Endo Denies fatigue and Denies palpitations Physical Exam Vital Signs: Last Vital Signs Pulse 66 09/09/24 14:47 BP 116/74 09/09/24 14:47 Const General: cooperative, comfortable and no acute distress Nutritional Appearance: thin and other (Frail elderly woman) Orientation/consciousness: patient oriented x3 Neck Other: Pulsation of neck vein, likely V wave from TR Neck: Yes normal visual inspection and Yes no JVD (Pulsatile V-waves) Resp Effort & Inspection: normal respiratory effort Auscultation: clear to auscultation bilaterally, no crackles, no rales, no rhonchi and no wheezes Cardio Rate: regular rate Rhythm: abnormal rhythm Heart sounds: S1 normal heart sound present, S2 normal heart sound present, no gallops, Murmur heart sound present (Systolic murmur in mitral position) systolic holo and no rubs Peripheral pulses: Peripheral pulses 2+ throughout GI Inspection: Yes Abdominal wall edema Neuro General: patient oriented x3 Extrem Other: Trace pitting edema in each lower leg, left upper leg General: Yes normal to inspection, No clubbing, No cyanosis and Yes edema Psych Appearance: grossly normal Mental Status: mental status grossly normal Speech and movement: Normal speech and movement present Office Procedures Cardiac Device Check Cardiac Device Check Details: Single-chamber Medtronic pacemaker in place, programmed at 50 beats per minute. Ventricular pacing thresholds adequate. Battery life is adequate [id number] Cardiac Device Check, leadless/single lead pacemaker Procedure code (CPT) selection complete Assessment & Plan Assessment & Plan (1) CHF (congestive heart failure): Code(s): I50.9 - Heart failure, unspecified Category: Medical Plan: Heart failure now with reduced ejection fraction with wall motion abnormality suggestive of possibly ischemic cardiomyopathy could be related to atrial fibrillation with significant mitral and tricuspid regurgitation which impairs her prognosis related to significant biatrial enlargement related to chronic atrial fibrillation with now liver abnormality, frailty. At this point time her overall prognosis is guarded. Management is going to be conservative and improving her lifestyle and avoiding hospitalization. Continue bumetanide therapy. Importance of loop diuretics were discussed. Additional diuretics as need be including metolazone as needed. Daily weight monitoring avoidance salt loading was discussed. Continue maintain activity level as tolerated. Expected to have progressive heart failure syndrome and declining exercise capacity. Currently not on carvedilol therapy and in the past was off the therapy due to low blood pressure. Continue monitor blood pressure closely at home. (2) CAD (coronary artery disease): Comment: (s/p stented RCA 2009 and circumflex 2013) Code(s): I25.10 - Atherosclerotic heart disease of [place] coronary artery without angina pectoris Category: Medical Plan: CAD with prior stenting, currently not having any obvious symptoms. Currently not on aspirin therapy, consider the same. Declined statin therapy. Overall prognosis guarded due to her heart failure syndrome. (3) Atrial fibrillation, chronic: Onset Date: ~2009 Code(s): I48.20 - Chronic atrial fibrillation, unspecified Category: Medical Plan: Chronic atrial fibrillation, rate controlled. At this point time continue rate control approach. Underlying pacemaker has been placed. In the past has been advise oral anticoagulation therapy which she has decline (4) Cardiac pacemaker in situ: Onset Date: ~2009 Comment: (single-chamber Medtronic - DCPP placed 2009 - now VVI - replaced 2022) Code(s): Z95.0 - Presence of cardiac pacemaker Category: Medical Plan: Cardiac pacemaker in-situ for bradycardia. Pacemaker is working well. Will follow in the clinic in 3 months time. Follow up in the clinic in 3 months time, sooner p.r.n.. Thank you for allowing me to partake in his care Medications: Changed From bumetanide 2 mg PO DAILY 30 tabs 6RF To bumetanide 2 mg PO DAILY PRN Coding Level of Care Code Est Pt Level 4 (82115) Complex EM visit Add On G2211 Diagnoses CHF (congestive heart failure) I50.9 CAD (coronary artery disease) I25.10 Atrial fibrillation, chronic I48.20 Cardiac pacemaker in situ Z95.0 CPT Codes Cardiac Device Check - Cardiac Device 1: [id number] Cardiac Device Check, leadless/single lead pacemaker ([id number])
[2024-09-09 14:47] VITALS: BP 116/74; PULSE 66
--- OUTSIDE RECORDS SUMMARY | 2024-09-16 15:01 | XMS_ITS | Data Portability ---
Author Organization [facility] [employer] [facility], Main Office Address [address], [address] [place] [address] Care Team Providers Care Dispensary Attendant Name Role Phone DAY () OTHER Assessment Encounter Date Assessment Date Assessment LastModified by Organization Details LastModified Time 03/30/2020 03/30/2020 03/30/20 WBC 5.1, Hgb 11.6, Hct 36.4, Plt 261, Na 141, K 3.1, BUN 10, Cut Out Operator 0.60, cari 8.4 no labs noted from [facility] Not available 03/30/2020 13:26:56 04/09/2020 04/09/202004/02 na 139, k 3.8 bun 13 creat 0.63 gfr>60, covid negative [email or web address] Not available 04/09/2020 11:28:40 Plan of Treatment Reminders Order Date Submit Date Provider Last Modified By Organization Details Last Modified Time Details Appointments None record ed. Lab None record ed. Referral None record ed. Procedures None record ed. Surgeries None record ed. Imaging None record ed. Medication Orders None record ed. Patient TargetsNo targets recorded. Patient InstructionsNo instructions recorded. Reason for Referral None Reported. Problems Name Problem SNOMED Code Status Onset Date Resolution Date Notes Provider Name and Address Organization Details Recorded Time Mixed hyperlipidemia 210143131 Active 2019 ANNIKA GASPAR [address], [address], [place], [address], [facility] 0 10:31:34 Depressive disorder 67366350 Active 2019 ANNIKA GASPAR [address], [address], [place], [address], [facility] 0 10:31:47 Atrial fibrillation 58366275 Active 2019 ANNIKA GASPAR [address], [address], [place], [address], [facility] 0 10:31:57 Coronary arterioscleros is 55547754 Active 2019 PHIL GASPARP [address], [address], [place], [address], [facility] 0 10:32:06 Gastrointestin al hemorrhage 40162518 Active 2019 PHIL GASPARP [address], [address], [place], [address], [facility] 0 10:33:27 Cardiac pacemaker in situ 390717426 Active 2019 PHIL GASPARP [address], [address], [place], [address], [facility] 0 10:33:50 Bacteremia 8324548 Active 2019 ANNIKA GASPAR [address], [address], [place], [address], [facility] 0 10:34:05 Chronic diastolic heart failure 175172411 Active 2019 ANNIKA GASPAR [address], [address], [place], [address], [facility] 0 10:34:26 Endocarditis 42080505 Active 2019 ANNIKA GASPAR [address], [address], [place], [address], [facility] 0 10:38:11 International normalized ratio above reference range 671703395 Active 2019 PHIL GASPARP [address], [address], [place], [address], [facility] 0 10:48:13 Problem Notes None recorded. Medical Equipment None Reported. Allergies Allergen ID Allergen Name Allergen Category Reaction Reaction Severity Criticality Documentation Date Start Date Code Code System Note Provider Name and Address Organization Details Recorded Time 34538 honey bee venom medicatio n Not available Not available Not available 03/30/2020 86234 7 RxNorm FILIPPO RAMIREZ, PRODUCTION TEAM LEADER [address], [place], [address], [facility] 0 10:54:22 49249 Iodinated contrast media (substanc e) medicatio n Not available Not available Not available 03/30/2020 97141 2004 SNOMED FILIPPO RAMIREZ, PRODUCTION TEAM LEADER [address], [address], [place], [address], [facility] 0 10:54:46 05951 Substance with sulfonami de structure and antibacte rial mechanism of action (substanc e) medicatio n Not available Not available Not available 03/30/2020 55178 8003 SNOMED FILIPPO RAMIREZ, PRODUCTION TEAM LEADER [address], [address], [place], [address], [facility] 0 10:55:05 54999 Product containin g gadoliniu m and/or gadoliniu m compound (product) medicatio n Not available Not available Not available 03/30/2020 54108 3008 SNOMED FILIPPO ASHLEY, PRODUCTION TEAM LEADER [address], [place], [address], [facility] 0 10:55:21 95904 codeine medicatio n Not available Not available Not available 03/30/2020 2670 RxNorm FILIPPO ASHLEY, PRODUCTION TEAM LEADER [address], [address], [place], [address], [facility] 0 10:55:37 96153 aspirin medicatio n Not available Not available Not available 03/30/2020 1191 RxNorm FILIPPO ASHLEY, PRODUCTION TEAM LEADER [address], [place], [address], [facility] 0 10:56:04 17524 capsaicin medicatio n Not available Not available Not available 03/30/2020 1992 RxNorm FILIPPO ASHLEY, PRODUCTION TEAM LEADER [address], [place], [address], [facility] 0 10:56:39 84335 methimazo le medicatio n Not available Not available Not available 03/30/2020 6835 RxNorm FILIPPO RAMIREZ, PRODUCTION TEAM LEADER [address], [address], [place], [address], [facility] [employer] [facility] 0 10:57:27 92810 ibuprofen medicatio n Not available Not available Not available 03/30/2020 5640 RxNorm FILIPPO RAMIREZ, PRODUCTION TEAM LEADER [address], [place], [address], [facility] 0 10:57:38 34897 sulfameth oxazole / trimethop rim medicatio n Not available Not available Not available 03/30/2020 29053 RxNorm FILIPPO RAMIREZ, PRODUCTION TEAM LEADER [address], [address], [place], [address], [facility] 0 11:01:11 15471 clarithro mycin medicatio n Not available Not available Not available 03/30/2020 48651 RxNorm FILIPPO RAMIREZ, PRODUCTION TEAM LEADER [address], [address], [place], [address], [facility] 0 11:01:20 65926 azithromy johnna medicatio n Not available Not available Not available 03/30/2020 38975 RxNorm FILIPPO RAMIREZ, PRODUCTION TEAM LEADER [address], [address], [place], [address], [facility] 0 11:01:29 79417 amlodipin e medicatio n Not available Not available Not available 03/30/2020 69274 RxNorm FILIPPO RAMIREZ, PRODUCTION TEAM LEADER [address], [address], [place], [address], [facility] 0 11:01:36 Medications Not known to be on any medication Vitals Date Recorded Body temperature Heart rate Respiratory rate Oxygen saturation Oxygen saturation in Arterial blood by Pulse oximetry Systolic blood pressure Diastolic blood pressure Provider Name and Address Organization Details Last Updated DateTime 0 97.6 [degF] 72 /min 18 /min 95 % 95 % 138 mm[Hg] 72 mm[Hg] ANNIKA GASPAR [address] [facility] [address], [facility] [address], [place], [address], [facility] 0 10:31:05 Date Recorded Body temperature Oxygen saturation Oxygen saturation in Arterial blood by Pulse oximetry Systolic blood pressure Diastolic blood pressure Provider Name and Address Organization Details Last Updated DateTime 0 97.4 [degF] 97 % 97 % 133 mm[Hg] 81 mm[Hg] Suha Lama MD [address] [facility] [address], [address], [place], [address], [facility] 0 11:17:06 Date Recorded Heart rate Respiratory rate Body temperature Oxygen saturation Oxygen saturation in Arterial blood by Pulse oximetry Systolic blood pressure Diastolic blood pressure Provider Name and Address Organization Details Last Updated DateTime 0 88 /min 18 /min 98.3 [degF] 97 % 97 % 140 mm[Hg] 59 mm[Hg] ANNIKA GASPAR [address] [facility], [facility] [address], [place], [address], [facility] 0 18:40:48 Date Recorded Body height Heart rate Respiratory rate Body temperature Oxygen saturation Oxygen saturation in Arterial blood by Pulse oximetry Systolic blood pressure Diastolic blood pressure Provider Name and Address Organization Details Last Updated DateTime 0 162.56 cm 80 /min 16 /min 98.7 [degF] 96 % 96 % 111 mm[Hg] 57 mm[Hg] MATHEW JONES NP [address] [facility] [address], [place], [address], [facility] 0 11:22:47 Social History Question Answer Notes LastModified by Organizat ion Details LastModified Time Tobacco Smoking Status Former Smoker Not Available [employer] 08/03/2020 03:13:20 Do You Have An Advance Directive? No [id number] Information not available 08/03/2020 What Is Your Level Of Alcohol Consumption? Occasional [id number] Information not available 08/03/2020 How Much Tobacco Do You Chew? None [id number] Information not available 08/03/2020 Do You Or Have You Ever Used E-cigarettes Or Vape? Never Used Electronic Cigarettes [id number] Information not available 08/03/2020 Do You Have A Medical Power Of Print Manager? No [id number] Information not available 08/03/2020 What Was The Date Of Your Most Recent Tobacco Screening? 03/30/2020 [id number] Information not available 08/03/2020 Do You Or Have You Ever Used Smokeless Tobacco? Never Used Smokeless Tobacco [id number] Information not available 08/03/2020 How Much Tobacco Do You Smoke? 1 PPD [id number] Information not available 08/03/2020 How Many Years Have You Smoked Tobacco? 30 [id number] Information not available 08/03/2020 Sex: Unknown Functional Status None recorded. Mental Status None recorded. Family History Nothing Reported. Medical History No medical history recorded. Gynecological HistoryNo gynecological history recorded. Obstetrics History GPAL:G 0 P 0 0 0 0 Past Encounters Encounter ID Performer Location Encounter Start Date Encounter Closed Date Diagnosis/Indication Diagnosis SNOMED-CT Code Diagnosis ICD10 Code [id number] FILIPPO RAMIREZ [address] [address] 03/30/2020 10:28:16 04/26/2020 16:04:38 Bacteremia 3718635 R78.81 Gastrointe stinal hemorrhage 80081971 K92.1 Chronic di astolic heart failure 351897858 I50.32 Atrial fibrillation 4943 6004 I48.19 Depressive disorder 3548 9007 F32.89 Mixed hyperlipidemia 267 730574 E78.2 Coronary arteriosclerosis 21290791 I25.10 Cardiac pa cemaker in situ 794780527 Z95.0 Endocarditis 66507888 I3 9 Internatio nal normalized ratio above reference range 573408547 R79.1 [id number] Suha Lama MD [address] [address] 03/31/2020 11:16:36 04/27/2020 10:17:27 Atrial fibrillation 08907618 I48.0 Bacteremia 9554746 R78.8 1 Chronic di astolic heart failure 534962931 I50.32 Gastrointe stinal hemorrhage 89775644 K92.1 Essential hypertension 38705883 I10 [id number] FILIPPO RAMIREZ [address] [place] [address] 04/05/2020 15:24:34 04/26/2020 16:09:08 Bacteremia 0452880 R78.81 Chronic di astolic heart failure 127150095 I50.32 [id number] MATHEW JONES NP Hilda [facility] [place] [address] 04/09/2020 11:20:16 04/27/2020 12:07:59 Atrial fibrillation 34358353 I48.91 Bacteremia 1900326 R78.8 1 Chronic di astolic heart failure 711517535 I50.32 Coronary arteriosclerosis 36889238 I25.10 Depressive disorder 3548 9007 F32.9 Endocarditis 36031838 I3 8 Gastrointe stinal hemorrhage 32266284 K92.2 Mixed hyperlipidemia 267 535537 E78.2 Health Concerns Section Related Observation LastModified by Organization Detai ls LastModified Time None Recorded Concern Status LastModified by Organization Details LastModified Time None Recorded Advance Directives Directive N: Payers Encounter Date Sequence Insurance Name Policy Number Policy Marroquin Covered Member ID Marroquin Member ID Guarantor Name 03/30/2020 1 [place]: [employer] Bobbi Guerrero Victor M [id number] Bobbi Victor M 03/31/2020 1 [place]: [employer] Bobbi Victor M [id number] Bobbi Victor M 04/05/2020 1 MEDICARE B-[place]: [facility] GOVERNMENT SERVICES Bobbi Victor M [id number] Bobbi Victor M 04/09/2020 1 MEDICARE B-[place]: [employer] Bobbi Victor M [id number] 6 Bobbi Victor M Notes Date Note Type Note Provider Name and Address Organization Details Recorded Time 03/30/2020 text/html A 79 year old fe male being seen for a initial intake note. Patient went to [facility] er with weakness over several weeks and a UTI that was being treated. She had black stools several times also. INR was elevated at 10.2. She was given vitamin K, a liter of fluid, tylenol and omeprazole. Her Hgb remained stable and she will need to see gi outpatient for egd. Blood cultures revealed strep viridans and a TTE was done that was negative for vegetation. Regardless she was started on ceftriaxone 2 gm IV for 4 weeks. A PICC line was placed. Repeat blood cultures were negative. She was also treated with lasix for acute on chronic diastolic heart failure. Her coumadin was changed to eliquis. They felt the likely source of this was from the dentist. She has come here for short term rehab. Medical history of CHF, hyperlipidemia, depression, CAD, pacemaker and afib. ANNIKA GASPAR [address] [facility] [address], [address], [place], [address], [facility] [employer] [facility] 03/30/2020 14:02:09 03/31/2020 text/html This 79 year old woman was admitted to [facility] on 03/29/20 for rehab and continued care. She presented to [facility] ER with weakness over several weeks. She had recently completed a course of nitrofurantoin for a UTI. Patient had 2 episodes of black stools prior to ER visit. INR was elevated at 10.2. She was given IV vitamin K, IV fluids, APAP, and omeprazole. Her Hgb remained stable and it was recommended that patient will see GI as outpatient for upper endoscopy. Patient had low grade T and blood cultures were done which grew strep viridans . TTE was was negative for vegetation. Patient was started on ceftriaxone 2 gm IV for 4 weeks. A PICC line was placed. Repeat blood cultures were negative. She was also treated with furosemide for acute on chronic diastolic heart failure. Warfarin was changed to apixaban. It was felt the likely source of bacteremia was dental. Medical history is remarkable for CHF, hyperlipidemia, depression, CAD, pacemaker, afib. MOLST: DNR, DNI, DNH Suha Lama MD [address] [facility] [address], [address], [place], [address], [facility] [employer] [facility] 03/31/2020 11:48:03 04/05/2020 text/html A 79 year old fe male being seen for a acute rounding visit. Patient was upset about wanting to go home. She agreed to stay til sunday but then agreed til sunday due to holiday/[facility]. She is stating the facility has high sodium diet causing her edema (not visible to me) and she would like a new set of teds. She is also requesting a new walker and a script was given to therapy. ANNIKA GASPAR [address] [facility] [address], [address], [place], [address], [facility] 04/05/2020 18:46:35 04/09/2020 text/html seen today for discharge-79 yof being seen for discharge summary. Patient went to [facility] er with weakness over several weeks and a UTI that was being treated. She had black stools several times also. INR was elevated at 10.2. She was given vitamin K, a liter of fluid, tylenol and omeprazole. Her Hgb remained stable and she will need to see gi outpatient for egd. Blood cultures revealed strep viridans and a TTE was done that was negative for vegetation. Regardless she was started on ceftriaxone 2 gm IV for 4 weeks. A PICC line was placed. Repeat blood cultures were negative. She was also treated with lasix for acute on chronic diastolic heart failure. Her coumadin was changed to eliquis. They felt the likely source of this was from the dentist. She has come here for short term rehab. MATHEW JONES NP [address] [facility] [address], [address], [place], [address], [facility] 04/27/2020 12:06:20 OBGyn Episode No OBEpisode recorded.
== END 2024-09-09 15:30 | disposition home or self-care (01) ==
PROVIDERS: PCP Internal Medicine; Visit Provider Internal Medicine Cardiovascular Disease
DX: I50.9 Heart failure, unspecified (principal); I25.10 Atherosclerotic heart disease of native coronary artery without angina pectoris; I48.20 Chronic atrial fibrillation, unspecified; Z95.0 Presence of cardiac pacemaker
CPT/HCPCS: 93279; 99214; G2211

== ENCOUNTER → 2024-09-16 23:59 | Outpatient (BNV) | payer MEDICARE, SELFPAY ==
--- NOTE | 2024-10-02 16:03 | A.OFFVIS_ITS ---
Intake Visit Reasons: Remote Device Check- [employer] Allergies ibuprofen [IBUPROFEN] Allergy (Severe, Verified 08/15/24 11:02) THROAT LUMP olmesartan [From BENICAR] Allergy (Severe, Verified 08/15/24 11:02) WHEEZING Gadolinium-Containing Contrast Medi [Gadolinium-Containing Agents] Allergy (Mild, Verified 08/15/24 11:02) HIVES Iodinated Contrast Media [IV Dye, Iodine Containing] Allergy (Mild, Verified 08/15/24 11:02) RASH oneil Allergy (Mild, Verified 08/15/24 11:02) RASH Sulfa (Sulfonamide Antibiotics) Allergy (Mild, Verified 08/15/24 11:02) RASH amiodarone [AMIODARONE] Allergy (Unknown, Verified 08/15/24 11:02) THYROID TOXICOSIS amlodipine [From NORVASC] Allergy (Unknown, Verified 08/15/24 11:02) WHEEZING aspirin [ASPIRIN] Allergy (Unknown, Verified 08/15/24 11:02) THROAT LUMP HEAVY WHEEZING, wheezing, wheezing azithromycin [From ZITHROMAX] Allergy (Unknown, Verified 08/15/24 11:02) NAUSEA/VOMITING, nausea and vomiting bee pollen [Bee Stings] Allergy (Unknown, Verified 08/15/24 11:02) EDEMA, ALL INSECT STINGS capsaicin [CAPSAICIN] Allergy (Unknown, Verified 08/15/24 11:02) RASH clopidogrel [From PLAVIX] Allergy (Unknown, Verified 08/15/24 11:02) THROAT LUMP HEAVY WHEEZING diltiazem [Cardizem] Allergy (Unknown, Verified 08/15/24 11:02) rash methimazole [METHIMAZOLE] Allergy (Unknown, Verified 08/15/24 11:02) RASH sulfamethoxazole [From BACTRIM] Allergy (Unknown, Verified 08/15/24 11:02) RASH trimethoprim [From BACTRIM] Allergy (Unknown, Verified 08/15/24 11:02) RASH escitalopram [From Lexapro] Allergy (Verified 08/15/24 11:02) Wheezing clarithromycin [From Biaxin] Adverse Reaction (Mild, Verified 08/15/24 11:02) N/V codeine [Codeine] Adverse Reaction (Mild, Verified 08/15/24 11:02) N/V levofloxacin [From Levaquin] Adverse Reaction (Mild, Verified 08/15/24 11:02) N/V Dye HALF-WAY Blue 1 Allergy (Unknown, Uncoded 08/15/24 11:02) rash [facility] Medical History [facility] [place] [facility] anticoagulant use (~2009) History of cardiac arrest (~2009) Osteoporosis (~2020) Tubular adenoma of colon (~2000) Pacemaker at end of battery life Blood in urine Superficial bruising of abdominal wall Traumatic ecchymosis of left lower leg Traumatic ecchymosis of left shoulder Traumatic hematoma of head Fall Hip pain, right Abnormal ultrasound of lower extremity AAA (abdominal aortic aneurysm) CAD (coronary artery disease) Cardiac pacemaker in situ (~2009) Mitral regurgitation Tricuspid regurgitation Diverticulosis Ex-smoker Hearing impaired Lactose intolerance History of right breast cancer (~1992) Hypertension, essential Atrial fibrillation, chronic (~2009) Surgical History History of colonoscopy History of hand surgery History of heart artery stent History of pacemaker History of lumpectomy History of cardiac cath History of cardioversion History of eye surgery Family History Father CVD (cardiovascular disease) Mother CVD (cardiovascular disease) Myocardial infarction Maternal Grandmother Unknown family medical history Maternal Grandfather No problems noted. Paternal Grandfather CVD (cardiovascular disease) Paternal Grandmother No problems noted. Child No Financial Resp No problems noted. 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 Pacemaker function is adequate [id number] Cardiac Device Interrogation, pacemaker Procedure code (CPT) selection complete Assessment & Plan Assessment & Plan (1) Cardiac pacemaker in situ: Onset Date: ~2009 Comment: (single-chamber Medtronic - DCPP placed 2009 - now VVI - replaced 2022) Code(s): Z95.0 - Presence of cardiac pacemaker Category: Medical Plan: See above Coding Level of Care Code Procedure Only Diagnoses Cardiac pacemaker in situ Z95.0 CPT Codes Cardiac Device Check - Cardiac Device 12: [id number] Cardiac Device Interrogation, pacemaker ([id number])
== END ==
PROVIDERS: PCP Internal Medicine; Visit Provider Internal Medicine Cardiovascular Disease
DX: Z45.018 Encounter for adjustment and management of other part of cardiac pacemaker (principal)
CPT/HCPCS: 93294

== ENCOUNTER 2024-10-15 11:39 | Outpatient (AMB) | payer MEDICARE, SELFPAY ==
--- NOTE | 2024-10-15 11:42 | MHC.OFFVIS ---
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 Allergies ibuprofen [IBUPROFEN] Allergy (Severe, Verified 10/15/24 11:43) THROAT LUMP olmesartan [From BENICAR] Allergy (Severe, Verified 10/15/24 11:43) WHEEZING Gadolinium-Containing Contrast Medi [Gadolinium-Containing Agents] Allergy (Mild, Verified 10/15/24 11:43) HIVES Iodinated Contrast Media [IV Dye, Iodine Containing] Allergy (Mild, Verified 10/15/24 11:43) RASH oneil Allergy (Mild, Verified 10/15/24 11:43) RASH Sulfa (Sulfonamide Antibiotics) Allergy (Mild, Verified 10/15/24 11:43) RASH amiodarone [AMIODARONE] Allergy (Unknown, Verified 10/15/24 11:43) THYROID TOXICOSIS amlodipine [From NORVASC] Allergy (Unknown, Verified 10/15/24 11:43) WHEEZING aspirin [ASPIRIN] Allergy (Unknown, Verified 10/15/24 11:43) THROAT LUMP HEAVY WHEEZING, wheezing, wheezing azithromycin [From ZITHROMAX] Allergy (Unknown, Verified 10/15/24 11:43) NAUSEA/VOMITING, nausea and vomiting bee pollen [Bee Stings] Allergy (Unknown, Verified 10/15/24 11:43) EDEMA, ALL INSECT STINGS capsaicin [CAPSAICIN] Allergy (Unknown, Verified 10/15/24 11:43) RASH clopidogrel [From PLAVIX] Allergy (Unknown, Verified 10/15/24 11:43) THROAT LUMP HEAVY WHEEZING diltiazem [Cardizem] Allergy (Unknown, Verified 10/15/24 11:43) rash methimazole [METHIMAZOLE] Allergy (Unknown, Verified 10/15/24 11:43) RASH sulfamethoxazole [From BACTRIM] Allergy (Unknown, Verified 10/15/24 11:43) RASH trimethoprim [From BACTRIM] Allergy (Unknown, Verified 10/15/24 11:43) RASH escitalopram [From Lexapro] Allergy (Verified 10/15/24 11:43) Wheezing clarithromycin [From Biaxin] Adverse Reaction (Mild, Verified 10/15/24 11:43) N/V codeine [Codeine] Adverse Reaction (Mild, Verified 10/15/24 11:43) N/V levofloxacin [From Levaquin] Adverse Reaction (Mild, Verified 10/15/24 11:43) N/V Dye DETENTION Blue 1 Allergy (Unknown, Uncoded 10/15/24 11:43) rash HPI Comments Details: 83 y.o F with PMH of 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 [place] [facility] [place] known cirrhosis since at least 2019 based on clinical data available in [facility]. Started seeing GI last year for cirrhosis care but pt not interested in many interventions including EGD for variceal screening. Reports that at 83 she'd prefer to minimize procedures as much as possible, understands risk of potentially life threatening variceal hemorrhage. Main complaint is severe constipation. Has BM 2-3 times a week with hard marble like pellets. Frequently digitalises. Has been ongoing x 6 months. With this also notes occ nausea. Also has cholelithiasis but declines surgical referral as will likely opt out of elective CCY anyway. Current meds: Dulcolax 5 mg at night Stool softener BID Miralax as needed Of note - pt also reports x2-3 days of productive cough with progressive shortness of breath. 10/15/24: Pt here with her friend of over 50 years. Main complaint remains post prandial discomfort and decreased appetite. Also mentions fatigue and decreased energy. REsults of US below, reviewed with the pt. Has appt 10/16 to be seen. Reviewed that candidacy for CCY is best determined by the surgeon. If surgery deferred will trial Myron. We also reviewed that sx are likely multifactorial including cirrhosis which can notoriously cause fatigue, loss of appetite and muscle wasting. US also suggests worsening CHF which could also be playing a role vicky if has gut edema. 1. Cholelithiasis, thickening of gallbladder wall 5 mm, pericholecystic fluid and tenderness present on the gallbladder Jaffe sign combined findings are concerning for possible acute CHOLECYSTITIS. Surgical evaluation recommended. Consider HIDA scan. 2. Increased echogenicity of the liver parenchyma, this can be seen in the setting of hepatic steatosis or liver parenchymal disease. 3. Engorgement of the IVC which can be seen in the setting of heart failure. 4. Abdominal aortic aneurysm measure up to 3.8 cm. Follow-up ultrasound in one year advised. 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) History of cardiac arrest (~2009) Osteoporosis (~2020) Tubular adenoma of colon (~2000) Pacemaker at end of battery life Blood in urine Superficial bruising of abdominal wall Traumatic ecchymosis of left lower leg Traumatic ecchymosis of left shoulder Traumatic hematoma of head Fall Hip pain, right Abnormal ultrasound of lower extremity AAA (abdominal aortic aneurysm) CAD (coronary artery disease) Cardiac pacemaker in situ (~2009) Mitral regurgitation Tricuspid regurgitation Diverticulosis Ex-smoker Hearing impaired Lactose intolerance History of right breast cancer (~1992) Hypertension, essential Atrial fibrillation, chronic (~2009) Surgical History History of colonoscopy History of hand surgery History of heart artery stent History of pacemaker History of lumpectomy History of cardiac cath History of cardioversion History of eye surgery Family History Father CVD (cardiovascular disease) Mother CVD (cardiovascular disease) Myocardial infarction Maternal Grandmother Unknown family medical history Maternal Grandfather No problems noted. Paternal Grandfather CVD (cardiovascular disease) Paternal Grandmother No problems noted. Child No Financial Resp No problems noted. Social History Household Members: Children Housing: House Are you a primary care transitions manager to a significant other at home: No Do you presently have visiting nurse or other home services: No Alcohol intake: never Patient Tobacco Use Status: Former Tobacco user Tobacco use type: Cigarette Years Smoked: 40 e-Cigarette/Vaping Use: Never Used Advance Directives Date on File: 10/29/17 service: No Current occupational status: retired Cognitive needs: No Hearing needs: Yes (deaf in right ear, left ear has a hearing aid) Vision needs: Yes Review of Systems Const All systems reviewed & are unremarkable except as noted in HPI and below Physical Exam Vital Signs: Last Vital Signs Pulse 69 10/15/24 11:45 BP 108/50 L 10/15/24 11:45 No apparent distress Nonicteric, muscle wasting Abdomen soft, nondistended, no shifting dullness Alert and oriented x3, in a wheelchair today Assessment & Plan Assessment & Plan (1) Cholelithiases: Code(s): K80.20 - Calculus of gallbladder without cholecystitis without obstruction Category: Medical (2) Cirrhosis: Code(s): K74.60 - Unspecified cirrhosis of liver Category: Medical Qualifiers: Ascites presence: with ascites Hepatic cirrhosis type: unspecified hepatic cirrhosis Qualified Code(s): K74.60 - Unspecified cirrhosis of liver; R18.8 - Other ascites (3) Sarcopenia: Code(s): M62.84 - Sarcopenia Category: Medical (4) Decreased appetite: Code(s): R63.0 - Anorexia Category: Medical (5) CHF (congestive heart failure): Code(s): I50.9 - Heart failure, unspecified Category: Medical Plan 1. Lack of appetite/energy Likely multifactorial as outlined above from cirrhosis, worsening CHF, sarcopenia and deconditioning and cholelithiasis. Plan: - Add protein shakes - Encouraged ambulation and physical activitiy to prevent further muscle wasting and deconditioning - Repeat echo already ordered through cardiology - Pt has an appt with surgery tmrw 2. Compensated cirrhosis MELD Na-14 Child Vega Class A Appears compensated at this time. Has high likelihood of CSPH based on platelet count but pt declines EGD for variceal screening at this time. Coreg started for prophylaxis but didnt tolerate, developed diarrhea. Plan: - Repeat US in 6 months for cont'd HCC surveillance - Does not meet transplant candidacy due to underlying cardiac comorbidities and age Follow up 6 months Medications: New food supplemt, lactose-reduced (High-Protein Nutritional Shake oral liquid) 1 ea PO DAILY 30 days 7,110 mL 0RF M62.84 - Sarcopenia Coding Level of Care Code Est Pt Level 4 (24455) Diagnoses Cholelithiases K80.20 Cirrhosis of liver with ascites, unspecified hepatic cirrhosis type K74.60; R18.8 Ascites presence: with ascites Hepatic cirrhosis type: unspecified hepatic cirrhosis Sarcopenia M62.84 Decreased appetite R63.0 CHF (congestive heart failure) I50.9
[2024-10-15 11:45] VITALS: BP 108/50; PULSE 69
== END 2024-10-15 12:08 | disposition home or self-care (01) ==
PROVIDERS: PCP Internal Medicine; Visit Provider Internal Medicine
DX: K80.20 Calculus of gallbladder without cholecystitis without obstruction (principal); K74.60 Unspecified cirrhosis of liver; R18.8 Other ascites; M62.84 Sarcopenia; R63.0 Anorexia; I50.9 Heart failure, unspecified
CPT/HCPCS: 99214

== ENCOUNTER → 2024-10-15 11:39 | Outpatient (BNVA) | payer MEDICARE, SELFPAY | PROVIDERS: PCP Internal Medicine; Visit Provider Internal Medicine | DX: K80.20 Calculus of gallbladder without cholecystitis without obstruction (principal); K74.60 Unspecified cirrhosis of liver; R18.8 Other ascites; R63.0 Anorexia; I50.9 Heart failure, unspecified; M62.84 Sarcopenia | CPT/HCPCS: 99212 ==

== ENCOUNTER 2024-10-23 14:58 | Outpatient (AMB) | payer MEDICARE, SELFPAY ==
--- NOTE | 2024-10-23 15:07 | A.OFFVIS_ITS ---
Vital Signs 10/23/24 15:14 Height 5 ft 4 in Weight 107 lb BMI 18.4 BP 121/58 L Blood Pressure Location Lt brachial Position Sitting Pulse 68 Intake Visit Reasons: calculus of the gallbladder Intake Note: Patient is seen in office for evaluation and treatment of the gallbladder. Pt c/o: admits to diarrhea, abdominal pain, nausea, over the holidays worse, denies any recent pain us abd: 09/09/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 Accompanied by: Daughter Allergies ibuprofen [IBUPROFEN] Allergy (Severe, Verified 10/23/24 15:13) THROAT LUMP olmesartan [From BENICAR] Allergy (Severe, Verified 10/23/24 15:13) WHEEZING Gadolinium-Containing Contrast Medi [Gadolinium-Containing Agents] Allergy (Mild, Verified 10/23/24 15:13) HIVES Iodinated Contrast Media [IV Dye, Iodine Containing] Allergy (Mild, Verified 10/23/24 15:13) RASH oneil Allergy (Mild, Verified 10/23/24 15:13) RASH Sulfa (Sulfonamide Antibiotics) Allergy (Mild, Verified 10/23/24 15:13) RASH amiodarone [AMIODARONE] Allergy (Unknown, Verified 10/23/24 15:13) THYROID TOXICOSIS amlodipine [From NORVASC] Allergy (Unknown, Verified 10/23/24 15:13) WHEEZING aspirin [ASPIRIN] Allergy (Unknown, Verified 10/23/24 15:13) THROAT LUMP HEAVY WHEEZING, wheezing, wheezing azithromycin [From ZITHROMAX] Allergy (Unknown, Verified 10/23/24 15:13) NAUSEA/VOMITING, nausea and vomiting bee pollen [Bee Stings] Allergy (Unknown, Verified 10/23/24 15:13) EDEMA, ALL INSECT STINGS capsaicin [CAPSAICIN] Allergy (Unknown, Verified 10/23/24 15:13) RASH clopidogrel [From PLAVIX] Allergy (Unknown, Verified 10/23/24 15:13) THROAT LUMP HEAVY WHEEZING diltiazem [Cardizem] Allergy (Unknown, Verified 10/23/24 15:13) rash methimazole [METHIMAZOLE] Allergy (Unknown, Verified 10/23/24 15:13) RASH sulfamethoxazole [From BACTRIM] Allergy (Unknown, Verified 10/23/24 15:13) RASH trimethoprim [From BACTRIM] Allergy (Unknown, Verified 10/23/24 15:13) RASH escitalopram [From Lexapro] Allergy (Verified 10/23/24 15:13) Wheezing clarithromycin [From Biaxin] Adverse Reaction (Mild, Verified 10/23/24 15:13) N/V codeine [Codeine] Adverse Reaction (Mild, Verified 10/23/24 15:13) N/V levofloxacin [From Levaquin] Adverse Reaction (Mild, Verified 10/23/24 15:13) N/V Dye SNF Blue 1 Allergy (Unknown, Uncoded 10/23/24 15:13) rash HPI Comments Details: 83-year-old female patient presenting for evaluation of occasional episodes of abdominal pain in the right upper quadrant. The pain is intermittent and mainly located in the epigastrium and right upper quadrant without radiation. She also reports diarrhea and nausea which was worse over the holidays but now has been much improved. She underwent evaluation with an ultrasound of the abdomen on 09/09/2024. This did reveal multiple gallstones within the gallbladder. Patient currently denies any abdominal pain, nausea or vomiting. He is eating well and denies losing any weight. She presents today to discuss possible cholecystectomy. She reports that she is actually not very interested in undergoing surgery at this time because of her age, multiple medical problems, and current lack of symptoms. 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) History of cardiac arrest (~2009) Osteoporosis (~2020) Tubular adenoma of colon (~2000) Pacemaker at end of battery life Blood in urine Superficial bruising of abdominal wall Traumatic ecchymosis of left lower leg Traumatic ecchymosis of left shoulder Traumatic hematoma of head Fall Hip pain, right Abnormal ultrasound of lower extremity AAA (abdominal aortic aneurysm) CAD (coronary artery disease) Cardiac pacemaker in situ (~2009) Mitral regurgitation Tricuspid regurgitation Diverticulosis Ex-smoker Hearing impaired Lactose intolerance History of right breast cancer (~1992) Hypertension, essential Atrial fibrillation, chronic (~2009) Surgical History History of colonoscopy History of hand surgery History of heart artery stent History of pacemaker History of lumpectomy History of cardiac cath History of cardioversion History of eye surgery Family History Father CVD (cardiovascular disease) Mother CVD (cardiovascular disease) Myocardial infarction Maternal Grandmother Unknown family medical history Maternal Grandfather No problems noted. Paternal Grandfather CVD (cardiovascular disease) Paternal Grandmother No problems noted. Child No Financial Resp No problems noted. Social History Household Members: Children Housing: House Are you a primary memory care program director to a significant other at home: No Do you presently have visiting nurse or other home services: No Alcohol intake: never Patient Tobacco Use Status: Former Tobacco user Tobacco use type: Cigarette Years Smoked: 40 e-Cigarette/Vaping Use: Never Used Advance Directives Date on File: 10/29/17 service: No Current occupational status: retired Cognitive needs: No Hearing needs: Yes (deaf in right ear, left ear has a hearing aid) Vision needs: Yes Review of Systems Const All systems reviewed & are unremarkable except as noted in HPI and below Denies chills, Denies fever(s), Denies headache(s), Denies poor appetite and Denies weakness ENT Denies headache(s) Card Denies chest pain, Denies irregular heart rhythm, Denies palpitations and Denies dyspnea Resp Denies cough, Denies excessive phlegm production and Denies dyspnea GI Reports abdominal pain, Denies bloating, Denies constipation, Denies heartburn, Reports diarrhea, Reports nausea and Denies vomiting Denies urinary frequency Musc Denies back pain, Denies muscle weakness and Denies numbness Skin/Breast Denies changing lesions and Denies unusual bruising Neuro Denies headache(s), Denies numbness, Denies paresthesias and Denies weakness Psych Denies anxiety and Denies depression Endo Denies palpitations Livan/Lymph Denies lymphadenopathy Physical Exam Vital Signs: Last Vital Signs Pulse 68 10/23/24 15:14 BP 121/58 L 10/23/24 15:14 BMI result Body Mass Index 18.4 Const General: no acute distress Nutritional Appearance: thin Orientation/consciousness: patient oriented x3 Limitations: no limitations Resp Effort & Inspection: normal respiratory effort, no audible wheezes, no cough and no respiratory distress Cardio Other: Irregular rate and rhythm GI Other: Soft, nondistended, no tenderness to deep palpation in the right upper quadrant without rebound, guarding, or rigidity. Skin Other: Warm, dry, normal color Neuro General: patient oriented x3 Extrem General: No edema Assessment & Plan Assessment & Plan (1) Biliary colic: Code(s): K80.50 - Calculus of bile duct without cholangitis or cholecystitis without obstruction Category: Medical (2) Cholelithiases: Code(s): K80.20 - Calculus of gallbladder without cholecystitis without obstruction Category: Medical Qualifiers: Cholelithiasis location: gallbladder Cholecystitis presence: without cholecystitis Biliary obstruction: without biliary obstruction Qualified Code(s): K80.20 - Calculus of gallbladder without cholecystitis without obstruction Plan 83-year-old female patient presenting with complaints of a recent episode of right upper quadrant abdominal pain associated with diarrhea and nausea. Workup revealed gallstones within the gallbladder. The patient is now improved without any ongoing abdominal symptoms. She has multiple medical problems including cirrhosis, atrial fibrillation on oral anticoagulation, congestive heart failure, abdominal aortic aneurysm, hypertension, tricuspid regurgitation, peripheral vascular disease and mitral regurgitation. I reviewed the ultrasound findings in detail with the patient and her daughter. We discussed the risks and benefits of laparoscopic or possible open cholecystectomy. As she is now relatively asymptomatic it seems to risks of the surgery far outweigh any benefit. She wishes to hold off on any surgery at this time but is welcome with to call should her symptoms change. Coding Level of Care Code New Pt Level 4 (02604) Diagnoses Biliary colic K80.50 Calculus of gallbladder without cholecystitis without obstruction K80.20 Cholelithiasis location: gallbladder Cholecystitis presence: without cholecystitis Biliary obstruction: without biliary obstruction
[2024-10-23 15:14] VITALS: BP 121/58; PULSE 68; BMI 18.4
== END 2024-10-23 15:35 | disposition home or self-care (01) ==
PROVIDERS: PCP Internal Medicine; Visit Provider Surgery
DX: K80.50 Calculus of bile duct without cholangitis or cholecystitis without obstruction (principal); K80.20 Calculus of gallbladder without cholecystitis without obstruction
CPT/HCPCS: 99204

== ENCOUNTER → 2024-10-23 14:58 | Outpatient (BNVA) | payer MEDICARE, SELFPAY | PROVIDERS: PCP Internal Medicine; Visit Provider Surgery | DX: K80.50 Calculus of bile duct without cholangitis or cholecystitis without obstruction (principal); K80.20 Calculus of gallbladder without cholecystitis without obstruction; R10.11 Right upper quadrant pain | CPT/HCPCS: 99202 ==

== ENCOUNTER → 2024-11-19 14:42 | Outpatient (REF) | payer MEDICARE, SELFPAY ==
--- NOTE | 2024-11-19 15:04 | CA_ITS ---
Transthoracic Echocardiogram Patient (Last, First, Middle): Bobbi Dow M Gender: Female Date of : 1940 Age: 84 Procedure Date: 11/19/2024 Procedure Type: Transthoracic Echocardiogram Location: OP Height: 162.56 cm Weight: 51.71 kg BSA: 1.54 m2 Heart Rate: 64 bpm BP: 112 / 74 mmHg Environmental Coordinator: FOUZIA Referring MD: Leonard Smart MD Professor Of Religious Studies: Leonard Smart MD Symptoms: I50.9 - Heart failure, unspecified Study Quality: Fair but adequate ECG Rhythm: Paced Conclusions: - 1. Severely reduced LV ejection fraction 25-30% 2. Moderate to severely reduced right ventricular systolic function 3. Severe biatrial enlargement 4. Moderate to severe eccentric mitral regurgitation 5. Massive tricuspid regurgitation 6. Significant elevated right atrial pressures 7. No gross pericardial effusion Findings Left Ventricle Normal left ventricular cavity size. There is normal left ventricular wall thickness. The left ventricular systolic function is severely decreased. The visually estimated ejection fraction is between 25-30%. There is paradoxical septal motion consistent with right ventricular volume overload and/or elevated right ventricular end-diastolic pressure and paradoxical septal motion consistent with a right ventricular pacemaker. Spectral Doppler is indicative of a restrictive filling pattern. Right Ventricle Moderately increased right ventricular cavity size. There is moderate to severely decreased right ventricular systolic function. There is a pacemaker wire seen in the right ventricle. Atria Severe biatrial enlargement. There is no evidence of interatrial shunt. A pacemaker wire is identified in the right atrium. Aortic Valve There is mild calcification of the aortic valve. There is mild aortic valve regurgitation. Mitral Valve There is mild anterior and posterior mitral leaflet thickening. There is moderate to severe mitral valve regurgitation. The mitral regurgitation jet is a wall impinging jet. There is no mitral valve stenosis. Pulmonic Valve The pulmonic valve is likely normal. Tricuspid Valve There is severe tricuspid valve regurgitation. The right ventricular systolic pressure is 39 mmHg. Significantly elevated right atrial pressure. Great Vessels All visible segments of the aorta are normal in size. The pulmonary artery was not well visualized. There is no dilatation of the ascending aorta measuring 3.00 cm. Venous The inferior vena cava is severely dilated. Hepatic vein flow indicates systolic flow reversal. Pericardium/Pleural There is no evidence of pericardial effusion. Measurements 2D Linear Measurements IVSd: 0.59 0.6-0.9/0.6-1.0 cm LVIDd: 4.97 3.9-5.3/4.2-5.9 cm LVIDd Index: 3.23 2.4-3.2/2.2-3.1 cm/m2 LVIDs: 3.92 2.0-3.6 cm LVPWd: 0.73 0.7-1.1 cm LA Diam: 5.30 2.7-3.8/3.0-4.0 cm LAIDs Index: 3.44 1.5-2.3 cm/m2 LV Mass: 130.65 67-162/88-224 g LV Mass Index: 84.83 43-95/49-115 g/m2 LVOT Diam: 1.90 3.0+(-)1.3 cm 2D Systolic Function EF 4C: 24.30 >55% Mitral Valve MV Pk E: 1.38 MV Decel Time: 186.00 E'Lateral: 11.30 E'Medial: 6.32 E/E' Med: 21.80 E/E' Lat: 12.20 PHT: 55.00 MVA PHT: 4.00 Decel [place]: 7.39 Aortic Valve AoV Pk Servando: 1.56 AoV Mn Servando: 0.99 AoV VTI: 0.30 AoV Pk Grad: 10.00 Aov Mn Grad: 5.00 SEBASTIAN Cont.VTI: 1.14 AI Pk Servando: 3.82 AI [place]: 2.77 LVOT LVOT Pk Servando: 0.66 LVOT Mn Servando: 0.45 LVOT VTI: 0.13 LVOT Pk Grad: 2.00 LVOT Mn Grad: 1.00 LVOT Diam: 1.90 LVOT Area: 2.84 Diastolic Function MV Pk E: 1.38 E'Medial: 6.32 E/E' Med: 21.80 E' Laterial: 11.30 E/E' Lat: 12.20 Right Ventricle TAPSE (mm): 11.20 Tricuspid Valve TR Pk Servando: 2.45 TR Pk Grad: 24.00 RA Press: 15.00 RVSP: 39.00 Great Vessels Aorta Sinus of Valsalva: 3.10 2.0-3.5 cm Ao Asc: 3.00 2.1-3.4 cm Pulmonary Valve PV Pk Servando: 0.54 Peak PV Grad: 1.00 Updated in Other Vendor System with Status of Final Leonard Smart MD electronically signed on 11/20/2024 12:19:51 PM with status of Final
--- OUTSIDE RECORDS SUMMARY | 2024-11-19 15:56 | XMS_ITS | Data Portability ---
Author Organization [facility], Main Office Address 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 [employer] 0 10:31:34 Depressive disorder 62287639 Active 2019 ANNIKA GASPAR [address], [address], [place], [address], [facility] [employer] 0 10:31:47 Atrial fibrillation 15809646 Active 2019 ANNIKA GASPAR [address], [address], [place], [address], [facility] 0 10:31:57 Coronary arterioscleros is 28224545 Active 2019 PHIL GASPARP [address], [address], [place], [address], [facility] 0 10:32:06 Gastrointestin al hemorrhage 32935944 Active 2019 PHIL GASPARP [address], [address], [place], [address], [facility] 0 10:33:27 Cardiac pacemaker in situ 430182914 Active 2019 PHIL GASPARP [address], [address], [place], [address], [facility] 0 10:33:50 Bacteremia 1935291 Active 2019 ANNIKA GASPAR [address], [address], [place], [address], [place] [facility] 0 10:34:05 Chronic diastolic heart failure 377549386 Active 2019 ANNIKA GASPAR [address], [address], [place], [address], [facility] 0 10:34:26 Endocarditis 15495006 Active 2019 ANNIKA GASPAR [address], [address], [place], [address], [facility] 0 10:38:11 International normalized ratio above reference range 902440134 Active 2019 PHIL GASPARP [address], [place], [address], [facility] 0 10:48:13 Problem Notes None recorded. Medical Equipment None Reported. Allergies Allergen ID Allergen Name Allergen Category Reaction Reaction Severity Criticality Documentation Date Start Date Code Code System Note Provider Name and Address Organization Details Recorded Time 52925 honey bee venom medicatio n Not available Not available Not available 03/30/2020 42382 7 RxNorm Not Available Not Available Not Available 81658 Iodinated contrast media (substanc e) medicatio n Not available Not available Not available 03/30/2020 25627 2004 SNOMED Not Available Not Available Not Available 60099 Substance with sulfonami de structure and antibacte rial mechanism of action (substanc e) medicatio n Not available Not available Not available 03/30/2020 05156 8003 SNOMED Not Available Not Available Not Available 30884 Product containin g gadoliniu m and/or gadoliniu m compound (product) medicatio n Not available Not available Not available 03/30/2020 16879 3008 SNOMED Not Available Not Available Not Available 36005 codeine medicatio n Not available Not available Not available 03/30/2020 2670 RxNorm Not Available Not Available Not Available 69934 aspirin medicatio n Not available Not available Not available 03/30/2020 1191 RxNorm Not Available Not Available Not Available 10837 capsaicin medicatio n Not available Not available Not available 03/30/2020 1992 RxNorm Not Available Not Available Not Available 79080 methimazo le medicatio n Not available Not available Not available 03/30/2020 6835 RxNorm Not Available Not Available Not Available 39307 ibuprofen medicatio n Not available Not available Not available 03/30/2020 5640 RxNorm Not Available Not Available Not Available 94071 sulfameth oxazole / trimethop rim medicatio n Not available Not available Not available 03/30/2020 47978 RxNorm Not Available Not Available Not Available 67034 clarithro mycin medicatio n Not available Not available Not available 03/30/2020 62954 RxNorm Not Available Not Available Not Available 34525 azithromy johnna medicatio n Not available Not available Not available 03/30/2020 22109 RxNorm Not Available Not Available Not Available 32141 amlodipin e medicatio n Not available Not available Not available 03/30/2020 54752 RxNorm Not Available Not Available Not Available Medications Not known to be on any medication Vitals Date Recorded Body temperature Heart rate Respiratory rate Oxygen saturation Oxygen saturation in Arterial blood by Pulse oximetry Systolic blood pressure Diastolic blood pressure Provider Name and Address Organization Details Last Updated DateTime 0 97.6 [degF] 72 /min 18 /min 95 % 95 % 138 mm[Hg] 72 mm[Hg] ANNIKA GASPAR [address] [facility], [address], [place], [address], [employer] 0 10:31:05 Date Recorded Body temperature Oxygen saturation Oxygen saturation in Arterial blood by Pulse oximetry Systolic blood pressure Diastolic blood pressure Provider Name and Address Organization Details Last Updated DateTime 0 97.4 [degF] 97 % 97 % 133 mm[Hg] 81 mm[Hg] Suha Lama MD [address] [facility], [address], [place], [address], [facility] 0 11:17:06 Date Recorded Heart rate Respiratory rate Body temperature Oxygen saturation Oxygen saturation in Arterial blood by Pulse oximetry Systolic blood pressure Diastolic blood pressure Provider Name and Address Organization Details Last Updated DateTime 0 88 /min 18 /min 98.3 [degF] 97 % 97 % 140 mm[Hg] 59 mm[Hg] ANNIKA GASPAR [address] [facility], [address], [place], [address], [facility] 0 18:40:48 Date Recorded Body height Heart rate Respiratory rate Body temperature Oxygen saturation Oxygen saturation in Arterial blood by Pulse oximetry Systolic blood pressure Diastolic blood pressure Provider Name and Address Organization Details Last Updated DateTime 0 162.56 cm 80 /min 16 /min 98.7 [degF] 96 % 96 % 111 mm[Hg] 57 mm[Hg] MATHEW JONES NP [address] [facility] [address], [place], [address], [facility] 0 11:22:47 Social History Question Answer Notes LastModified by Organizat ion Details LastModified Time Tobacco Smoking Status Former Smoker Not Available [employer] 08/03/2020 03:13:20 Do You Have An Advance Directive? No [id number] Information not available 08/03/2020 What Is Your Level Of Alcohol Consumption? Occasional [id number] Information not available 08/03/2020 How Much Tobacco Do You Chew? None [id number] Information not available 08/03/2020 Do You Or Have You Ever Used E-cigarettes Or Vape? Never Used Electronic Cigarettes [id number] Information not available 08/03/2020 Do You Have A Medical Power Of Airbrush Painter? No [id number] Information not available 08/03/2020 What Was The Date Of Your Most Recent Tobacco Screening? 03/30/2020 [id number] Information not available 08/03/2020 Do You Or Have You Ever Used Smokeless Tobacco? Never Used Smokeless Tobacco [id number] Information not available 08/03/2020 How Much Tobacco Do You Smoke? 1 PPD [id number] Information not available 08/03/2020 How Many Years Have You Smoked Tobacco? 30 [id number] Information not available 08/03/2020 Sex: Unknown Functional Status None recorded. Mental Status None recorded. Family History Nothing Reported. Medical History No medical history recorded. Gynecological HistoryNo gynecological history recorded. Obstetrics History GPAL:G 0 P 0 0 0 0 Past Encounters Encounter ID Performer Location Encounter Start Date Encounter Closed Date Diagnosis/Indication Diagnosis SNOMED-CT Code Diagnosis ICD10 Code Diagnosis Note [id number] ANNIKA GASPAR [address] [address] [place] [address] 03/30/2020 10:28:16 04/26/2020 16:04:38 Bacteremia 3347816 R78.81 strep viridans bacteremia ceftriaxon e 2 gm qd x 4 weeks to complete on 04/22/20 maintain PICC line monitor labs Gastrointe stinal hemorrhage 34258264 K92.1 omeprazole 40 mg qd need to follow up with gi for EGD monitor for bleeding Chronic di astolic heart failure 908372937 I50.32 NEW DIAGNOSIS FOR PATIENT ACCORDING TO PT low sodium diet valsartan 40 mg bid lasix 40 mg qd monitor fluid balance monitor weights Atrial fibrillation 4943 6004 I48.19 apixaban 5 mg bid-was on coumadin but now apixaban monitor for rate and rhythm Depressive disorder 3548 9007 F32.89 not on medication monitor mood psych eval and treat prn Mixed hyperlipidemia 267 119401 E78.2 not on medication monitor labs Coronary arteriosclerosis 95991106 I25.10 not on medication monitor Cardiac pa cemaker in situ 993122529 Z95.0 noted in history monitor Endocarditis 26560616 I3 9 TTE was negative for endocardit is but treating anyways monitor Internatio nal normalized ratio above reference range 931258576 R79.1 given vitamin K in hospital put on eliquis resolved [id number] Suha Lama MD [address] [address] 03/31/2020 11:16:36 04/27/2020 10:17:27 Atrial fibrillation 49088944 I48.0 apixaban 5 mg bidwill monitor Bacteremia 8284914 R78.8 1 ceftriaxon e 2 gm daily until 04/24/20 Chronic di astolic heart failure 231274950 I50.32 furosemide 40 mg dailyvalsa rtan 40 mg bidwill monitor Gastrointe stinal hemorrhage 43851811 K92.1 with recent elevated INR, correctedo meprazole 40 mg dailyGI fu as outpatient Essential hypertension 02233735 I10 valsartan 40 mg bidwill monitor [id number] ANNIKA GASPAR [address] [address] 04/05/2020 15:24:34 04/26/2020 16:09:08 Bacteremia 3783828 R78.81 strep viridans bacteremia ceftriaxon e 2 gm qd x 4 weeks to complete on 04/22/20 maintain PICC line monitor labs she is going to be discharged sunday after her agreeing to waiting til then services are being set up for her IV Chronic di astolic heart failure 351144369 I50.32 low sodium diet-feels that the food is very high in sodium here valsartan 40 mg bid lasix 40 mg qd monitor fluid balance monitor weights she is asking for new anna stockings- due to what she calls edema on the back of her ankles a new pair are going to be obtained [id number] MATHEW JONES NP [address] [address] 04/09/2020 11:20:16 04/27/2020 12:07:59 Atrial fibrillation 01733813 I48.91 apixaban 5 mg bid will monitor Bacteremia 5286030 R78.8 1 strep viridans bacteremia ceftriaxon e 2 gm qd to complete on 04/24/20 Lactobacil burt 1 qd maintain PICC line monitor labs Chronic di astolic heart failure 115051519 I50.32 valsartan 40 mg bid lasix 40 mg qd monitor fluid balance monitor weights Coronary arteriosclerosis 14185929 I25.10 monitor Depressive disorder 3548 9007 F32.9 monitor mood psych eval and treat prn Endocarditis 02804288 I3 8 TTE was negative for endocardit is but treating anyways monitor Gastrointe stinal hemorrhage 58298837 K92.2 omeprazole 40 mg daily GI fu as outpatient Mixed hyperlipidemia 267 313071 E78.2 monitor labs Health Concerns Section Related Observation LastModified by Organization Detai ls LastModified Time None Recorded Concern Status LastModified by Organization Details LastModified Time None Recorded Advance Directives Directive N: Payers Encounter Date Sequence Insurance Name Policy Number Policy Marroquin Covered Member ID Marroquin Member ID Guarantor Name 03/30/2020 1 [place] [employer] Bobbi M Victor M [id number] Bobbi Victor M 03/31/2020 1 [place] [employer] Bobbi M Victor M [id number] Bobbi Victor M 04/05/2020 1 [place] [employer] Bobbi M Victor M [id number] Bobbi Victor M 04/09/2020 1 [place] [employer] Bobbi M Victor M [id number] Bobbi Victor M Notes Date Note Type Note Provider Name and Address Organization Details Recorded Time 03/30/2020 text/html A 79 year old fe male being seen for a initial intake note. Patient went to [facility] er with weakness over several weeks and [...] CAD, pacemaker and afib. ANNIKA GASPAR [address] [facility], [address], [place], [address], [facility] [employer] 03/30/2020 14:02:09 03/31/2020 text/html This 79 year old woman was admitted to [facility] on 03/29/20 for rehab and continued care. She presented to [facility] ER with weakness over several weeks. She [...] DNR, DNI, DNH Suha Lama MD [address] [facility], [address], [place], [address], [facility] [employer] 03/31/2020 11:48:03 04/05/2020 text/html A 79 year old fe male being seen for a acute rounding visit. Patient was upset about wanting to go home. She agreed to stay til sunday but then agreed til sunday due to holiday/vna services. [place] [facility] will go out on sunday. She is stating the facility has high sodium diet causing her edema (not visible to me) and she would like a new set of teds. She is also requesting a new walker and a script was given to therapy. ANNIKA GASPAR [address] [facility], [address], [place], [address], [facility] [employer] 04/05/2020 18:46:35 04/09/2020 text/html seen today for discharge-79 yof being seen for discharge summary. Patient went to [facility] er with weakness over several weeks and [...] short term rehab. MATHEW JONES NP [address] [facility], [address], [place], [address], [facility] 04/27/2020 12:06:20 OBGyn Episode No OBEpisode recorded.
== END ==
LOC: HO.CARD 14:42
PROVIDERS: PCP Internal Medicine; Visit Provider Internal Medicine Cardiovascular Disease
DX: I50.9 Heart failure, unspecified (principal)
CPT/HCPCS: 93306

== ENCOUNTER → 2024-11-19 15:04 | Outpatient (BNV) | payer MEDICARE, SELFPAY | PROVIDERS: PCP Internal Medicine; Visit Provider Internal Medicine Cardiovascular Disease | DX: I50.20 Unspecified systolic (congestive) heart failure (principal); I35.8 Other nonrheumatic aortic valve disorders; I34.0 Nonrheumatic mitral (valve) insufficiency; I36.1 Nonrheumatic tricuspid (valve) insufficiency; I51.7 Cardiomegaly | CPT/HCPCS: 93306 ==

== ENCOUNTER → 2024-12-15 23:59 | Outpatient (BNV) | payer MEDICARE, SELFPAY ==
--- NOTE | 2024-12-17 15:10 | MHC.OFFVIS ---
Intake Visit Reasons: Remote Device Check- [employer] Allergies ibuprofen [IBUPROFEN] Allergy (Severe, Verified 10/23/24 15:13) THROAT LUMP olmesartan [From BENICAR] Allergy (Severe, Verified 10/23/24 15:13) WHEEZING Gadolinium-Containing Contrast Medi [Gadolinium-Containing Agents] Allergy (Mild, Verified 10/23/24 15:13) HIVES Iodinated Contrast Media [IV Dye, Iodine Containing] Allergy (Mild, Verified 10/23/24 15:13) RASH oneil Allergy (Mild, Verified 10/23/24 15:13) RASH Sulfa (Sulfonamide Antibiotics) Allergy (Mild, Verified 10/23/24 15:13) RASH amiodarone [AMIODARONE] Allergy (Unknown, Verified 10/23/24 15:13) THYROID TOXICOSIS amlodipine [From NORVASC] Allergy (Unknown, Verified 10/23/24 15:13) WHEEZING aspirin [ASPIRIN] Allergy (Unknown, Verified 10/23/24 15:13) THROAT LUMP HEAVY WHEEZING, wheezing, wheezing azithromycin [From ZITHROMAX] Allergy (Unknown, Verified 10/23/24 15:13) NAUSEA/VOMITING, nausea and vomiting bee pollen [Bee Stings] Allergy (Unknown, Verified 10/23/24 15:13) EDEMA, ALL INSECT STINGS capsaicin [CAPSAICIN] Allergy (Unknown, Verified 10/23/24 15:13) RASH clopidogrel [From PLAVIX] Allergy (Unknown, Verified 10/23/24 15:13) THROAT LUMP HEAVY WHEEZING diltiazem [Cardizem] Allergy (Unknown, Verified 10/23/24 15:13) rash methimazole [METHIMAZOLE] Allergy (Unknown, Verified 10/23/24 15:13) RASH sulfamethoxazole [From BACTRIM] Allergy (Unknown, Verified 10/23/24 15:13) RASH trimethoprim [From BACTRIM] Allergy (Unknown, Verified 10/23/24 15:13) RASH escitalopram [From Lexapro] Allergy (Verified 10/23/24 15:13) Wheezing clarithromycin [From Biaxin] Adverse Reaction (Mild, Verified 10/23/24 15:13) N/V codeine [Codeine] Adverse Reaction (Mild, Verified 10/23/24 15:13) N/V levofloxacin [From Levaquin] Adverse Reaction (Mild, Verified 10/23/24 15:13) N/V Dye JAIL Blue 1 Allergy (Unknown, Uncoded 10/23/24 15:13) rash [facility] Medical History History of terminal carman anticoagulant use (~2009) History of cardiac arrest (~2009) Osteoporosis (~2020) Tubular adenoma of colon (~2000) Pacemaker at end of battery life Blood in urine Superficial bruising of abdominal wall Traumatic ecchymosis of left lower leg Traumatic ecchymosis of left shoulder Traumatic hematoma of head Fall Hip pain, right Abnormal ultrasound of lower extremity AAA (abdominal aortic aneurysm) CAD (coronary artery disease) Cardiac pacemaker in situ (~2009) Mitral regurgitation Tricuspid regurgitation Diverticulosis Ex-smoker Hearing impaired Lactose intolerance History of right breast cancer (~1992) Hypertension, essential Atrial fibrillation, chronic (~2009) Surgical History History of colonoscopy History of hand surgery History of heart artery stent History of pacemaker History of lumpectomy History of cardiac cath History of cardioversion History of eye surgery Family History Father CVD (cardiovascular disease) Mother CVD (cardiovascular disease) Myocardial infarction Maternal Grandmother Unknown family medical history Maternal Grandfather No problems noted. Paternal Grandfather CVD (cardiovascular disease) Paternal Grandmother No problems noted. Child No Financial Resp No problems noted. Social History Household Members: Children Housing: House Are you a primary respiratory care assistant to a significant other at home: No Do you presently have visiting nurse or other home services: No Alcohol intake: never Patient Tobacco Use Status: Former Tobacco user Tobacco use type: Cigarette Years Smoked: 40 e-Cigarette/Vaping Use: Never Used Advance Directives Date on File: 10/29/17 service: No Current occupational status: retired Cognitive needs: No Hearing needs: Yes (deaf in right ear, left ear has a hearing aid) Vision needs: Yes Office Procedures Cardiac Device Check Cardiac Device Check Details: Remote pacemaker report generated 12/15/2024. Pacemaker function is adequate [id number] Cardiac Device Interrogation, pacemaker Procedure code (CPT) selection complete Assessment & Plan Assessment & Plan (1) Cardiac pacemaker in situ: Onset Date: ~2009 Comment: (single-chamber Medtronic - DCPP placed 2009 - now VVI - replaced 2022) Code(s): Z95.0 - Presence of cardiac pacemaker Category: Medical Plan: See above Coding Level of Care Code Procedure Only Diagnoses Cardiac pacemaker in situ Z95.0 CPT Codes Cardiac Device Check - Cardiac Device 12: [id number] Cardiac Device Interrogation, pacemaker ([id number])
== END ==
PROVIDERS: PCP Internal Medicine; Visit Provider Internal Medicine Cardiovascular Disease
DX: Z45.018 Encounter for adjustment and management of other part of cardiac pacemaker (principal)
CPT/HCPCS: 93294

== ENCOUNTER 2025-01-06 15:11 | Outpatient (REF) | payer MEDICARE, SELFPAY ==
[2025-01-06 17:42] LABS: B Type Natriuretic Peptide 433 pg/mL (<100)
[2025-01-06 18:02] LABS: Anion Gap 16 (12-20); Blood Urea Nitrogen 49 mg/dL (9-16); Calcium 9.1 mg/dL (8.4-10.2); Carbon Dioxide 28 mmol/L (22-29); Chloride 99 mmol/L (96-108); Estimated Glomerular Filt Rate 37; Glucose Random 80 mg/dL (60-115); Potassium 3.4 mmol/L (3.3-5.1); Sodium 140 mmol/L (135-145)
== END 2025-01-06 15:12 | disposition home or self-care (01) ==
LOC: HO.LAB 15:11
PROVIDERS: PCP Internal Medicine; Visit Provider Internal Medicine Cardiovascular Disease
DX: Z45.018 Encounter for adjustment and management of other part of cardiac pacemaker (principal); I50.20 Unspecified systolic (congestive) heart failure
CPT/HCPCS: 36415; 80048; 83880; 99212

== ENCOUNTER 2025-01-06 15:11 | Outpatient (AMB) | payer MEDICARE, SELFPAY ==
--- NOTE | 2025-01-06 15:17 | A.OFFVIS_ITS ---
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 Allergies ibuprofen [IBUPROFEN] Allergy (Severe, Verified 10/23/24 15:13) THROAT LUMP olmesartan [From BENICAR] Allergy (Severe, Verified 10/23/24 15:13) WHEEZING Gadolinium-Containing Contrast Medi [Gadolinium-Containing Agents] Allergy (Mild, Verified 10/23/24 15:13) HIVES Iodinated Contrast Media [IV Dye, Iodine Containing] Allergy (Mild, Verified 10/23/24 15:13) RASH oneil Allergy (Mild, Verified 10/23/24 15:13) RASH Sulfa (Sulfonamide Antibiotics) Allergy (Mild, Verified 10/23/24 15:13) RASH amiodarone [AMIODARONE] Allergy (Unknown, Verified 10/23/24 15:13) THYROID TOXICOSIS amlodipine [From NORVASC] Allergy (Unknown, Verified 10/23/24 15:13) WHEEZING aspirin [ASPIRIN] Allergy (Unknown, Verified 10/23/24 15:13) THROAT LUMP HEAVY WHEEZING, wheezing, wheezing azithromycin [From ZITHROMAX] Allergy (Unknown, Verified 10/23/24 15:13) NAUSEA/VOMITING, nausea and vomiting bee pollen [Bee Stings] Allergy (Unknown, Verified 10/23/24 15:13) EDEMA, ALL INSECT STINGS capsaicin [CAPSAICIN] Allergy (Unknown, Verified 10/23/24 15:13) RASH clopidogrel [From PLAVIX] Allergy (Unknown, Verified 10/23/24 15:13) THROAT LUMP HEAVY WHEEZING diltiazem [Cardizem] Allergy (Unknown, Verified 10/23/24 15:13) rash methimazole [METHIMAZOLE] Allergy (Unknown, Verified 10/23/24 15:13) RASH sulfamethoxazole [From BACTRIM] Allergy (Unknown, Verified 10/23/24 15:13) RASH trimethoprim [From BACTRIM] Allergy (Unknown, Verified 10/23/24 15:13) RASH escitalopram [From Lexapro] Allergy (Verified 10/23/24 15:13) Wheezing clarithromycin [From Biaxin] Adverse Reaction (Mild, Verified 10/23/24 15:13) N/V codeine [Codeine] Adverse Reaction (Mild, Verified 10/23/24 15:13) N/V levofloxacin [From Levaquin] Adverse Reaction (Mild, Verified 10/23/24 15:13) N/V Dye MCFP Blue 1 Allergy (Unknown, Uncoded 10/23/24 15:13) rash Medication List - Last Reconciled 01/06/25 by Leonard Smart MD bumetanide 2 mg PO DAILY docusate sodium (Colace) 200 mg PO BEDTIME PRN escitalopram oxalate 5 mg PO DAILY metolazone 2.5 mg PO DAILY PRN polyethylene glycol 3350 (Miralax) 17 grams PO DAILY PRN HPI Comments Details: Bobbi comes for follow-up. At home a week ago she had worsening heart failure syndrome had to take metolazone on every day basis. This is due to leg edema and worsening shortness of breath. After that she was improved. Now she is back down to 2 times a week of metolazone on addition to Bumex. She continues to have symptoms of fatigue and tiredness. No clear worsening orthopnea, PND, leg edema. No syncopal episodes. She was noted to be anemic as well. Her recent echocardiogram showed severely reduced LV ejection fraction as well as moderately reduced RV systolic function with severe biatrial enlargement with moderate to severe mitral regurgitation severe tricuspid regurgitation. [facility] Medical History History of shelter anticoagulant use (~2009) History of cardiac arrest (~2009) Osteoporosis (~2020) Tubular adenoma of colon (~2000) Pacemaker at end of battery life Blood in urine Superficial bruising of abdominal wall Traumatic ecchymosis of left lower leg Traumatic ecchymosis of left shoulder Traumatic hematoma of head Fall Hip pain, right Abnormal ultrasound of lower extremity AAA (abdominal aortic aneurysm) CAD (coronary artery disease) Cardiac pacemaker in situ (~2009) Mitral regurgitation Tricuspid regurgitation Diverticulosis Ex-smoker Hearing impaired Lactose intolerance History of right breast cancer (~1992) Hypertension, essential Atrial fibrillation, chronic (~2009) Surgical History History of colonoscopy History of hand surgery History of heart artery stent History of pacemaker History of lumpectomy History of cardiac cath History of cardioversion History of eye surgery Family History Father CVD (cardiovascular disease) Mother CVD (cardiovascular disease) Myocardial infarction Maternal Grandmother Unknown family medical history Maternal Grandfather No problems noted. Paternal Grandfather CVD (cardiovascular disease) Paternal Grandmother No problems noted. Child No Financial Resp No problems noted. Social History Household Members: Children Housing: House Are you a primary chiropractic care to a significant other at home: No Do you presently have visiting nurse or other home services: No Alcohol intake: never Patient Tobacco Use Status: Former Tobacco user Tobacco use type: Cigarette Years Smoked: 40 e-Cigarette/Vaping Use: Never Used Advance Directives Date on File: 10/29/17 service: No Current occupational status: retired Cognitive needs: No Hearing needs: Yes (deaf in right ear, left ear has a hearing aid) Vision needs: Yes Review of Systems Const Denies chills, Denies fatigue, Denies fever(s), Denies frequent falls, Denies weakness, Denies weight gain and Denies weight loss ENT Denies dizziness Card Denies chest pain, Denies leg edema, Denies lightheadedness, Denies palpitations, Denies dyspnea, Denies dyspnea on exertion, Denies orthopnea and Denies other (loss of consciousness) Resp Denies cough, Denies dyspnea and Denies dyspnea on exertion GI Denies hematochezia and Denies change in stool character Musc Denies abnormal gait, Denies muscle weakness, Denies numbness, Denies radiating pain into limb and Denies tingling Neuro Denies abnormal gait, Denies dizziness, Denies frequent falls, Denies numbness, Denies tingling and Denies weakness Endo Denies fatigue and Denies palpitations Physical Exam Vital Signs: Last Vital Signs Pulse 62 01/06/25 15:18 BP 100/64 01/06/25 15:18 BMI result Body Mass Index 20.1 Const General: cooperative, comfortable and no acute distress Nutritional Appearance: thin and other (Frail elderly woman) Orientation/consciousness: patient oriented x3 Neck Other: Pulsation of neck vein, likely V wave from TR Neck: Yes normal visual inspection and Yes no JVD (Pulsatile V-waves) Resp Effort & Inspection: normal respiratory effort Auscultation: clear to auscultation bilaterally, no crackles, no rales, no rhonchi and no wheezes Cardio Rate: regular rate Rhythm: abnormal rhythm Heart sounds: S1 normal heart sound present, S2 normal heart sound present, no gallops, Murmur heart sound present (Systolic murmur in mitral position) systolic holo and no rubs Peripheral pulses: Peripheral pulses 2+ throughout GI Inspection: Yes Abdominal wall edema Neuro General: patient oriented x3 Extrem Other: Trace pitting edema in each lower leg, left upper leg General: Yes normal to inspection, No clubbing, No cyanosis and Yes edema Psych Appearance: grossly normal Mental Status: mental status grossly normal Speech and movement: Normal speech and movement present Office Procedures Cardiac Device Check Cardiac Device Check Details: Single-chamber Medtronic pacemaker in place. Programmed in VVI 60 beats per minute. Ventricular pacing 45% of the time. Ventricular pacing thresholds adequate. Ventricular sensing is adequate. Lead impedance is stable. Battery life is 10 years [id number]-[id number] Cardiac Device Check, leadless/single lead pacemaker Procedure code (CPT) selection complete Assessment & Plan Assessment & Plan (1) Heart failure with reduced ejection fraction: Code(s): I50.20 - Unspecified systolic (congestive) heart failure Category: Medical Plan: Patient with significantly worsening symptoms of fatigue related to low stroke volume but with significant underlying cardiovascular issues related to chronic atrial fibrillation now has biventricular systolic dysfunction significant biatrial enlargement and moderately severe mitral and severe tricuspid regurgitation. Overall prognosis guarded. She has done well with heart failure management currently and is managing her fluid status with metolazone as needed. Continue current Bumex therapy. Overall prognosis is poor. This was discussed with her. Because of increased symptoms of fatigue, referred for phase 2 cardiac rehabilitation which she is agreeable to try. Has not been able to tolerate other neurohormonal modulators and has refused some. She had also refused oral anticoagulation therapy related to chronic atrial fibrillation. High risk of stroke was discussed. She is significantly anemic which could contribute to her symptoms of anemia as well. Will check lab work today to assess renal function as well as BNP. Will follow with her in 3 months time, sooner p.r.n.. Thank you for allowing me to partake in her care Orders: Orders Cardiac Rehab 01/06/25 I50.20 - Unspecified systolic (congestive) heart failure Basic Metabolic Panel 01/06/25 I50.20 - Unspecified systolic (congestive) heart failure B Type Natriuretic Peptide 01/06/25 I50.20 - Unspecified systolic (congestive) heart failure Coding Level of Care Code Est Pt Level 4 (87656) Complex EM visit Add On G2211 Diagnoses Heart failure with reduced ejection fraction I50.20 CPT Codes Cardiac Device Check - Cardiac Device 1: [id number]-[id number] Cardiac Device Check, leadless/single lead pacemaker ([id number])
[2025-01-06 15:18] VITALS: BP 100/64; PULSE 62; BMI 20.1
--- OUTSIDE RECORDS SUMMARY | 2025-01-06 18:02 | XMS_ITS | Data Portability ---
Author Organization 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 Name Role Phone DAY () OTHER Assessment Encounter Date Assessment Date Assessment LastModified by Organization Details LastModified Time 03/30/2020 03/30/2020 03/30/20 WBC 5.1, Hgb 11.6, Hct 36.4, Plt 261, Na 141, K 3.1, BUN 10, Nursing Unit Manager 0.60, cari 8.4 no labs noted from [facility] Not available 03/30/2020 13:26:56 04/09/2020 04/09/202004/02 [...] Address Organization Details Recorded Time Mixed hyperlipidemia 951643588 Active 2019 ANNIKA GASPAR [address], [address], [place], [address], [facility] [employer] 0 10:31:34 Depressive disorder 01289450 Active 2019 ANNIKA GASPAR [address], [address], [place], [address], [facility] [employer] 0 10:31:47 Atrial fibrillation 70070315 Active 2019 ANNIKA GASPAR [address], [address], [place], [address], [place] [facility] 0 10:31:57 Coronary arterioscleros is 04980467 Active 2019 PHIL GASPARP [address], [address], [place], [address], [place] [facility] 0 10:32:06 Gastrointestin al hemorrhage 16856093 Active 2019 PHIL GASPARP [address], [address], [place], [address], [place] [facility] 0 10:33:27 Cardiac pacemaker in situ 820309149 Active 2019 PHIL GASPARP [address], [address], [place], [address], [place] [facility] 0 10:33:50 Bacteremia 7270712 Active 2019 ANNIKA GASPAR [address], [address], [place], [address], [place] [facility] 0 10:34:05 Chronic diastolic heart failure 228368519 Active 2019 ANNIKA GASPAR [address], [address], [place], [address], [place] [facility] 0 10:34:26 Endocarditis 46363748 Active 2019 ANNIKA GASPAR [address], [address], [place], [address], [facility] 0 10:38:11 International normalized ratio above reference range 244831697 Active 2019 PHIL GASPARP [address], [address], [place], [address], [facility] 0 10:48:13 Problem Notes None recorded. Medical Equipment None Reported. Allergies Allergen ID Allergen Name Allergen Category Reaction Reaction Severity Criticality Documentation Date Start Date Code Code System Note Provider Name and Address Organization Details Recorded Time 25066 honey bee venom medicatio n Not available Not available Not available 03/30/2020 68561 7 RxNorm Not Available Not Available Not Available 70463 Iodinated contrast media (substanc e) medicatio n Not available Not available Not available 03/30/2020 08474 2004 SNOMED Not Available Not Available Not Available 31787 Substance with sulfonami de structure and antibacte rial mechanism of action (substanc e) medicatio n Not available Not available Not available 03/30/2020 05832 8003 SNOMED Not Available Not Available Not Available 56217 Product containin g gadoliniu m and/or gadoliniu m compound (product) medicatio n Not available Not available Not available 03/30/2020 89568 3008 SNOMED Not Available Not Available Not Available 06987 codeine medicatio n Not available Not available Not available 03/30/2020 2670 RxNorm Not Available Not Available Not Available 09516 aspirin medicatio n Not available Not available Not available 03/30/2020 1191 RxNorm Not Available Not Available Not Available 43131 capsaicin medicatio n Not available Not available Not available 03/30/2020 1992 RxNorm Not Available Not Available Not Available 05883 methimazo le medicatio n Not available Not available Not available 03/30/2020 6835 RxNorm Not Available Not Available Not Available 50681 ibuprofen medicatio n Not available Not available Not available 03/30/2020 5640 RxNorm Not Available Not Available Not Available 97333 sulfameth oxazole / trimethop rim medicatio n Not available Not available Not available 03/30/2020 05873 RxNorm Not Available Not Available Not Available 88975 clarithro mycin medicatio n Not available Not available Not available 03/30/2020 46280 RxNorm Not Available Not Available Not Available 61390 azithromy johnna medicatio n Not available Not available Not available 03/30/2020 52419 RxNorm Not Available Not Available Not Available 56238 amlodipin e medicatio n Not available Not available Not available 03/30/2020 35069 RxNorm Not Available Not Available Not Available [...] 138 mm[Hg] 72 mm[Hg] ANNIKA GASPAR [address], [address], [place], [address], [facility] 0 10:31:05 Date Recorded Body temperature Oxygen saturation Oxygen saturation in Arterial blood by Pulse oximetry Systolic blood pressure Diastolic blood pressure Provider Name and Address Organization Details Last Updated DateTime 0 97.4 [degF] 97 % 97 % 133 mm[Hg] 81 mm[Hg] Suha Lama MD [address], [address], [place], [address], [facility] 0 11:17:06 Date Recorded Heart rate Respiratory rate Body temperature Oxygen saturation Oxygen saturation in Arterial blood by Pulse oximetry Systolic blood pressure Diastolic blood pressure Provider Name and Address Organization Details Last Updated DateTime 0 88 /min 18 /min 98.3 [degF] 97 % 97 % 140 mm[Hg] 59 mm[Hg] ANNIKA GASPAR [address], [address], [place], [address], [facility] 0 18:40:48 Date Recorded Body height Heart rate Respiratory rate Body temperature Oxygen saturation Oxygen saturation in Arterial blood by Pulse oximetry Systolic blood pressure Diastolic blood pressure Provider Name and Address Organization Details Last Updated DateTime 0 162.56 cm 80 /min 16 /min 98.7 [degF] 96 % 96 % 111 mm[Hg] 57 mm[Hg] MATHEW JONES NP [address] [address], [place], [address], [facility] 0 11:22:47 Social History Question Answer Notes LastModified by Organizat ion Details LastModified Time Tobacco Smoking Status Former Smoker Not Available [employer] 08/03/2020 03:13:20 Do You Have An Advance Directive? No [id number] Information not available 08/03/2020 What Is Your Level Of Alcohol Consumption? Occasional [id number] Information not available 08/03/2020 How Much Tobacco Do You Chew? None [id number] Information not available 08/03/2020 Do You Or Have You Ever Used E-cigarettes Or Vape? Never Used Electronic Cigarettes [id number] Information not available 08/03/2020 Do You Have A Medical Power Of Firefighter? No [id number] Information not available 08/03/2020 What Was The Date Of Your Most Recent Tobacco Screening? 03/30/2020 [id number] Information not available 08/03/2020 Do You Or Have You Ever Used Smokeless Tobacco? Never Used Smokeless Tobacco [id number] Information not available 08/03/2020 How Much Tobacco Do You Smoke? 1 PPD [id number] Information not available 08/03/2020 How Many Years Have You Smoked Tobacco? 30 [id number] Information not available 08/03/2020 Sex: Unknown Functional Status None recorded. Mental Status None recorded. Family History Nothing Reported. Medical History No medical history recorded. Gynecological HistoryNo gynecological history recorded. Obstetrics History GPAL:G 0 P 0 0 0 0 Past Encounters Encounter ID Performer Location Encounter Start Date Encounter Closed Date Diagnosis/Indication Diagnosis SNOMED-CT Code Diagnosis ICD10 Code Diagnosis Note [id number] ANNIKA GASPAR [address] [address] [place] [address] 03/30/2020 10:28:16 04/26/2020 16:04:38 Bacteremia 0308990 R78.81 strep viridans bacteremia ceftriaxon e 2 gm qd x 4 weeks to complete on 04/22/20 maintain PICC line monitor labs Gastrointe stinal hemorrhage 23963499 K92.1 omeprazole 40 mg qd need to follow up with gi for EGD monitor for bleeding Chronic di astolic heart failure 637828787 I50.32 NEW DIAGNOSIS FOR PATIENT ACCORDING TO PT low sodium diet valsartan 40 mg bid lasix 40 mg qd monitor fluid balance monitor weights Atrial fibrillation 4943 6004 I48.19 apixaban 5 mg bid-was on coumadin but now apixaban monitor for rate and rhythm Depressive disorder 3548 9007 F32.89 not on medication monitor mood psych eval and treat prn Mixed hyperlipidemia 267 008464 E78.2 not on medication monitor labs Coronary arteriosclerosis 79876109 I25.10 not on medication monitor Cardiac pa cemaker in situ 050927416 Z95.0 noted in history monitor Endocarditis 76751054 I3 9 TTE was negative for endocardit is but treating anyways monitor Internatio nal normalized ratio above reference range 465533721 R79.1 given vitamin K in hospital put on eliquis resolved [id number] Suha Lama MD [address] [address] 03/31/2020 11:16:36 04/27/2020 10:17:27 Atrial fibrillation 32912947 I48.0 apixaban 5 mg bidwill monitor Bacteremia 1861341 R78.8 1 ceftriaxon e 2 gm daily until 04/24/20 Chronic di astolic heart failure 748055889 I50.32 furosemide 40 mg dailyvalsa rtan 40 mg bidwill monitor Gastrointe stinal hemorrhage 38705316 K92.1 with recent elevated INR, correctedo meprazole 40 mg dailyGI fu as outpatient Essential hypertension 86190027 I10 valsartan 40 mg bidwill monitor [id number] ANNIKA GASPAR [address] [address] 04/05/2020 15:24:34 04/26/2020 16:09:08 Bacteremia 0381735 R78.81 strep viridans bacteremia ceftriaxon e 2 gm qd x 4 weeks to complete on 04/22/20 maintain PICC line monitor labs she is going to be discharged sunday after her agreeing to waiting til then services are being set up for her IV Chronic di astolic heart failure 387501201 I50.32 low sodium diet-feels that the food is very high in sodium here valsartan 40 mg bid lasix 40 mg qd monitor fluid balance monitor weights she is asking for new anna stockings- due to what she calls edema on the back of her ankles a new pair are going to be obtained [id number] MATHEW JONES NP [address] [address] 04/09/2020 11:20:16 04/27/2020 12:07:59 Atrial fibrillation 85346356 I48.91 apixaban 5 mg bid will monitor Bacteremia 4987413 R78.8 1 strep viridans bacteremia ceftriaxon e 2 gm qd to complete on 04/24/20 Lactobacil burt 1 qd maintain PICC line monitor labs Chronic di astolic heart failure 377991105 I50.32 valsartan 40 mg bid lasix 40 mg qd monitor fluid balance monitor weights Coronary arteriosclerosis 90647443 I25.10 monitor Depressive disorder 3548 9007 F32.9 monitor mood psych eval and treat prn Endocarditis 65991028 I3 8 TTE was negative for endocardit is but treating anyways monitor Gastrointe stinal hemorrhage 63982666 K92.2 omeprazole 40 mg daily GI fu as outpatient Mixed hyperlipidemia 267 954659 E78.2 monitor labs Health Concerns Section Related Observation LastModified by Organization Detai ls LastModified Time None Recorded Concern Status LastModified by Organization Details LastModified Time None Recorded Advance Directives Directive N: Payers Encounter Date Sequence Insurance Name Policy Number Policy Marroquin Covered Member ID Marroquin Member ID Guarantor Name 03/30/2020 1 [place] [facility] Bobbi Guerrero Victor M [id number] Bobbi Victor M 03/31/2020 1 [place] [facility] Bobbi Guerrero Victor M [id number] Bobbi Victor M 04/05/2020 1 [place] [employer] Bobbi M Victor M [id number] Bobbi Victor M 04/09/2020 1 [place] [facility] Bobbi Guerrero Victor M [id number] Bobbi Victor M Notes Date Note Type Note Provider Name and Address Organization Details Recorded Time 03/30/2020 text/html A 79 year old fe male being seen for a initial intake note. Patient went to [facility] er with weakness over several weeks and [...] CAD, pacemaker and afib. ANNIKA GASPAR [address], [address], [place], [address], [facility] [employer] 03/30/2020 14:02:09 03/31/2020 text/html This 79 year old woman was admitted to [facility] on 03/29/20 for rehab and continued care. She presented to [facility] ER with weakness over several weeks. [...] DNR, DNI, DNH Suha Lama MD [address], [address], [place], [address], [facility] [employer] 03/31/2020 11:48:03 04/05/2020 text/html A 79 year old fe male being seen for a acute rounding visit. Patient was upset about wanting to go home. She agreed to stay til sunday but then agreed til sunday due to holiday/vna services. [place] [facility] will go out on sunday. She is stating the facility has high sodium diet causing her edema (not visible to me) and she would like a new set of teds. She is also requesting a new walker and a script was given to therapy. ANNIKA GASPAR [address], [address], [place], [address], [facility] [employer] 04/05/2020 18:46:35 04/09/2020 text/html seen today for discharge-79 yof being seen for discharge summary. Patient went to [facility] er with weakness over several weeks and [...] short term rehab. MATHEW JONES NP [address], [address], [place], [address], [facility] 04/27/2020 12:06:20 OBGyn Episode No OBEpisode recorded.
== END 2025-01-06 15:55 | disposition home or self-care (01) ==
PROVIDERS: PCP Internal Medicine; Visit Provider Internal Medicine Cardiovascular Disease
DX: I50.20 Unspecified systolic (congestive) heart failure (principal)
CPT/HCPCS: 93279; 99214; G2211

== ENCOUNTER 2025-01-27 13:01 | Outpatient (AMB) | payer MEDICARE, SELFPAY ==
[2025-01-27 13:04] VITALS: BP 110/48; PULSE 46; RESP 15; TEMP 36.4; O2SAT 95; BMI 19.9
--- NOTE | 2025-01-27 13:04 | A.OFFVIS_ITS ---
Intake Vital Signs 01/27/25 13:04 Height 5 ft 4 in Weight 116 lb BMI 19.9 BP 110/48 L Blood Pressure Location Rt brachial Position Sitting Respiration 15 Pulse 46 L Pulse Source Pulse Oximeter Temp 97.6 F Temp Source Oral Pulse Oximetry (%) 95 Oxygen Delivery Method Room Air Intake Visit Reasons: AWV Allergies ibuprofen [IBUPROFEN] Allergy (Severe, Verified 01/27/25 13:05) THROAT LUMP olmesartan [From BENICAR] Allergy (Severe, Verified 01/27/25 13:05) WHEEZING Gadolinium-Containing Contrast Medi [Gadolinium-Containing Agents] Allergy (Mild, Verified 01/27/25 13:05) HIVES Iodinated Contrast Media [IV Dye, Iodine Containing] Allergy (Mild, Verified 01/27/25 13:05) RASH oneil Allergy (Mild, Verified 01/27/25 13:05) RASH Sulfa (Sulfonamide Antibiotics) Allergy (Mild, Verified 01/27/25 13:05) RASH amiodarone [AMIODARONE] Allergy (Unknown, Verified 01/27/25 13:05) THYROID TOXICOSIS amlodipine [From NORVASC] Allergy (Unknown, Verified 01/27/25 13:05) WHEEZING aspirin [ASPIRIN] Allergy (Unknown, Verified 01/27/25 13:05) THROAT LUMP HEAVY WHEEZING, wheezing, wheezing azithromycin [From ZITHROMAX] Allergy (Unknown, Verified 01/27/25 13:05) NAUSEA/VOMITING, nausea and vomiting bee pollen [Bee Stings] Allergy (Unknown, Verified 01/27/25 13:05) EDEMA, ALL INSECT STINGS capsaicin [CAPSAICIN] Allergy (Unknown, Verified 01/27/25 13:05) RASH clopidogrel [From PLAVIX] Allergy (Unknown, Verified 01/27/25 13:05) THROAT LUMP HEAVY WHEEZING diltiazem [Cardizem] Allergy (Unknown, Verified 01/27/25 13:05) rash methimazole [METHIMAZOLE] Allergy (Unknown, Verified 01/27/25 13:05) RASH sulfamethoxazole [From BACTRIM] Allergy (Unknown, Verified 01/27/25 13:05) RASH trimethoprim [From BACTRIM] Allergy (Unknown, Verified 01/27/25 13:05) RASH escitalopram [From Lexapro] Allergy (Verified 01/27/25 13:05) Wheezing clarithromycin [From Biaxin] Adverse Reaction (Mild, Verified 01/27/25 13:05) N/V codeine [Codeine] Adverse Reaction (Mild, Verified 01/27/25 13:05) N/V levofloxacin [From Levaquin] Adverse Reaction (Mild, Verified 01/27/25 13:05) N/V Dye SHELTER Blue 1 Allergy (Unknown, Uncoded 01/27/25 13:05) rash Medication List - Last Reconciled 01/27/25 by Mimi Benjamin MD bumetanide 2 mg PO DAILY docusate sodium (Colace) 200 mg PO BEDTIME PRN escitalopram oxalate 5 mg PO DAILY metolazone 2.5 mg PO DAILY PRN polyethylene glycol 3350 (Miralax) 17 grams PO DAILY PRN HPI AWV HPI Details History - The patient is an 84-year-old female p resenting for an annual Medicare wellness visit. - Generalized Anxiety Disorder: The benson ent reports ongoing anxiety issues; She is currently prescribed Lexapro (Escitalopram) but feels it does not alleviate her symptoms. Patient is on 5 mg I am increasing the dose to 10 mg - Chronic Insomnia: The patient has expe rienced significant sleep disturbances, finding herself unable to sleep at night for approximately three years. She occasionally dozes around 4 PM but describes being wide awake at night. - Anemia: The patient reports having a r ecent blood test in November, resulting in a low hemoglobin level of 9.8 g/dL. - Mobility Impairment: Despite living on the second floor and occasionally using stairs, she reports needing occasional rests due to leg issues. - chronic Congestive heart failure manag ed by Cardiology [facility] Problem List - Generalized Anxiety Disorder - Chronic Insomnia - Anemia - Mobility Impairment - chronic Congestive heart failure Patient Instructions - Continue taking Escitalopram at 10 mg daily - Have blood tests done next door today. To monitor anemia - Administer labs as needed and await fo llow-up discussion regarding low blood count results. - Schedule a follow-up appointment in si x months, provided any new concerns arise. - Be cautious of the potential risks of falls; avoid sleeping pills due to this concern. Review of Systems - generalized no fever no chills - Neurological: No headaches - Ear nose throat: No sore throat no hearing difficulty no ear pain - Cardiovascular: No syncope, no chest pain, no palpitations - Gastrointestinal: No nausea vomiting or diarrhea Physical Exam General: No acute distress HEENT: No acute findings Neck: Supple Respiratory system: Able to talk in full sentences, no audible wheeze, lungs are clear Cardiovascular: S1-S2 Gastrointestinal: No pain Extremities: No new findings [employer]: Alert awake oriented x3 motor sensory intact uses walker for ambulation Skin: Normal turgor HPI Comments History of Present Illness Details AWV Medical/social history reviewed Past medical history reviewed [place] of care / care team list updated Surgical/ hospitalization history reviewed Current medications including OTC and supplements reviewed Family history reviewed Tobacco controlled form updated Alcohol use form updated Illicit drug use in social history reviewed Current diagnosis of depression ?screening updated Appropriate PHQ 2/PHQ-9 completed . Vital signs reviewed Alcohol tobacco drug use reviewed and discussed MMSE completed . ? Fall risk: ?accessed Fall history: ?yes Have you had any falls with injury in the past year?? yes Have you had 2 or more falls in the past year?? yes Fall risk assessment completed Home safety discussed with the patient Functional ability assessed and discussed and documented Activities of daily living reviewed and appropriate actions taken . HRA filled out by the patient reviewed by provider and scanned . Appropriate written screening schedule established . Any health advise needed provided . Advance care planning discussed with the patient paper work on file . Examination IPPE/AWE: Balance failed Romberg failed Tandem walk failed walk-in turn intact rise from sit to stand intact . 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 Medication list reviewed, patient is stable on medications All other providers patient is seeing discussed and noted . [facility] Medical History History of retirement anticoagulant use (~2009) History of cardiac arrest (~2009) Osteoporosis (~2020) Tubular adenoma of colon (~2000) Pacemaker at end of battery life Blood in urine Superficial bruising of abdominal wall Traumatic ecchymosis of left lower leg Traumatic ecchymosis of left shoulder Traumatic hematoma of head Fall Hip pain, right Abnormal ultrasound of lower extremity AAA (abdominal aortic aneurysm) CAD (coronary artery disease) Cardiac pacemaker in situ (~2009) Mitral regurgitation Tricuspid regurgitation Diverticulosis Ex-smoker Hearing impaired Lactose intolerance History of right breast cancer (~1992) Hypertension, essential Atrial fibrillation, chronic (~2009) Surgical History History of colonoscopy History of hand surgery History of heart artery stent History of pacemaker History of lumpectomy History of cardiac cath History of cardioversion History of eye surgery Family History Father CVD (cardiovascular disease) Mother CVD (cardiovascular disease) Myocardial infarction Maternal Grandmother Unknown family medical history Maternal Grandfather No problems noted. Paternal Grandfather CVD (cardiovascular disease) Paternal Grandmother No problems noted. Child No Financial Resp No problems noted. Social History Household Members: Children Housing: House Are you a primary pediatric critical care nurse to a significant other at home: No Do you presently have visiting nurse or other home services: No Alcohol intake: never Patient Tobacco Use Status: Former Tobacco user Tobacco use type: Cigarette Years Smoked: 40 e-Cigarette/Vaping Use: Never Used Advance Directives Date on File: 10/29/17 service: No Current occupational status: retired Cognitive needs: No Hearing needs: Yes (deaf in right ear, left ear has a hearing aid) Vision needs: Yes Questionnaire Medicare Wellness Checkup What is your age?: 80 or older What gender do you identify with?: female During the past 4 weeks, how much have you been bothered by emotional problems such as feeling anxious, depressed, irritable, sad or downhearted, and blue?: quite a bit During the past 4 weeks, has your physical & emotional health limited your social activities with family, friends, neighbors, or groups?: quite a bit During the past 4 weeks, how much bodily pain have you generally had?: mild pain During the past 4 weeks, was someone available to help you if you needed & wanted help?: yes, a little During the past 4 weeks, what was the hardest physical activity you could do for at least 2 minutes?: moderate Can you get to places out of walking distance without help? (For eg., can you travel alone on buses, taxis or drive your car?): Yes Can you go shopping for groceries or clothes without someone's help?: Yes Can you prepare your own meals?: Yes Can you do your housework without help?: Yes Because of any health problems, do you need the help of another person with your personal care needs such as eating, bathing, dressing or getting around the house?: No Can you handle your own money without help?: Yes During the past 4 weeks, how would you rate your health in general?: fair During the past 4 weeks how have things been going for you?: good & bad parts about equal Are you having difficulties driving your car?: no Do you always fasten your seat belt when you are in a car?: yes, usually During past 4 weeks, have you been bothered by the following: never: Falling or dizzy when standing up, Sexual problems?, Trouble eating well?, Teeth or denture problems?, Problems using the telephone? and Tiredness or fatigue? Have you fallen 2 or more times in the past year?: Yes Are you afraid of falling?: Yes Are you a smoker?: no During the past 4 weeks, how many drinks of wine, beer, or other alcoholic beverages did you have?: 2-5 drinks per week Do you exercise for about 20 minutes 3 or more times a week?: yes, most of the time Have you been given information to help with the following?: yes: Hazards in your house that might hurt you? and yes: Keeping track of your medications? How often do you have trouble taking medicines the way you have been told to take them?: I always take medicine as prescribed How confident are you that you can control & manage most of your health problems?: very confident What is your race?: White Mini Mental State Exam (MMSE) Orientation What is the (year) (season) (date) (day) (month)?: year, season, date, day and month Where are we (state) (county) (town or city) (hospital) (floor)?: state, county, town or city, hospital/clinic and floor Score Score: 10 Activity of Daily Living Bathing - sponge bath, tub bath or shower: receives no assistance (gets in/out by self, if usual bathing means Dressing - getting clothes from closets & drawers, including inner/outer garments & fasteners.: gets clothes & gets completely dressed without help Toileting - going to the 'toilet room' for urine/bowel elimination & cleaning self/arranging clothes: goes to toilet room, cleans self, arranges clothes without help Transfer: moves in & out of bed and chair without help (may use support object) Continence: controls urination/bowel movements completely by self Feeding: feeds self without help Total Score: 0 Information obtained from: patient Using telephone: independent Traveling: independent Shopping: independent Preparing meals: independent Housework: needs assistance Taking medicine: independent Managing money: independent PHQ-9 Over the last 2 weeks, how often have you been bothered by any of the following problems? 1. Little interest or pleasure in doing things: nearly every day 2. Feeling down, depressed, or hopeless: nearly every day 3. Trouble falling or staying asleep, or sleeping too much: nearly every day 4. Feeling tired or having little energy: nearly every day 5. Poor appetite or overeating: more than half the days 6. Feeling bad about yourself - or that you are a failure or have let yourself or your family down: several days 7. Trouble concentrating on things, such as reading the newspaper or watching television: not at all 8. Moving or speaking so slowly that other people could have noticed. Or the opposite - being so fidgety or restless that you have been moving around a lot more than usual: not at all 9. Thoughts that you would be better off or of hurting yourself in some way: not at all Total score: 15 Depression Screening Interpretation: Positive Depression Screening Follow-up: Existing condition and In treatment Depression Screening Done: Yes 15597 - PHQ-9 Billing: Yes Source: Developed by Drs. Derek Stock, Anali Alfaro, Taco Conti and colleagues, with an educational brandan from [employer]. Physical Exam Vital Signs: Last Vital Signs Temp 97.6 F 01/27/25 13:04 Pulse 46 L 01/27/25 13:04 Resp 15 01/27/25 13:04 BP 110/48 L 01/27/25 13:04 Pulse Ox 95 01/27/25 13:04 Oxygen Delivery Method Room Air 01/27/25 13:04 BMI result Body Mass Index 19.9 Assessment & Plan Assessment & Plan (1) Medicare annual wellness visit, subsequent: Code(s): Z00.00 - Encounter for general adult medical examination without abnormal findings (2) Thrombocytopenia: Code(s): D69.6 - Thrombocytopenia, unspecified (3) Pancytopenia: Code(s): D61.818 - Other pancytopenia (4) Microcytic anemia: Code(s): D50.9 - Iron deficiency anemia, unspecified (5) CAD (coronary artery disease): Comment: (s/p stented RCA 2009 and circumflex 2013) Code(s): I25.10 - Atherosclerotic heart disease of [place] coronary artery without angina pectoris Qualifiers: Associated angina: without angina Coronary Disease-Associated Artery/Lesion type: [place] artery [place] vs. transplanted heart: [place] heart Qualified Code(s): I25.10 - Atherosclerotic heart disease of [place] coronary artery without angina pectoris (6) Heart failure with reduced ejection fraction: Code(s): I50.20 - Unspecified systolic (congestive) heart failure (7) Difficulty sleeping: Code(s): G47.9 - Sleep disorder, unspecified (8) Anxiety, generalized: Code(s): F41.1 - Generalized anxiety disorder (9) Major depression, recurrent: Code(s): F33.9 - Major depressive disorder, recurrent, unspecified Qualifiers: Active/Remission status: in partial remission Qualified Code(s): F33.41 - Major depressive disorder, recurrent, in partial remission (10) Chronic fatigue: Code(s): R53.82 - Chronic fatigue, unspecified Plan History - The patient is an 84-year-old female presenting for an annual Medicare wellness visit. - Generalized Anxiety Disorder: The patient reports ongoing anxiety issues; She is currently prescribed Lexapro (Escitalopram) but feels it does not alleviate her symptoms. Patient is on 5 mg I am increasing the dose to 10 mg - Chronic Insomnia: The patient has experienced significant sleep disturbances, finding herself unable to sleep at night for approximately three years. She occasionally dozes around 4 PM but describes being wide awake at night. - Anemia: The patient reports having a recent blood test in November, resulting in a low hemoglobin level of 9.8 g/dL. - Mobility Impairment: Despite living on the second floor and occasionally using stairs, she reports needing occasional rests due to leg issues. - chronic Congestive heart failure managed by Cardiology [facility] Problem List - Generalized Anxiety Disorder - Chronic Insomnia - Anemia - Mobility Impairment - chronic Congestive heart failure Patient Instructions - Continue taking Escitalopram at 10 mg daily - Have blood tests done next door today. To monitor anemia - Administer labs as needed and await follow-up discussion regarding low blood count results. - Schedule a follow-up appointment in six months, provided any new concerns arise. - Be cautious of the potential risks of falls; avoid sleeping pills due to this concern. Orders: Orders Comprehensive Met. Panel Today D50.9 - Iron deficiency anemia, unspecified, D61.818 - Other pancytopenia, D69.6 - Thrombocytopenia, unspecified Ferritin Today D50.9 - Iron deficiency anemia, unspecified, D61.818 - Other pancytopenia, D69.6 - Thrombocytopenia, unspecified Folate Today D50.9 - Iron deficiency anemia, unspecified, D61.818 - Other pancytopenia, D69.6 - Thrombocytopenia, unspecified Complete Blood Count Auto Diff Today D50.9 - Iron deficiency anemia, unspecified, D61.818 - Other pancytopenia, D69.6 - Thrombocytopenia, unspecified Vitamin B12 Today D50.9 - Iron deficiency anemia, unspecified, D61.818 - Other pancytopenia, D69.6 - Thrombocytopenia, unspecified Medications: Changed From escitalopram oxalate 5 mg PO DAILY 90 tabs 1RF To escitalopram oxalate 10 mg PO DAILY 90 tabs 1RF Quality Reporting (2019) Depression/Bipolar (159/160/161/177) PHQ-9: Total score: 15 Coding Level of Care Code Medicare Subsequent (G0439) Est Pt Level 4 (11068) Diagnoses Medicare annual wellness visit, subsequent Z00.00 Thrombocytopenia D69.6 Pancytopenia D61.818 Microcytic anemia D50.9 Coronary artery disease involving [place] coronary artery of [place] heart without angina pectoris I25.10 Associated angina: without angina Coronary Disease-Associated Artery/Lesion type: [place] artery [place] vs. transplanted heart: [place] heart Heart failure with reduced ejection fraction I50.20 Difficulty sleeping G47.9 Anxiety, generalized F41.1 Recurrent major depressive disorder, in partial remission F33.41 Active/Remission status: in partial remission Chronic fatigue R53.82 CPT Codes Advance Care Planning - Advance Care Planning discussion: On file, no changes ([id number]) Advance Care Planning - Time spent: 1-15 minutes, on File ([id number]) Additional Codes PHQ-9 - 64726 - PHQ-9 Billing: Yes ([id number]) Advance Care Planning Advance Care Planning discussion: On file, no changes Forms completed: EFRA Time spent: 1-15 minutes, on File
--- OUTSIDE RECORDS SUMMARY | 2025-01-27 15:26 | XMS_ITS | Data Portability ---
Author Organization [facility] [place] [facility], Main Office Address [address], [address] [place] [address] Care Team Providers Care Manager Mail Name Role Phone DAY () OTHER [phone] Assessment Encounter Date Assessment Date Assessment LastModified by Organization Details LastModified Time 03/30/2020 03/30/2020 03/30/20 WBC 5.1, Hgb 11.6, Hct 36.4, Plt 261, Na 141, K 3.1, BUN 10, Conditioner Tumbler 0.60, cari 8.4 no labs noted from [facility] Not available 03/30/2020 13:26:56 04/09/2020 04/09/202004/02 [...] Address Organization Details Recorded Time Mixed hyperlipidemia 433335010 Active 2019 ANNIKA GASPAR [address], [address], [place], [address], [facility] 0 10:31:34 Depressive disorder 44679070 Active 2019 ANNIKA GASPAR [address], [address], [place], [address], [facility] 0 10:31:47 Atrial fibrillation 46600173 Active 2019 ANNIKA GASPAR [address], [address], [place], [address], [facility] 0 10:31:57 Coronary arterioscleros is 20453821 Active 2019 PHIL GASPARP [address], [address], [place], [address], [facility] 0 10:32:06 Gastrointestin al hemorrhage 93063098 Active 2019 PHIL GASPARP [address], [address], [place], [address], [facility] 0 10:33:27 Cardiac pacemaker in situ 014039025 Active 2019 PHIL GASPARP [address], [address], [place], [address], [facility] 0 10:33:50 Bacteremia 9952602 Active 2019 ANNIKA GASPAR [address], [address], [place], [address], [facility] 0 10:34:05 Chronic diastolic heart failure 238698968 Active 2019 ANNIKA GASPAR [address], [address], [place], [address], [facility] 0 10:34:26 Endocarditis 01732399 Active 2019 ANNIKA GASPAR [address], [address], [place], [address], [facility] 0 10:38:11 International normalized ratio above reference range 186208908 Active 2019 PHIL GASPARP [address], [address], [place], [address], [facility] 0 10:48:13 Problem Notes None recorded. Medical Equipment None Reported. Allergies Allergen ID Allergen Name Allergen Category Reaction Reaction Severity Criticality Documentation Date Start Date Code Code System Note Provider Name and Address Organization Details Recorded Time 49059 honey bee venom medicatio n Not available Not available Not available 03/30/2020 42348 7 RxNorm Not Available Not Available Not Available 70656 Iodinated contrast media (substanc e) medicatio n Not available Not available Not available 03/30/2020 13397 2004 SNOMED Not Available Not Available Not Available 73563 Substance with sulfonami de structure and antibacte rial mechanism of action (substanc e) medicatio n Not available Not available Not available 03/30/2020 48450 8003 SNOMED Not Available Not Available Not Available 50200 Product containin g gadoliniu m and/or gadoliniu m compound (product) medicatio n Not available Not available Not available 03/30/2020 40316 3008 SNOMED Not Available Not Available Not Available 23109 codeine medicatio n Not available Not available Not available 03/30/2020 2670 RxNorm Not Available Not Available Not Available 13576 aspirin medicatio n Not available Not available Not available 03/30/2020 1191 RxNorm Not Available Not Available Not Available 98998 capsaicin medicatio n Not available Not available Not available 03/30/2020 1992 RxNorm Not Available Not Available Not Available 16960 methimazo le medicatio n Not available Not available Not available 03/30/2020 6835 RxNorm Not Available Not Available Not Available 40302 ibuprofen medicatio n Not available Not available Not available 03/30/2020 5640 RxNorm Not Available Not Available Not Available 86036 sulfameth oxazole / trimethop rim medicatio n Not available Not available Not available 03/30/2020 07456 RxNorm Not Available Not Available Not Available 61045 clarithro mycin medicatio n Not available Not available Not available 03/30/2020 59804 RxNorm Not Available Not Available Not Available 27984 azithromy johnna medicatio n Not available Not available Not available 03/30/2020 09615 RxNorm Not Available Not Available Not Available 75184 amlodipin e medicatio n Not available Not available Not available 03/30/2020 42812 RxNorm Not Available Not Available Not Available [...] 138 mm[Hg] 72 mm[Hg] ANNIKA GASPAR [address], [address], [place], [address], [facility] 0 10:31:05 Date Recorded Body temperature Oxygen saturation Oxygen saturation in Arterial blood by Pulse oximetry Systolic blood pressure Diastolic blood pressure Provider Name and Address Organization Details Last Updated DateTime 0 97.4 [degF] 97 % 97 % 133 mm[Hg] 81 mm[Hg] Suha Lama MD [address], [address], [place], [address], [facility] 0 11:17:06 Date Recorded Heart rate Respiratory rate Body temperature Oxygen saturation Oxygen saturation in Arterial blood by Pulse oximetry Systolic blood pressure Diastolic blood pressure Provider Name and Address Organization Details Last Updated DateTime 0 88 /min 18 /min 98.3 [degF] 97 % 97 % 140 mm[Hg] 59 mm[Hg] ANNIKA GASPAR [address], [address], [place], [address], [facility] 0 18:40:48 Date Recorded Body height Heart rate Respiratory rate Body temperature Oxygen saturation Oxygen saturation in Arterial blood by Pulse oximetry Systolic blood pressure Diastolic blood pressure Provider Name and Address Organization Details Last Updated DateTime 0 162.56 cm 80 /min 16 /min 98.7 [degF] 96 % 96 % 111 mm[Hg] 57 mm[Hg] MATHEW JONES NP [address], [place], [address], [facility] 0 11:22:47 Social History Question Answer Notes LastModified by Organizat ion Details LastModified Time Tobacco Smoking Status Former Smoker Not Available [facility] 08/03/2020 03:13:20 Do You Have An Advance Directive? No [id number] Information not available 08/03/2020 What Is Your Level Of Alcohol Consumption? Occasional [id number] Information not available 08/03/2020 How Much Tobacco Do You Chew? None [id number] Information not available 08/03/2020 Do You Or Have You Ever Used E-cigarettes Or Vape? Never Used Electronic Cigarettes [id number] Information not available 08/03/2020 Do You Have A Medical Power Of Pocket Operator? No [id number] Information not available 08/03/2020 What Was The Date Of Your Most Recent Tobacco Screening? 03/30/2020 [id number] Information not available 08/03/2020 Do You Or Have You Ever Used Smokeless Tobacco? Never Used Smokeless Tobacco [id number] Information not available 08/03/2020 How Much Tobacco Do You Smoke? 1 PPD [id number] Information not available 08/03/2020 How Many Years Have You Smoked Tobacco? 30 [id number] Information not available 08/03/2020 Sex: Unknown Functional Status None recorded. Mental Status None recorded. Family History Nothing Reported. Medical History No medical history recorded. Gynecological HistoryNo gynecological history recorded. Obstetrics History GPAL:G 0 P 0 0 0 0 Past Encounters Encounter ID Performer Location Encounter Start Date Encounter Closed Date Diagnosis/Indication Diagnosis SNOMED-CT Code Diagnosis ICD10 Code Diagnosis Note [id number] ANNIKA GASPAR [address] [address] [place] [address] 03/30/2020 10:28:16 04/26/2020 16:04:38 Bacteremia 6543997 R78.81 strep viridans bacteremia ceftriaxon e 2 gm qd x 4 weeks to complete on 04/22/20 maintain PICC line monitor labs Gastrointe stinal hemorrhage 52689271 K92.1 omeprazole 40 mg qd need to follow up with gi for EGD monitor for bleeding Chronic di astolic heart failure 856706537 I50.32 NEW DIAGNOSIS FOR PATIENT ACCORDING TO PT low sodium diet valsartan 40 mg bid lasix 40 mg qd monitor fluid balance monitor weights Atrial fibrillation 4943 6004 I48.19 apixaban 5 mg bid-was on coumadin but now apixaban monitor for rate and rhythm Depressive disorder 3548 9007 F32.89 not on medication monitor mood psych eval and treat prn Mixed hyperlipidemia 267 498782 E78.2 not on medication monitor labs Coronary arteriosclerosis 19820671 I25.10 not on medication monitor Cardiac pa cemaker in situ 980308495 Z95.0 noted in history monitor Endocarditis 37769740 I3 9 TTE was negative for endocardit is but treating anyways monitor Internatio nal normalized ratio above reference range 420405562 R79.1 given vitamin K in hospital put on eliquis resolved [id number] Suah Lama MD [address] [address] 03/31/2020 11:16:36 04/27/2020 10:17:27 Atrial fibrillation 53075483 I48.0 apixaban 5 mg bidwill monitor Bacteremia 4175913 R78.8 1 ceftriaxon e 2 gm daily until 04/24/20 Chronic di astolic heart failure 335592026 I50.32 furosemide 40 mg dailyvalsa rtan 40 mg bidwill monitor Gastrointe stinal hemorrhage 89510367 K92.1 with recent elevated INR, correctedo meprazole 40 mg dailyGI fu as outpatient Essential hypertension 33351235 I10 valsartan 40 mg bidwill monitor [id number] ANNIKA GASPAR [address] [address] 04/05/2020 15:24:34 04/26/2020 16:09:08 Bacteremia 5162181 R78.81 strep viridans bacteremia ceftriaxon e 2 gm qd x 4 weeks to complete on 04/22/20 maintain PICC line monitor labs she is going to be discharged sunday after her agreeing to waiting til then services are being set up for her IV Chronic di astolic heart failure 189807671 I50.32 low sodium diet-feels that the food is very high in sodium here valsartan 40 mg bid lasix 40 mg qd monitor fluid balance monitor weights she is asking for new anna stockings- due to what she calls edema on the back of her ankles a new pair are going to be obtained [id number] MATHEW JONES NP [address] [address] 04/09/2020 11:20:16 04/27/2020 12:07:59 Atrial fibrillation 55306124 I48.91 apixaban 5 mg bid will monitor Bacteremia 7799033 R78.8 1 strep viridans bacteremia ceftriaxon e 2 gm qd to complete on 04/24/20 Lactobacil burt 1 qd maintain PICC line monitor labs Chronic di astolic heart failure 796230396 I50.32 valsartan 40 mg bid lasix 40 mg qd monitor fluid balance monitor weights Coronary arteriosclerosis 70134554 I25.10 monitor Depressive disorder 3548 9007 F32.9 monitor mood psych eval and treat prn Endocarditis 46832733 I3 8 TTE was negative for endocardit is but treating anyways monitor Gastrointe stinal hemorrhage 97787590 K92.2 omeprazole 40 mg daily GI fu as outpatient Mixed hyperlipidemia 267 355313 E78.2 monitor labs Health Concerns Section Related Observation LastModified by Organization Detai ls LastModified Time None Recorded Concern Status LastModified by Organization Details LastModified Time None Recorded Advance Directives Directive N: Payers Encounter Date Sequence Insurance Name Policy Number Policy Marroquin Covered Member ID Marroquin Member ID Guarantor Name 03/30/2020 1 [place] [facility] Bobbi Guerrero Victor M [id number] Bobbi Victor M 03/31/2020 1 [place]IC[place] [facility] Bobbi Guerrero Victor M [id number] Bobbi Victor M 04/05/2020 1 [place] [employer] Bobbi M Victor M [id number] Bobbi Victor M 04/09/2020 1 [place] [facility] Bobbi Guerrero Victor M [id number] Bobbi Victor M Notes Date Note Type Note Provider Name and Address Organization Details Recorded Time 03/30/2020 text/html A 79 year old fe male being seen for a initial intake note. Patient went to [facility] with weakness over several weeks and [...] CAD, pacemaker and afib. ANNIKA GASPAR [address], [address], [place], [address], [facility] 03/30/2020 14:02:09 03/31/2020 text/html This 79 year old woman was admitted to [facility] on 03/29/20 for rehab and continued care. She presented to [facility] ER with weakness over several weeks. [...] DNR, DNI, DNH Suha Lama MD [address], [address], [place], [address], [facility] 03/31/2020 11:48:03 04/05/2020 text/html A 79 year old fe male being seen for a acute rounding visit. Patient was upset about wanting to go home. She agreed to stay til sunday but then agreed til sunday due to holiday/vna services. Avella vna will go out on sunday. She is stating the facility has high sodium diet causing her edema (not visible to me) and she would like a new set of teds. She is also requesting a new walker and a script was given to therapy. ANNIKA GASPAR [address], [address], [place], [address], [facility] 04/05/2020 18:46:35 04/09/2020 text/html seen today for discharge-79 yof being seen for discharge summary. Patient went to [facility] er with weakness over several weeks and [...] short term rehab. MATHEW JONES NP [address], [place], [address], [facility] 04/27/2020 12:06:20 OBGyn Episode No OBEpisode recorded.
== END 2025-01-27 13:40 | disposition home or self-care (01) ==
PROVIDERS: PCP Internal Medicine; Visit Provider Internal Medicine
DX: Z00.00 Encounter for general adult medical examination without abnormal findings (principal); D69.6 Thrombocytopenia, unspecified; D61.818 Other pancytopenia; I50.20 Unspecified systolic (congestive) heart failure; F33.41 Major depressive disorder, recurrent, in partial remission; D50.9 Iron deficiency anemia, unspecified; I25.10 Atherosclerotic heart disease of native coronary artery without angina pectoris; G47.9 Sleep disorder, unspecified; F41.1 Generalized anxiety disorder; R53.82 Chronic fatigue, unspecified

== ENCOUNTER 2025-01-27 13:01 | Outpatient (REF) | payer MEDICARE, SELFPAY ==
[2025-01-27 16:10] LABS: MANUAL DIFF FLAG NO
[2025-01-27 16:27] LABS: Basophils Absolute Auto 0.1 X10*3/uL (0.0-0.2); Eosinophils Absolute Auto 0.1 X10*3/uL (0.0-0.4); Eosinophils Percent Auto 1.8 % (0-4); Hematocrit 35.1 % (37.0-47.0); Hemoglobin 11.6 g/dl (12.0-16.0); Imm Gran Abs Auto 0.01 X10*3/uL (0.00-0.03); Imm Gran Pct Auto 0.2 % (0.0-0.4); Lymphocytes Absolute Auto 1.1 X10*3/uL (1.2-4.9); Lymphocytes Percent Auto 21.4 % (20-40); Mean Corpuscular Volume 99.7 fL (80.0-98.0); Mean Platelet Volume 10.8 fL (9.4-12.3); Monocytes Absolute Auto 0.6 X10*3/uL (0.1-1.2); Neutrophils Absolute Auto 3.3 x10*3/uL (2.0-8.3); Neutrophils Percent Auto 64.6 % (45-73); Platelet Count 118 X10*3/uL (160-400); Red Blood Count 3.52 X10*6/uL (4.20-5.50); Red Cell Distribution Width 13.5 % (11.0-16.0); White Blood Count 5.1 X10*3/uL (4.8-10.8)
[2025-01-27 17:08] LABS: Folate 10.3 ng/mL (> or = 4.0); Vitamin B12 512 pg/mL (200-900)
[2025-01-27 20:00] LABS: Alanine Aminotransferase 12 U/L (0-31); Albumin Level 3.9 g/dL (3.5-5.0); Anion Gap 13 (12-20); Aspartate Amino Transferase 36 U/L (5-31); Bilirubin Total 1.9 mg/dL (0.0-1.0); Blood Urea Nitrogen 46 mg/dL (9-16); Carbon Dioxide 30 mmol/L (22-29); Chloride 99 mmol/L (96-108); Estimated Glomerular Filt Rate 44; Glucose Random 99 mg/dL (60-115); Potassium 3.3 mmol/L (3.3-5.1); Sodium 139 mmol/L (135-145); Total Protein 7.3 g/dL (6.5-8.0)
[2025-01-27 20:18] LABS: Alkaline Phosphatase 85 U/L (39-117); Ferritin 91 ng/mL (10-250)
== END 2025-01-27 13:02 | disposition home or self-care (01) ==
LOC: HO.HMGCLDS 13:01
PROVIDERS: PCP Internal Medicine; Visit Provider Internal Medicine
DX: Z00.00 Encounter for general adult medical examination without abnormal findings (principal); D69.6 Thrombocytopenia, unspecified; D61.818 Other pancytopenia; D50.9 Iron deficiency anemia, unspecified; I25.10 Atherosclerotic heart disease of native coronary artery without angina pectoris; I50.20 Unspecified systolic (congestive) heart failure; G47.9 Sleep disorder, unspecified; F41.1 Generalized anxiety disorder; F33.41 Major depressive disorder, recurrent, in partial remission; R53.82 Chronic fatigue, unspecified; Z79.899 Other long term (current) drug therapy
CPT/HCPCS: 36415; 80053; 82607; 82728; 82746; 85025; 96127; 99212

== ENCOUNTER → 2025-03-16 23:59 | Outpatient (BNV) | payer MEDICARE, SELFPAY ==
--- NOTE | 2025-03-17 18:17 | MHC.OFFVIS ---
Intake Visit Reasons: Remote Device Check- [employer] Allergies ibuprofen [IBUPROFEN] Allergy (Severe, Verified 01/27/25 13:05) THROAT LUMP olmesartan [From BENICAR] Allergy (Severe, Verified 01/27/25 13:05) WHEEZING Gadolinium-Containing Contrast Medi [Gadolinium-Containing Agents] Allergy (Mild, Verified 01/27/25 13:05) HIVES Iodinated Contrast Media [IV Dye, Iodine Containing] Allergy (Mild, Verified 01/27/25 13:05) RASH oneil Allergy (Mild, Verified 01/27/25 13:05) RASH Sulfa (Sulfonamide Antibiotics) Allergy (Mild, Verified 01/27/25 13:05) RASH amiodarone [AMIODARONE] Allergy (Unknown, Verified 01/27/25 13:05) THYROID TOXICOSIS amlodipine [From NORVASC] Allergy (Unknown, Verified 01/27/25 13:05) WHEEZING aspirin [ASPIRIN] Allergy (Unknown, Verified 01/27/25 13:05) THROAT LUMP HEAVY WHEEZING, wheezing, wheezing azithromycin [From ZITHROMAX] Allergy (Unknown, Verified 01/27/25 13:05) NAUSEA/VOMITING, nausea and vomiting bee pollen [Bee Stings] Allergy (Unknown, Verified 01/27/25 13:05) EDEMA, ALL INSECT STINGS capsaicin [CAPSAICIN] Allergy (Unknown, Verified 01/27/25 13:05) RASH clopidogrel [From PLAVIX] Allergy (Unknown, Verified 01/27/25 13:05) THROAT LUMP HEAVY WHEEZING diltiazem [Cardizem] Allergy (Unknown, Verified 01/27/25 13:05) rash methimazole [METHIMAZOLE] Allergy (Unknown, Verified 01/27/25 13:05) RASH sulfamethoxazole [From BACTRIM] Allergy (Unknown, Verified 01/27/25 13:05) RASH trimethoprim [From BACTRIM] Allergy (Unknown, Verified 01/27/25 13:05) RASH escitalopram [From Lexapro] Allergy (Verified 01/27/25 13:05) Wheezing clarithromycin [From Biaxin] Adverse Reaction (Mild, Verified 01/27/25 13:05) N/V codeine [Codeine] Adverse Reaction (Mild, Verified 01/27/25 13:05) N/V levofloxacin [From Levaquin] Adverse Reaction (Mild, Verified 01/27/25 13:05) N/V Dye USP Blue 1 Allergy (Unknown, Uncoded 01/27/25 13:05) rash PFSH Medical History History of shelter anticoagulant use (~2009) History of cardiac arrest (~2009) Osteoporosis (~2020) Tubular adenoma of colon (~2000) Pacemaker at end of battery life Blood in urine Superficial bruising of abdominal wall Traumatic ecchymosis of left lower leg Traumatic ecchymosis of left shoulder Traumatic hematoma of head Fall Hip pain, right Abnormal ultrasound of lower extremity AAA (abdominal aortic aneurysm) CAD (coronary artery disease) Cardiac pacemaker in situ (~2009) Mitral regurgitation Tricuspid regurgitation Diverticulosis Ex-smoker Hearing impaired Lactose intolerance History of right breast cancer (~1992) Hypertension, essential Atrial fibrillation, chronic (~2009) Surgical History History of colonoscopy History of hand surgery History of heart artery stent History of pacemaker History of lumpectomy History of cardiac cath History of cardioversion History of eye surgery Family History Father CVD (cardiovascular disease) Mother CVD (cardiovascular disease) Myocardial infarction Maternal Grandmother Unknown family medical history Maternal Grandfather No problems noted. Paternal Grandfather CVD (cardiovascular disease) Paternal Grandmother No problems noted. Child No Financial Resp No problems noted. Social History Household Members: Children Housing: House Are you a primary manager care management to a significant other at home: No Do you presently have visiting nurse or other home services: No Alcohol intake: never Patient Tobacco Use Status: Former Tobacco user Tobacco use type: Cigarette Years Smoked: 40 e-Cigarette/Vaping Use: Never Used Advance Directives Date on File: 10/29/17 service: No Current occupational status: retired Cognitive needs: No Hearing needs: Yes (deaf in right ear, left ear has a hearing aid) Vision needs: Yes Office Procedures Cardiac Device Check Cardiac Device Check Details: Remote pacemaker report generated 03/16/2025. Pacemaker function is adequate [id number] Cardiac Device Interrogation, pacemaker Procedure code (CPT) selection complete Assessment & Plan Assessment & Plan (1) Cardiac pacemaker in situ: Onset Date: ~2009 Comment: (single-chamber Medtronic - DCPP placed 2009 - now VVI - replaced 2022) Code(s): Z95.0 - Presence of cardiac pacemaker Category: Medical Plan: See above Coding Level of Care Code Procedure Only Diagnoses Cardiac pacemaker in situ Z95.0 CPT Codes Cardiac Device Check - Cardiac Device 12: [id number] Cardiac Device Interrogation, pacemaker ([id number])
== END ==
PROVIDERS: PCP Internal Medicine; Visit Provider Internal Medicine Cardiovascular Disease
DX: Z45.018 Encounter for adjustment and management of other part of cardiac pacemaker (principal)
CPT/HCPCS: 93294

== ENCOUNTER 2025-03-23 14:25 | Outpatient (AMB) | payer MEDICARE, SELFPAY ==
--- NOTE | 2025-03-23 14:31 | A.OFFVIS_ITS ---
VS Expanded 03/23/25 14:32 Height 5 ft 4 in Weight 117 lb 11.629 oz BMI 20.2 Intake Visit Reasons: Heart failure Allergies ibuprofen (IBUPROFEN) Allergy (Severe, Verified 01/27/25 13:05) THROAT LUMP olmesartan (From BENICAR) Allergy (Severe, Verified 01/27/25 13:05) WHEEZING Gadolinium-Containing Contrast Medi (Gadolinium-Containing Agents) Allergy (Mild, Verified 01/27/25 13:05) HIVES Iodinated Contrast Media (IV Dye, Iodine Containing) Allergy (Mild, Verified 01/27/25 13:05) RASH oneil Allergy (Mild, Verified 01/27/25 13:05) RASH Sulfa (Sulfonamide Antibiotics) Allergy (Mild, Verified 01/27/25 13:05) RASH amiodarone (AMIODARONE) Allergy (Unknown, Verified 01/27/25 13:05) THYROID TOXICOSIS amlodipine (From NORVASC) Allergy (Unknown, Verified 01/27/25 13:05) WHEEZING aspirin (ASPIRIN) Allergy (Unknown, Verified 01/27/25 13:05) THROAT LUMP HEAVY WHEEZING, wheezing, wheezing azithromycin (From ZITHROMAX) Allergy (Unknown, Verified 01/27/25 13:05) NAUSEA/VOMITING, nausea and vomiting bee pollen (Bee Stings) Allergy (Unknown, Verified 01/27/25 13:05) EDEMA, ALL INSECT STINGS capsaicin (CAPSAICIN) Allergy (Unknown, Verified 01/27/25 13:05) RASH clopidogrel (From PLAVIX) Allergy (Unknown, Verified 01/27/25 13:05) THROAT LUMP HEAVY WHEEZING diltiazem (Cardizem) Allergy (Unknown, Verified 01/27/25 13:05) rash methimazole (METHIMAZOLE) Allergy (Unknown, Verified 01/27/25 13:05) RASH sulfamethoxazole (From BACTRIM) Allergy (Unknown, Verified 01/27/25 13:05) RASH trimethoprim (From BACTRIM) Allergy (Unknown, Verified 01/27/25 13:05) RASH escitalopram (From Lexapro) Allergy (Verified 01/27/25 13:05) Wheezing clarithromycin (From Biaxin) Adverse Reaction (Mild, Verified 01/27/25 13:05) N/V codeine (Codeine) Adverse Reaction (Mild, Verified 01/27/25 13:05) N/V levofloxacin (From Levaquin) Adverse Reaction (Mild, Verified 01/27/25 13:05) N/V Dye [facility] Blue 1 Allergy (Unknown, Uncoded 01/27/25 13:05) rash Nutrition Presentation Details: Pt presents for MNT related to heart failure Pt's main concern is needing assistance with meal preparation due to chronic fatigue pt reports doing her best at preparing meals but becomes easily fatigue Pt verbalizes imp of low sodium food choices and nutrient dense foods. Pt reports she has 2-3 meals/day, and tries her best B: sand (cheese, butter or low sodium deli turkey or low suar cereal and milk 1% L: sand and cup of milk or muffin and milk D: frozen meal or sand or potpie, juice snack: fruits /crackers/yogurt/ cake food frequency fruit:0-1 dairy 2 -3 /d ve-2/d fish: 1/wk starches 12-15/d smoking denies etoh denies physical activity ADL Today we discussed home delivered meal services and referral was made online with Patients's consent to [facility] services (tel # ) List of meal supplements was provided (high protein ensure ) BS Monitoring Most Recent Diabetes Results: Creatinine, (0.5-1.4) 1.18 mg/dL 01/27/25 BUN, (9-16) 46 mg/dL H 01/27/25 Sodium, (135-145) 139 mmol/L 01/27/25 Potassium, (3.3-5.1) 3.3 mmol/L 01/27/25 Chloride, (96-108) 99 mmol/L 01/27/25 Carbon Dioxide, (22-29) 30 mmol/L H 01/27/25 Calcium, (8.4-10.2) 9.0 mg/dL 01/27/25 AST, (5-31) 36 U/L H 01/27/25 ALT, (0-31) 12 U/L 01/27/25 Total Protein, (6.5-8.0) 7.3 g/dL 01/27/25 Albumin, (3.5-5.0) 3.9 g/dL 01/27/25 [facility] Medical History 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) History of cardiac arrest (~2009) Osteoporosis (~2020) Tubular adenoma of colon (~2000) Pacemaker at end of battery life Blood in urine Superficial bruising of abdominal wall Traumatic ecchymosis of left lower leg Traumatic ecchymosis of left shoulder Traumatic hematoma of head Fall Hip pain, right Abnormal ultrasound of lower extremity AAA (abdominal aortic aneurysm) CAD (coronary artery disease) Cardiac pacemaker in situ (~2009) Mitral regurgitation Tricuspid regurgitation Diverticulosis Ex-smoker Hearing impaired Lactose intolerance History of right breast cancer (~1992) Hypertension, essential Atrial fibrillation, chronic (~2009) Surgical History History of colonoscopy History of hand surgery History of heart artery stent History of pacemaker History of lumpectomy History of cardiac cath History of cardioversion History of eye surgery Family History Father CVD (cardiovascular disease) Mother CVD (cardiovascular disease) Myocardial infarction Maternal Grandmother Unknown family medical history Maternal Grandfather No problems noted. Paternal Grandfather CVD (cardiovascular disease) Paternal Grandmother No problems noted. Child No Financial Resp No problems noted. Social History Household Members: Children Housing: House Are you a primary caretaker grounds to a significant other at home: No Do you presently have visiting nurse or other home services: No Alcohol intake: never Patient Tobacco Use Status: Former Tobacco user Tobacco use type: Cigarette Years Smoked: 40 e-Cigarette/Vaping Use: Never Used Advance Directives Date on File: 10/29/17 service: No Current occupational status: retired Cognitive needs: No Hearing needs: Yes (deaf in right ear, left ear has a hearing aid) Vision needs: Yes Assessment & Plan Assessment & Plan (1) Heart failure with reduced ejection fraction: Code(s): I50.20 - Unspecified systolic (congestive) heart failure Category: Medical Plan: Wt: 53 Kg ( 04/01 ) Est kcal needs as per MSJ: 1400 (40% carb, 30% protein/fat) Est fluid needs as per 25-30 ml/d: 1400 Est prot per day as per 1 g/kg bw: 50 -60 Recommend fiber intake : 8-10 g per day and gradually increase as tolerated Recommend sodium intake per day : less than 1500 mg Educated patient on: ( R = reviewed V = verbalizes understanding N/R = needs review N/A = not applicable * Healthy plate method concept: R V * low sodium food concepts: RV * REferral to home delivered meals services made 03/2025 Patient Instructions: - referral to home delivered meals provided ([facility] and [facility] - Choose low sodium soft, protein foods foods (lactose free/low sodium cottage cheese as example , scrambled eggs, yogurts with fruits) call for questions reo concerns Coding Level of Care Code Nutr Indiv Intake (24622) Diagnoses Heart failure with reduced ejection fraction I50.20 Time Spent (min) 30
[2025-03-23 14:32] VITALS: BMI 20.2
--- OUTSIDE RECORDS SUMMARY | 2025-03-23 16:07 | XMS_ITS | Data Portability ---
Author Organization [facility] [employer] [facility], Main Office Address [address] [place] [address] Care Team Providers Care Rescue Boat Operator Name Role Phone DAY () OTHER [phone] Assessment Encounter Date Assessment Date Assessment LastModified by Organization Details LastModified Time 03/30/2020 03/30/2020 03/30/20 WBC 5.1, Hgb 11.6, Hct 36.4, Plt 261, Na 141, K 3.1, BUN 10, Nipple Maker 0.60, cari 8.4 no labs noted from [facility] Not available 03/30/2020 13:26:56 04/09/2020 04/09/202004/02 [...] Address Organization Details Recorded Time Mixed hyperlipidemia 263771402 Active 2019 ANNIKA GASPAR [address] [facility] [facility], [place], [address], [facility] 0 10:31:34 Depressive disorder 14689236 Active 2019 ANNIKA GASPAR [address], [address], [place], [address], [facility] 0 10:31:47 Atrial fibrillation 08468224 Active 2019 ANNIKA GASPAR [address], [address], [place], [address], [facility] 0 10:31:57 Coronary arterioscleros is 55146177 Active 2019 PHIL GASPARP [address], [address], [place], [address], [facility] 0 10:32:06 Gastrointestin al hemorrhage 28056973 Active 2019 PHIL GASPARP [address], [address], [place], [address], [facility] 0 10:33:27 Cardiac pacemaker in situ 646078978 Active 2019 PHIL GASPARP [address], [address], [place], [address], [facility] 0 10:33:50 Bacteremia 8025285 Active 2019 ANNIKA GASPAR [address], [address], [place], [address], [place] [facility] 0 10:34:05 Chronic diastolic heart failure 399913267 Active 2019 ANNIKA GASPAR [address], [address], [place], [address], [facility] 0 10:34:26 Endocarditis 05029350 Active 2019 ANNIKA GASPAR [address], [address], [place], [address], [facility] 0 10:38:11 International normalized ratio above reference range 157953281 Active 2019 PIHL GASPARP [address], [place], [address], [facility] 0 10:48:13 Problem Notes None recorded. Medical Equipment None Reported. Allergies Allergen ID Allergen Name Allergen Category Reaction Reaction Severity Criticality Documentation Date Start Date Code Code System Note Provider Name and Address Organization Details Recorded Time 77450 honey bee venom medicatio n Not available Not available Not available 03/30/2020 15283 7 RxNorm FILIPPO RAMIREZ, RESOURCE PROTECTION SPECIALIST [address], [address], [place], [address], [facility] 0 10:54:22 17200 Iodinated contrast media (substanc e) medicatio n Not available Not available Not available 03/30/2020 08900 2004 SNOMED FILIPPO RAMIREZ, RESOURCE PROTECTION SPECIALIST [address], [address], [place], [address], [facility] 0 10:54:46 77602 Substance with sulfonami de structure and antibacte rial mechanism of action (substanc e) medicatio n Not available Not available Not available 03/30/2020 36388 8003 SNOMED FILIPPO RAMIREZ, RESOURCE PROTECTION SPECIALIST [address], [address], [place], [address], [facility] 0 10:55:05 92404 Product containin g gadoliniu m and/or gadoliniu m compound (product) medicatio n Not available Not available Not available 03/30/2020 38566 3008 SNOMED FILIPPO ASHLEY, RESOURCE PROTECTION SPECIALIST [address], [address], [place], [address], [facility] 0 10:55:21 95377 codeine medicatio n Not available Not available Not available 03/30/2020 2670 RxNorm FILIPPO ASHLEY, RESOURCE PROTECTION SPECIALIST [address], [address], [place], [address], [facility] 0 10:55:37 46976 aspirin medicatio n Not available Not available Not available 03/30/2020 1191 RxNorm FILIPPO ASHLEY, RESOURCE PROTECTION SPECIALIST [address], [address], [place], [address], [facility] 0 10:56:04 20830 capsaicin medicatio n Not available Not available Not available 03/30/2020 1992 RxNorm FILIPPO ASHLEY, RESOURCE PROTECTION SPECIALIST [address], [address], [place], [address], [facility] 0 10:56:39 93793 methimazo le medicatio n Not available Not available Not available 03/30/2020 6835 RxNorm FILIPPO RAMIREZ, RESOURCE PROTECTION SPECIALIST [address], [address], [place], [address], [facility] [employer] 0 10:57:27 24376 ibuprofen medicatio n Not available Not available Not available 03/30/2020 5640 RxNorm FILIPPO RAMIREZ, RESOURCE PROTECTION SPECIALIST [address], [place], [address], [facility] 0 10:57:38 18023 sulfameth oxazole / trimethop rim medicatio n Not available Not available Not available 03/30/2020 73906 RxNorm FILIPPO RAMIREZ, RESOURCE PROTECTION SPECIALIST [address], [address], [place], [address], [facility] 0 11:01:11 81561 clarithro mycin medicatio n Not available Not available Not available 03/30/2020 20639 RxNorm FILIPPO RAMIREZ, RESOURCE PROTECTION SPECIALIST [address], [address], [place], [address], [facility] 0 11:01:20 99205 azithromy johnna medicatio n Not available Not available Not available 03/30/2020 56649 RxNorm FILIPPO RAMIREZ, RESOURCE PROTECTION SPECIALIST [address], [address], [place], [address], [facility] 0 11:01:29 13626 amlodipin e medicatio n Not available Not available Not available 03/30/2020 69712 RxNorm FILIPPO RAMIREZ, RESOURCE PROTECTION SPECIALIST [address], [address], [place], [address], [facility] 0 11:01:36 Medications Not known to be on any medication Vitals Date Recorded Body temperature Heart rate Respiratory rate Oxygen saturation Oxygen saturation in Arterial blood by Pulse oximetry Systolic blood pressure Diastolic blood pressure Provider Name and Address Organization Details Last Updated DateTime 0 97.6 [degF] 72 /min 18 /min 95 % 95 % 138 mm[Hg] 72 mm[Hg] ANNIKA GASPAR [address] [facility] [address], [place], [address], [facility] 0 10:31:05 Date Recorded Body temperature Oxygen saturation Oxygen saturation in Arterial blood by Pulse oximetry Systolic blood pressure Diastolic blood pressure Provider Name and Address Organization Details Last Updated DateTime 0 97.4 [degF] 97 % 97 % 133 mm[Hg] 81 mm[Hg] Suha Lama MD [address] [facility], [place], [address], [facility] 0 11:17:06 Date Recorded Heart rate Respiratory rate Body temperature Oxygen saturation Oxygen saturation in Arterial blood by Pulse oximetry Systolic blood pressure Diastolic blood pressure Provider Name and Address Organization Details Last Updated DateTime 0 88 /min 18 /min 98.3 [degF] 97 % 97 % 140 mm[Hg] 59 mm[Hg] ANNIKA GASPAR [address] [facility], [place], [address], [facility] 0 18:40:48 Date Recorded Body height Heart rate Respiratory rate Body temperature Oxygen saturation Oxygen saturation in Arterial blood by Pulse oximetry Systolic blood pressure Diastolic blood pressure Provider Name and Address Organization Details Last Updated DateTime 0 162.56 cm 80 /min 16 /min 98.7 [degF] 96 % 96 % 111 mm[Hg] 57 mm[Hg] MATHEW JONES NP [address] [facility], [place], [address], [facility] 0 11:22:47 Social History Question Answer Notes LastModified by Organizat ion Details LastModified Time Tobacco Smoking Status Former Smoker Not Available [employer] 08/03/2020 03:13:20 Do You Have An Advance Directive? No [id number] Information not available 08/03/2020 How Much Tobacco Do You Chew? None [id number] Information not available 08/03/2020 Do You Have A Medical Power Of Maxillofacial Pathology? No [id number] Information not available 08/03/2020 What Was The Date Of Your Most Recent Tobacco Screening? 03/30/2020 [id number] Information not available 08/03/2020 How Much Tobacco Do You Smoke? 1 PPD [id number] Information not available 08/03/2020 How Many Years Have You Smoked Tobacco? 30 [id number] Information not available 08/03/2020 Sex: Unknown Functional Status Question Answer Note LastModified by Organizat ion Details LastModified Time What is your level of alcohol consumption? Occasional [id number] Information not available 08/03/2020 Do you or have you ever used smokeless tobacco? Never used smokeless tobacco [id number] Information not available 08/03/2020 Do you or have you ever used e-cigarettes or vape? Never used electronic cigarettes [id number] Information not available 08/03/2020 Mental Status None recorded. Family History Nothing Reported. Medical History No medical history recorded. Gynecological HistoryNo gynecological history recorded. Obstetrics History GPAL:G 0 P 0 0 0 0 Past Encounters Encounter ID Performer Location Encounter Start Date Encounter Closed Date Diagnosis/Indication Diagnosis SNOMED-CT Code Diagnosis ICD10 Code Diagnosis Note [id number] ANNIKA GASPAR [address] [place] [address] 03/30/2020 10:28:16 04/26/2020 16:04:38 Bacteremia 9568787 R78.81 strep viridans bacteremia ceftriaxon e 2 gm qd x 4 weeks to complete on 04/22/20 maintain PICC line monitor labs Gastrointe stinal hemorrhage 01362302 K92.1 omeprazole 40 mg qd need to follow up with gi for EGD monitor for bleeding Chronic di astolic heart failure 904375421 I50.32 NEW DIAGNOSIS FOR PATIENT ACCORDING TO PT low sodium diet valsartan 40 mg bid lasix 40 mg qd monitor fluid balance monitor weights Atrial fibrillation 4943 6004 I48.19 apixaban 5 mg bid-was on coumadin but now apixaban monitor for rate and rhythm Depressive disorder 3548 9007 F32.89 not on medication monitor mood psych eval and treat prn Mixed hyperlipidemia 267 193617 E78.2 not on medication monitor labs Coronary arteriosclerosis 83425101 I25.10 not on medication monitor Cardiac pa cemaker in situ 224515359 Z95.0 noted in history monitor Endocarditis 29480081 I3 9 TTE was negative for endocardit is but treating anyways monitor Internatio nal normalized ratio above reference range 053629821 R79.1 given vitamin K in hospital put on eliquis resolved [id number] Suah Lama MD [address] [place] [address] 03/31/2020 11:16:36 04/27/2020 10:17:27 Atrial fibrillation 59036773 I48.0 apixaban 5 mg bidwill monitor Bacteremia 5429034 R78.8 1 ceftriaxon e 2 gm daily until 04/24/20 Chronic di astolic heart failure 823470630 I50.32 furosemide 40 mg dailyvalsa rtan 40 mg bidwill monitor Gastrointe stinal hemorrhage 09863651 K92.1 with recent elevated INR, correctedo meprazole 40 mg dailyGI fu as outpatient Essential hypertension 28526286 I10 valsartan 40 mg bidwill monitor [id number] ANNIKA GASPAR [address] [address] 04/05/2020 15:24:34 04/26/2020 16:09:08 Bacteremia 4695283 R78.81 strep viridans bacteremia ceftriaxon e 2 gm qd x 4 weeks to complete on 04/22/20 maintain PICC line monitor labs she is going to be discharged sunday after her agreeing to waiting til then services are being set up for her IV Chronic di astolic heart failure 909000477 I50.32 low sodium diet-feels that the food is very high in sodium here valsartan 40 mg bid lasix 40 mg qd monitor fluid balance monitor weights she is asking for new anna stockings- due to what she calls edema on the back of her ankles a new pair are going to be obtained [id number] MATHEW JONES NP [address] [address] 04/09/2020 11:20:16 04/27/2020 12:07:59 Atrial fibrillation 35428708 I48.91 apixaban 5 mg bid will monitor Bacteremia 6916664 R78.8 1 strep viridans bacteremia ceftriaxon e 2 gm qd to complete on 04/24/20 Lactobacil burt 1 qd maintain PICC line monitor labs Chronic di astolic heart failure 968670791 I50.32 valsartan 40 mg bid lasix 40 mg qd monitor fluid balance monitor weights Coronary arteriosclerosis 37819453 I25.10 monitor Depressive disorder 3548 9007 F32.9 monitor mood psych eval and treat prn Endocarditis 68897847 I3 8 TTE was negative for endocardit is but treating anyways monitor Gastrointe stinal hemorrhage 86719109 K92.2 omeprazole 40 mg daily GI fu as outpatient Mixed hyperlipidemia 267 731414 E78.2 monitor labs Health Concerns Section Related Observation LastModified by Organization Detai ls LastModified Time None Recorded Concern Status LastModified by Organization Details LastModified Time None Recorded Advance Directives Directive N: Payers Insurance Date Sequence Insurance Name Policy Number Policy Marroquin Covered Member ID Marroquin Member ID Guarantor Name 05/15/2020 2 [place] [id number] Bobbi Victor M [id number] Bobbi Victor M 04/26/2020 1 [place] [employer] Bobbi M Victor M [id number] Bobbi Victor M 04/23/2020 2 [place] [id number] Bobbi Victor M [id number] Bobbi Victor M Notes Date Note Type Note Provider Name and Address Organization Details Recorded Time 03/30/2020 text/html A 79 year old fe male being seen for a initial intake note. [place] [facility] [place] weakness over several weeks and [...] CHF, hyperlipidemia, depression, CAD, pacemaker and afib. FILIPPO RAMIREZ, RESOURCE PROTECTION SPECIALIST [address] [place] [address] [address], [place], [address], [facility] 03/30/2020 14:02:09 03/31/2020 text/html This 79 year old woman was admitted to [facility] on 03/29/20 for rehab and continued care. She presented to [facility] ER with weakness over several weeks. She [...] DNR, DNI, DNH Suha Lama MD [address] [facility], [place], [address], [facility] 03/31/2020 11:48:03 04/05/2020 text/html A 79 year old fe male being seen for a acute rounding visit. Patient was upset about wanting to go home. She agreed to stay til sunday but then agreed til sunday due to holiday/[facility]. [facility] is stating the facility has high sodium diet causing her edema (not visible to me) and she would like a new set of teds. She is also requesting a new walker and a script was given to therapy. ANNIKA GASPAR [address] [facility], [place], [address], [facility] 04/05/2020 18:46:35 04/09/2020 text/html seen today for discharge-79 yof being seen for discharge summary. [place] [facility] [place] weakness over several weeks and [...] short term rehab. MATHEW JONES NP [address] [facility], [place], [address], [facility] 04/27/2020 12:06:20 OBGyn Episode No OBEpisode recorded.
== END 2025-03-23 15:00 | disposition home or self-care (01) ==
LOC: HO.ENCR 14:25
PROVIDERS: PCP Internal Medicine; Visit Provider Dietitian, Registered
DX: I50.20 Unspecified systolic (congestive) heart failure (principal)

== ENCOUNTER → 2025-03-23 14:25 | Outpatient (BNVA) | payer MEDICARE, SELFPAY | PROVIDERS: PCP Internal Medicine; Visit Provider Dietitian, Registered | DX: I50.20 Unspecified systolic (congestive) heart failure (principal) | CPT/HCPCS: 97802 ==

== ENCOUNTER 2025-04-09 14:17 | Outpatient (AMB) | payer MEDICARE, SELFPAY ==
[2025-04-09 14:21] VITALS: BP 108/52; PULSE 69
--- NOTE | 2025-04-09 14:21 | MHC.OFFVIS ---
Vital Signs 04/09/25 14:21 Height 5 ft 4 in BP 108/52 L Blood Pressure Location Lt brachial Position Sitting Pulse 69 Pulse Source Monitor Intake Visit Reasons: 3 mth f/up rehab/ labs Program Management Intern Required: No Needle Felt Making Machine Operator: Needle Felt Making Machine Operator Present Allergies ibuprofen (IBUPROFEN) Allergy (Severe, Verified 04/09/25 14:24) THROAT LUMP olmesartan (From BENICAR) Allergy (Severe, Verified 04/09/25 14:24) WHEEZING Gadolinium-Containing Contrast Medi (Gadolinium-Containing Agents) Allergy (Mild, Verified 04/09/25 14:24) HIVES Iodinated Contrast Media (IV Dye, Iodine Containing) Allergy (Mild, Verified 04/09/25 14:24) RASH oneil Allergy (Mild, Verified 04/09/25 14:24) RASH Sulfa (Sulfonamide Antibiotics) Allergy (Mild, Verified 04/09/25 14:24) RASH amiodarone (AMIODARONE) Allergy (Unknown, Verified 04/09/25 14:24) THYROID TOXICOSIS amlodipine (From NORVASC) Allergy (Unknown, Verified 04/09/25 14:24) WHEEZING aspirin (ASPIRIN) Allergy (Unknown, Verified 04/09/25 14:24) THROAT LUMP HEAVY WHEEZING, wheezing, wheezing azithromycin (From ZITHROMAX) Allergy (Unknown, Verified 04/09/25 14:24) NAUSEA/VOMITING, nausea and vomiting bee pollen (Bee Stings) Allergy (Unknown, Verified 04/09/25 14:24) EDEMA, ALL INSECT STINGS capsaicin (CAPSAICIN) Allergy (Unknown, Verified 04/09/25 14:24) RASH clopidogrel (From PLAVIX) Allergy (Unknown, Verified 04/09/25 14:24) THROAT LUMP HEAVY WHEEZING diltiazem (Cardizem) Allergy (Unknown, Verified 04/09/25 14:24) rash methimazole (METHIMAZOLE) Allergy (Unknown, Verified 04/09/25 14:24) RASH sulfamethoxazole (From BACTRIM) Allergy (Unknown, Verified 04/09/25 14:24) RASH trimethoprim (From BACTRIM) Allergy (Unknown, Verified 04/09/25 14:24) RASH escitalopram (From Lexapro) Allergy (Verified 04/09/25 14:24) Wheezing clarithromycin (From Biaxin) Adverse Reaction (Mild, Verified 04/09/25 14:24) N/V codeine (Codeine) Adverse Reaction (Mild, Verified 04/09/25 14:24) N/V levofloxacin (From Levaquin) Adverse Reaction (Mild, Verified 04/09/25 14:24) N/V Dye CUSTODIAL Blue 1 Allergy (Unknown, Uncoded 04/09/25 14:24) rash Medication List - Last Reconciled 04/09/25 by Leonard Smart MD bumetanide 2 mg PO DAILY escitalopram oxalate 10 mg PO DAILY metolazone 2.5 mg PO DAILY PRN HPI Comments Details: Bobbi comes for follow-up accompanied by her daughter. She continues to have progressive symptoms of worsening exertional shortness of breath. Also has balance issues. Has significantly reduced activity level at this point time. Denies any palpitations. No bleeding issues or neurologic events at this point time. Also complains of increasing orthopnea. Overall says not doing well. Denies lightheadedness, syncope. 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) History of cardiac arrest (~2009) Osteoporosis (~2020) Tubular adenoma of colon (~2000) Pacemaker at end of battery life Blood in urine Superficial bruising of abdominal wall Traumatic ecchymosis of left lower leg Traumatic ecchymosis of left shoulder Traumatic hematoma of head Fall Hip pain, right Abnormal ultrasound of lower extremity AAA (abdominal aortic aneurysm) CAD (coronary artery disease) Cardiac pacemaker in situ (~2009) Mitral regurgitation Tricuspid regurgitation Diverticulosis Ex-smoker Hearing impaired Lactose intolerance History of right breast cancer (~1992) Hypertension, essential Atrial fibrillation, chronic (~2009) Surgical History History of colonoscopy History of hand surgery History of heart artery stent History of pacemaker History of lumpectomy History of cardiac cath History of cardioversion History of eye surgery Family History Father CVD (cardiovascular disease) Mother CVD (cardiovascular disease) Myocardial infarction Maternal Grandmother Unknown family medical history Maternal Grandfather No problems noted. Paternal Grandfather CVD (cardiovascular disease) Paternal Grandmother No problems noted. Child No Financial Resp No problems noted. Social History Household Members: Children Housing: House Are you a primary managed care nurse to a significant other at home: No Do you presently have visiting nurse or other home services: No Alcohol intake: never Patient Tobacco Use Status: Former Tobacco user Tobacco use type: Cigarette Years Smoked: 40 e-Cigarette/Vaping Use: Never Used Advance Directives Date on File: 10/29/17 service: No Current occupational status: retired Cognitive needs: No Hearing needs: Yes (deaf in right ear, left ear has a hearing aid) Vision needs: Yes Review of Systems ENT Reports dizziness Card Denies chest pain, Denies chest pain at rest, Denies chest pain with activity, Denies rapid heart rate, Denies pedal edema, Denies edema, Denies leg edema, Denies lightheadedness, Denies palpitations, Denies dyspnea, Denies dyspnea on exertion and Denies orthopnea Resp Denies cough, Denies dyspnea and Denies dyspnea on exertion GI Denies hematochezia and Denies change in stool character Musc Denies abnormal gait, Reports limited range of motion, Reports muscle cramps, Denies muscle weakness, Denies numbness, Denies radiating pain into limb, Denies stiffness and Denies tingling Neuro Denies abnormal gait, Reports dizziness, Denies numbness and Denies tingling Endo Denies palpitations Physical Exam Vital Signs: Last Vital Signs Pulse 69 04/09/25 14:21 BP 108/52 L 04/09/25 14:21 Const General: cooperative, comfortable and no acute distress Nutritional Appearance: thin and other (Frail elderly woman) Orientation/consciousness: patient oriented x3 Neck Other: Pulsation of neck vein, likely V wave from TR Neck: Yes normal visual inspection and Yes JVD Resp Effort & Inspection: normal respiratory effort Auscultation: clear to auscultation bilaterally, no crackles, no rales, no rhonchi and no wheezes Cardio Rate: regular rate Rhythm: abnormal rhythm Heart sounds: S1 normal heart sound present, S2 normal heart sound present, no gallops, Murmur heart sound present (Systolic murmur in mitral position) systolic holo and no rubs Peripheral pulses: Peripheral pulses 2+ throughout GI Inspection: Yes Abdominal wall edema Neuro General: patient oriented x3 Extrem Other: Trace pitting edema in each lower leg, left upper leg General: Yes normal to inspection, No clubbing, No cyanosis and Yes edema Psych Appearance: grossly normal Mental Status: mental status grossly normal Speech and movement: Normal speech and movement present Office Procedures Cardiac Device Check Cardiac Device Check Details: Single-chamber Medtronic pacemaker in place. Programmed in VVI at 60 beats per minute. Ventricular pacing 44% of the time. Ventricular sensing is adequate. Ventricular pacing thresholds adequate. Pacing lead impedance is stable. Battery life is at 11 years [id number] Cardiac Device Check, leadless/single lead pacemaker Procedure code (CPT) selection complete EKG Details: EKG shows atrial fibrillation with PVCs with intermittent ventricular pacing [id number], Complete Assessment & Plan Assessment & Plan (1) Heart failure with reduced ejection fraction: Code(s): I50.20 - Unspecified systolic (congestive) heart failure Category: Medical Plan: Progressive heart failure syndrome in this elderly woman with multiple comorbidities including advancing age, frailty and deconditioning as well as significant LV systolic dysfunction with chronic atrial fibrillation severe tricuspid regurgitation as well as mitral regurgitation. Overall prognosis guarded and long-term prognosis is poor. Management was discussed. I have advised her to increase her bumetanide to 2 mg twice a day and take metolazone as need be when she is fluid gain. She understands management of this well. At this point time goals of therapy were discussed. Advised to continue pursue cardiac rehab. Maintain activity level as tolerated. Avoidance of hospitalization was discussed. She currently has advanced directive with do not resuscitate. (2) CAD (coronary artery disease): Comment: (s/p stented RCA 2009 and circumflex 2013) Code(s): I25.10 - Atherosclerotic heart disease of [place] coronary artery without angina pectoris Category: Medical Qualifiers: Coronary Disease-Associated Artery/Lesion type: [place] artery [place] vs. transplanted heart: [place] heart Associated angina: without angina Qualified Code(s): I25.10 - Atherosclerotic heart disease of [place] coronary artery without angina pectoris Plan: Remote CAD with no current symptoms. No change in therapy and no further workup at this point in time despite LV systolic dysfunction as this is not going to change her management much. Continue current medical therapy. Currently not on statin therapy because of her choice. (3) Atrial fibrillation, chronic: Onset Date: ~2009 Code(s): I48.20 - Chronic atrial fibrillation, unspecified Category: Medical Plan: Chronic atrial fibrillation, rate controlled. Significantly biatrial enlargement significant valvular abnormality precludes rhythm management. Currently not on any rate control medication rate is adequately controlled. Have discussed oral anticoagulation in the past but she continues to refuse it at this point time with a prior history of GI bleed. High risk for thromboembolic complication she understands that. (4) Cardiac pacemaker in situ: Onset Date: ~2009 Comment: (single-chamber Medtronic - DCPP placed 2009 - now VVI - replaced 2022) Code(s): Z95.0 - Presence of cardiac pacemaker Category: Medical Plan: Cardiac pacemaker in-situ, working well. Will follow-up in 3 months time. Follow up in the clinic in 3 months time. Greater than 30 minutes was spent in managing his complex care. Orders: Orders Magnesium Today I50.9 - Heart failure, unspecified Basic Metabolic Panel Today I50.9 - Heart failure, unspecified Coding Level of Care Code Est Pt Level 5 (49724) Complex EM visit Add On G2211 Diagnoses Heart failure with reduced ejection fraction I50.20 Coronary artery disease involving [place] coronary artery of [place] heart without angina pectoris I25.10 Coronary Disease-Associated Artery/Lesion type: [place] artery [place] vs. transplanted heart: [place] heart Associated angina: without angina Atrial fibrillation, chronic I48.20 Cardiac pacemaker in situ Z95.0 CPT Codes Cardiac Device Check - Cardiac Device 1: [id number] Cardiac Device Check, leadless/single lead pacemaker ([id number]) EKG - CPT: 59976-[id number], Complete ([id number])
--- OUTSIDE RECORDS SUMMARY | 2025-04-09 14:21 | XMS_ITS | Patient Health Record ---
Author Organization [facility] Address [address] [place] [address] Care Team Providers Care Dicer Operator Name Role Phone Sourav SHIN, [facility] Primary [facility] Provider Terri Flowers Unavailable [phone] Allergies Allergen (clinical drug ingredient) Drug/Non Drug Allergy documented on EMR Reaction Allergy Type Onset Date Status amiodarone Amioderone (uncoded) Unknown Allergy Active methimazole Methimazole (uncoded) rash Allergy Active MRI dye (uncoded) rash Allergy Ac tive azithromycin Z-Pac (uncoded) Unknown Allergy A ctive ibuprofen Advil wheezing Drug Allergy Active sulfamethoxazole / trimethoprim Bactrim rash Drug Allergy Active olmesartan Benicar Multiple Myeloma Drug Allergy Active Biaxin wheezing Drug Allergy Active codeine Codeine Sulfate Unknown Drug Allergy A ctive carvedilol Coreg wheezing Drug Allergy Active clopidogrel Plavix Unknown Drug Allergy Activ e Reason For Referral No Information Medications Medication SIG (Take, Route, Frequency, Duration) Notes Start Date End Date Status Nitroglycerin 0.4 MG as directed Sublingual Not-Taking dilTIAZem HCl 30 MG Orally bid Not-Taking Rosuvastatin Calcium 5 MG 1 tablet Orall y Once a day; Duration: 30 day(s) Not-Taking Eliquis 5 MG as directed Orally Active Physical Therapy . b/l foot pain, cramping, arthritis, equinus b/l gait training, stretching, strengthening, ROM, massage 2-3x/week; Duration: 3-4 weeks 04/01/2019 Active Vitamin D3 31257 UNIT as directed Orally Active hydroCHLOROthiazide 12.5 MG 1 capsule in the morning Orally Once a day; Duration: 30 day(s) Not-Taking Warfarin Sodium 2.5 MG 1 tablet Orally O nce a day; Duration: 30 day(s) Not-Taking Metoprolol Succinate 25 MG 1 capsule Ora lly Once a day; Duration: 30 day(s) Not-Taking Lasix 40 MG 1 tablet Orally Once a day; Duration: 30 day(s) Active Valsartan 80 MG 1 tablet Orally Once a day; Duration: 30 day(s) Active Claritin 10 MG 1 tablet Orally Once a day; Duration: 30 day(s) PRN Active Social History Tobacco Use: Social History Observation Description Date Details (start date - stop date) Former Smoker NA - NA Tobacco Use/Smoking Question Answer Notes Are you a: former smoker Additional Findings: Tobacco Non-User Current no n-smoker Alcohol Screen Question Answer Notes Did you have a drink contain ing alcohol in the past year? Yes How often did you have a dri nk containing alcohol in the past year? Monthly or less (1 point) Points 1 Interpretation Negative Tobacco use other than smoking: Question Answer Notes Are you an other tobacco user? 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 [place] [address] [id number] Bobbi Dow Self - patient is the insured [employer] [facility] [address] [place] [address] [phone] [id number] Bobbi Dow Self - patient is the insured Medical (General) History Medical History History ICD Code Anxiety Arthritis Broken bones CAD (Cholesterol) Cancer Cataracts Depression Heart disease Hepatitis A High blood pressure Numbness Osteoporosis Osteopenia Sciatica chronic sinusitis thyroid Measles Mumps Chicken pox Surgical History Surgery Date(Month/Year) TIA 1947 Hospitalization History Reason Date(Month/Year) [facility]-Nosebleed- ER vis it 10/2018 [facility]-UTI/Hemotoria/Hyp onaturia-Er visit 01/2019 [facility] 6 days - endocarditis, G I Bleeding- [facility] for PT 04/02/2020 [facility] ER - fall downstairs - swollen toe - broken toe 05/06/2020
--- OUTSIDE RECORDS SUMMARY | 2025-04-09 14:21 | XMS_ITS | Data Portability ---
Author Organization [facility] [employer] [facility], Main Office Address [address] [place] [address] Care Team Providers Care Hosted Services Analyst Name Role Phone DAY BROOK () OTHER Assessment Encounter Date Assessment Date Assessment LastModified by Organization Details LastModified Time 03/30/2020 03/30/2020 03/30/20 WBC 5.1, Hgb 11.6, Hct 36.4, Plt 261, Na 141, K 3.1, BUN 10, Avionics Technician 0.60, cari 8.4 no labs noted from [facility] Not available 03/30/2020 13:26:56 04/09/2020 04/09/202004/02 [...] Address Organization Details Recorded Time Mixed hyperlipidemia 494906575 Active 2019 ANNIKA GASPAR [address], [place], [address], [facility] [employer] [facility] 0 10:31:34 Depressive disorder 23276041 Active 2019 ANNIKA GASPAR [address], [place], [address], [facility] [employer] 0 10:31:47 Atrial fibrillation 25808936 Active 2019 ANNIKA GASPAR [address], [place], [address], [place] [facility] 0 10:31:57 Coronary arterioscleros is 19516554 Active 2019 PHIL GASPARP [address], [place], [address], [place] [facility] 0 10:32:06 Gastrointestin al hemorrhage 26120230 Active 2019 PHIL GASPARP [address], [place], [address], [place] [facility] 0 10:33:27 Cardiac pacemaker in situ 176870271 Active 2019 ANNIKA GASPAR [address], [place], [address], [place] [facility] 0 10:33:50 Bacteremia 1070002 Active 2019 ANNIKA GASPAR [address], [place], [address], [place] [facility] 0 10:34:05 Chronic diastolic heart failure 557984744 Active 2019 ANNIKA GASPAR [address], [place], [address], [place] [facility] 0 10:34:26 Endocarditis 90306538 Active 2019 ANNIKA GASPAR [address], [place], [address], [facility] 0 10:38:11 International normalized ratio above reference range 600101465 Active 2019 PHIL GASPARP [address], [place], [address], [facility] 0 10:48:13 Problem Notes None recorded. Medical Equipment None Reported. Allergies Allergen ID Allergen Name Allergen Category Reaction Reaction Severity Criticality Documentation Date Start Date Code Code System Note Provider Name and Address Organization Details Recorded Time 91215 honey bee venom medicatio n Not available Not available Not available 03/30/2020 11321 7 RxNorm FILIPPO RAMIREZ, PHYSICAL SCIENCE PROFESSOR [address], [place], [address], [facility] 0 10:54:22 48358 Iodinated contrast media (substanc e) medicatio n Not available Not available Not available 03/30/2020 11783 2004 SNOMED FILIPPO RAMIREZ, PHYSICAL SCIENCE PROFESSOR [address], [place], [address], [facility] 0 10:54:46 08534 Substance with sulfonami de structure and antibacte rial mechanism of action (substanc e) medicatio n Not available Not available Not available 03/30/2020 36015 8003 SNOMED FILIPPO RAMIREZ, PHYSICAL SCIENCE PROFESSOR [address], [address], [place], [address], [facility] 0 10:55:05 75165 Product containin g gadoliniu m and/or gadoliniu m compound (product) medicatio n Not available Not available Not available 03/30/2020 57869 3008 SNOMED FILIPPO RAMIREZ, PHYSICAL SCIENCE PROFESSOR [address], [place], [address], [facility] 0 10:55:21 05297 codeine medicatio n Not available Not available Not available 03/30/2020 2670 RxNorm FILIPPO BRANDOOSAIDA, PHYSICAL SCIENCE PROFESSOR [address], [place], [address], [facility] 0 10:55:37 78772 aspirin medicatio n Not available Not available Not available 03/30/2020 1191 RxNorm FILIPPO BRANDOOSAIDA, PHYSICAL SCIENCE PROFESSOR [address], [place], [address], [facility] 0 10:56:04 11289 capsaicin medicatio n Not available Not available Not available 03/30/2020 1992 RxNorm FILIPPO ASHLEY, PHYSICAL SCIENCE PROFESSOR [address], [place], [address], [facility] 0 10:56:39 67569 methimazo le medicatio n Not available Not available Not available 03/30/2020 6835 RxNorm FILIPPO RAMIREZ, PHYSICAL SCIENCE PROFESSOR [address], [place], [address], [facility] 0 10:57:27 23378 ibuprofen medicatio n Not available Not available Not available 03/30/2020 5640 RxNorm FILIPPO RAMIREZ, PHYSICAL SCIENCE PROFESSOR [address], [place], [address], [facility] 0 10:57:38 76440 sulfameth oxazole / trimethop rim medicatio n Not available Not available Not available 03/30/2020 03360 RxNorm FILIPPO RAMIREZ, PHYSICAL SCIENCE PROFESSOR [address], [place], [address], [facility] 0 11:01:11 04356 clarithro mycin medicatio n Not available Not available Not available 03/30/2020 41633 RxNorm FILIPPO RAMIREZ, PHYSICAL SCIENCE PROFESSOR [address], [place], [address], [facility] 0 11:01:20 89174 azithromy johnna medicatio n Not available Not available Not available 03/30/2020 69276 RxNorm FILIPPO RAMIREZ, PHYSICAL SCIENCE PROFESSOR [address], [address], [place], [address], [facility] 0 11:01:29 52603 amlodipin e medicatio n Not available Not available Not available 03/30/2020 86518 RxNorm FILIPPO RAMIREZ, PHYSICAL SCIENCE PROFESSOR [address], [place], [address], [employer] [facility] 0 11:01:36 Medications Not known to be on any medication Vitals Date Recorded Body temperature Heart rate Respiratory rate Oxygen saturation Oxygen saturation in Arterial blood by Pulse oximetry Systolic And Diastolic Provider Name and Address Organization Details Last Updated DateTime 0 97.6 [degF] 72 /min 18 /min 95 % 95 % 138/72 mm[Hg] ANNIKA GASPAR [address], [address], [place], [address], [facility] 0 10:31:05 Date Recorded Body temperature Oxygen saturation Oxygen saturation in Arterial blood by Pulse oximetry Systolic And Diastolic Provider Name and Address Organization Details Last Updated DateTime 03/31/2020 97.4 [degF] 97 % 97 % 133/81 mm[Hg] Suha Lama MD [address], [address], [place], [address], [facility] 0 11:17:06 Date Recorded Heart rate Respiratory rate Body temperature Oxygen saturation Oxygen saturation in Arterial blood by Pulse oximetry Systolic And Diastolic Provider Name and Address Organization Details Last Updated DateTime 0 88 /min 18 /min 98.3 [degF] 97 % 97 % 140/59 mm[Hg] ANNIKA GASPAR [address], [place], [address], [facility] [employer] [facility] 0 18:40:48 Date Recorded Body height Heart rate Respiratory rate Body temperature Oxygen saturation Oxygen saturation in Arterial blood by Pulse oximetry Systolic And Diastolic Provider Name and Address Organization Details Last Updated DateTime 0 162.56 cm 80 /min 16 /min 98.7 [degF] 96 % 96 % 111/57 mm[Hg] MATHEW JONES NP [address], [address], [place], [address], [employer] 0 11:22:47 Social History Question Answer Notes LastModified by Organizat ion Details LastModified Time Tobacco Smoking Status Former Smoker Not Available [employer] 08/03/2020 03:13:20 Do You Have An Advance Directive? No [id number] Information not available 08/03/2020 How Much Tobacco Do You Chew? None [id number] Information not available 08/03/2020 Do You Have A Medical Power Of Home Economist Consumer Service? No [id number] Information not available 08/03/2020 What Was The Date Of Your Most Recent Tobacco Screening? 03/30/2020 [id number] Information not available 08/03/2020 How Much Tobacco Do You Smoke? 1 PPD [id number] Information not available 08/03/2020 How Many Years Have You Smoked Tobacco? 30 [id number] Information not available 08/03/2020 Sex: Unknown Functional Status Question Answer Note LastModified by Organizat ion Details LastModified Time What is your level of alcohol consumption? Occasional [id number] Information not available 08/03/2020 Do you or have you ever used smokeless tobacco? Never used smokeless tobacco [id number] Information not available 08/03/2020 Do you or have you ever used e-cigarettes or vape? Never used electronic cigarettes [id number] Information not available 08/03/2020 Mental Status None recorded. Family History Nothing Reported. Medical History No medical history recorded. Gynecological HistoryNo gynecological history recorded. Obstetrics History GPAL:G 0 P 0 0 0 0 Past Encounters Encounter ID Performer Location Encounter Start Date Encounter Closed Date Diagnosis/Indication Diagnosis SNOMED-CT Code Diagnosis ICD10 Code Diagnosis Note [id number] ANNIKA GASPAR [address] [address] 03/30/2020 10:28:16 04/26/2020 16:04:38 Bacteremia 9622663 R78.81 strep viridans bacteremia ceftriaxon e 2 gm qd x 4 weeks to complete on 04/22/20 maintain PICC line monitor labs Gastrointe stinal hemorrhage 79348971 K92.1 omeprazole 40 mg qd need to follow up with gi for EGD monitor for bleeding Chronic di astolic heart failure 728588384 I50.32 NEW DIAGNOSIS FOR PATIENT ACCORDING TO PT low sodium diet valsartan 40 mg bid lasix 40 mg qd monitor fluid balance monitor weights Atrial fibrillation 4943 6004 I48.19 apixaban 5 mg bid-was on coumadin but now apixaban monitor for rate and rhythm Depressive disorder 3548 9007 F32.89 not on medication monitor mood psych eval and treat prn Mixed hyperlipidemia 267 125586 E78.2 not on medication monitor labs Coronary arteriosclerosis 09066485 I25.10 not on medication monitor Cardiac pa cemaker in situ 287470971 Z95.0 noted in history monitor Endocarditis 22755999 I3 9 TTE was negative for endocardit is but treating anyways monitor Internatio nal normalized ratio above reference range 408901651 R79.1 given vitamin K in hospital put on eliquis resolved [id number] Suha Lama MD [address] [address] 03/31/2020 11:16:36 04/27/2020 10:17:27 Atrial fibrillation 06309623 I48.0 apixaban 5 mg bidwill monitor Bacteremia 0429575 R78.8 1 ceftriaxon e 2 gm daily until 04/24/20 Chronic di astolic heart failure 000820974 I50.32 furosemide 40 mg dailyvalsa rtan 40 mg bidwill monitor Gastrointe stinal hemorrhage 91302406 K92.1 with recent elevated INR, correctedo meprazole 40 mg dailyGI fu as outpatient Essential hypertension 09018049 I10 valsartan 40 mg bidwill monitor [id number] ANNIKA GASPAR [address] [address] 04/05/2020 15:24:34 04/26/2020 16:09:08 Bacteremia 3281901 R78.81 strep viridans bacteremia ceftriaxon e 2 gm qd x 4 weeks to complete on 04/22/20 maintain PICC line monitor labs she is going to be discharged sunday after her agreeing to waiting til then services are being set up for her IV Chronic di astolic heart failure 989353601 I50.32 low sodium diet-feels that the food is very high in sodium here valsartan 40 mg bid lasix 40 mg qd monitor fluid balance monitor weights she is asking for new anna stockings- due to what she calls edema on the back of her ankles a new pair are going to be obtained [id number] MATHEW JONES NP [address] [address] 04/09/2020 11:20:16 04/27/2020 12:07:59 Atrial fibrillation 68080728 I48.91 apixaban 5 mg bid will monitor Bacteremia 5951641 R78.8 1 strep viridans bacteremia ceftriaxon e 2 gm qd to complete on 04/24/20 Lactobacil burt 1 qd maintain PICC line monitor labs Chronic di astolic heart failure 344619335 I50.32 valsartan 40 mg bid lasix 40 mg qd monitor fluid balance monitor weights Coronary arteriosclerosis 09802200 I25.10 monitor Depressive disorder 3548 9007 F32.9 monitor mood psych eval and treat prn Endocarditis 70784142 I3 8 TTE was negative for endocardit is but treating anyways monitor Gastrointe stinal hemorrhage 66584842 K92.2 omeprazole 40 mg daily GI fu as outpatient Mixed hyperlipidemia 267 763704 E78.2 monitor labs Health Concerns Section Related Observation LastModified by Organization Detai ls LastModified Time None Recorded Concern Status LastModified by Organization Details LastModified Time None Recorded Advance Directives Directive N: Payers Insurance Date Sequence Insurance Name Policy Number Policy Marroquin Covered Member ID Marroquin Member ID Guarantor Name 05/15/2020 2 [place]) [id number] Bobbi Victor M [id number] Bobbi Victor M 04/26/2020 1 [place] [email or web address] Bobbi M Victor M [id number] Bobbi Victor M 04/23/2020 2 [place] [id number] Bobbi Victor M [id number] Bobbi Victor M Notes Date Note Type Note Provider Name and Address Organization Details Recorded Time 03/30/2020 text/html A 79 year old fe male being seen for a initial intake note. Patient went to [facility] [place] with weakness over several weeks and [...] depression, CAD, pacemaker and afib. FILIPPO RAMIREZ, PHYSICAL SCIENCE PROFESSOR [address], [place], [address], [facility] 03/30/2020 14:02:09 03/31/2020 text/html This 79 year old woman was admitted to [facility] on 03/29/20 for rehab and continued care. She presented to [facility] ER with weakness over several weeks. She [...] DNR, DNI, DNH Suha Lama MD [address], [place], [address], [facility] [employer] [facility] 03/31/2020 11:48:03 04/05/2020 text/html A 79 year old fe male being seen for a acute rounding visit. Patient was upset about wanting to go home. She agreed to stay til sunday but then agreed til sunday due to holiday/vna services. [facility] will go out on sunday. She is stating the facility has high sodium diet causing her edema (not visible to me) and she would like a new set of teds. She is also requesting a new walker and a script was given to therapy. ANNIKA GASPAR [address], [place], [address], [facility] [employer] [facility] 04/05/2020 18:46:35 04/09/2020 text/html seen today for discharge-79 yof being seen for discharge summary. Patient went to [facility] er with weakness over several weeks and [...] short term rehab. MATHEW JONES NP [address], [place], [address], [facility] 04/27/2020 12:06:20 OBGyn Episode No OBEpisode recorded.
--- OUTSIDE RECORDS SUMMARY | 2025-04-09 14:22 | XMS_ITS | Patient Health Record ---
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 Name Role Phone Yadi Rees DO Primary Care Provider Derek Saavedra Unavailable [phone] Norbert Mack Unavailable Unavailable Allergies Allergen (clinical drug ingredient) Drug/Non Drug Allergy documented on EMR Reaction Allergy Type Onset Date Status Information temporarily unavailable codeine (uncoded) Unknown Allergy Active Information temporarily unavailable xray dyes rash Drug Allergy Active Information temporarily unavailable tetracycline rash Drug Allergy Active Information temporarily unavailable sulfa Unknown Drug Allergy Active Information temporarily unavailable Asprin (uncoded) Unknown Allergy Active Information temporarily unavailable Plavix Unknown Drug Allergy Active Information temporarily unavailable Motrin Unknown Drug Allergy Active Information temporarily unavailable Levaquin Unknown Drug Allergy Active Information temporarily unavailable Bactrim Unknown Drug Allergy Active Information temporarily unavailable Advil Unknown Drug Allergy Active Reason For Referral No Information Medications Medication SIG (Take, Route, Fr equency, Duration) Notes Start Date End Date Status Coumadin 2.5-5mg Act preet Lactaid Active Benicar 20mg Active Paxil 10mg Active Coreg 12.5mg Active Gas-X Active Lasix Active Laxative Active Problems Problem Type SNOMED Code ICD Code Onset Dates Problem Status W/U Status Risk Notes Problem Irritable bowel syndrome (92053133) Irritable bowel syndrome (564.1) Active confirmed Problem Gallstones (631855779) Gallstones (574.20) Active confirmed Problem Generalized abdominal pain (369206079) Abdominal pain, generalized (789.07) Active confirmed Problem Constipation (14607327) Constipation (564.00) Active confirmed Problem Change in bowel habit (07063910) Change in bowel habits (787.99) Active confirmed Problem Colon cancer screening (423550620) Colon cancer screening (V76.51) Active confirmed Problem Liver function tests abnormal (389425849) Abnormal liver function test (790.6) Active confirmed Problem Liver function tests abnormal (131577975) Abnormal liver function tests (790.6) Active confirmed Problem Ascites (549329043) Ascites (789.59) Active confirmed Problem History of adenomatous polyp of colon (030017045) History of adenomatous polyp of colon (V12.72) Active confirmed Problem Flatulence, eructation and gas pain (159412890) Bloating (787.3) Active confirmed Plan Of Treatment Pending Test Test Name Order Date LIVER PROFILE 2013 IRON + IBC (FE) 06/19/2013 FERRITIN 06/19/2013 CBC w DIFF 2013 HEPATITIS B, C PROFILE 06/19/2013 [id number] (A1A) 06/19/2013 CELIAC PANEL #10 06/05/2013 ENDOMYSIAL IGA 06/05/2013 MITOCHONDRIAL AB 06/19/2013 SMOOTH MUSCLE ANTIBODIES 06/19/2013 TRANSGLUTAMINASE AB IGA 06/05/2013 TRANSGLUTAMINASE AB IGG 06/05/2013 CT ABD & PELVIS WITH CONTRAST 06/06/2013 FLUOR. ANTINUCLEAR AB SCREEN (IFEOMA) 06/08 Future Test Test Name Order Date COLONOSCOPY 06/05/2013 Insurance Providers Payer Name Payer Address Payer Phone Subscriber Number Group Number Insured Name Patient Relationship to Insured Coverage Start Date Coverage End Date MEDICARE OF [place] [address] [place] [address] [id number] OLMAN BALLARD Self - patient is the insured [employer] ATT[employer] CLAIMS [address] [place] [address] [id number] OLMAN BALLARD Self - patient is the insured Medical (General) History Medical History History ICD Code Lumpectomy and radiation for breast canc er on right side in Lipoma removed from abdominal wall Hypertension Depression HTN Hyperlipidemia A-fib Depression Lactose Intolerant Pacemaker-set to 60 [place] 2009 with cardiac arrests-had 2 stent s placed-followed by Dr. 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 Mack-lost 15# irritable bowel syndrome, wi th negative blood work for celiac disease in May of 2013 gallstones seen on a CAT sca n in June of 2013, but a followup HIDA scan was normal slightly elevated total bili lynch and alkaline phosphatase, but normal AST and ALT-imaging studies do not reveal any sign of liver disease nor portal hypertension-workup for liver disease has been negative other than some borderline elevations of the MASHA and smooth muscle antibody, at levels of 1:80 and 42, respectively--iron studies, viral serologies, alpha-1 antitrypsin level and anti-mitochondrial antibody were all negative Colonoscopy in August 013-small tubular adenomas removed, diverticulosis, internal hemorrhoids Surgical History Surgery Date(Month/Year) Lumpectomy on right for breast cancer in , with XRT
== END 2025-04-09 14:55 | disposition home or self-care (01) ==
LOC: HO.HCS 14:18
PROVIDERS: PCP Internal Medicine; Visit Provider Internal Medicine Cardiovascular Disease
DX: I50.20 Unspecified systolic (congestive) heart failure (principal); I25.10 Atherosclerotic heart disease of native coronary artery without angina pectoris; I48.20 Chronic atrial fibrillation, unspecified; Z95.0 Presence of cardiac pacemaker
CPT/HCPCS: 93010; 93279; 99215; G2211

== ENCOUNTER 2025-04-09 14:17 | Outpatient (REF) | payer MEDICARE, SELFPAY ==
[2025-04-09 17:01] LABS: Anion Gap 12 (12-20); Blood Urea Nitrogen 43 mg/dL (9-16); Calcium 8.3 mg/dL (8.4-10.2); Carbon Dioxide 29 mmol/L (22-29); Chloride 101 mmol/L (96-108); Estimated Glomerular Filt Rate 41; Magnesium 2.4 mg/dL (1.6-2.6); Potassium 3.3 mmol/L (3.3-5.1); Sodium 139 mmol/L (135-145)
== END 2025-04-09 14:18 | disposition home or self-care (01) ==
LOC: HO.LAB 14:17
PROVIDERS: PCP Internal Medicine; Visit Provider Internal Medicine Cardiovascular Disease
DX: I25.10 Atherosclerotic heart disease of native coronary artery without angina pectoris (principal); I50.20 Unspecified systolic (congestive) heart failure; I48.20 Chronic atrial fibrillation, unspecified; Z95.0 Presence of cardiac pacemaker
CPT/HCPCS: 36415; 80048; 83735; 93005; 99212

== ENCOUNTER → 2025-06-14 23:59 | Outpatient (BNV) | payer MEDICARE, SELFPAY ==
--- NOTE | 2025-06-18 14:51 | MHC.OFFVIS ---
Intake Visit Reasons: Remote Device Check- Spiral [employer] Allergies ibuprofen (IBUPROFEN) Allergy (Severe, Verified 06/17/25 14:56) THROAT LUMP olmesartan (From BENICAR) Allergy (Severe, Verified 06/17/25 14:56) WHEEZING Gadolinium-Containing Contrast Medi (Gadolinium-Containing Agents) Allergy (Mild, Verified 06/17/25 14:56) HIVES Iodinated Contrast Media (IV Dye, Iodine Containing) Allergy (Mild, Verified 06/17/25 14:56) RASH oneil Allergy (Mild, Verified 06/17/25 14:56) RASH Sulfa (Sulfonamide Antibiotics) Allergy (Mild, Verified 06/17/25 14:56) RASH amiodarone (AMIODARONE) Allergy (Unknown, Verified 06/17/25 14:56) THYROID TOXICOSIS amlodipine (From NORVASC) Allergy (Unknown, Verified 06/17/25 14:56) WHEEZING aspirin (ASPIRIN) Allergy (Unknown, Verified 06/17/25 14:56) THROAT LUMP HEAVY WHEEZING, wheezing, wheezing azithromycin (From ZITHROMAX) Allergy (Unknown, Verified 06/17/25 14:56) NAUSEA/VOMITING, nausea and vomiting bee pollen (Bee Stings) Allergy (Unknown, Verified 06/17/25 14:56) EDEMA, ALL INSECT STINGS capsaicin (CAPSAICIN) Allergy (Unknown, Verified 06/17/25 14:56) RASH clopidogrel (From PLAVIX) Allergy (Unknown, Verified 06/17/25 14:56) THROAT LUMP HEAVY WHEEZING diltiazem (Cardizem) Allergy (Unknown, Verified 06/17/25 14:56) rash methimazole (METHIMAZOLE) Allergy (Unknown, Verified 06/17/25 14:56) RASH sulfamethoxazole (From BACTRIM) Allergy (Unknown, Verified 06/17/25 14:56) RASH trimethoprim (From BACTRIM) Allergy (Unknown, Verified 06/17/25 14:56) RASH escitalopram (From Lexapro) Allergy (Verified 06/17/25 14:56) Wheezing clarithromycin (From Biaxin) Adverse Reaction (Mild, Verified 06/17/25 14:56) N/V codeine (Codeine) Adverse Reaction (Mild, Verified 06/17/25 14:56) N/V levofloxacin (From Levaquin) Adverse Reaction (Mild, Verified 06/17/25 14:56) N/V Dye RESIDENTIAL Blue 1 Allergy (Unknown, Uncoded 06/17/25 14:56) rash PFSH Medical History History of senior care anticoagulant use (~2009) History of cardiac arrest (~2009) Osteoporosis (~2020) Tubular adenoma of colon (~2000) Pacemaker at end of battery life Blood in urine Superficial bruising of abdominal wall Traumatic ecchymosis of left lower leg Traumatic ecchymosis of left shoulder Traumatic hematoma of head Fall Hip pain, right Abnormal ultrasound of lower extremity AAA (abdominal aortic aneurysm) CAD (coronary artery disease) Cardiac pacemaker in situ (~2009) Mitral regurgitation Tricuspid regurgitation Diverticulosis Ex-smoker Hearing impaired Lactose intolerance History of right breast cancer (~1992) Hypertension, essential Atrial fibrillation, chronic (~2009) Surgical History History of colonoscopy History of hand surgery History of heart artery stent History of pacemaker History of lumpectomy History of cardiac cath History of cardioversion History of eye surgery Family History Father CVD (cardiovascular disease) Mother CVD (cardiovascular disease) Myocardial infarction Maternal Grandmother Unknown family medical history Maternal Grandfather No problems noted. Paternal Grandfather CVD (cardiovascular disease) Paternal Grandmother No problems noted. Child No Financial Resp No problems noted. Social History Household Members: Children Housing: House Are you a primary inpatient care manager rn to a significant other at home: No Do you presently have visiting nurse or other home services: No Alcohol intake: never Patient Tobacco Use Status: Former Tobacco user Tobacco use type: Cigarette Years Smoked: 40 e-Cigarette/Vaping Use: Never Used Advance Directives Date on File: 10/29/17 service: No Current occupational status: retired Cognitive needs: No Hearing needs: Yes (deaf in right ear, left ear has a hearing aid) Vision needs: Yes Office Procedures Cardiac Device Check Cardiac Device Check Details: Remote pacemaker report generated 06/14/2025. Pacemaker function is adequate [id number] Cardiac Device Interrogation, pacemaker Procedure code (CPT) selection complete Assessment & Plan Assessment & Plan (1) Cardiac pacemaker in situ: Onset Date: ~2009 Comment: (single-chamber Medtronic - DCPP placed 2009 - now VVI - replaced 2022) Code(s): Z95.0 - Presence of cardiac pacemaker Category: Medical Plan: See above Coding Level of Care Code Procedure Only Diagnoses Cardiac pacemaker in situ Z95.0 CPT Codes Cardiac Device Check - Cardiac Device 12: [id number] Cardiac Device Interrogation, pacemaker ([id number])
== END ==
PROVIDERS: PCP Internal Medicine; Visit Provider Internal Medicine Cardiovascular Disease
DX: Z45.018 Encounter for adjustment and management of other part of cardiac pacemaker (principal)
CPT/HCPCS: 93294

== ENCOUNTER 2025-06-17 14:41 | Outpatient (AMB) | payer MEDICARE, SELFPAY ==
--- NOTE | 2025-06-17 14:45 | MHC.OFFVIS ---
Vital Signs 06/17/25 14:52 Height 5 ft 4 in Weight 121 lb 4.068 oz BMI 20.8 BP 91/49 L Blood Pressure Location Lt brachial Position Sitting Pulse 73 Intake Visit Reasons: f/u Intake Note: Bobbi presents in the office as a follow up. CC: She states that her foot and her legs are acting up. She also states that they are swelling in both legs. She states she had an episode last week where she had some mucus come up after being nauseous but states she has felt okay since. 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: No Allergies ibuprofen (IBUPROFEN) Allergy (Severe, Verified 06/17/25 14:56) THROAT LUMP olmesartan (From BENICAR) Allergy (Severe, Verified 06/17/25 14:56) WHEEZING Gadolinium-Containing Contrast Medi (Gadolinium-Containing Agents) Allergy (Mild, Verified 06/17/25 14:56) HIVES Iodinated Contrast Media (IV Dye, Iodine Containing) Allergy (Mild, Verified 06/17/25 14:56) RASH oneil Allergy (Mild, Verified 06/17/25 14:56) RASH Sulfa (Sulfonamide Antibiotics) Allergy (Mild, Verified 06/17/25 14:56) RASH amiodarone (AMIODARONE) Allergy (Unknown, Verified 06/17/25 14:56) THYROID TOXICOSIS amlodipine (From NORVASC) Allergy (Unknown, Verified 06/17/25 14:56) WHEEZING aspirin (ASPIRIN) Allergy (Unknown, Verified 06/17/25 14:56) THROAT LUMP HEAVY WHEEZING, wheezing, wheezing azithromycin (From ZITHROMAX) Allergy (Unknown, Verified 06/17/25 14:56) NAUSEA/VOMITING, nausea and vomiting bee pollen (Bee Stings) Allergy (Unknown, Verified 06/17/25 14:56) EDEMA, ALL INSECT STINGS capsaicin (CAPSAICIN) Allergy (Unknown, Verified 06/17/25 14:56) RASH clopidogrel (From PLAVIX) Allergy (Unknown, Verified 06/17/25 14:56) THROAT LUMP HEAVY WHEEZING diltiazem (Cardizem) Allergy (Unknown, Verified 06/17/25 14:56) rash methimazole (METHIMAZOLE) Allergy (Unknown, Verified 06/17/25 14:56) RASH sulfamethoxazole (From BACTRIM) Allergy (Unknown, Verified 06/17/25 14:56) RASH trimethoprim (From BACTRIM) Allergy (Unknown, Verified 06/17/25 14:56) RASH escitalopram (From Lexapro) Allergy (Verified 06/17/25 14:56) Wheezing clarithromycin (From Biaxin) Adverse Reaction (Mild, Verified 06/17/25 14:56) N/V codeine (Codeine) Adverse Reaction (Mild, Verified 06/17/25 14:56) N/V levofloxacin (From Levaquin) Adverse Reaction (Mild, Verified 06/17/25 14:56) N/V Dye FCI Blue 1 Allergy (Unknown, Uncoded 06/17/25 14:56) rash HPI Comments Details: 83 y.o F with PMH of 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 Prev provider [facility]. Has known cirrhosis since at least 2019 based on clinical data available in [employer]. Started seeing GI last year for cirrhosis care but pt not interested in many interventions including EGD for variceal screening. Reports that at 83 she'd prefer to minimize procedures as much as possible, understands risk of potentially life threatening variceal hemorrhage. Main complaint is severe constipation. Has BM 2-3 times a week with hard marble like pellets. Frequently digitalises. Has been ongoing x 6 months. With this also notes occ nausea. Also has cholelithiasis but declines surgical referral as will likely opt out of elective CCY anyway. Current meds: Dulcolax 5 mg at night Stool softener BID Miralax as needed Of note - pt also reports x2-3 days of productive cough with progressive shortness of breath. 10/15/24: Pt here with her friend of over 50 years. Main complaint remains post prandial discomfort and decreased appetite. Also mentions fatigue and decreased energy. REsults of US below, reviewed with the pt. Has appt 10/16 to be seen. Reviewed that candidacy for CCY is best determined by the surgeon. If surgery deferred will trial Myron. We also reviewed that sx are likely multifactorial including cirrhosis which can notoriously cause fatigue, loss of appetite and muscle wasting. US also suggests worsening CHF which could also be playing a role vicky if has gut edema. 1. Cholelithiasis, thickening of gallbladder wall 5 mm, pericholecystic fluid and tenderness present on the gallbladder Jaffe sign combined findings are concerning for possible acute CHOLECYSTITIS. Surgical evaluation recommended. Consider HIDA scan. 2. Increased echogenicity of the liver parenchyma, this can be seen in the setting of hepatic steatosis or liver parenchymal disease. 3. Engorgement of the IVC which can be seen in the setting of heart failure. 4. Abdominal aortic aneurysm measure up to 3.8 cm. Follow-up ultrasound in one year advised. 06/17/25: Here for routine follow up. Most of the issues today are shortness of breath and increased leg swelling. Does report that often forgets to take bumex and didnt know she could take it twice a day when needed. Despite all this, continues to use the stairs to get to her apt which is on the second floor. In terms of her liver no abd pain, n,v. No pruritus. No change in abd girth. Last US in 09/2024 - has been seen by surgery, holding off in light of her advanced comorbidities and no symptom burden. 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) History of cardiac arrest (~2009) Osteoporosis (~2020) Tubular adenoma of colon (~2000) Pacemaker at end of battery life Blood in urine Superficial bruising of abdominal wall Traumatic ecchymosis of left lower leg Traumatic ecchymosis of left shoulder Traumatic hematoma of head Fall Hip pain, right Abnormal ultrasound of lower extremity AAA (abdominal aortic aneurysm) CAD (coronary artery disease) Cardiac pacemaker in situ (~2009) Mitral regurgitation Tricuspid regurgitation Diverticulosis Ex-smoker Hearing impaired Lactose intolerance History of right breast cancer (~1992) Hypertension, essential Atrial fibrillation, chronic (~2009) Surgical History History of colonoscopy History of hand surgery History of heart artery stent History of pacemaker History of lumpectomy History of cardiac cath History of cardioversion History of eye surgery Family History Father CVD (cardiovascular disease) Mother CVD (cardiovascular disease) Myocardial infarction Maternal Grandmother Unknown family medical history Maternal Grandfather No problems noted. Paternal Grandfather CVD (cardiovascular disease) Paternal Grandmother No problems noted. Child No Financial Resp No problems noted. Social History Household Members: Children Housing: House Are you a primary palliative care nurse to a significant other at home: No Do you presently have visiting nurse or other home services: No Alcohol intake: never Patient Tobacco Use Status: Former Tobacco user Tobacco use type: Cigarette Years Smoked: 40 e-Cigarette/Vaping Use: Never Used Advance Directives Date on File: 10/29/17 service: No Current occupational status: retired Cognitive needs: No Hearing needs: Yes (deaf in right ear, left ear has a hearing aid) Vision needs: Yes Review of Systems Const All systems reviewed & are unremarkable except as noted in HPI and below Physical Exam Exam Exam: frail elderly female nonicteric abd soft nontender nondistended pedal edema +3 Vital Signs: Last Vital Signs Pulse 73 06/17/25 14:52 BP 91/49 L 06/17/25 14:52 BMI result Body Mass Index 20.8 Assessment & Plan Assessment & Plan (1) Cirrhosis: Code(s): K74.60 - Unspecified cirrhosis of liver Category: Medical Qualifiers: Ascites presence: with ascites Hepatic cirrhosis type: unspecified hepatic cirrhosis Qualified Code(s): K74.60 - Unspecified cirrhosis of liver; R18.8 - Other ascites (2) Sarcopenia: Code(s): M62.84 - Sarcopenia Category: Medical (3) Decreased appetite: Code(s): R63.0 - Anorexia Category: Medical (4) CHF (congestive heart failure): Code(s): I50.9 - Heart failure, unspecified Category: Medical Plan 1. Compensated cirrhosis MELD Na-13 Child Vega Class A Appears compensated at this time. Has high likelihood of CSPH based on platelet count but pt declines EGD for variceal screening at this time. Coreg started for prophylaxis but didnt tolerate, developed diarrhea. Will switch to a different NSBB - either propranolol or nadolol as long as ok from cardiac standpoint, workload sent. She is also overdue on HCC screening. Plan: - Nadolol or propranolol for variceal prophylaxis - Due for US abd - ordered - Increase protein intake, avoid fasting. Take a night time snack - No NSAIDs. Tylenol is ok for pain mgmt if needed - Does not meet transplant candidacy due to underlying cardiac comorbidities and age - MELD labs before next visit Follow up 6 months Orders: Orders US abdomen complete Today K74.60 - Unspecified cirrhosis of liver, R18.8 - Other ascites Medications: Refilled escitalopram oxalate 10 mg PO DAILY 90 tabs 1RF Patient Instructions: 1. You are due for an ultrasound of your liver. Radiology dept will call you to book this. 2. We are checking with your employee relations administrator regarding a medication to help avoid bleeding from varicose veins in the esophagus. We will call you when we send the prescription for that medication. 3. You are not due for your blood work today. We will remind you a few days prior to your next appointment to get this done. 4. We will see you in 6 months! Coding Level of Care Code Est Pt Level 4 (59337) Complex EM visit Add On G2211 Diagnoses Cirrhosis of liver with ascites, unspecified hepatic cirrhosis type K74.60; R18.8 Ascites presence: with ascites Hepatic cirrhosis type: unspecified hepatic cirrhosis Sarcopenia M62.84 Decreased appetite R63.0 CHF (congestive heart failure) I50.9
[2025-06-17 14:52] VITALS: BP 91/49; PULSE 73; BMI 20.8
--- OUTSIDE RECORDS SUMMARY | 2025-06-17 17:56 | XMS_ITS | Patient Health Record ---
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 Name Role Phone Sourav SHIN, [facility] Primary Care Provider Terri Flowers Unavailable [phone] Allergies Allergen (clinical drug ingredient) Drug/Non Drug [...] Duration: 3-4 weeks 04/01/2019 Active Vitamin D3 77237 UNIT as directed Orally Active hydroCHLOROthiazide 12.5 [...] Problem Acquired hammer toe of right foot (29957997359833 05) Other hammer toe(s) (acquired), right foot (M20.41) Active confirmed Problem Acquired hammer toe of left foot (56455992954430 03) Other hammer toe(s) (acquired), left foot (M20.42) Active confirmed Problem Acquired hallux valgus (82485605) Hallux valgus (acquired), right foot (M20.11) Active confirmed Problem Abnormal gait (44725360) Unstable gait (R26.81) Active confirmed Problem 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) Idiopathic neuropathy (G60.9) Active confirmed Plan Of Treatment Pending Test Test Name Order Date X ray : Foot, left 3V 04/01/2019 X ray : Foot, right 3V 04/01/2019 Insurance Providers Payer Name Payer Address Payer Phone Subscriber Number Group Number Insured Name Patient Relationship to Insured Coverage Start Date Coverage End Date Medicare National [employer]t [employer] [address] [facility] [place] [address] [id number] Bobbi Dow Self - patient is the insured Medex Blue [facility] [address] [place] [address] [id number] Bobbi Dow Self - patient is the insured Medical (General) History Medical History History ICD Code Anxiety Arthritis Broken bones CAD (Cholesterol) Cancer Cataracts Depression Heart disease Hepatitis A High blood pressure Numbness Osteoporosis Osteopenia Sciatica chronic sinusitis thyroid Measles Mumps Chicken pox Surgical History Surgery Date(Month/Year) TIA 1947 Hospitalization History Reason Date(Month/Year) [facility]-Nosebleed- ER vis it 10/2018 [facility]UTI/Hemotoria/Hyp onaturia-Er visit 01/2019 [facility] 6 days - endocarditis, G I Bleeding- went to [facility] for PT 04/02/2020 [facility] ER - fall downstairs - swollen toe - broken toe 05/06/2020
--- OUTSIDE RECORDS SUMMARY | 2025-06-17 17:56 | XMS_ITS | Clinical Summary ---
Author Organization [facility] Address [address] [place] [id number] Phone Care Team Providers Care Railroad Shop Inspector Name Role Phone Mimi Benjamin MD Primary Care Provider Allergies Active Allergy Reactions Criticality Noted Date Comments Allergen Aaf-Hvyon-Bekar Bee 12/19/2021 Edema Amiodarone 12/19/2021 Thyroid toxicosis Amlodipine Wheezing 12/19/2021 Aspirin Wheezing 12/19/2021 Throat lump Azithromycin Nausea and/or Vomiting 12/19/2021 Capsaicin Rash Low 12/19/2021 Clarithromycin Nausea and/or Vomiting 12/19/2021 Clopidogrel Wheezing 12/19/2021 Throat lump Codeine Nausea and/or Vomiting 12/19/2021 Gadolinium-Containing Contrast Media Hives 12/19/2021 Ibuprofen Other (See Comments) 12/19/2021 Throat lumps Iodinated Contrast Media Rash Low 12/19/2021 mri Levofloxacin Nausea and/or Vomiting 12/19/2021 Giovany Rash Low 12/19/2021 Methimazole Rash Low 12/19/2021 Neomycin 12/19/2021 itchy skin Olmesartan Wheezing High 12/19/2021 Sulfa (Sulfonamide Antibiotics) Rash Low 12/19/2021 Sulfamethoxazole-Trimeth oprim Rash Low 12/19/2021 Trimethoprim Rash Low 12/19/2021 Medications ELIQUIS 5 mg tablet Take 2.5 mg by mouth 2 (two) times a day. 12/04/2021 Active valsartan (DIOVAN) 40 MG tablet Take 20 mg by mouth 2 (two) times a day. Active diphenhydrAMINE (BENADRYL) 25 mg capsule Take 25 mg by mouth every 6 (six) hours as needed for itching. Active furosemide (LASIX) 40 MG tablet Take 20 mg by mouth. Active acetaminophen (TYLENOL) 650 MG CR tablet Take 650 mg by mouth every 8 (eight) hours as needed for pain (specific location in comments). Active amoxicillin (AMOXIL) 500 MG capsule TAKE 4 CAPSULES BY MOUTH 1 TO 2 HOURS PRIOR TO DENTAL WORK 03/09/2022 Active vitamins A,C,E-zinc-eleanor er (PRESERVISION AREDS) [id number] taog-vm-hitt Cap Take 1 capsule by mouth. Takes 4-5 weekly Active Medication-Free Text Take 2-4 tablets by mouth nightly at bedtime. Leg cramps Active Medication-Free Text 3 (three) times a week. Molasses Active Active Problems Problem Noted Date Diagnosed Date Other osteoporosis without current pathological fracture 12/19/2021 Assessment & Plan (03/16/2022 4:46 PM EDT): As indicated in the HPI the patient has multiple risk for developing osteoporosis and she may have developed osteopenia as early as 2003 but I do not have that report. She was found to have vitamin D deficiency so she should take vitamin D supplements at least 1000 units daily she can take up to 2000 units daily if she likes. 24 urine calcium output was low so I suspect that her dietary calcium intake is not as high as we calculated. However she states she cannot take any calcium supplements because it upsets her stomach but she is going to have to try to increase her dietary calcium intake and she states that she is not eating much. So this is going to be quite difficult. She has increased N-telopeptide levels this is a bone turnover marker meaning that she is actively breaking down bone. So she would benefit from an antiresorptive medication such as a bisphosphonate which is Fosamax or alendronate for a rank ligand antagonist such as Prolia basically these are antiresorptive medications that prevent osteoclast from breaking down the bones and allow osteoblast to build bone. There is other medications which are anabolic hormones that build bone directly in these Forteo, Tymlos and Evenity but I do not know that the insurance company will approve these injectable medications without her trying the other antiresorptive medications. The patient is willing to take vitamin D supplements which she can just get [id number]. She does not want to take calcium supplements but she is willing to try to increase her calcium intake in her diet. She does not want to use any antiresorptive or anabolic hormones for treatment of osteoporosis and this is her choice. What I would recommend is weightbearing exercises such as wearing a weight vest and lifting weights small weights. Physical therapy can help with bone density as well if this is covered by her insurance company. She is due for repeat DXA scan on 04/07/2023 at [facility] she should continue at the same facility. At this point since she is not interested in using antiresorptive medications I would not give her a follow-up appointment she should follow with her primary care physician. Assessment & Plan (12/19/2021 11:55 AM EDT): 81-year-old woman with history of osteopenia since 2018 who progressed to osteoporosis by 04/07/2021. Her risk factors for osteoporosis include age, menopause, remote tobacco use for 35 years, use of SSRIs for 20 years, use of anticoagulants for 10 years, use of tamoxifen for 3 years and possibly short course of proton pump inhibitors. She did have 1 traumatic fracture of the right first toe. She states that she has had 4 inches decrease in height. Currently she is not taking any calcium or vitamin D supplements. She states calcium bothers her stomach. She has not been treated with antiresorptive medications. At this point I would like to do work- up for secondary etiologies of osteoporosis. I would like to check 24-hour urine calcium, intact PTH, TSH, serum protein electrophoresis and I will check CBC and vitamin D levels. I will also get baseline N-telopeptide and pro collagen levels. Family History Medical History Relation Comments Heart disease Father Coronary artery disease Mother Heart disease Mother Relation Status Comments Father Mother Social History Tobacco Use Types Packs/Day Years Used Date Smoking Tobacco: Former Cigarettes 1 35 Smokeless Tobacco: Never Alcohol Use Standard Drinks/Week Comments Yes 4 (1 standard drink = 0.6 oz pur e alcohol) Education Answer Date Recorded Are you interested in more education? Not on nathalia e 02/02/2023 Are you concerned about learning? Not on file 02/02/2023 No 02/02/2023 No 02/02/2023 Digital Access Answer Date Recorded No 03/03/2023 No 03/03/2023 No 03/03/2023 Reliable internet access at home? Not on file 03/03/2023 Device with a working camera? Not on file Comments Unknown Sex and Gender Information Value Date Recorded Sex Assigned at Not on file Legal Sex Female 10:13 PM EDT Gender Identity Not on file Sexual Orientation Not on file Last Filed Vital Signs Vital Sign Reading Time Taken Comments Blood Pressure 112/62 03/16/2022 4:04 PM EDT Pulse 70 03/16/2022 4:04 PM EDT Temperature - - Respiratory Rate - - Oxygen Saturation 98% 03/16/2022 4:04 PM EDT Inhaled Oxygen Concentration - - Weight 62.5 kg (137 lb 12.8 oz) 03/16/2022 4:04 PM EDT Height 159.7 cm (5' 2.87 ) 03/16/2022 4:04 PM ED T Body Mass Index 24.51 03/16/2022 4:04 PM EDT Plan of Treatment Health Maintenance Due Date Last Done Comments Adult Td,Tdap Booster 1939 DEPRESSION SCREENING 1951 PNEUMOCOCCAL VACCINES (50+ years) (1 of 1 - PCV) 1989 ZOSTER VACCINES (1 of 2) 1989 OSTEOPOROSIS SCREENING INITIAL (ONE-TIME) 2004 RSV VACCINE (1 - 1-dose 75+ series) 2014 CREATININE LEVEL 12/26/2022 12/26/2021, 12/26/2021 POTASSIUM LEVEL 12/26/2022 12/26/2021 INFLUENZA VACCINE (#1) 2025 , 07/07/2020, 07/07/2019, Additional history exists COVID-19 VACCINE ( season) 2025 08/25/2021, 11/11/2020 HEPATITIS A VACCINES Aged Out No long er eligible based on patient's age to complete this topic HIB VACCINES Aged Out No longer eligi ble based on patient's age to complete this topic MENINGOCOCCAL VACCINES (ACWY) Aged Out No longer eligible based on patient's age to complete this topic MENINGOCOCCAL VACCINES (B) Aged Out N o longer eligible based on patient's age to complete this topic Medical Devices Not on file Procedures Procedure Name Priority Date/Time Associated Diagnosis Comments COMPREHENSIVE METABOLIC PANEL Routine 12/26/2021 8:13 AM EDT Other osteoporosis without current pathological fracture CREATININE, 24 HR URINE Routine 12/26/2021 8:13 AM EDT Other osteoporosis without current pathological fracture from Last 3 Months or Most Recently Relevant to Health Maintenance Results * (ABNORMAL) Comprehensive metabolic panel (12/26/2021 8:13 AM EDT) SODIUM 138 133 - 146 mmol/L [facility] POTASSIUM 4.3 3.3 - 5.1 mmol/L [facility] CHLORIDE 102 96 - 108 mmol/L [facility] CO2 27 21 - 35 mmol/L [facility] BUN 27(H) 6 - 19 mg/dL [facility] CREATININE 0.90 0.5 - 1.5 mg/dL [facility] GLUCOSE 92 70 - 99 mg/dL [facility] ALBUMIN 4.4 3.9 - 4.8 g/dL [facility] TOTAL PROTEIN 7.7 6.5 - 8.0 g/dL [facility] CALCIUM 9.7 8.4 - 10.3 mg/dL [facility] ALKALINE PHOSPHATASE 91 39 - 117 U/L [facility] TOTAL BILIRUBIN 1.4(H) 0.0 - 1.2 mg/dL [facility] AST 25 0 - 37 U/L [facility] ALT 9 0 - 40 U/L [facility] GLOBULIN 3.3 1 - 4.8 g/dL [facility] EGFR 64 >59 mL/min/1.7 3m2 [facility] Comment:Estimated glomerular filtration rate calculated using the CKD-EPI refit equation. ANION GAP 13 10 - 20 mmol/L [facility] Blood 12/26/2021 8:13 AM EDT 12/26/2021 8:21 AM EDT us Isaiah Pitts DO LAB BLOOD ORDERABLES Final Resul t [facility] [address] [place] [address] * Creatinine, 24 hr urine (12/26/2021 8:13 AM EDT) URINE CREATININE 40 mg/dL [facility] CREATININE OUTPUT 840 600 - 1,800 mg/total output [facility] Urine (Urine) 12/26/2021 8:1 3 AM EDT 12/26/2021 8:20 AM EDT Isaiah Pitts DO URINE ORDERABLES Final Result [address] [address] from Last 3 Months or Most Recently Relevant to Health Maintenance Insurance [employer] MEDEX SUPPLEMENT MEDICARE PART A & [place] [address] [employer] MEDEX SUPPLEMENT MEDICARE PART A & B [employer] CROSS MEDEX SUPPLEMENT MEDICARE PART A & B [employer] MEDEX SUPPLEMENT MEDICARE PART A & B [employer] MED[employer] SUPPLEMENT MEDICARE PART A & B [employer] MEDEX SUPPLEMENT MEDICARE PART A & B [employer] MEDEX SUPPLEMENT Member Subscriber Plan / Payer ( fective 2004-Present) Name:Olman Ballard Relation to Subscriber:Self Name:OLMAN BALLARD Payer ID:[id number] (NAIC) Type:Indemnity Address: [place] [id number] MEDICARE PART A & B [employer] MEDEX SUPPLEMENT MEDICARE PART A & B [employer] MEDEX SUPPLEMENT MEDICARE PART A & B Care Teams Railroad Shop Inspector Relationship Specialty Start Date End Date Mimi Benjamin MD [address] [place] [address] PCP - General Internal Medicine 09/26/21 Additional Source Comments The information contained in this document represents components of the legal health record. It is not the complete legal health record.[facility]
--- OUTSIDE RECORDS SUMMARY | 2025-06-17 17:57 | XMS_ITS | Patient Health Record ---
Author Organization [facility] Address [address] [place] [address] Care Team Providers Care Pig Handler Name Role Phone Yadi Rees DO Primary Care Provider Derek Saavedra Unavailable [phone] Norbert Mack Unavailable Unavailable Allergies Allergen (clinical [...] Status Risk Notes Problem Irritable bowel syndrome (07058469) Irritable bowel syndrome (564.1) Active confirmed Problem Gallstones (885461171) Gallstones (574.20) Active confirmed Problem Generalized abdominal pain (186512019) Abdominal pain, generalized (789.07) Active confirmed Problem Constipation (18135831) Constipation (564.00) Active confirmed Problem Change in bowel habit (89486237) Change in bowel habits (787.99) Active confirmed Problem Colon cancer screening (662645276) Colon cancer screening (V76.51) Active confirmed Problem Liver function tests abnormal (093763027) Abnormal liver function test (790.6) Active confirmed Problem Liver function tests abnormal (416844557) Abnormal liver function tests (790.6) Active confirmed Problem Ascites (880725849) Ascites (789.59) Active confirmed Problem History of adenomatous polyp of colon (666717619) History of adenomatous polyp of colon (V12.72) Active confirmed Problem Flatulence, eructation and gas pain (802377841) Bloating (787.3) Active confirmed Plan Of Treatment Pending Test Test Name Order Date LIVER PROFILE 2013 IRON + IBC (FE) 06/19/2013 FERRITIN 06/19/2013 CBC w DIFF 2013 HEPATITIS B, C PROFILE 06/19/2013 [id number] (A1A) 06/19/2013 CELIAC PANEL #10 06/05/2013 ENDOMYSIAL [...] Date MEDICARE OF [place] [address] [place] [address] [id number] OLMAN BALLARD Self - patient is the insured MEDEX ATTN CLAIMS [address] [place] [address] [phone] [id number] OLMAN BALLARD Self - patient is the insured Medical (General) History Medical History History ICD Code Lumpectomy and radiation for breast canc er on right side in Lipoma removed from abdominal wall Hypertension Depression HTN Hyperlipidemia A-fib Depression Lactose Intolerant Pacemaker-set to 60 [place] 2009 with cardiac arrests-had 2 stent s [...]
== END 2025-06-17 15:46 | disposition home or self-care (01) ==
LOC: HO.HGI 14:42
PROVIDERS: PCP Internal Medicine; Visit Provider Internal Medicine
DX: K74.60 Unspecified cirrhosis of liver (principal); R18.8 Other ascites; M62.84 Sarcopenia; R63.0 Anorexia; I50.9 Heart failure, unspecified
CPT/HCPCS: 99214; G2211

== ENCOUNTER → 2025-06-17 14:41 | Outpatient (BNVA) | payer MEDICARE, SELFPAY | PROVIDERS: PCP Internal Medicine; Visit Provider Internal Medicine | DX: K74.60 Unspecified cirrhosis of liver (principal); R18.8 Other ascites; M62.84 Sarcopenia; R63.0 Anorexia; I50.9 Heart failure, unspecified; Z87.891 Personal history of nicotine dependence; Z68.20 Body mass index [BMI] 20.0-20.9, adult | CPT/HCPCS: 99212 ==

== ENCOUNTER 2025-06-19 13:30 | Outpatient (RCR) | payer MEDICARE, SELFPAY | END 2025-06-19 14:38 | disposition home or self-care (01) | LOC: HO.CR 13:30 | PROVIDERS: PCP Internal Medicine; Visit Provider Internal Medicine Cardiovascular Disease | DX: I11.0 Hypertensive heart disease with heart failure (principal); I50.20 Unspecified systolic (congestive) heart failure | CPT/HCPCS: 93798 ==

== ENCOUNTER 2025-07-09 12:20 | Outpatient (AMB) | payer MEDICARE, SELFPAY ==
[2025-07-09 12:33] VITALS: BP 102/60; PULSE 86; RESP 16; TEMP 36.6; O2SAT 95; BMI 21.1
--- NOTE | 2025-07-09 12:33 | MHC.OFFWIV ---
Intake Vital Signs 07/09/25 12:33 Height 5 ft 4 in Weight 123 lb BMI 21.1 BP 102/60 Blood Pressure Location Lt brachial Position Sitting Respiration 16 Pulse 86 Pulse Source Pulse Oximeter Temp 97.8 F Temp Source Oral Pulse Oximetry (%) 95 Oxygen Delivery Method Room Air Intake Visit Reasons: EP Bilat leg swelling, painful Patient Tobacco Use Status: Former Tobacco user Data Management Specialist Required: No Allergies ibuprofen (IBUPROFEN) Allergy (Severe, Verified 07/09/25 12:39) THROAT LUMP olmesartan (From BENICAR) Allergy (Severe, Verified 07/09/25 12:39) WHEEZING Gadolinium-Containing Contrast Medi (Gadolinium-Containing Agents) Allergy (Mild, Verified 07/09/25 12:39) HIVES Iodinated Contrast Media (IV Dye, Iodine Containing) Allergy (Mild, Verified 07/09/25 12:39) RASH oneil Allergy (Mild, Verified 07/09/25 12:39) RASH Sulfa (Sulfonamide Antibiotics) Allergy (Mild, Verified 07/09/25 12:39) RASH amiodarone (AMIODARONE) Allergy (Unknown, Verified 07/09/25 12:39) THYROID TOXICOSIS amlodipine (From NORVASC) Allergy (Unknown, Verified 07/09/25 12:39) WHEEZING aspirin (ASPIRIN) Allergy (Unknown, Verified 07/09/25 12:39) THROAT LUMP HEAVY WHEEZING, wheezing, wheezing azithromycin (From ZITHROMAX) Allergy (Unknown, Verified 07/09/25 12:39) NAUSEA/VOMITING, nausea and vomiting bee pollen (Bee Stings) Allergy (Unknown, Verified 07/09/25 12:39) EDEMA, ALL INSECT STINGS capsaicin (CAPSAICIN) Allergy (Unknown, Verified 07/09/25 12:39) RASH clopidogrel (From PLAVIX) Allergy (Unknown, Verified 07/09/25 12:39) THROAT LUMP HEAVY WHEEZING diltiazem (Cardizem) Allergy (Unknown, Verified 07/09/25 12:39) rash methimazole (METHIMAZOLE) Allergy (Unknown, Verified 07/09/25 12:39) RASH sulfamethoxazole (From BACTRIM) Allergy (Unknown, Verified 07/09/25 12:39) RASH trimethoprim (From BACTRIM) Allergy (Unknown, Verified 07/09/25 12:39) RASH escitalopram (From Lexapro) Allergy (Verified 07/09/25 12:39) Wheezing clarithromycin (From Biaxin) Adverse Reaction (Mild, Verified 07/09/25 12:39) N/V codeine (Codeine) Adverse Reaction (Mild, Verified 07/09/25 12:39) N/V levofloxacin (From Levaquin) Adverse Reaction (Mild, Verified 07/09/25 12:39) N/V Dye RESIDENTIAL Blue 1 Allergy (Unknown, Uncoded 06/17/25 14:56) rash HPI HPI Comments History of Present Illness Details History of Present Illness - The patient is an 84-year-old female presenting with swollen and weeping legs. - The swelling and fluid leakage in the legs started approximately one week ago. - She has not been taking her prescribed diuretic, Bumex, consistently due to frequent urination and feeling unwell. - She admits that she has not been taking any of her medications - The patient has a history of heart problems and was previously on Lasix, which was discontinued. - She denies any chest pain or shortness of breath, orthopnea, LOPEZ, or PND. - She denies redness or fever or calf pain. Physical Exam General: Cooperative, healthy appearing, comfortable, no acute distress and well developed Orientation: Patient oriented x3 Respiratory: Normal respiratory effort and able to speak in complete sentences. Clear to auscultation bilaterally. No w/r/r noted. Cardiovascular: Regular rate and rhythm. Normal S1 and S2. No m/r/g noted. Skin: No rashes or lesions noted Neuro: Sensation is intact. Extremities: 3+ pitting edema noted. Swelling and weeping noted to the LE bilaterally. No warmth or erythema noted. No calf tenderness noted. No rashes noted. Smooth, shiny skin noted. Patient was informed and verbally consented to the use of an ambient scribe for clinic note documentation during this visit. [facility] Medical History [facility] [place] [facility] anticoagulant use (~2009) History of cardiac arrest (~2009) Osteoporosis (~2020) Tubular adenoma of colon (~2000) Pacemaker at end of battery life Blood in urine Superficial bruising of abdominal wall Traumatic ecchymosis of left lower leg Traumatic ecchymosis of left shoulder Traumatic hematoma of head Fall Hip pain, right Abnormal ultrasound of lower extremity AAA (abdominal aortic aneurysm) CAD (coronary artery disease) Cardiac pacemaker in situ (~2009) Mitral regurgitation Tricuspid regurgitation Diverticulosis Ex-smoker Hearing impaired Lactose intolerance History of right breast cancer (~1992) Hypertension, essential Atrial fibrillation, chronic (~2009) Surgical History History of colonoscopy History of hand surgery History of heart artery stent History of pacemaker History of lumpectomy History of cardiac cath History of cardioversion History of eye surgery Family History Father CVD (cardiovascular disease) Mother CVD (cardiovascular disease) Myocardial infarction Maternal Grandmother Unknown family medical history Maternal Grandfather No problems noted. Paternal Grandfather CVD (cardiovascular disease) Paternal Grandmother No problems noted. Child No Financial Resp No problems noted. Social History Household Members: Children Housing: House Are you a primary care coordinator to a significant other at home: No Do you presently have visiting nurse or other home services: No Alcohol intake: never Patient Tobacco Use Status: Former Tobacco user Tobacco use type: Cigarette Years Smoked: 40 e-Cigarette/Vaping Use: Never Used Advance Directives Date on File: 10/29/17 service: No Current occupational status: retired Cognitive needs: No Hearing needs: Yes (deaf in right ear, left ear has a hearing aid) Vision needs: Yes Review of Systems Const All systems reviewed & are unremarkable except as noted in HPI and below Physical Exam Vital Signs: Last Vital Signs Temp 97.8 F 07/09/25 12:33 Pulse 86 07/09/25 12:33 Resp 16 07/09/25 12:33 BP 102/60 07/09/25 12:33 Pulse Ox 95 07/09/25 12:33 Oxygen Delivery Method Room Air 07/09/25 12:33 BMI result Body Mass Index 21.1 Assessment & Plan Assessment & Plan (1) Leg edema: Code(s): R60.0 - Localized edema Plan Most likely dependent edema vs lymphedema, unlikely a cellulitis plan - Resume Bumex daily to manage fluid retention. - Monitor fluid intake and use compression stockings. - Stress the importance of taking medications as prescribed. - elevate her legs - wear compression stockings - will make her a f/u appt for next week with PCP to reevaluate legs - advised the ER if her legs are worse, chest pain, SOB, etc. Medications: Refilled bumetanide 2 mg PO DAILY 90 tabs 1RF Coding Level of Care Code Est Pt Level 3 (49584) Diagnoses Leg edema R60.0
--- OUTSIDE RECORDS SUMMARY | 2025-07-09 13:54 | XMS_ITS | Patient Health Record ---
Author Organization [facility] Address [address] [place] [address] Care Team Providers Care Cutter Tender Name Role Phone Sourav SHIN, [facility] Primary Care Provider Terri Flowers Unavailable [phone] Allergies Allergen (clinical drug ingredient) Drug/Non Drug [...] Duration: 3-4 weeks 04/01/2019 Active Vitamin D3 81104 UNIT as directed Orally Active hydroCHLOROthiazide 12.5 [...] Problem Acquired hammer toe of right foot (68008208740354 05) Other hammer toe(s) (acquired), right foot (M20.41) Active confirmed Problem Acquired hammer toe of left foot (89561162516916 03) Other hammer toe(s) (acquired), left foot (M20.42) Active confirmed Problem Acquired hallux valgus (07595401) Hallux valgus (acquired), right foot (M20.11) Active confirmed Problem Abnormal gait (07887930) Unstable gait (R26.81) Active confirmed Problem 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) Idiopathic neuropathy (G60.9) Active confirmed Plan Of Treatment Pending Test Test Name Order Date X ray : Foot, left 3V 04/01/2019 X ray : Foot, right 3V 04/01/2019 Insurance Providers Payer Name Payer Address Payer Phone Subscriber Number Group Number Insured Name Patient Relationship to Insured Coverage Start Date Coverage End Date Medicare National [employer] [address] [facility] [place] [address] [id number] Bobbi Dow Self - patient is the insured [employer] [facility] [address] [place] [address] [phone] [id number] Bobbi Dow Self - patient is the insured Medical (General) History Medical History History ICD Code Anxiety Arthritis Broken bones CAD (Cholesterol) Cancer Cataracts Depression Heart disease Hepatitis A High blood pressure Numbness Osteoporosis Osteopenia Sciatica chronic sinusitis thyroid Measles Mumps Chicken pox Surgical History Surgery Date(Month/Year) TIA 1947 Hospitalization History Reason Date(Month/Year) [facility]-Nosebleed- ER vis it 10/2018 [facility]-UTI/Hemotoria/Hyp onaturia-Er visit 01/2019 [facility] 6 days - endocarditis, G I Bleeding- went to [facility] for PT 04/02/2020 [facility] ER - fall downstairs - swollen toe - broken toe 05/06/2020
--- OUTSIDE RECORDS SUMMARY | 2025-07-09 13:54 | XMS_ITS | Patient Health Record ---
Author Organization [facility] Address [address] [place] [address] Care Team Providers Care Breaker Oiler Name Role Phone Yadi Rees DO Primary Care Provider Derek Saavedra Unavailable [phone] Norbert Mack Unavailable Unavailable Allergies Allergen (clinical drug ingredient) Drug/Non Drug Allergy documented on EMR Reaction Allergy Type Onset Date Status Information temporarily unavailable xray dyes rash Drug [...] temporarily unavailable Advil Unknown Drug Allergy Active Information temporarily unavailable codeine (uncoded) Unknown Allergy Active Reason For Referral No Information Medications Medication SIG (Take, Route, Fr equency, Duration) Notes Start Date End Date Status Coumadin 2.5-5mg Act preet Lactaid Active Benicar 20mg Active Paxil 10mg Active Coreg 12.5mg Active Gas-X Active Lasix Active Laxative Active Problems Problem Type SNOMED Code ICD Code Onset Dates Problem Status W/U Status Risk Notes Problem Irritable bowel syndrome (72991837) Irritable bowel syndrome (564.1) Active confirmed Problem Gallstones (687521950) Gallstones (574.20) Active confirmed Problem Generalized abdominal pain (425502743) Abdominal pain, generalized (789.07) Active confirmed Problem Constipation (47161304) Constipation (564.00) Active confirmed Problem Change in bowel habit (97220815) Change in bowel habits (787.99) Active confirmed Problem Colon cancer screening (954679277) Colon cancer screening (V76.51) Active confirmed Problem Liver function tests abnormal (519793248) Abnormal liver function test (790.6) Active confirmed Problem Liver function tests abnormal (333633355) Abnormal liver function tests (790.6) Active confirmed Problem Ascites (062653355) Ascites (789.59) Active confirmed Problem History of adenomatous polyp of colon (056396937) History of adenomatous polyp of colon (V12.72) Active confirmed Problem Flatulence, eructation and gas pain (200859037) Bloating (787.3) Active confirmed Plan Of Treatment Pending Test Test Name Order Date LIVER PROFILE 2013 IRON + IBC (FE) 06/19/2013 FERRITIN 06/19/2013 CBC w DIFF 2013 HEPATITIS B, C PROFILE 06/19/2013 [id number] (A1A) 06/19/2013 CELIAC PANEL #10 06/05/2013 ENDOMYSIAL [...] Date MEDICARE OF [place] [address] [place] [address] [id number] OLMAN BALLARD Self - patient is the insured MEDEX ATTN CLAIMS [address] [place] [address] [id number] OLMAN BALLARD Self - patient is the insured Medical (General) History Medical History History ICD Code Lumpectomy and radiation for breast canc er on right side in Lipoma removed from abdominal wall Hypertension Depression HTN Hyperlipidemia A-fib Depression Lactose Intolerant Pacemaker-set to 60 [place] 2009 with cardiac arrests-had 2 stent s [...]
== END 2025-07-09 14:27 | disposition home or self-care (01) ==
PROVIDERS: PCP Internal Medicine; Visit Provider Physician Assistant Medical
DX: R60.0 Localized edema (principal)

== ENCOUNTER → 2025-07-09 12:20 | Outpatient (BNVA) | payer MEDICARE, SELFPAY | PROVIDERS: PCP Internal Medicine; Visit Provider Physician Assistant Medical | DX: R60.0 Localized edema (principal); Z91.148 Patient's other noncompliance with medication regimen for other reason | CPT/HCPCS: 99212 ==

== ENCOUNTER 2025-07-14 12:25 | Outpatient (AMB) | payer MEDICARE, SELFPAY ==
[2025-07-14 12:27] VITALS: BP 102/68; PULSE 85; O2SAT 96; BMI 21.6
--- NOTE | 2025-07-14 12:27 | A.OFFPC_ITS ---
Vital Signs 07/14/25 12:27 Height 5 ft 4 in Weight 126 lb BMI 21.6 BP 102/68 Blood Pressure Location Lt brachial Position Sitting Pulse 85 Pulse Source Pulse Oximeter Pulse Oximetry (%) 96 Oxygen Delivery Method Room Air Intake Visit Reasons: Follow up after being seen in a walk in Allergies ibuprofen (IBUPROFEN) Allergy (Severe, Verified 07/14/25 12:27) THROAT LUMP olmesartan (From BENICAR) Allergy (Severe, Verified 07/14/25 12:27) WHEEZING Gadolinium-Containing Contrast Medi (Gadolinium-Containing Agents) Allergy (Mild, Verified 07/14/25 12:27) HIVES Iodinated Contrast Media (IV Dye, Iodine Containing) Allergy (Mild, Verified 07/14/25 12:27) RASH oneil Allergy (Mild, Verified 07/14/25 12:27) RASH Sulfa (Sulfonamide Antibiotics) Allergy (Mild, Verified 07/14/25 12:27) RASH amiodarone (AMIODARONE) Allergy (Unknown, Verified 07/14/25 12:27) THYROID TOXICOSIS amlodipine (From NORVASC) Allergy (Unknown, Verified 07/14/25 12:27) WHEEZING aspirin (ASPIRIN) Allergy (Unknown, Verified 07/14/25 12:27) THROAT LUMP HEAVY WHEEZING, wheezing, wheezing azithromycin (From ZITHROMAX) Allergy (Unknown, Verified 07/14/25 12:27) NAUSEA/VOMITING, nausea and vomiting bee pollen (Bee Stings) Allergy (Unknown, Verified 07/14/25 12:27) EDEMA, ALL INSECT STINGS capsaicin (CAPSAICIN) Allergy (Unknown, Verified 07/14/25 12:27) RASH clopidogrel (From PLAVIX) Allergy (Unknown, Verified 07/14/25 12:27) THROAT LUMP HEAVY WHEEZING diltiazem (Cardizem) Allergy (Unknown, Verified 07/14/25 12:27) rash methimazole (METHIMAZOLE) Allergy (Unknown, Verified 07/14/25 12:27) RASH sulfamethoxazole (From BACTRIM) Allergy (Unknown, Verified 07/14/25 12:27) RASH trimethoprim (From BACTRIM) Allergy (Unknown, Verified 07/14/25 12:27) RASH escitalopram (From Lexapro) Allergy (Verified 07/14/25 12:27) Wheezing clarithromycin (From Biaxin) Adverse Reaction (Mild, Verified 07/14/25 12:27) N/V codeine (Codeine) Adverse Reaction (Mild, Verified 07/14/25 12:27) N/V levofloxacin (From Levaquin) Adverse Reaction (Mild, Verified 07/14/25 12:27) N/V Dye PRISON Blue 1 Allergy (Unknown, Uncoded 06/17/25 14:56) rash Medication List - Last Reconciled 07/14/25 by Mimi Benjamin MD bumetanide 2 mg PO DAILY escitalopram oxalate 10 mg PO DAILY metolazone 2.5 mg PO DAILY PRN nadolol 20 mg PO DAILY potassium chloride ER (K-Tab) 20 mEq PO DAILY Tobacco use date assessed: 07/14/25 Fall risk assessment: No Falls in past year Last assessed Fall Risk: 07/14/25 Dental Screening Dental Screen Date: 07/14/25 Did you have a dental visit in the last 12 months?: No Did you have a dental problem in the last 6 months where you did not have access to dental care?: No Was dental information given to patient?: Patient declined HPI Follow up after being seen in a walk in HPI Details History of Present Illness The patient is an 84 year old female presenting with bilateral leg edema. Bilateral Leg Edema: - Patient discontinued Bumex 2 mg, a diu retic previously prescribed, leading to exacerbation of edema in bilateral lower extremities. - Patient reports significant fluid drai nage and swelling in the legs, exacerbated since discontinuation of medication. - Patient notes discomfort, sleep distur bance, and consistent wetness from drainage. - Initially seen in a walk-in clinic on July 09, she reported non-compliance with medication regimen. - Patient expresses frustration with hav ing persistent edema and has concerns about needing antibiotics despite there being no infection present. Medications: - Bumex 2 mg (diuretic) prescribed for m anagement of bilateral leg edema, but was recently discontinued by the patient. Social History: - Resides in the same house for the last 65 years with her daughter living on the third floor and the patient on the second floor. First floor is rented out. - No current plan to move to [facility] despite her daughter?s previous suggestion. Problem List - Bilateral Leg Edema Plan - Patient was advised to resume taking B umex 2 mg daily to manage edema and decrease fluid accumulation in the legs. - Educated the patient on the importance of medication adherence to prevent worsening edema and avoid fluid overload complications. - Discussed expected outcomes of restart ing diuretics, including increased urination as excess fluid is removed. - Patient will return for follow-up in o ne week to assess the effect of resumed medication on edema. - Ensured patient understood the absence of infection, negating the need for antibiotics at this time. - Dressing changes are scheduled to hand le oozing and maintain cleanliness around sores to prevent infection. before leaving Review of Systems - General: No fever no chills - Neurological: No headaches no dizziness - Ear nose throat: No sore throat no hearing difficulty no ear pain - Cardiovascular: No syncope, no chest pain - Gastrointestinal: No nausea vomiting or diarrhea Physical Exam General: No acute distress HEENT: No acute findings Neck: Supple Respiratory system: Able to talk in full sentences, no audible wheeze Cardiovascular: S1-S2 Gastrointestinal: No pain Extremities: Bilateral leg edema with oozing, no infection noted, developing a sore right lower leg medial aspect [facility] Medical History 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) History of cardiac arrest (~2009) Osteoporosis (~2020) Tubular adenoma of colon (~2000) Pacemaker at end of battery life Blood in urine Superficial bruising of abdominal wall Traumatic ecchymosis of left lower leg Traumatic ecchymosis of left shoulder Traumatic hematoma of head Fall Hip pain, right Abnormal ultrasound of lower extremity AAA (abdominal aortic aneurysm) CAD (coronary artery disease) Cardiac pacemaker in situ (~2009) Mitral regurgitation Tricuspid regurgitation Diverticulosis Ex-smoker Hearing impaired Lactose intolerance History of right breast cancer (~1992) Hypertension, essential Atrial fibrillation, chronic (~2009) Surgical History History of colonoscopy History of hand surgery History of heart artery stent History of pacemaker History of lumpectomy History of cardiac cath History of cardioversion History of eye surgery Family History Father CVD (cardiovascular disease) Mother CVD (cardiovascular disease) Myocardial infarction Maternal Grandmother Unknown family medical history Maternal Grandfather No problems noted. Paternal Grandfather CVD (cardiovascular disease) Paternal Grandmother No problems noted. Child No Financial Resp No problems noted. Social History Household Members: Children Housing: House Are you a primary rn homecare to a significant other at home: No Do you presently have visiting nurse or other home services: No Alcohol intake: never Patient Tobacco Use Status: Former Tobacco user Tobacco use type: Cigarette Years Smoked: 40 e-Cigarette/Vaping Use: Never Used Advance Directives Date on File: 10/29/17 service: No Current occupational status: retired Cognitive needs: No Hearing needs: Yes (deaf in right ear, left ear has a hearing aid) Vision needs: Yes Questionnaire PHQ-9 Over the last 2 weeks, how often have you been bothered by any of the following problems? 1. Little interest or pleasure in doing things: nearly every day 2. Feeling down, depressed, or hopeless: nearly every day 3. Trouble falling or staying asleep, or sleeping too much: nearly every day 4. Feeling tired or having little energy: nearly every day 5. Poor appetite or overeating: more than half the days 6. Feeling bad about yourself - or that you are a failure or have let yourself o r your family down: several days 7. Trouble concentrating on things, such as reading the newspaper or watching television: not at all 8. Moving or speaking so slowly that other people could have noticed. Or the opposite - being so fidgety or restless that you have been moving around a lot more than usual: not at all 9. Thoughts that you would be better off or of hurting yourself in some way: not at all Total score: 15 Depression Screening Interpretation: Positive Depression Screening Follow-up: Existing condition and In treatment Depression Screening Done: Yes 05355 - PHQ-9 Billing: Yes Source: Developed by Drs. Derek Stock, Anali Alfaro, Taco Conti and colleagues, with an educational brandan from [employer]. Thrive Questionnaire Date Thrive assessed: 07/14/25 I am a: Patient What is your living situation today?: I choose not to answer this question Within the past 12 months, did the food you bought not last and you didn't have the money to get more?: I choose not to answer this question Within the past 12 months, did you worry whether your food would run out before you got money to buy more?: I choose not to answer this question Do you have trouble paying for medicines?: I choose not to answer this question Do you have trouble getting transportation to medical appointments?: I choose not to answer this question Do you have trouble paying your heating and electricity bill?: I choose not to answer this question Do you have trouble taking care of your child, family member or friend?: I choose not to answer this question Do you have trouble with day-to-day activities such as bathing, preparing meals, shopping, managing finances, etc.?: I choose not to answer this question Are you currently unemployed and looking for a job?: I choose not to answer this question Are you interested in more education?: I choose not to answer this question Please select the resources that you would like help with: None Currently or been in a relationship where the following occur: I choose not to answer THRIVE Score: 0 AUDIT C Alcohol Use Questionnaire (AUDIT-C) 1. How often do you have a drink containing alcohol?: Never 3. How often do you have six or more drinks on one occasion?: Never Total Score: 0 Score Reviewed/Action Taken: Yes GARRICK-7 AMB Questionnaire GARRICK-7 Date GARRICK - 7 assessed: 07/14/25 (patient declined) Source: Developed by Drs. Derek Stock, Anali Alfaro, Taco Conti and colleagues, with an educational brandan from [employer]. Physical exam (Primary Care) Vital Signs: Last Vital Signs Pulse 85 07/14/25 12:27 BP 102/68 07/14/25 12:27 Pulse Ox 96 07/14/25 12:27 Oxygen Delivery Method Room Air 07/14/25 12:27 BMI result Body Mass Index 21.6 Tobacco/Smoking Status: Tobacco use Status Tobacco use date assessed 07/14/25 07/14/25 12:28 Patient Tobacco Use Status Former Tobacco user 07/14/25 12:27 Tobacco use type Cigarette 07/14/25 12:27 e-Cigarette/Vaping Use Never Used 07/14/25 12:27 PHQ-9: PHQ-9 Score PHQ-9: Total score 15 07/14/25 13:04 Depression Screening Interpretation: Positive Depression Screening Follow-up: Existing condition and In treatment Thrive Assessment: Date of Thrive Assessment Date Thrive assessed 07/14/25 07/14/25 12:28 Currently or been in a relationship where the following occur: I choose not to answer Coding Level of Care Code Est Pt Level 4 (44698) Complex EM visit Add On G2211 Diagnoses Localized swelling of both lower legs R22.43 Heart failure with reduced ejection fraction I50.20 Varicose veins of both lower extremities with complications I83.893 Laterality: bilateral Recurrent major depressive disorder, in partial remission F33.41 Active/Remission status: in partial remission Non-compliance Z91.199 Additional Codes PHQ-9 - 84072 - PHQ-9 Billing: Yes ([id number]) Assessment & Plan Assessment & Plan (1) Localized swelling of both lower legs: Code(s): R22.43 - Localized swelling, mass and lump, lower limb, bilateral Category: Medical (2) Heart failure with reduced ejection fraction: Code(s): I50.20 - Unspecified systolic (congestive) heart failure Category: Medical (3) Varicose veins of lower extremities with complications: Code(s): I83.899 - Varicose veins of unspecified lower extremity with other complications Category: Medical Qualifiers: Laterality: bilateral Qualified Code(s): I83.893 - Varicose veins of bilateral lower extremities with other complications (4) Major depression, recurrent: Code(s): F33.9 - Major depressive disorder, recurrent, unspecified Category: Medical Qualifiers: Active/Remission status: in partial remission Qualified Code(s): F33.41 - Major depressive disorder, recurrent, in partial remission (5) Non-compliance: Code(s): Z91.199 - Patient's noncompliance with other medical treatment and regimen due to unspecified reason Category: Medical Plan History of Present Illness The patient is an 84 year old female presenting with bilateral leg edema. suffers from anxiety and depression and has varcios beings both lower ext, along with chronic congestion heart failure and pacemaker Bilateral Leg Edema: - Patient discontinued Bumex 2 mg, a diuretic previously prescribed, leading to exacerbation of edema in bilateral lower extremities. - Patient reports significant fluid drainage and swelling in the legs, exacerbated since discontinuation of medication. - Patient notes discomfort, sleep disturbance, and consistent wetness from drainage. - Initially seen in a walk-in clinic on October 2nd, she reported non-compliance with medication regimen. - Patient expresses frustration with having persistent edema and has concerns about needing antibiotics despite there being no infection present. Medications: - Bumex 2 mg (diuretic) prescribed for management of bilateral leg edema, but was recently discontinued by the patient. Social History: - Resides in the same house for the last 65 years with her daughter living on the third floor and the patient on the second floor. First floor is rented out. - No current plan to move to assisted living despite her daughter?s previous suggestion. Problem List - Bilateral Leg Edema Plan - Patient was advised to resume taking Bumex 2 mg daily to manage edema and decrease fluid accumulation in the legs. - Educated the patient on the importance of medication adherence to prevent worsening edema and avoid fluid overload complications. - Discussed expected outcomes of restarting diuretics, including increased urination as excess fluid is removed. - Patient will return for follow-up in one week to assess the effect of resumed medication on edema. - Ensured patient understood the absence of infection, negating the need for antibiotics at this time. - Dressing changes are scheduled to handle oozing and maintain cleanliness around sores to prevent infection. before leaving Medications: Refilled bumetanide 2 mg PO DAILY 90 tabs 1RF
--- OUTSIDE RECORDS SUMMARY | 2025-07-14 15:18 | XMS_ITS | Clinical Summary ---
Author Organization [facility] Address [address] [place] [address] Phone Care Team Providers Care Contractor Buyer Name Role Phone Mimi Benjamin MD Primary Care Provider [phone] Allergies Active Allergy Reactions Criticality Noted Date Comments Allergen Fcz-Nxdiu-Plyrf Bee 12/19/2021 Edema Amiodarone 12/19/2021 Thyroid toxicosis [...] Active vitamins A,C,E-zinc-eleanor er (PRESERVISION AREDS) [id number] iguv-il-lrcz Cap Take 1 capsule by mouth. Takes [...] D supplements which she can just get csim-bji-dmbbjri. She does not want to take calcium [...] for repeat DXA scan on 04/07/2023 at [facility] she should continue at the same facility. [...] EDT) SODIUM 138 133 - 146 mmol/L [facility] POTASSIUM 4.3 3.3 - 5.1 mmol/L [facility] CHLORIDE 102 96 - 108 mmol/L [facility] CO2 27 21 - 35 mmol/L [facility] BUN 27(H) 6 - 19 mg/dL [facility] CREATININE 0.90 0.5 - 1.5 mg/dL [facility] GLUCOSE 92 70 - 99 mg/dL [facility] ALBUMIN 4.4 3.9 - 4.8 g/dL [facility] TOTAL PROTEIN 7.7 6.5 - 8.0 g/dL [facility] CALCIUM 9.7 8.4 - 10.3 mg/dL [facility] ALKALINE PHOSPHATASE 91 39 - 117 U/L [facility] TOTAL BILIRUBIN 1.4(H) 0.0 - 1.2 mg/dL [facility] AST 25 0 - 37 U/L [facility] ALT 9 0 - 40 U/L [facility] GLOBULIN 3.3 1 - 4.8 g/dL [facility] EGFR 64 >59 mL/min/1.7 3m2 [facility] Comment:Estimated glomerular filtration rate calculated using the CKD-EPI refit equation. ANION GAP 13 10 - 20 mmol/L [facility] Blood 12/26/2021 8:13 AM EDT 12/26/2021 8:21 AM EDT us Isaiah Pitts DO LAB BLOOD ORDERABLES Final Resul t [facility] [address] [place] [address] * Creatinine, 24 hr urine (12/26/2021 8:13 AM EDT) URINE CREATININE 40 mg/dL [facility] CREATININE OUTPUT 840 600 - 1,800 mg/total output [facility] Urine (Urine) 12/26/2021 8:1 3 AM EDT 12/26/2021 8:20 AM EDT Isaiah Pitts DO URINE ORDERABLES Final Result [address] [address] from Last 3 Months or Most Recently Relevant to Health Maintenance Insurance [employer] MEDEX SUPPLEMENT MEDICARE PART A & [place] [address] [employer] MEDEX SUPPLEMENT MEDICARE PART A & B [employer] MEDEX SUPPLEMENT MEDICARE PART A & B divorce360 MEDEX SUPPLEMENT MEDICARE PART A & B divorce360 MEDEX SUPPLEMENT MEDICARE PART A & B divorce360 MEDEX SUPPLEMENT MEDICARE PART A & B divorce360 MEDEX SUPPLEMENT Member Subscriber Plan / Payer ( fective 2004-Present) Name:Olman Ballard Relation to Subscriber:Self Name:OLMAN BALLARD Payer ID:[id number] (NAIC) Type:Indemnity Address: [place] [id number] MEDICARE PART A & B divorce360 MEDEX SUPPLEMENT MEDICARE PART A & B divorce360 MEDEX SUPPLEMENT MEDICARE PART A & B Care Teams Contractor Buyer Relationship Specialty Start Date End Date Mimi Benjamin MD [address] [place] [address] PCP - General Internal Medicine 09/26/21 Additional Source Comments The information contained in this document represents components of the legal health record. It is not the complete legal health record.[facility]
--- OUTSIDE RECORDS SUMMARY | 2025-07-14 15:18 | XMS_ITS | Patient Health Record ---
Author [facility] Address [address] [place] [address] Care Team Providers Care Phone Specialist Name Role Phone Sourav SHIN, [facility] Primary Care Provider Terri Flowers Unavailable [phone] Allergies Allergen (clinical drug ingredient) Drug/Non Drug [...] Duration: 3-4 weeks 04/01/2019 Active Vitamin D3 04995 UNIT as directed Orally Active hydroCHLOROthiazide 12.5 [...] Problem Acquired hammer toe of right foot ([id number] 05) Other hammer toe(s) (acquired), right foot (M20.41) Active confirmed Problem Acquired hammer toe of left foot ([id number] 03) Other hammer toe(s) (acquired), left foot (M20.42) Active confirmed Problem Acquired hallux valgus (53975307) Hallux valgus (acquired), right foot (M20.11) Active confirmed Problem Abnormal gait (86932203) Unstable gait (R26.81) Active confirmed Problem 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) Idiopathic neuropathy (G60.9) Active confirmed Plan Of Treatment Pending Test Test Name Order Date X ray : Foot, left 3V 04/01/2019 X ray : Foot, right 3V 04/01/2019 Insurance Providers Payer Name Payer Address Payer Phone Subscriber Number Group Number Insured Name Patient Relationship to Insured Coverage Start Date Coverage End Date Medicare National [employer] [address] [place] [address] [id number] Bobbi Dow Self - patient is the insured Medex [employer] [facility] [address] [place] [address] [phone] [id number] Bobbi Dow Self - patient is the insured Medical (General) History Medical History History ICD Code Anxiety Arthritis Broken bones CAD (Cholesterol) Cancer Cataracts Depression Heart disease Hepatitis A High blood pressure Numbness Osteoporosis Osteopenia Sciatica chronic sinusitis thyroid Measles Mumps Chicken pox Surgical History Surgery Date(Month/Year) TIA 1947 Hospitalization History Reason Date(Month/Year) [facility]-Nosebleed- ER vis it 10/2018 [facility]-UTI/Hemotoria/Hyp onaturia-Er visit 01/2019 [facility] 6 days - endocarditis, G I Bleeding- went to [facility] for PT 04/02/2020 [facility] ER - fall downstairs - swollen toe - broken toe 05/06/2020
--- OUTSIDE RECORDS SUMMARY | 2025-07-14 15:18 | XMS_ITS | Data Portability ---
Author Organization [facility], Main Office Address [address], [address] [place] [address] Care Team Providers Care Licensing Manager Name Role Phone DAY BROOK () OTHER Assessment Encounter Date Assessment Date Assessment LastModified by Organization Details LastModified Time 03/30/2020 03/30/2020 03/30/20 WBC 5.1, Hgb 11.6, Hct 36.4, Plt 261, Na 141, K 3.1, BUN 10, Unified Communications Engineer 0.60, cari 8.4 no labs noted from [facility] Not available 03/30/2020 13:26:56 04/09/2020 04/09/202004/02 [...] Address Organization Details Recorded Time Mixed hyperlipidemia 342530313 Active 2019 ANNIKA GASPAR [address], [address], [place], [address], [facility] 0 10:31:34 Depressive disorder 56852887 Active 2019 ANNIKA GASPAR [address], [address], [place], [address], [facility] 0 10:31:47 Atrial fibrillation 03770066 Active 2019 ANNIKA GASPAR [address], [address], [place], [address], [facility] 0 10:31:57 Coronary arterioscleros is 56330382 Active 2019 PHIL GASPARP [address], [address], [place], [address], [place] [facility] 0 10:32:06 Gastrointestin al hemorrhage 09776167 Active 2019 PHIL GASPARP [address], [address], [place], [address], [facility] 0 10:33:27 Cardiac pacemaker in situ 431764306 Active 2019 ANNIKA GASPAR [address], [address], [place], [address], [facility] 0 10:33:50 Bacteremia 8255793 Active 2019 ANNIKA GASPRA [address], [address], [place], [address], [facility] 0 10:34:05 Chronic diastolic heart failure 560155849 Active 2019 ANNIKA GASPAR [address], [address], [place], [address], [facility] 0 10:34:26 Endocarditis 08180880 Active 2019 ANNIKA GASPAR [address], [address], [place], [address], [facility] 0 10:38:11 International normalized ratio above reference range 257723630 Active 2019 PHIL GASPARP [address], [address], [place], [address], [facility] 0 10:48:13 Problem Notes None recorded. Medical Equipment None Reported. Allergies Allergen ID Allergen Name Allergen Category Reaction Reaction Severity Criticality Documentation Date Start Date Code Code System Note Provider Name and Address Organization Details Recorded Time 95480 honey bee venom medicatio n Not available Not available Not available 03/30/2020 98462 7 RxNorm FILIPPO RAMIREZ, CLINICAL CYTOGENETICS DIRECTOR [address], [address], [place], [address], [facility] 0 10:54:22 62898 Iodinated contrast media (substanc e) medicatio n Not available Not available Not available 03/30/2020 95486 2004 SNOMED FILIPPO RAMIREZ, CLINICAL CYTOGENETICS DIRECTOR [address], [address], [place], [address], [facility] 0 10:54:46 60660 Substance with sulfonami de structure and antibacte rial mechanism of action (substanc e) medicatio n Not available Not available Not available 03/30/2020 50057 8003 SNOMED FILIPPO RAMIREZ, CLINICAL CYTOGENETICS DIRECTOR [address], [address], [place], [address], [facility] 0 10:55:05 28652 Product containin g gadoliniu m and/or gadoliniu m compound (product) medicatio n Not available Not available Not available 03/30/2020 30639 3008 SNOMED FILIPPO RAMIREZ, CLINICAL CYTOGENETICS DIRECTOR [address], [address], [place], [address], [email or web address] 0 10:55:21 84035 codeine medicatio n Not available Not available Not available 03/30/2020 2670 RxNorm FILIPPO BRANDOOSAIDA, CLINICAL CYTOGENETICS DIRECTOR [address], [address], [place], [address], [email or web address] 0 10:55:37 37429 aspirin medicatio n Not available Not available Not available 03/30/2020 1191 RxNorm FILIPPO BRANDOOSAIDA, CLINICAL CYTOGENETICS DIRECTOR [address], [address], [place], [address], [email or web address] 0 10:56:04 54552 capsaicin medicatio n Not available Not available Not available 03/30/2020 1992 RxNorm FILIPPO ASHLEY, CLINICAL CYTOGENETICS DIRECTOR [address], [address], [place], [address], [email or web address] 0 10:56:39 94277 methimazo le medicatio n Not available Not available Not available 03/30/2020 6835 RxNorm FILIPPO RAMIREZ, CLINICAL CYTOGENETICS DIRECTOR [address], [address], [place], [address], [facility] 0 10:57:27 02864 ibuprofen medicatio n Not available Not available Not available 03/30/2020 5640 RxNorm FILIPPO RAMIREZ, CLINICAL CYTOGENETICS DIRECTOR [address], [address], [place], [address], [facility] 0 10:57:38 39795 sulfameth oxazole / trimethop rim medicatio n Not available Not available Not available 03/30/2020 23496 RxNorm FILIPPO RAMIREZ, CLINICAL CYTOGENETICS DIRECTOR [address], [address], [place], [address], [facility] 0 11:01:11 14728 clarithro mycin medicatio n Not available Not available Not available 03/30/2020 63555 RxNorm FILIPPO RAMIREZ, CLINICAL CYTOGENETICS DIRECTOR [address], [address], [place], [address], [facility] 0 11:01:20 96270 azithromy johnna medicatio n Not available Not available Not available 03/30/2020 73473 RxNorm FILIPPO RAMIREZ, CLINICAL CYTOGENETICS DIRECTOR [address], [address], [place], [address], [facility] 0 11:01:29 62104 amlodipin e medicatio n Not available Not available Not available 03/30/2020 62241 RxNorm FILIPPO RAMIREZ, CLINICAL CYTOGENETICS DIRECTOR [address], [address], [place], [address], [facility] 0 11:01:36 Medications Not known to be on any medication Vitals Date Recorded Body temperature Heart rate Respiratory rate Oxygen saturation Oxygen saturation in Arterial blood by Pulse oximetry Systolic And Diastolic Provider Name and Address Organization Details Last Updated DateTime 0 97.6 [degF] 72 /min 18 /min 95 % 95 % 138/72 mm[Hg] ANNIKA GASPAR [address], [address], [place], [address], [facility] 0 10:31:05 Date Recorded Body temperature Oxygen saturation Oxygen saturation in Arterial blood by Pulse oximetry Systolic And Diastolic Provider Name and Address Organization Details Last Updated DateTime 03/31/2020 97.4 [degF] 97 % 97 % 133/81 mm[Hg] Suha Lama MD [address], [address], [place], [address], [facility] 0 11:17:06 Date Recorded Heart rate Respiratory rate Body temperature Oxygen saturation Oxygen saturation in Arterial blood by Pulse oximetry Systolic And Diastolic Provider Name and Address Organization Details Last Updated DateTime 0 88 /min 18 /min 98.3 [degF] 97 % 97 % 140/59 mm[Hg] ANNIKA GASPAR [address], [address], [place], [address], [facility] 0 18:40:48 Date Recorded Body height Heart rate Respiratory rate Body temperature Oxygen saturation Oxygen saturation in Arterial blood by Pulse oximetry Systolic And Diastolic Provider Name and Address Organization Details Last Updated DateTime 0 162.56 cm 80 /min 16 /min 98.7 [degF] 96 % 96 % 111/57 mm[Hg] MATHEW JONES NP [address], [address], [place], [address], [facility] 0 11:22:47 Social History Question Answer Notes LastModified by Organizat ion Details LastModified Time Tobacco Smoking Status Former Smoker Not Available [employer] 08/03/2020 03:13:20 Do You Have An Advance Directive? No [id number] Information not available 08/03/2020 How Much Tobacco Do You Chew? None [id number] Information not available 08/03/2020 Do You Have A Medical Power Of Lending Activities Supervisor? No [id number] Information not available 08/03/2020 What Was The Date Of Your Most Recent Tobacco Screening? 03/30/2020 [id number] Information not available 08/03/2020 How Much Tobacco Do You Smoke? 1 PPD [id number] Information not available 08/03/2020 How Many Years Have You Smoked Tobacco? 30 [id number] Information not available 08/03/2020 Sex: Unknown Functional Status Question Answer Note LastModified by Organizat ion Details LastModified Time What is your level of alcohol consumption? Occasional [id number] Information not available 08/03/2020 Do you or have you ever used smokeless tobacco? Never used smokeless tobacco [id number] Information not available 08/03/2020 Do you or have you ever used e-cigarettes or vape? Never used electronic cigarettes [id number] Information not available 08/03/2020 Mental Status None recorded. Family History Nothing Reported. Medical History No medical history recorded. Gynecological HistoryNo gynecological history recorded. Obstetrics History GPAL:G 0 P 0 0 0 0 Past Encounters Encounter ID Performer Location Encounter Start Date Encounter Closed Date Diagnosis/Indication Diagnosis SNOMED-CT Code Diagnosis ICD10 Code Diagnosis IMO Codes Diagnosis Note [id number] ANNIKA GASPAR [address] [address] 03/30/2020 10:28:16 04/26/2020 16:04:38 Bacteremia 7850176 R78.81 strep viridans bacteremia ceftriaxon e 2 gm qd x 4 weeks to complete on 04/22/20 maintain PICC line monitor labs Gastrointe stinal hemorrhage 41980249 K92.1 omeprazole 40 mg qd need to follow up with gi for EGD monitor for bleeding Chronic di astolic heart failure 383590240 I50.32 NEW DIAGNOSIS FOR PATIENT ACCORDING TO PT low sodium diet valsartan 40 mg bid lasix 40 mg qd monitor fluid balance monitor weights Atrial fibrillation 4943 6004 I48.19 apixaban 5 mg bid-was on coumadin but now apixaban monitor for rate and rhythm Depressive disorder 3548 9007 F32.89 not on medication monitor mood psych eval and treat prn Mixed hyperlipidemia 267 639567 E78.2 not on medication monitor labs Coronary arteriosclerosis 80537542 I25.10 not on medication monitor Cardiac pa cemaker in situ 725949006 Z95.0 noted in history monitor Endocarditis 27118485 I3 9 TTE was negative for endocardit is but treating anyways monitor Internatio nal normalized ratio above reference range 895612526 R79.1 given vitamin K in hospital put on eliquis resolved [id number] Suha Lama MD [address] [address] 03/31/2020 11:16:36 04/27/2020 10:17:27 Atrial fibrillation 66248471 I48.0 apixaban 5 mg bidwill monitor Bacteremia 8671100 R78.8 1 ceftriaxon e 2 gm daily until 04/24/20 Chronic di astolic heart failure 933654748 I50.32 furosemide 40 mg dailyvalsa rtan 40 mg bidwill monitor Gastrointe stinal hemorrhage 90499214 K92.1 with recent elevated INR, correctedo meprazole 40 mg dailyGI fu as outpatient Essential hypertension 86090870 I10 valsartan 40 mg bidwill monitor [id number] ANNIKA GASPAR [address] [address] 04/05/2020 15:24:34 04/26/2020 16:09:08 Bacteremia 4575998 R78.81 strep viridans bacteremia ceftriaxon e 2 gm qd x 4 weeks to complete on 04/22/20 maintain PICC line monitor labs she is going to be discharged sunday after her agreeing to waiting til then services are being set up for her IV Chronic di astolic heart failure 449738440 I50.32 low sodium diet-feels that the food is very high in sodium here valsartan 40 mg bid lasix 40 mg qd monitor fluid balance monitor weights she is asking for new anna stockings- due to what she calls edema on the back of her ankles a new pair are going to be obtained [id number] MATHEW JONES NP [address] [address] 04/09/2020 11:20:16 04/27/2020 12:07:59 Atrial fibrillation 18010283 I48.91 apixaban 5 mg bid will monitor Bacteremia 1009245 R78.8 1 strep viridans bacteremia ceftriaxon e 2 gm qd to complete on 04/24/20 Lactobacil burt 1 qd maintain PICC line monitor labs Chronic di astolic heart failure 624986924 I50.32 valsartan 40 mg bid lasix 40 mg qd monitor fluid balance monitor weights Coronary arteriosclerosis 05625811 I25.10 monitor Depressive disorder 3548 9007 F32.9 monitor mood psych eval and treat prn Endocarditis 92579197 I3 8 TTE was negative for endocardit is but treating anyways monitor Gastrointe stinal hemorrhage 44533954 K92.2 omeprazole 40 mg daily GI fu as outpatient Mixed hyperlipidemia 267 365959 E78.2 monitor labs Health Concerns Section Related Observation LastModified by Organization Detai ls LastModified Time None Recorded Concern Status LastModified by Organization Details LastModified Time None Recorded Advance Directives Directive N: Payers Insurance Date Sequence Insurance Name Policy Number Policy Marroquin Covered Member ID Marroquin Member ID Guarantor Name 05/15/2020 2 [place] [id number] Bobbi Victor M [id number] Bobbi Victor M 04/26/2020 1 [place] Bobbi M Victor M [id number] Bobbi Victor M 04/23/2020 2 [place] [id number] Bobbi Victor M [id number] Bobbi Victor M Notes Date Note Type Note Provider Name and Address Organization Details Recorded Time 03/30/2020 text/html A 79 year old female being seen for a initial intake note. [place] [facility] [place] and [...] depression, CAD, pacemaker and afib. FILIPPO RAMIREZ, CLINICAL CYTOGENETICS DIRECTOR [address], [address], [place], [address], [email or web address] 03/30/2020 14:02:09 03/31/2020 text/html ROS as noted in the HPI This 79 year old woman was admitted to [facility] on 03/29/20 for rehab and continued care. She presented to [facility] ER with weakness over several weeks. She [...] DNR, DNI, DNH Suha Lama MD [address], [address], [place], [address], [facility] 03/31/2020 11:48:03 04/05/2020 text/html A 79 year old female being seen for a acute rounding visit. Patient was upset about wanting to go home. She agreed to stay til sunday but then agreed til sunday due to holiday/[facility] services[facility]. She is stating the facility has high sodium diet causing her edema (not visible to me) and she would like a new set of teds. She is also requesting a new walker and a script was given to therapy. ANNIKA GASPAR [address], [address], [place], [address], [facility] 04/05/2020 18:46:35 04/09/2020 text/html ROS as noted in the HPI seen today for discharge-79 yof being seen for discharge summary. [place] [facility] [place] over several weeks and [...] short term rehab. MATHEW JONES NP [address], [address], [place], [address], [facility] 04/27/2020 12:06:20 OBGyn Episode No OBEpisode recorded.
== END 2025-07-14 13:15 | disposition home or self-care (01) ==
LOC: HO.HMCC 12:26
PROVIDERS: PCP Internal Medicine; Visit Provider Internal Medicine
DX: R22.43 Localized swelling, mass and lump, lower limb, bilateral (principal); I50.20 Unspecified systolic (congestive) heart failure; I83.893 Varicose veins of bilateral lower extremities with other complications; F33.41 Major depressive disorder, recurrent, in partial remission; Z91.199 Patient's noncompliance with other medical treatment and regimen due to unspecified reason

== ENCOUNTER → 2025-07-14 12:25 | Outpatient (BNVA) | payer MEDICARE, SELFPAY | PROVIDERS: PCP Internal Medicine; Visit Provider Internal Medicine | DX: R60.0 Localized edema (principal); I83.893 Varicose veins of bilateral lower extremities with other complications; I50.20 Unspecified systolic (congestive) heart failure; F33.41 Major depressive disorder, recurrent, in partial remission; Z91.199 Patient's noncompliance with other medical treatment and regimen due to unspecified reason | CPT/HCPCS: 96127; 99212 ==

== ENCOUNTER 2025-07-22 13:33 | Outpatient (AMB) | payer MEDICARE, SELFPAY ==
[2025-07-22 13:36] VITALS: BP 102/60; PULSE 66; O2SAT 99
--- NOTE | 2025-07-22 13:36 | A.OFFPC_ITS ---
Vital Signs 07/22/25 13:36 Height 5 ft 4 in BMI Reason not done Patient refused/unable BP 102/60 Blood Pressure Location Lt brachial Position Sitting Pulse 66 Pulse Source Pulse Oximeter Pulse Oximetry (%) 99 Intake Visit Reasons: 1 week follow up Allergies ibuprofen (IBUPROFEN) Allergy (Severe, Verified 07/22/25 13:36) THROAT LUMP olmesartan (From BENICAR) Allergy (Severe, Verified 07/22/25 13:36) WHEEZING Gadolinium-Containing Contrast Medi (Gadolinium-Containing Agents) Allergy (Mild, Verified 07/22/25 13:36) HIVES Iodinated Contrast Media (IV Dye, Iodine Containing) Allergy (Mild, Verified 07/22/25 13:36) RASH oneil Allergy (Mild, Verified 07/22/25 13:36) RASH Sulfa (Sulfonamide Antibiotics) Allergy (Mild, Verified 07/22/25 13:36) RASH amiodarone (AMIODARONE) Allergy (Unknown, Verified 07/22/25 13:36) THYROID TOXICOSIS amlodipine (From NORVASC) Allergy (Unknown, Verified 07/22/25 13:36) WHEEZING aspirin (ASPIRIN) Allergy (Unknown, Verified 07/22/25 13:36) THROAT LUMP HEAVY WHEEZING, wheezing, wheezing azithromycin (From ZITHROMAX) Allergy (Unknown, Verified 07/22/25 13:36) NAUSEA/VOMITING, nausea and vomiting bee pollen (Bee Stings) Allergy (Unknown, Verified 07/22/25 13:36) EDEMA, ALL INSECT STINGS capsaicin (CAPSAICIN) Allergy (Unknown, Verified 07/22/25 13:36) RASH clopidogrel (From PLAVIX) Allergy (Unknown, Verified 07/22/25 13:36) THROAT LUMP HEAVY WHEEZING diltiazem (Cardizem) Allergy (Unknown, Verified 07/22/25 13:36) rash methimazole (METHIMAZOLE) Allergy (Unknown, Verified 07/22/25 13:36) RASH sulfamethoxazole (From BACTRIM) Allergy (Unknown, Verified 07/22/25 13:36) RASH trimethoprim (From BACTRIM) Allergy (Unknown, Verified 07/22/25 13:36) RASH escitalopram (From Lexapro) Allergy (Verified 07/22/25 13:36) Wheezing clarithromycin (From Biaxin) Adverse Reaction (Mild, Verified 07/22/25 13:36) N/V codeine (Codeine) Adverse Reaction (Mild, Verified 07/22/25 13:36) N/V levofloxacin (From Levaquin) Adverse Reaction (Mild, Verified 07/22/25 13:36) N/V Dye [facility] Blue 1 Allergy (Unknown, Uncoded 06/17/25 14:56) rash Medication List - Last Reconciled 07/22/25 by Mimi Benjamin MD bumetanide 2 mg PO DAILY escitalopram oxalate 10 mg PO DAILY metolazone 2.5 mg PO DAILY PRN nadolol 20 mg PO DAILY potassium chloride ER (K-Tab) 20 mEq PO DAILY Tobacco use date assessed: 07/14/25 Fall risk assessment: No Falls in past year Last assessed Fall Risk: 07/22/25 Dental Screening Dental Screen Date: 07/14/25 HPI 1 week follow up HPI Details History of Present Illness The patient is an 84-year-old female presenting with lower extremity edema and associated symptoms. Came in today with her Son Lower Extremity Edema: - The patient reports significant swelli ng in the legs. - The condition has reportedly led to di scomfort, pain, and disrupted sleep, as she needs to frequently urinate overnight. - Swelling is resulting in fluid leakage through the skin, leading to the formation of bubbles and subsequent fluid discharge. - The patient notes non-compliance with diuretic medication as the edema has not improved. - Previous attempts to manage the condit ion have been hindered by medication side effects and forgetfulness. Heart Failure: - The patient has a history of heart matty lure characterized by compromised heart function. - She experiences associated swelling, w hich is contributing to her current symptoms. - There is mention of a pacemaker, with check-ups occurring every three months. - The patient saw a incident manager in April , who advised increasing her bumetanide dosage to 2 mg twice daily and to take metolazone as needed for fluid managem ent. However patient has not been taking it even once a day regularly spite of me explaining to her why she needs to take it She is also forgetful, her daughter lives in the upper story of the building We had a discussion with son today family need to collaborate the care of the patient since she is forgetful Problem List - Lower Extremity Edema - Heart Failure - memory issue - noncompliance with the medication inta ke Plan - Reinforce the importance of adherence to prescribed diuretic therapy, specifically with the use of bumetanide 2 mg twice daily and intermittent use of metolazone as necessary to manage fluid retention. - Educate the patient and the family on a system to ensure medication compliance, possibly involving family member supervision to manage her medication schedule. - Address the patient's sleep difficulti es by managing edema to reduce nighttime urination. - Initiate a discussion on safety and po ssible risks associated with nighttime diuretic usage and how to mitigate falls and ensure safe nighttime movement. - Encourage monitoring of edema and pote ntial adjustment of therapy under guidance of incident manager, if symptoms persist or worsen. - Reassure and rehab/pre vocational counselor the patient on e importance of regular follow-up appointments with her incident manager to assess the management of her cardiac status and functionality of the pacemaker. 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 PENDING SALE TO [facility] Medical History 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) History of cardiac arrest (~2009) Osteoporosis (~2020) Tubular adenoma of colon (~2000) Pacemaker at end of battery life Blood in urine Superficial bruising of abdominal wall Traumatic ecchymosis of left lower leg Traumatic ecchymosis of left shoulder Traumatic hematoma of head Fall Hip pain, right Abnormal ultrasound of lower extremity AAA (abdominal aortic aneurysm) CAD (coronary artery disease) Cardiac pacemaker in situ (~2009) Mitral regurgitation Tricuspid regurgitation Diverticulosis Ex-smoker Hearing impaired Lactose intolerance History of right breast cancer (~1992) Hypertension, essential Atrial fibrillation, chronic (~2009) Surgical History History of colonoscopy History of hand surgery History of heart artery stent History of pacemaker History of lumpectomy History of cardiac cath History of cardioversion History of eye surgery Family History Father CVD (cardiovascular disease) Mother CVD (cardiovascular disease) Myocardial infarction Maternal Grandmother Unknown family medical history Maternal Grandfather No problems noted. Paternal Grandfather CVD (cardiovascular disease) Paternal Grandmother No problems noted. Child No Financial Resp No problems noted. Social History Household Members: Children Housing: House Are you a primary long term care phlebotomist to a significant other at home: No Do you presently have visiting nurse or other home services: No Alcohol intake: never Patient Tobacco Use Status: Former Tobacco user Tobacco use type: Cigarette Years Smoked: 40 e-Cigarette/Vaping Use: Never Used Advance Directives Date on File: 10/29/17 service: No Current occupational status: retired Cognitive needs: No Hearing needs: Yes (deaf in right ear, left ear has a hearing aid) Vision needs: Yes Questionnaire Thrive Questionnaire Date Thrive assessed: 07/14/25 GARRICK-7 AMB Questionnaire GARRICK-7 Date GARRICK - 7 assessed: 07/14/25 (patient declined) Source: Developed by Drs. Derek Stock, Anali Alfaro, Taco Conti and colleagues, with an educational brandan from [employer] Physical exam (Primary Care) Vital Signs: Last Vital Signs Pulse 66 07/22/25 13:36 BP 102/60 07/22/25 13:36 Pulse Ox 99 07/22/25 13:36 Tobacco/Smoking Status: Tobacco use Status Tobacco use date assessed 07/14/25 07/22/25 13:38 Patient Tobacco Use Status Former Tobacco user 07/22/25 13:38 Tobacco use type Cigarette 07/22/25 13:38 e-Cigarette/Vaping Use Never Used 07/22/25 13:38 Thrive Assessment: Date of Thrive Assessment Date Thrive assessed 07/14/25 07/22/25 13:38 Coding Level of Care Code Est Pt Level 4 (23866) Complex EM visit Add On G2211 Diagnoses Heart failure with reduced ejection fraction I50.20 Cardiac pacemaker in situ Z95.0 Localized swelling of both lower legs R22.43 Difficulty sleeping G47.9 Nocturnal polyuria R35.81 Non-compliance Z91.199 Forgetfulness R68.89 Assessment & Plan Assessment & Plan (1) Heart failure with reduced ejection fraction: Code(s): I50.20 - Unspecified systolic (congestive) heart failure Category: Medical (2) Cardiac pacemaker in situ: Onset Date: ~2009 Comment: (single-chamber Medtronic - DCPP placed 2009 - now VVI - replaced 2022) Code(s): Z95.0 - Presence of cardiac pacemaker Category: Medical (3) Localized swelling of both lower legs: Code(s): R22.43 - Localized swelling, mass and lump, lower limb, bilateral Category: Medical (4) Difficulty sleeping: Code(s): G47.9 - Sleep disorder, unspecified Category: Medical (5) Nocturnal polyuria: Code(s): R35.81 - Nocturnal polyuria Category: Medical (6) Non-compliance: Code(s): Z91.199 - Patient's noncompliance with other medical treatment and regimen due to unspecified reason Category: Medical (7) Forgetfulness: Code(s): R68.89 - Other general symptoms and signs Category: Medical Plan Lower Extremity Edema: - The patient reports significant swelling in the legs. - The condition has reportedly led to discomfort, pain, and disrupted sleep, as she needs to frequently urinate overnight. - Swelling is resulting in fluid leakage through the skin, leading to the formation of bubbles and subsequent fluid discharge. - The patient notes non-compliance with diuretic medication as the edema has not improved. - Previous attempts to manage the condition have been hindered by medication s danie effects and forgetfulness. Heart Failure: - The patient has a history of heart failure characterized by compromised heart function. - She experiences associated swelling, which is contributing to her current symptoms. - There is mention of a pacemaker, with check-ups occurring every three months. - The patient saw a incident manager in April, who advised increasing her bumetanide dosage to 2 mg twice daily and to take metolazone as needed for fluid management. However patient has not been taking it even once a day regularly spite of me explaining to her why she needs to take it She is also forgetful, her daughter lives in the upper story of the building We had a discussion with son today family need to collaborate the care of the patient since she is forgetful Problem List - Lower Extremity Edema - Heart Failure - memory issue - noncompliance with the medication intake Plan - Reinforce the importance of adherence to prescribed diuretic therapy, specifically with the use of bumetanide 2 mg twice daily and intermittent use of metolazone as necessary to manage fluid retention. - Educate the patient and the family on a system to ensure medication compliance, possibly involving family member supervision to manage her medication schedule. - Address the patient's sleep difficulties by managing edema to reduce nighttime urination. - Initiate a discussion on safety and possible risks associated with nighttime diuretic usage and how to mitigate falls and ensure safe nighttime movement. - Encourage monitoring of edema and potential adjustment of therapy under guidance of incident manager, if symptoms persist or worsen. - Reassure and rehab/pre vocational counselor the patient on the importance of regular follow-up appointments with her incident manager to assess the management of her cardiac status and functionality of the pacemaker.
--- OUTSIDE RECORDS SUMMARY | 2025-07-22 17:14 | XMS_ITS | Clinical Summary ---
Author Organization [facility] Address [address] [place] [id number] Phone Care Team Providers Care Bottling Line Attendant Name Role Phone Mimi Benjamin MD Primary Care Provider [phone] Allergies Active Allergy Reactions Criticality Noted Date Comments Allergen Uhi-Nnsnj-Eakbw Bee 12/19/2021 Edema Amiodarone 12/19/2021 Thyroid toxicosis Amlodipine Wheezing 12/19/2021 Aspirin Wheezing 12/19/2021 Throat lump Azithromycin Nausea and/or Vomiting 12/19/2021 Capsaicin Rash Low 12/19/2021 Clarithromycin Nausea and/or Vomiting 12/19/2021 Clopidogrel Wheezing 12/19/2021 Throat lump Codeine Nausea and/or Vomiting 12/19/2021 Gadolinium-Containing Contrast Media Hives 12/19/2021 Ibuprofen Other (See Comments) 12/19/2021 Throat lumps Iodinated Contrast Media Rash Low 12/19/2021 mri Levofloxacin Nausea and/or Vomiting 12/19/2021 [place]ool Rash Low 12/19/2021 Methimazole Rash Low 12/19/2021 [...] Active vitamins A,C,E-zinc-eleanor er (PRESERVISION AREDS) [id number] fhhl-yi-glhq Cap Take 1 capsule by mouth. Takes [...] D supplements which she can just get [id number]. She does not want to take calcium [...] for repeat DXA scan on 04/07/2023 [facility] she should continue at the [...] EDT) SODIUM 138 133 - 146 mmol/L [facility] POTASSIUM 4.3 3.3 - 5.1 mmol/L [facility] CHLORIDE 102 96 - 108 mmol/L [facility] CO2 27 21 - 35 mmol/L [facility] BUN 27(H) 6 - 19 mg/dL [facility] CREATININE 0.90 0.5 - 1.5 mg/dL [facility] GLUCOSE 92 70 - 99 mg/dL [facility] ALBUMIN 4.4 3.9 - 4.8 g/dL [facility] TOTAL PROTEIN 7.7 6.5 - 8.0 g/dL [facility] CALCIUM 9.7 8.4 - 10.3 mg/dL [facility] ALKALINE PHOSPHATASE 91 39 - 117 U/L [facility] TOTAL BILIRUBIN 1.4(H) 0.0 - 1.2 mg/dL [facility] AST 25 0 - 37 U/L [facility] ALT 9 0 - 40 U/L [facility] GLOBULIN 3.3 1 - 4.8 g/dL [facility] EGFR 64 >59 mL/min/1.7 3m2 [facility] Comment:Estimated glomerular filtration rate calculated using the CKD-EPI refit equation. ANION GAP 13 10 - 20 mmol/L [facility] Blood 12/26/2021 8:13 AM EDT 12/26/2021 8:21 AM EDT us Isaiah Pitts DO LAB BLOOD ORDERABLES Final Resul t [facility] [address] [place] [address] * Creatinine, 24 hr urine (12/26/2021 8:13 AM EDT) URINE CREATININE 40 mg/dL [facility] CREATININE OUTPUT 840 600 - 1,800 mg/total output [facility] Urine (Urine) 12/26/2021 8:1 3 AM EDT 12/26/2021 8:20 AM EDT Isaiah Pitts DO URINE ORDERABLES Final Result [address] [address] from Last 3 Months or Most Recently Relevant to Health Maintenance Insurance [employer] MEDEX SUPPLEMENT MEDICARE PART A & [place] [address] [employer] MEDEX SUPPLEMENT MEDICARE PART A & B [employer] CROSS MEDEX SUPPLEMENT MEDICARE PART A & B [employer] MEDEX SUPPLEMENT MEDICARE PART A & B [employer] MEDEX SUPPLEMENT MEDICARE PART A & B [employer] MEDEX SUPPLEMENT MEDICARE PART A & B [employer] MEDEX SUPPLEMENT Member Subscriber Plan / Payer ( fective 2004-Present) Name:Omlan Ballard Relation to Subscriber:Self Name:OLMAN BALLARD Payer ID:[id number] (NAIC) Type:Indemnity Address: [place] [id number] MEDICARE PART A & B [employer] MEDEX SUPPLEMENT MEDICARE PART A & B [employer] MEDEX SUPPLEMENT MEDICARE PART A & B Care Teams Bottling Line Attendant Relationship Specialty Start Date End Date Mimi Benjamin MD [address] [place] [address] PCP - General Internal Medicine 09/26/21 Additional Source Comments The information contained in this document represents components of the legal health record. It is not the complete legal health record.[facility]
--- OUTSIDE RECORDS SUMMARY | 2025-07-22 17:14 | XMS_ITS | Data Portability ---
Author Organization [facility] [employer] [facility], Main Office Address [address], [address] [place] [address] Care Team Providers Care Aoc Plans Intelligence Officer Name Role Phone DAY BROOK () OTHER Assessment Encounter Date Assessment Date Assessment LastModified by Organization Details LastModified Time 03/30/2020 03/30/2020 03/30/20 WBC 5.1, Hgb 11.6, Hct 36.4, Plt 261, Na 141, K 3.1, BUN 10, Fire Safety Director 0.60, cari 8.4 no labs noted from [facility] Not available 03/30/2020 13:26:56 04/09/2020 04/09/202004/02 [...] Address Organization Details Recorded Time Mixed hyperlipidemia 016175291 Active 2019 ANNIKA GASPAR [address] [facility] [facility], [address], [place], [address], [facility] [employer] [facility] 0 10:31:34 Depressive disorder 20574841 Active 2019 ANNIKA GASPAR [address], [address], [place], [address], [facility] [employer] 0 10:31:47 Atrial fibrillation 31543299 Active 2019 ANNIKA GASPAR [address], [address], [place], [address], [facility] 0 10:31:57 Coronary arterioscleros is 48249317 Active 2019 PHIL GASPARP [address], [address], [place], [address], [facility] 0 10:32:06 Gastrointestin al hemorrhage 43906081 Active 2019 PHIL GASPARP [address], [address], [place], [address], [facility] 0 10:33:27 Cardiac pacemaker in situ 787660387 Active 2019 ANNIKA GASPAR [address], [address], [place], [address], [facility] 0 10:33:50 Bacteremia 3173466 Active 2019 ANNIKA GASPAR [address], [address], [place], [address], [facility] 0 10:34:05 Chronic diastolic heart failure 648668899 Active 2019 ANNIKA GASPAR [address], [address], [place], [address], [facility] 0 10:34:26 Endocarditis 78230446 Active 2019 ANNIKA GASPAR [address], [address], [place], [address], [facility] 0 10:38:11 International normalized ratio above reference range 317605493 Active 2019 PHIL GASPARP [address], [address], [place], [address], [facility] 0 10:48:13 Problem Notes None recorded. Medical Equipment None Reported. Allergies Allergen ID Allergen Name Allergen Category Reaction Reaction Severity Criticality Documentation Date Start Date Code Code System Note Provider Name and Address Organization Details Recorded Time 75595 honey bee venom medicatio n Not available Not available Not available 03/30/2020 54137 7 RxNorm FILIPPO RAMIREZ, ORTHOPEDIC SHOES SALESPERSON [address], [address], [place], [address], [facility] [facility] 0 10:54:22 73215 Iodinated contrast media (substanc e) medicatio n Not available Not available Not available 03/30/2020 36484 2004 SNOMED FILIPPO RAMIREZ, ORTHOPEDIC SHOES SALESPERSON [address], [address], [place], [address], [facility] [facility] 0 10:54:46 93892 Substance with sulfonami de structure and antibacte rial mechanism of action (substanc e) medicatio n Not available Not available Not available 03/30/2020 05287 8003 SNOMED FILIPPO RAMIREZ, ORTHOPEDIC SHOES SALESPERSON [address], [address], [place], [address], [facility] [facility] 0 10:55:05 94232 Product containin g gadoliniu m and/or gadoliniu m compound (product) medicatio n Not available Not available Not available 03/30/2020 73494 3008 SNOMED FILIPPO RAMIREZ, ORTHOPEDIC SHOES SALESPERSON [address], [address], [place], [address], [facility] 0 10:55:21 42640 codeine medicatio n Not available Not available Not available 03/30/2020 2670 RxNorm FILIPPO BRANDOOSAIDA, ORTHOPEDIC SHOES SALESPERSON [address], [address], [place], [address], [facility] 0 10:55:37 36302 aspirin medicatio n Not available Not available Not available 03/30/2020 1191 RxNorm FILIPPO BRANDOOSAIDA, ORTHOPEDIC SHOES SALESPERSON [address], [address], [place], [address], [facility] 0 10:56:04 95232 capsaicin medicatio n Not available Not available Not available 03/30/2020 1992 RxNorm FILIPPO ASHLEY, ORTHOPEDIC SHOES SALESPERSON [address], [address], [place], [address], [facility] 0 10:56:39 54096 methimazo le medicatio n Not available Not available Not available 03/30/2020 6835 RxNorm FILIPPO RAMIREZ, ORTHOPEDIC SHOES SALESPERSON [address], [address], [place], [address], [facility] [facility] [place] [facility] 0 10:57:27 34024 ibuprofen medicatio n Not available Not available Not available 03/30/2020 5640 RxNorm FILIPPO RAMIREZ, ORTHOPEDIC SHOES SALESPERSON [address], [address], [place], [address], [facility] [facility] 0 10:57:38 83355 sulfameth oxazole / trimethop rim medicatio n Not available Not available Not available 03/30/2020 61045 RxNorm FILIPPO RAMIERZ, ORTHOPEDIC SHOES SALESPERSON [address], [address], [place], [address], [facility] [facility] 0 11:01:11 57968 clarithro mycin medicatio n Not available Not available Not available 03/30/2020 57135 RxNorm FILIPPO RAMIREZ, ORTHOPEDIC SHOES SALESPERSON [address], [address], [place], [address], [facility] [facility] 0 11:01:20 96544 azithromy johnna medicatio n Not available Not available Not available 03/30/2020 67463 RxNorm FILIPPO RAMIREZ, ORTHOPEDIC SHOES SALESPERSON [address], [address], [place], [address], [facility] [facility] 0 11:01:29 30449 amlodipin e medicatio n Not available Not available Not available 03/30/2020 41232 RxNorm FILIPPO RAMIREZ, ORTHOPEDIC SHOES SALESPERSON [address], [address], [place], [address], [facility] [facility] 0 11:01:36 Medications Not known to be on any medication Vitals Date Recorded Body temperature Heart rate Respiratory rate Oxygen saturation Oxygen saturation in Arterial blood by Pulse oximetry Systolic And Diastolic Provider Name and Address Organization Details Last Updated DateTime 0 97.6 [degF] 72 /min 18 /min 95 % 95 % 138/72 mm[Hg] ANNIKA GASPAR [address] [facility], [address], [place], [address], [facility] 0 10:31:05 Date Recorded Body temperature Oxygen saturation Oxygen saturation in Arterial blood by Pulse oximetry Systolic And Diastolic Provider Name and Address Organization Details Last Updated DateTime 03/31/2020 97.4 [degF] 97 % 97 % 133/81 mm[Hg] Suha Lama MD [address] [facility], [address], [place], [address], [facility] 0 11:17:06 Date Recorded Heart rate Respiratory rate Body temperature Oxygen saturation Oxygen saturation in Arterial blood by Pulse oximetry Systolic And Diastolic Provider Name and Address Organization Details Last Updated DateTime 0 88 /min 18 /min 98.3 [degF] 97 % 97 % 140/59 mm[Hg] ANNIKA GASPAR [address] [facility], [address], [place], [address], [facility] [employer] [facility] 0 18:40:48 Date Recorded Body height Heart rate Respiratory rate Body temperature Oxygen saturation Oxygen saturation in Arterial blood by Pulse oximetry Systolic And Diastolic Provider Name and Address Organization Details Last Updated DateTime 0 162.56 cm 80 /min 16 /min 98.7 [degF] 96 % 96 % 111/57 mm[Hg] MATHEW JONES NP [address] [facility], [address], [place], [address], [employer] [facility] 0 11:22:47 Social History Question Answer Notes LastModified by Organizat ion Details LastModified Time Tobacco Smoking Status Former Smoker Not Available [employer] 08/03/2020 03:13:20 Do You Have An Advance Directive? No [id number] Information not available 08/03/2020 How Much Tobacco Do You Chew? None [id number] Information not available 08/03/2020 Do You Have A Medical Power Of Nitric Acid Plant Operator? No [id number] Information not available 08/03/2020 What Was The Date Of Your Most Recent Tobacco Screening? 03/30/2020 [id number] Information not available 08/03/2020 How Much Tobacco Do You Smoke? 1 PPD [id number] Information not available 08/03/2020 How Many Years Have You Smoked Tobacco? 30 [id number] Information not available 08/03/2020 Sex: Unknown Functional Status Question Answer Note LastModified by Organizat ion Details LastModified Time What is your level of alcohol consumption? Occasional [id number] Information not available 08/03/2020 Do you or have you ever used smokeless tobacco? Never used smokeless tobacco [id number] Information not available 08/03/2020 Do you or have you ever used e-cigarettes or vape? Never used electronic cigarettes [id number] Information not available 08/03/2020 Mental Status None recorded. Family History Nothing Reported. Medical History No medical history recorded. Gynecological HistoryNo gynecological history recorded. Obstetrics History GPAL:G 0 P 0 0 0 0 Past Encounters Encounter ID Performer Location Encounter Start Date Encounter Closed Date Diagnosis/Indication Diagnosis SNOMED-CT Code Diagnosis ICD10 Code Diagnosis IMO Codes Diagnosis Note [id number] ANNIKA GASPAR [address] [address] 03/30/2020 10:28:16 04/26/2020 16:04:38 Bacteremia 3054749 R78.81 strep viridans bacteremia ceftriaxon e 2 gm qd x 4 weeks to complete on 04/22/20 maintain PICC line monitor labs Gastrointe stinal hemorrhage 33368588 K92.1 omeprazole 40 mg qd need to follow up with gi for EGD monitor for bleeding Chronic di astolic heart failure 370765287 I50.32 NEW DIAGNOSIS FOR PATIENT ACCORDING TO PT low sodium diet valsartan 40 mg bid lasix 40 mg qd monitor fluid balance monitor weights Atrial fibrillation 4943 6004 I48.19 apixaban 5 mg bid-was on coumadin but now apixaban monitor for rate and rhythm Depressive disorder 3548 9007 F32.89 not on medication monitor mood psych eval and treat prn Mixed hyperlipidemia 267 125841 E78.2 not on medication monitor labs Coronary arteriosclerosis 59961934 I25.10 not on medication monitor Cardiac pa cemaker in situ 420379836 Z95.0 noted in history monitor Endocarditis 01360753 I3 9 TTE was negative for endocardit is but treating anyways monitor Internatio nal normalized ratio above reference range 942741592 R79.1 given vitamin K in hospital put on eliquis resolved [id number] Suha Lama MD [address] [address] 03/31/2020 11:16:36 04/27/2020 10:17:27 Atrial fibrillation 46997336 I48.0 apixaban 5 mg bidwill monitor Bacteremia 2001852 R78.8 1 ceftriaxon e 2 gm daily until 04/24/20 Chronic di astolic heart failure 376162746 I50.32 furosemide 40 mg dailyvalsa rtan 40 mg bidwill monitor Gastrointe stinal hemorrhage 56323517 K92.1 with recent elevated INR, correctedo meprazole 40 mg dailyGI fu as outpatient Essential hypertension 92121362 I10 valsartan 40 mg bidwill monitor [id number] ANNIKA GASPAR [address] [address] 04/05/2020 15:24:34 04/26/2020 16:09:08 Bacteremia 5705260 R78.81 strep viridans bacteremia ceftriaxon e 2 gm qd x 4 weeks to complete on 04/22/20 maintain PICC line monitor labs she is going to be discharged sunday after her agreeing to waiting til then services are being set up for her IV Chronic di astolic heart failure 323607196 I50.32 low sodium diet-feels that the food is very high in sodium here valsartan 40 mg bid lasix 40 mg qd monitor fluid balance monitor weights she is asking for new anna stockings- due to what she calls edema on the back of her ankles a new pair are going to be obtained [id number] MATHEW JONES NP [address] [address] 04/09/2020 11:20:16 04/27/2020 12:07:59 Atrial fibrillation 80842100 I48.91 apixaban 5 mg bid will monitor Bacteremia 6668139 R78.8 1 strep viridans bacteremia ceftriaxon e 2 gm qd to complete on 04/24/20 Lactobacil burt 1 qd maintain PICC line monitor labs Chronic di astolic heart failure 176031399 I50.32 valsartan 40 mg bid lasix 40 mg qd monitor fluid balance monitor weights Coronary arteriosclerosis 50818326 I25.10 monitor Depressive disorder 3548 9007 F32.9 monitor mood psych eval and treat prn Endocarditis 05274261 I3 8 TTE was negative for endocardit is but treating anyways monitor Gastrointe stinal hemorrhage 98658141 K92.2 omeprazole 40 mg daily GI fu as outpatient Mixed hyperlipidemia 267 764742 E78.2 monitor labs Health Concerns Section Related Observation LastModified by Organization Detai ls LastModified Time None Recorded Concern Status LastModified by Organization Details LastModified Time None Recorded Advance Directives Directive N: Payers Insurance Date Sequence Insurance Name Policy Number Policy Marroquin Covered Member ID Marroquin Member ID Guarantor Name 05/15/2020 2 [place]) [id number] Bobbi Victor M [id number] Bobbi Victor M 04/26/2020 1 [place] [employer] Bobbi M Victor M [id number] Bobbi Victor M 04/23/2020 2 [place] [id number] Bobbi Victor M [id number] Bobbi Victor M Notes Date Note Type Note Provider Name and Address Organization Details Recorded Time 03/30/2020 text/html A 79 year old female being seen for a initial intake note. Patient went to [facility] with weakness over several weeks and [...] depression, CAD, pacemaker and afib. FILIPPO RAMIREZ, ORTHOPEDIC SHOES SALESPERSON [address] [facility], [address], [place], [address], [facility] [employer] 03/30/2020 14:02:09 03/31/2020 text/html ROS as noted in the HPI This 79 year old woman was admitted to [facility] on 03/29/20 for rehab and continued care. She presented to [facility] ER with weakness over several weeks. [...] DNR, DNI, DNH Suha Lama MD [address] [facility], [address], [place], [address], [facility] [employer] 03/31/2020 11:48:03 04/05/2020 text/html A 79 year old female being seen for a acute rounding visit. Patient was upset about wanting to go home. She agreed to stay til sunday but then agreed til sunday due to holiday/[facility] services[facility]. She is stating the facility has high sodium diet causing her edema (not visible to me) and she would like a new set of teds. She is also requesting a new walker and a script was given to therapy. ANNIKA GASPAR [address] [facility], [address], [place], [address], [facility] [employer] 04/05/2020 18:46:35 04/09/2020 text/html ROS as noted in the HPI seen today for discharge-79 yof being seen for discharge summary. Patient went to [facility] er with weakness over several weeks and [...] short term rehab. MATHEW JONES NP [address] [facility], [address], [place], [address], [facility] 04/27/2020 12:06:20 OBGyn Episode No OBEpisode recorded.
--- OUTSIDE RECORDS SUMMARY | 2025-07-22 17:14 | XMS_ITS | Patient Health Record ---
Author Organization [facility] Address [address] [place] [address] Care Team Providers Care Senior Ui Software Engineer Name Role Phone Sourav SHIN, [facility] Primary [facility] Provider Terri Flowers Unavailable [phone] Allergies Allergen (clinical drug ingredient) Drug/Non Drug [...] Duration: 3-4 weeks 04/01/2019 Active Vitamin D3 77957 UNIT as directed Orally Active hydroCHLOROthiazide 12.5 [...] Problem Acquired hammer toe of right foot (20432129688886 05) Other hammer toe(s) (acquired), right foot (M20.41) Active confirmed Problem Acquired hammer toe of left foot (21036683225943 03) Other hammer toe(s) (acquired), left foot (M20.42) Active confirmed Problem Acquired hallux valgus (38440086) Hallux valgus (acquired), right foot (M20.11) Active confirmed Problem Abnormal gait (71541122) Unstable gait (R26.81) Active confirmed Problem 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) Idiopathic neuropathy (G60.9) Active confirmed Plan Of Treatment Pending Test Test Name Order Date X ray : Foot, left 3V 04/01/2019 X ray : Foot, right 3V 04/01/2019 Insurance Providers Payer Name Payer Address Payer Phone Subscriber Number Group Number Insured Name Patient Relationship to Insured Coverage Start Date Coverage End Date Medicare National Govt S[employer] [address] [place] [address] [id number] Bobbi Dow Self - patient is the insured [employer] [facility] [address] [place] [address] [phone] [id number] Bobbi Dow Self - patient is the insured Medical (General) History Medical History History ICD Code Anxiety Arthritis Broken bones CAD (Cholesterol) Cancer Cataracts Depression Heart disease Hepatitis A High blood pressure Numbness Osteoporosis Osteopenia Sciatica chronic sinusitis thyroid Measles Mumps Chicken pox Surgical History Surgery Date(Month/Year) TIA 1947 Hospitalization History Reason Date(Month/Year) [facility]-Nosebleed- ER vis it 10/2018 [facility]-UTI/Hemotoria/Hyp onaturia-Er visit 01/2019 [facility] 6 days - endocarditis, G I Bleeding- went to [facility] for PT 04/02/2020 [facility] ER - fall downstairs - swollen toe - broken toe 05/06/2020
--- OUTSIDE RECORDS SUMMARY | 2025-07-22 17:15 | XMS_ITS | Patient Health Record ---
Author Organization [facility] Address [address] [place] [address] Care Team Providers Care Brand Sales Manager Name Role Phone Yadi Rees DO Primary Care Provider Derek Saavedra Unavailable [phone] Norbert Mack Unavailable Unavailable Allergies Allergen (clinical [...] Status Risk Notes Problem Irritable bowel syndrome (79346218) Irritable bowel syndrome (564.1) Active confirmed Problem Gallstones (296922010) Gallstones (574.20) Active confirmed Problem Generalized abdominal pain (825673884) Abdominal pain, generalized (789.07) Active confirmed Problem Constipation (04768615) Constipation (564.00) Active confirmed Problem Change in bowel habit (15043145) Change in bowel habits (787.99) Active confirmed Problem Colon cancer screening (353426607) Colon cancer screening (V76.51) Active confirmed Problem Liver function tests abnormal (850231076) Abnormal liver function test (790.6) Active confirmed Problem Liver function tests abnormal (932864833) Abnormal liver function tests (790.6) Active confirmed Problem Ascites (372699702) Ascites (789.59) Active confirmed Problem History of adenomatous polyp of colon (653561077) History of adenomatous polyp of colon (V12.72) Active confirmed Problem Flatulence, eructation and gas pain (997227262) Bloating (787.3) Active confirmed Plan Of Treatment Pending Test Test Name Order Date LIVER PROFILE 2013 IRON + IBC (FE) 06/19/2013 FERRITIN 06/19/2013 CBC w DIFF 2013 HEPATITIS B, C PROFILE 06/19/2013 [id number] (A1A) 06/19/2013 CELIAC PANEL #10 06/05/2013 ENDOMYSIAL [...] Date MEDICARE OF [place] [address] [place] [address] [id number] OLMAN BALLARD Self - patient is the insured MED[employer] ATTN CLAIMS [address] [place] [address] [id number] OLMAN BALLARD Self - patient is the insured Medical (General) History Medical History History ICD Code Lumpectomy and radiation for breast canc er on right side in Lipoma removed from abdominal wall Hypertension Depression HTN Hyperlipidemia A-fib Depression Lactose Intolerant Pacemaker-set to 60 NM 2009 with cardiac arrests-had 2 stent s [...]
== END 2025-07-22 14:45 | disposition home or self-care (01) ==
LOC: HO.HMCC 13:34
PROVIDERS: PCP Internal Medicine; Visit Provider Internal Medicine
DX: I50.20 Unspecified systolic (congestive) heart failure (principal); Z95.0 Presence of cardiac pacemaker; R22.43 Localized swelling, mass and lump, lower limb, bilateral; G47.9 Sleep disorder, unspecified; R35.81 Nocturnal polyuria; Z91.199 Patient's noncompliance with other medical treatment and regimen due to unspecified reason; R68.89 Other general symptoms and signs

== ENCOUNTER → 2025-07-22 13:33 | Outpatient (BNVA) | payer MEDICARE, SELFPAY | PROVIDERS: PCP Internal Medicine; Visit Provider Internal Medicine | DX: I50.20 Unspecified systolic (congestive) heart failure (principal); R60.0 Localized edema; R35.81 Nocturnal polyuria; Z91.199 Patient's noncompliance with other medical treatment and regimen due to unspecified reason; R68.89 Other general symptoms and signs; Z79.899 Other long term (current) drug therapy; Z95.0 Presence of cardiac pacemaker | CPT/HCPCS: 99212 ==

== ENCOUNTER 2025-07-28 14:33 | Outpatient (AMB) | payer MEDICARE, SELFPAY ==
--- NOTE | 2025-07-28 14:37 | A.OFFPC_ITS ---
Vital Signs 07/28/25 14:38 Height 5 ft 4 in BMI Reason not done Patient refused/unable BP 100/60 Blood Pressure Location Rt brachial Position Sitting Pulse 66 Pulse Source Pulse Oximeter Pulse Oximetry (%) 96 Intake Visit Reasons: jim lower ext edema/drainage Allergies ibuprofen (IBUPROFEN) Allergy (Severe, Verified 07/22/25 13:36) THROAT LUMP olmesartan (From BENICAR) Allergy (Severe, Verified 07/22/25 13:36) WHEEZING Gadolinium-Containing Contrast Medi (Gadolinium-Containing Agents) Allergy (Mild, Verified 07/22/25 13:36) HIVES Iodinated Contrast Media (IV Dye, Iodine Containing) Allergy (Mild, Verified 07/22/25 13:36) RASH oneil Allergy (Mild, Verified 07/22/25 13:36) RASH Sulfa (Sulfonamide Antibiotics) Allergy (Mild, Verified 07/22/25 13:36) RASH amiodarone (AMIODARONE) Allergy (Unknown, Verified 07/22/25 13:36) THYROID TOXICOSIS amlodipine (From NORVASC) Allergy (Unknown, Verified 07/22/25 13:36) WHEEZING aspirin (ASPIRIN) Allergy (Unknown, Verified 07/22/25 13:36) THROAT LUMP HEAVY WHEEZING, wheezing, wheezing azithromycin (From ZITHROMAX) Allergy (Unknown, Verified 07/22/25 13:36) NAUSEA/VOMITING, nausea and vomiting bee pollen (Bee Stings) Allergy (Unknown, Verified 07/22/25 13:36) EDEMA, ALL INSECT STINGS capsaicin (CAPSAICIN) Allergy (Unknown, Verified 07/22/25 13:36) RASH clopidogrel (From PLAVIX) Allergy (Unknown, Verified 07/22/25 13:36) THROAT LUMP HEAVY WHEEZING diltiazem (Cardizem) Allergy (Unknown, Verified 07/22/25 13:36) rash methimazole (METHIMAZOLE) Allergy (Unknown, Verified 07/22/25 13:36) RASH sulfamethoxazole (From BACTRIM) Allergy (Unknown, Verified 07/22/25 13:36) RASH trimethoprim (From BACTRIM) Allergy (Unknown, Verified 07/22/25 13:36) RASH escitalopram (From Lexapro) Allergy (Verified 07/22/25 13:36) Wheezing clarithromycin (From Biaxin) Adverse Reaction (Mild, Verified 07/22/25 13:36) N/V codeine (Codeine) Adverse Reaction (Mild, Verified 07/22/25 13:36) N/V levofloxacin (From Levaquin) Adverse Reaction (Mild, Verified 07/22/25 13:36) N/V Dye SHELTER Blue 1 Allergy (Unknown, Uncoded 06/17/25 14:56) rash Medication List - Last Reconciled 07/28/25 by Mimi Benjamin MD bumetanide 2 mg PO DAILY escitalopram oxalate 10 mg PO DAILY metolazone 2.5 mg PO DAILY PRN nadolol 20 mg PO DAILY potassium chloride ER (K-Tab) 20 mEq PO DAILY Tobacco use date assessed: 07/14/25 Dental Screening Dental Screen Date: 07/14/25 HPI jim lower ext edema/drainage HPI Details History of Present Illness The patient is an 84-year-old female presenting with leg swelling and heart failure symptoms. Heart Failure: - The patient has a history of heart matty lure, with a noted worsening of symptoms over the past several weeks. - Symptoms include swelling of the legs, which the patient describes as terrible, especially during the weekends. - The patient reports taking a diuretic twice daily as previously recommended but has expressed difficulty with compliance due to side effects such as increased urination. - There is a noted progression of sympto ms over the past three months, possibly linked to the omission of medication due to disliking the side effects. 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 - Leg swelling has been severe with asso ciated blistering, where fluid is leaking through the skin. - Elevation of the legs is attempted but not consistently achieved as the patient remains active around the house. Medical History: - Chronic heart failure managed with diu retics and other cardiovascular medications. - Cardiac pacemaker implant followed by regular checkups. Social History: - Lives at home, active with household d uties. - Difficulty in medication adherence pos sibly due to forgetting amidst daily act ivities. - Has supportive family, with Son and da michellehter Problem List - Heart Failure - Chronic leg swelling associated with h eart failure Plan - Maintain current diuretic therapy whil e awaiting further evaluation by a beveling and edging machine operator to optimize heart failure management. - Arrange for nursing support at home to assist with medication management and monitoring of symptoms, particularly with adherence to diuretic regimen and assessing the severity of leg swelling. - Initiate support for the patient's leg s, including wrapping to manage leakage from blistering and yearly evaluation of skin integrity to prevent infections. - Monitor fluid intake and overall condi tion for signs of worsening heart failure such as increased shortness of breath. - Encourage consistent leg elevation whe n seated and incorporation of methods to facilitate adherence to prescribed treatments. - Evaluate potential initiation of hospi ce care to ensure maximum comfort and support given the patient's limited functional status and desire for comfort care. 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 FINANCE MANAGER: Alert awake oriented x3 motor intact Skin: Normal turgor [facility] Medical History History of longterm anticoagulant use (~2009) History of cardiac arrest (~2009) Osteoporosis (~2020) Tubular adenoma of colon (~2000) Pacemaker at end of battery life Blood in urine Superficial bruising of abdominal wall Traumatic ecchymosis of left lower leg Traumatic ecchymosis of left shoulder Traumatic hematoma of head Fall Hip pain, right Abnormal ultrasound of lower extremity AAA (abdominal aortic aneurysm) CAD (coronary artery disease) Cardiac pacemaker in situ (~2009) Mitral regurgitation Tricuspid regurgitation Diverticulosis Ex-smoker Hearing impaired Lactose intolerance History of right breast cancer (~1992) Hypertension, essential Atrial fibrillation, chronic (~2009) Surgical History History of colonoscopy History of hand surgery History of heart artery stent History of pacemaker History of lumpectomy History of cardiac cath History of cardioversion History of eye surgery Family History Father CVD (cardiovascular disease) Mother CVD (cardiovascular disease) Myocardial infarction Maternal Grandmother Unknown family medical history Maternal Grandfather No problems noted. Paternal Grandfather CVD (cardiovascular disease) Paternal Grandmother No problems noted. Child No Financial Resp No problems noted. Social History Household Members: Children Housing: House Are you a primary career technology teacher to a significant other at home: No Do you presently have visiting nurse or other home services: No Alcohol intake: never Patient Tobacco Use Status: Former Tobacco user Tobacco use type: Cigarette Years Smoked: 40 e-Cigarette/Vaping Use: Never Used Advance Directives Date on File: 10/29/17 service: No Current occupational status: retired Cognitive needs: No Hearing needs: Yes (deaf in right ear, left ear has a hearing aid) Vision needs: Yes Questionnaire Thrive Questionnaire Date Thrive assessed: 07/14/25 GARRICK-7 AMB Questionnaire GARRICK-7 Date GARRICK - 7 assessed: 07/14/25 (patient declined) Source: Developed by Drs. Derek Stock, Anali Alfaro, Taco Conti and colleagues, with an educational brandan from [employer]. Physical exam (Primary Care) Vital Signs: Last Vital Signs Pulse 66 07/28/25 14:38 BP 100/60 07/28/25 14:38 Pulse Ox 96 07/28/25 14:38 Tobacco/Smoking Status: Tobacco use Status Tobacco use date assessed 07/14/25 07/28/25 14:38 Patient Tobacco Use Status Former Tobacco user 07/28/25 14:38 Tobacco use type Cigarette 07/28/25 14:38 e-Cigarette/Vaping Use Never Used 07/28/25 14:38 Thrive Assessment: Date of Thrive Assessment Date Thrive assessed 07/14/25 07/28/25 14:38 Coding Level of Care Code Est Pt Level 4 (65840) Complex EM visit Add On G2211 Diagnoses Chronic congestive heart failure, unspecified heart failure type I50.9 Heart failure chronicity: chronic Heart failure type: unspecified Bilateral edema of lower extremity R60.0 Memory deficit R41.3 Assessment & Plan Assessment & Plan (1) CHF (congestive heart failure): Code(s): I50.9 - Heart failure, unspecified Category: Medical Qualifiers: Heart failure chronicity: chronic Heart failure type: unspecified Qualified Code(s): I50.9 - Heart failure, unspecified (2) Bilateral edema of lower extremity: Code(s): R60.0 - Localized edema Category: Medical (3) Memory deficit: Code(s): R41.3 - Other amnesia Category: Medical Plan Heart Failure: - The patient has a history of heart failure, with a noted worsening of symptoms over the past several weeks. - Symptoms include swelling of the legs, which the patient describes as terrible, especially during the weekends. - The patient reports taking a diuretic twice daily as previously recommended but has expressed difficulty with compliance due to side effects such as increased urination. - There is a noted progression of symptoms over the past three months, possibly linked to the omission of medication due to disliking the side effects. - cardiac pacemaker check q 3 M - she has apt with cardio in 2 days Leg Swelling: - The patient has been experiencing chronic leg swelling, with episodes of significant edema over the past several weeks. - Leg swelling has been severe with associated blistering, where fluid is leaking through the skin. - Elevation of the legs is attempted but not consistently achieved as the patient remains active around the house. Medical History: - Chronic heart failure managed with diuretics and other cardiovascular medicati ons. - Cardiac pacemaker implant followed by regular checkups. Social History: - Lives at home, active with household duties. - Difficulty in medication adherence possibly due to forgetting amidst daily activities. - Has supportive family, with Son and daughter Problem List - Heart Failure - Chronic leg swelling associated with heart failure Plan - Maintain current diuretic therapy while awaiting further evaluation by a beveling and edging machine operator to optimize heart failure management. - Arrange for nursing support at home to assist with medication management and monitoring of symptoms, particularly with adherence to diuretic regimen and assessing the severity of leg swelling. - Initiate support for the patient's legs, including wrapping to manage leakage from blistering and yearly evaluation of skin integrity to prevent infections. - Monitor fluid intake and overall condition for signs of worsening heart failure such as increased shortness of breath. - Encourage consistent leg elevation when seated and incorporation of methods to facilitate adherence to prescribed treatments. - Evaluate potential initiation of hospice care to ensure maximum comfort and support given the patient's limited functional status and desire for comfort care. Orders: Referrals [facility] Referral I50.9 - Heart failure, unspecified, R41.3 - Other amnesia, R60.0 - Localized edema
[2025-07-28 14:38] VITALS: BP 100/60; PULSE 66; O2SAT 96
--- OUTSIDE RECORDS SUMMARY | 2025-07-28 19:37 | XMS_ITS | Patient Health Record ---
Author Organization [facility] Address [address] [place] [address] Care Team Providers Care Project Estimator Name Role Phone Yadi Rees DO Primary Care Provider Derek Saavedra Unavailable [phone] Norbert Mack Unavailable Unavailable Allergies Allergen (clinical drug ingredient) Drug/Non Drug Allergy documented on EMR Reaction Allergy Type Onset Date Status Information temporarily unavailable Plavix Unknown Drug Allergy [...] temporarily unavailable Asprin (uncoded) Unknown Allergy Active Reason For Referral No Information Medications Medication SIG (Take, Route, Fr equency, Duration) Notes Start Date End Date Status Coumadin 2.5-5mg Act preet Lactaid Active Benicar 20mg Active Paxil 10mg Active Coreg 12.5mg Active Gas-X Active Lasix Active Laxative Active Problems Problem Type SNOMED Code ICD Code Onset Dates Problem Status W/U Status Risk Notes Problem Irritable bowel syndrome (60188027) Irritable bowel syndrome (564.1) Active confirmed Problem Gallstones (447465626) Gallstones (574.20) Active confirmed Problem Generalized abdominal pain (883979762) Abdominal pain, generalized (789.07) Active confirmed Problem Constipation (73573962) Constipation (564.00) Active confirmed Problem Change in bowel habit (33752037) Change in bowel habits (787.99) Active confirmed Problem Colon cancer screening (209187479) Colon cancer screening (V76.51) Active confirmed Problem Liver function tests abnormal (659563087) Abnormal liver function test (790.6) Active confirmed Problem Liver function tests abnormal (525935203) Abnormal liver function tests (790.6) Active confirmed Problem Ascites (141203195) Ascites (789.59) Active confirmed Problem History of adenomatous polyp of colon (291760780) History of adenomatous polyp of colon (V12.72) Active confirmed Problem Flatulence, eructation and gas pain (891214525) Bloating (787.3) Active confirmed Plan Of Treatment Pending Test Test Name Order Date LIVER PROFILE 2013 IRON + IBC (FE) 06/19/2013 FERRITIN 06/19/2013 CBC w DIFF 2013 HEPATITIS B, C PROFILE 06/19/2013 [id number] (A1A) 06/19/2013 CELIAC PANEL #10 06/05/2013 ENDOMYSIAL [...] Date MEDICARE OF [place] [address] [place] [address] [id number] OLMAN BALLARD Self - patient is the insured MEDEX ATTN CLAIMS [address] [place] [address] [id number] OLMAN BALLARD Self - patient is the insured Medical (General) History Medical History History ICD Code Lumpectomy and radiation for breast canc er on right side in Lipoma removed from abdominal wall Hypertension Depression HTN Hyperlipidemia A-fib Depression Lactose Intolerant Pacemaker-set to 60 UT 2009 with cardiac arrests-had 2 stent s [...]
--- OUTSIDE RECORDS SUMMARY | 2025-07-28 19:37 | XMS_ITS | Clinical Summary ---
Author Organization [facility] Address [address] [place] [phone] Phone Care Team Providers Care Exploration Driller Name Role Phone Mimi Benjamin MD Primary Care Provider [phone] Allergies Active Allergy Reactions Criticality Noted Date Comments Allergen Hgi-Trybw-Apdbx Bee 12/19/2021 Edema Amiodarone 12/19/2021 Thyroid toxicosis Amlodipine Wheezing 12/19/2021 Aspirin Wheezing 12/19/2021 Throat lump Azithromycin Nausea and/or Vomiting 12/19/2021 Capsaicin Rash Low 12/19/2021 Clarithromycin Nausea and/or Vomiting 12/19/2021 Clopidogrel Wheezing 12/19/2021 Throat lump Codeine Nausea and/or Vomiting 12/19/2021 Gadolinium-Containing Contrast Media Hives 12/19/2021 Ibuprofen Other (See Comments) 12/19/2021 Throat lumps Iodinated Contrast Media Rash Low 12/19/2021 mri Levofloxacin Nausea and/or Vomiting 12/19/2021 [place] Rash Low 12/19/2021 Methimazole Rash Low 12/19/2021 [...] Active vitamins A,C,E-zinc-eleanor er (PRESERVISION AREDS) [id number],[id number] dvco-td-nhpw Cap Take 1 capsule by mouth. Takes [...] D supplements which she can just get yttb-[id number]-[id number]. She does not want to take calcium [...] for repeat DXA scan on 04/07/2023 at [facility] she should continue at the same [...] EDT) SODIUM 138 133 - 146 mmol/L [facility] POTASSIUM 4.3 3.3 - 5.1 mmol/L [facility] CHLORIDE 102 96 - 108 mmol/L [facility] CO2 27 21 - 35 mmol/L [facility] BUN 27(H) 6 - 19 mg/dL [facility] CREATININE 0.90 0.5 - 1.5 mg/dL [facility] GLUCOSE 92 70 - 99 mg/dL [facility] ALBUMIN 4.4 3.9 - 4.8 g/dL [facility] TOTAL PROTEIN 7.7 6.5 - 8.0 g/dL [facility] CALCIUM 9.7 8.4 - 10.3 mg/dL [facility] ALKALINE PHOSPHATASE 91 39 - 117 U/L [facility] TOTAL BILIRUBIN 1.4(H) 0.0 - 1.2 mg/dL [facility] AST 25 0 - 37 U/L [facility] ALT 9 0 - 40 U/L [facility] GLOBULIN 3.3 1 - 4.8 g/dL [facility] EGFR 64 >59 mL/min/1.7 3m2 [facility] Comment:Estimated glomerular filtration rate calculated using the CKD-EPI refit equation. ANION GAP 13 10 - 20 mmol/L [facility] Blood 12/26/2021 8:13 AM EDT 12/26/2021 8:21 AM EDT us Isaiah Pitts DO LAB BLOOD ORDERABLES Final Resul t [facility] [address] [place] [address] * Creatinine, 24 hr urine (12/26/2021 8:13 AM EDT) URINE CREATININE 40 mg/dL [facility] CREATININE OUTPUT 840 600 - 1,800 mg/total output [facility] Urine (Urine) 12/26/2021 8:1 3 AM EDT 12/26/2021 8:20 AM EDT Isaiah Pitts DO URINE ORDERABLES Final Result [address] [address] from Last 3 Months or Most Recently Relevant to Health Maintenance Insurance [employer] MEDEX SUPPLEMENT MEDICARE PART A & [place] [address] [employer] MEDEX SUPPLEMENT MEDICARE PART A & B [employer] MEDEX SUPPLEMENT MEDICARE PART A & B [place] [employer] SUPP[employer] MEDICARE PART A & B [place] [employer] SU[employer] MEDICARE PART A & B [place] [employer] SU[employer]LEMENT MEDICARE PART A & B [place] MED[employer] SUPPLEMENT Member Subscriber Plan / Payer ( fective 2004-Present) Name:Olman Ballard Relation to Subscriber:Self Name:OLMAN BALLARD Payer ID:[id number] (NAIC) Type:Indemnity Address: [place] [id number] MEDICARE PART A & B [place] [employer] SUPPLEMENT MEDICARE PART A & B [employer] [employer] SUPPLEMENT MEDICARE PART A & B Care Teams Exploration Driller Relationship Specialty Start Date End Date Mimi Benjamin MD [address] [facility] [place] [address] PCP - General Internal Medicine 09/26/21 Additional Source Comments The information contained in this document represents components of the legal health record. It is not the complete legal health record.[facility]
--- OUTSIDE RECORDS SUMMARY | 2025-07-28 19:37 | XMS_ITS | Data Portability ---
Author Organization [facility] [employer] [facility], Main Office Address [address], [address] [place] [address] Care Team Providers Care Qlikview Developer Name Role Phone DAY BROOK () OTHER Assessment Encounter Date Assessment Date Assessment LastModified by Organization Details LastModified Time 03/30/2020 03/30/2020 03/30/20 WBC 5.1, Hgb 11.6, Hct 36.4, Plt 261, Na 141, K 3.1, BUN 10, Logistics Analyst 0.60, cari 8.4 no labs noted from [facility] Not available 03/30/2020 13:26:56 04/09/2020 04/09/202004/02 na [...] Address Organization Details Recorded Time Mixed hyperlipidemia 116065197 Active 2019 ANNIKA GASPAR [address], [address], [place], [address], [facility] [employer] [facility] 0 10:31:34 Depressive disorder 94552030 Active 2019 ANNIKA GASPAR [address], [address], [place], [address], [facility] [employer] 0 10:31:47 Atrial fibrillation 47597135 Active 2019 ANNIKA GASPAR [address], [address], [place], [address], [place] [facility] 0 10:31:57 Coronary arterioscleros is 69522354 Active 2019 PHIL GASPARP [address], [address], [place], [address], [place] [facility] 0 10:32:06 Gastrointestin al hemorrhage 39453093 Active 2019 PHIL GASPARP [address], [address], [place], [address], [facility] 0 10:33:27 Cardiac pacemaker in situ 898943813 Active 2019 ANNIKA GASPAR [address], [address], [place], [address], [place] [facility] 0 10:33:50 Bacteremia 8257926 Active 2019 ANNIKA GASPAR [address], [address], [place], [address], [facility] 0 10:34:05 Chronic diastolic heart failure 010765113 Active 2019 ANNIKA GASPAR [address], [address], [place], [address], [place] [facility] 0 10:34:26 Endocarditis 85630770 Active 2019 ANNIKA GASPAR [address], [address], [place], [address], [facility] 0 10:38:11 International normalized ratio above reference range 718628416 Active 2019 PHIL GASPARP [address], [address], [place], [address], [facility] 0 10:48:13 Problem Notes None recorded. Medical Equipment None Reported. Allergies Allergen ID Allergen Name Allergen Category Reaction Reaction Severity Criticality Documentation Date Start Date Code Code System Note Provider Name and Address Organization Details Recorded Time 01971 honey bee venom medicatio n Not available Not available Not available 03/30/2020 91803 7 RxNorm FILIPPO RAMIREZ, DATA CENTER MANAGER [address], [address], [place], [address], [facility] 0 10:54:22 21017 Iodinated contrast media (substanc e) medicatio n Not available Not available Not available 03/30/2020 15871 2004 SNOMED FILIPPO RAMIREZ, DATA CENTER MANAGER [address], [address], [place], [address], [facility] 0 10:54:46 87759 Substance with sulfonami de structure and antibacte rial mechanism of action (substanc e) medicatio n Not available Not available Not available 03/30/2020 23183 8003 SNOMED FILIPPO RAMIREZ, DATA CENTER MANAGER [address], [address], [place], [address], [facility] 0 10:55:05 47077 Product containin g gadoliniu m and/or gadoliniu m compound (product) medicatio n Not available Not available Not available 03/30/2020 79231 3008 SNOMED FILIPPO RAMIREZ, DATA CENTER MANAGER [address], [address], [place], [address], [facility] 0 10:55:21 71131 codeine medicatio n Not available Not available Not available 03/30/2020 2670 RxNorm FILIPPO BRANDOOSAIDA, DATA CENTER MANAGER [address], [address], [place], [address], [facility] 0 10:55:37 74591 aspirin medicatio n Not available Not available Not available 03/30/2020 1191 RxNorm FILIPPO BRANDOOSAIDA, DATA CENTER MANAGER [address], [address], [place], [address], [facility] 0 10:56:04 65119 capsaicin medicatio n Not available Not available Not available 03/30/2020 1992 RxNorm FILIPPO ASHLEY, DATA CENTER MANAGER [address], [address], [place], [address], [facility] 0 10:56:39 66921 methimazo le medicatio n Not available Not available Not available 03/30/2020 6835 RxNorm FILIPPO RAMIREZ, DATA CENTER MANAGER [address], [address], [place], [address], [facility] 0 10:57:27 70949 ibuprofen medicatio n Not available Not available Not available 03/30/2020 5640 RxNorm FILIPPO RAMIREZ, DATA CENTER MANAGER [address], [address], [place], [address], [facility] 0 10:57:38 54604 sulfameth oxazole / trimethop rim medicatio n Not available Not available Not available 03/30/2020 62612 RxNorm FILIPPO RAMIREZ, DATA CENTER MANAGER [address], [address], [place], [address], [facility] 0 11:01:11 03481 clarithro mycin medicatio n Not available Not available Not available 03/30/2020 21267 RxNorm FILIPPO RAMIREZ, DATA CENTER MANAGER [address], [address], [place], [address], [facility] 0 11:01:20 54851 azithromy johnna medicatio n Not available Not available Not available 03/30/2020 38141 RxNorm FILIPPO RAMIREZ, DATA CENTER MANAGER [address], [address], [place], [address], [facility] 0 11:01:29 41537 amlodipin e medicatio n Not available Not available Not available 03/30/2020 96087 RxNorm FILIPPO RAMIREZ, DATA CENTER MANAGER [address], [address], [place], [address], [facility] 0 11:01:36 Medications Not known to be on any medication Vitals Date Recorded Body temperature Heart rate Respiratory rate Oxygen saturation Oxygen saturation in Arterial blood by Pulse oximetry Systolic And Diastolic Provider Name and Address Organization Details Last Updated DateTime 0 97.6 [degF] 72 /min 18 /min 95 % 95 % 138/72 mm[Hg] ANNIKA GASPAR [address], [address], [place], [address], [facility] 0 10:31:05 Date Recorded Body temperature Oxygen saturation Oxygen saturation in Arterial blood by Pulse oximetry Systolic And Diastolic Provider Name and Address Organization Details Last Updated DateTime 03/31/2020 97.4 [degF] 97 % 97 % 133/81 mm[Hg] Suha Lama MD [address], [address], [place], [address], [facility] 0 11:17:06 Date Recorded Heart rate Respiratory rate Body temperature Oxygen saturation Oxygen saturation in Arterial blood by Pulse oximetry Systolic And Diastolic Provider Name and Address Organization Details Last Updated DateTime 0 88 /min 18 /min 98.3 [degF] 97 % 97 % 140/59 mm[Hg] ANNIKA GASPAR [address], [address], [place], [address], [facility] [employer] [facility] 0 18:40:48 Date Recorded Body height Heart rate Respiratory rate Body temperature Oxygen saturation Oxygen saturation in Arterial blood by Pulse oximetry Systolic And Diastolic Provider Name and Address Organization Details Last Updated DateTime 0 162.56 cm 80 /min 16 /min 98.7 [degF] 96 % 96 % 111/57 mm[Hg] MATHEW JONES NP [address], [address], [place], [address], [employer] [facility] 0 11:22:47 Social History Question Answer Notes LastModified by Organizat ion Details LastModified Time Tobacco Smoking Status Former Smoker Not Available [employer] 08/03/2020 03:13:20 Do You Have An Advance Directive? No [id number] Information not available 08/03/2020 How Much Tobacco Do You Chew? None [id number] Information not available 08/03/2020 Do You Have A Medical Power Of Solar Electric Installer? No [id number] Information not available 08/03/2020 What Was The Date Of Your Most Recent Tobacco Screening? 03/30/2020 [id number] Information not available 08/03/2020 How Much Tobacco Do You Smoke? 1 PPD [id number] Information not available 08/03/2020 How Many Years Have You Smoked Tobacco? 30 [id number] Information not available 08/03/2020 Sex: Unknown Functional Status Question Answer Note LastModified by Organizat ion Details LastModified Time What is your level of alcohol consumption? Occasional [id number] Information not available 08/03/2020 Do you or have you ever used smokeless tobacco? Never used smokeless tobacco [id number] Information not available 08/03/2020 Do you or have you ever used e-cigarettes or vape? Never used electronic cigarettes [id number] Information not available 08/03/2020 Mental Status None recorded. Family History Nothing Reported. Medical History No medical history recorded. Gynecological HistoryNo gynecological history recorded. Obstetrics History GPAL:G 0 P 0 0 0 0 Past Encounters Encounter ID Performer Location Encounter Start Date Encounter Closed Date Diagnosis/Indication Diagnosis SNOMED-CT Code Diagnosis ICD10 Code Diagnosis IMO Codes Diagnosis Note [id number] ANNIKA GASPAR [address] [address] 03/30/2020 10:28:16 04/26/2020 16:04:38 Bacteremia 3336157 R78.81 strep viridans bacteremia ceftriaxon e 2 gm qd x 4 weeks to complete on 04/22/20 maintain PICC line monitor labs Gastrointe stinal hemorrhage 18931045 K92.1 omeprazole 40 mg qd need to follow up with gi for EGD monitor for bleeding Chronic di astolic heart failure 286766870 I50.32 NEW DIAGNOSIS FOR PATIENT ACCORDING TO PT low sodium diet valsartan 40 mg bid lasix 40 mg qd monitor fluid balance monitor weights Atrial fibrillation 4943 6004 I48.19 apixaban 5 mg bid-was on coumadin but now apixaban monitor for rate and rhythm Depressive disorder 3548 9007 F32.89 not on medication monitor mood psych eval and treat prn Mixed hyperlipidemia 267 734297 E78.2 not on medication monitor labs Coronary arteriosclerosis 05835899 I25.10 not on medication monitor Cardiac pa cemaker in situ 872916764 Z95.0 noted in history monitor Endocarditis 72964637 I3 9 TTE was negative for endocardit is but treating anyways monitor Internatio nal normalized ratio above reference range 129476289 R79.1 given vitamin K in hospital put on eliquis resolved [id number] Suha Lama MD [address] [address] 03/31/2020 11:16:36 04/27/2020 10:17:27 Atrial fibrillation 01340394 I48.0 apixaban 5 mg bidwill monitor Bacteremia 3292354 R78.8 1 ceftriaxon e 2 gm daily until 04/24/20 Chronic di astolic heart failure 416787859 I50.32 furosemide 40 mg dailyvalsa rtan 40 mg bidwill monitor Gastrointe stinal hemorrhage 09766638 K92.1 with recent elevated INR, correctedo meprazole 40 mg dailyGI fu as outpatient Essential hypertension 67824531 I10 valsartan 40 mg bidwill monitor [id number] ANNIKA GASPAR [address] [address] 04/05/2020 15:24:34 04/26/2020 16:09:08 Bacteremia 0974466 R78.81 strep viridans bacteremia ceftriaxon e 2 gm qd x 4 weeks to complete on 04/22/20 maintain PICC line monitor labs she is going to be discharged sunday after her agreeing to waiting til then services are being set up for her IV Chronic di astolic heart failure 586451840 I50.32 low sodium diet-feels that the food is very high in sodium here valsartan 40 mg bid lasix 40 mg qd monitor fluid balance monitor weights she is asking for new anna stockings- due to what she calls edema on the back of her ankles a new pair are going to be obtained [id number] MATHEW JONES NP [address] [address] 04/09/2020 11:20:16 04/27/2020 12:07:59 Atrial fibrillation 42620444 I48.91 apixaban 5 mg bid will monitor Bacteremia 6101960 R78.8 1 strep viridans bacteremia ceftriaxon e 2 gm qd to complete on 04/24/20 Lactobacil burt 1 qd maintain PICC line monitor labs Chronic di astolic heart failure 267341098 I50.32 valsartan 40 mg bid lasix 40 mg qd monitor fluid balance monitor weights Coronary arteriosclerosis 56369536 I25.10 monitor Depressive disorder 3548 9007 F32.9 monitor mood psych eval and treat prn Endocarditis 60779546 I3 8 TTE was negative for endocardit is but treating anyways monitor Gastrointe stinal hemorrhage 10122051 K92.2 omeprazole 40 mg daily GI fu as outpatient Mixed hyperlipidemia 267 678323 E78.2 monitor labs Health Concerns Section Related Observation LastModified by Organization Detai ls LastModified Time None Recorded Concern Status LastModified by Organization Details LastModified Time None Recorded Advance Directives Directive N: Payers Insurance Date Sequence Insurance Name Policy Number Policy Marroquin Covered Member ID Marroquin Member ID Guarantor Name 05/15/2020 2 [place]) [id number] Bobbi Victor M [id number] Bobbi Victor M 04/26/2020 1 [place] [employer] Bobbi M Victor M [id number] Bobbi Victor M 04/23/2020 2 [place] [id number] Bobbi Victor M [id number] Bobbi Victor M Notes Date Note Type Note Provider Name and Address Organization Details Recorded Time 03/30/2020 text/html A 79 year old female being seen for a initial intake note. Patient went to [facility] [place] with weakness over [...] depression, CAD, pacemaker and afib. FILIPPO RAMIREZ, DATA CENTER MANAGER [address], [address], [place], [address], [facility] [employer] 03/30/2020 14:02:09 03/31/2020 text/html ROS as noted in the HPI This 79 year old woman was admitted to [facility] on 03/29/20 for rehab and continued care. She presented to [facility] ER with weakness over several weeks. [...] DNR, DNI, DNH Suha Lama MD [address], [address], [place], [address], [facility] [employer] 03/31/2020 11:48:03 04/05/2020 text/html A 79 year old female being seen for a acute rounding visit. Patient was upset about wanting to go home. She agreed to stay til sunday but then agreed til sunday due to holiday/[facility] services. [facility]. She is stating the facility has high sodium diet causing her edema (not visible to me) and she would like a new set of teds. She is also requesting a new walker and a script was given to therapy. ANNIKA GASPAR [address], [address], [place], [address], [facility] [employer] 04/05/2020 18:46:35 04/09/2020 text/html ROS as noted in the HPI seen today for discharge-79 yof being seen for discharge summary. Patient went to [facility] [place] with weakness over [...] short term rehab. MATHEW JONES NP [address], [address], [place], [address], [facility] 04/27/2020 12:06:20 OBGyn Episode No OBEpisode recorded.
--- OUTSIDE RECORDS SUMMARY | 2025-07-28 19:37 | XMS_ITS | Patient Health Record ---
Author Organization [facility] Address [address] [place] [address] Care Team Providers Care Warehouse Representative Name Role Phone Sourav SHIN, [facility] Primary [facility] Provider Terri Flowers Unavailable [phone] Allergies Allergen (clinical drug ingredient) Drug/Non Drug [...] Duration: 3-4 weeks 04/01/2019 Active Vitamin D3 85738 UNIT as directed Orally Active hydroCHLOROthiazide 12.5 [...] Problem Acquired hammer toe of right foot (06304459530055 05) Other hammer toe(s) (acquired), right foot (M20.41) Active confirmed Problem Acquired hammer toe of left foot (36090215533701 03) Other hammer toe(s) (acquired), left foot (M20.42) Active confirmed Problem Acquired hallux valgus (29179409) Hallux valgus (acquired), right foot (M20.11) Active confirmed Problem Abnormal gait (68779249) Unstable gait (R26.81) Active confirmed Problem 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 [place] [address] [id number] Bobbi Dow Self - patient is the insured Medex Blue [facility] [address] [place] [address] [phone] [id number] Bobbi Dow Self - patient is the insured Medical (General) History Medical History History ICD Code Anxiety Arthritis Broken bones CAD (Cholesterol) Cancer Cataracts Depression Heart disease Hepatitis A High blood pressure Numbness Osteoporosis Osteopenia Sciatica chronic sinusitis thyroid Measles Mumps Chicken pox Surgical History Surgery Date(Month/Year) TIA 1947 Hospitalization History Reason Date(Month/Year) [facility]-Nosebleed- ER vis it 10/2018 [facility]-UTI/Hemotoria/Hyp onaturia-Er visit 01/2019 [facility] 6 days - endocarditis, G I Bleeding- [facility] for PT 04/02/2020 [facility] ER - fall downstairs - swollen toe - broken toe 05/06/2020
== END 2025-07-28 15:46 | disposition home or self-care (01) ==
LOC: HO.HMCC 14:34
PROVIDERS: PCP Internal Medicine; Visit Provider Internal Medicine
DX: I50.9 Heart failure, unspecified (principal); R60.0 Localized edema; R41.3 Other amnesia

== ENCOUNTER 2025-07-30 14:11 | Outpatient (AMB) | payer MEDICARE, SELFPAY ==
--- NOTE | 2025-07-30 14:22 | A.OFFVIS_ITS ---
Vital Signs 07/30/25 14:28 Height 5 ft 4 in BMI Reason not done Patient refused/unable BP 110/64 Blood Pressure Location Lt brachial Position Sitting Pulse 81 Intake Visit Reasons: 3m follow up Allergies ibuprofen (IBUPROFEN) Allergy (Severe, Verified 07/30/25 15:10) THROAT LUMP olmesartan (From BENICAR) Allergy (Severe, Verified 07/30/25 15:10) WHEEZING Gadolinium-Containing Contrast Medi (Gadolinium-Containing Agents) Allergy (Mild, Verified 07/30/25 15:10) HIVES Iodinated Contrast Media (IV Dye, Iodine Containing) Allergy (Mild, Verified 07/30/25 15:10) RASH oneil Allergy (Mild, Verified 07/30/25 15:10) RASH Sulfa (Sulfonamide Antibiotics) Allergy (Mild, Verified 07/30/25 15:10) RASH amiodarone (AMIODARONE) Allergy (Unknown, Verified 07/30/25 15:10) THYROID TOXICOSIS amlodipine (From NORVASC) Allergy (Unknown, Verified 07/30/25 15:10) WHEEZING aspirin (ASPIRIN) Allergy (Unknown, Verified 07/30/25 15:10) THROAT LUMP HEAVY WHEEZING, wheezing, wheezing azithromycin (From ZITHROMAX) Allergy (Unknown, Verified 07/30/25 15:10) NAUSEA/VOMITING, nausea and vomiting bee pollen (Bee Stings) Allergy (Unknown, Verified 07/30/25 15:10) EDEMA, ALL INSECT STINGS capsaicin (CAPSAICIN) Allergy (Unknown, Verified 07/30/25 15:10) RASH clopidogrel (From PLAVIX) Allergy (Unknown, Verified 07/30/25 15:10) THROAT LUMP HEAVY WHEEZING diltiazem (Cardizem) Allergy (Unknown, Verified 07/30/25 15:10) rash methimazole (METHIMAZOLE) Allergy (Unknown, Verified 07/30/25 15:10) RASH sulfamethoxazole (From BACTRIM) Allergy (Unknown, Verified 07/30/25 15:10) RASH trimethoprim (From BACTRIM) Allergy (Unknown, Verified 07/30/25 15:10) RASH escitalopram (From Lexapro) Allergy (Verified 07/30/25 15:10) Wheezing clarithromycin (From Biaxin) Adverse Reaction (Mild, Verified 07/30/25 15:10) N/V codeine (Codeine) Adverse Reaction (Mild, Verified 07/30/25 15:10) N/V levofloxacin (From Levaquin) Adverse Reaction (Mild, Verified 07/30/25 15:10) N/V Dye [facility] 1 Allergy (Unknown, Uncoded 06/17/25 14:56) rash Medication List - Last Reconciled 07/30/25 by Leonard Smart MD bumetanide 2 mg PO DAILY escitalopram oxalate 10 mg PO DAILY metolazone 2.5 mg PO DAILY PRN nadolol 20 mg PO DAILY potassium chloride ER (K-Tab) 20 mEq PO DAILY [facility] Medical History History of senior care anticoagulant use (~2009) History of cardiac arrest (~2009) Osteoporosis (~2020) Tubular adenoma of colon (~2000) Pacemaker at end of battery life Blood in urine Superficial bruising of abdominal wall Traumatic ecchymosis of left lower leg Traumatic ecchymosis of left shoulder Traumatic hematoma of head Fall Hip pain, right Abnormal ultrasound of lower extremity AAA (abdominal aortic aneurysm) CAD (coronary artery disease) Cardiac pacemaker in situ (~2009) Mitral regurgitation Tricuspid regurgitation Diverticulosis Ex-smoker Hearing impaired Lactose intolerance History of right breast cancer (~1992) Hypertension, essential Atrial fibrillation, chronic (~2009) Surgical History History of colonoscopy History of hand surgery History of heart artery stent History of pacemaker History of lumpectomy History of cardiac cath History of cardioversion History of eye surgery Family History Father CVD (cardiovascular disease) Mother CVD (cardiovascular disease) Myocardial infarction Maternal Grandmother Unknown family medical history Maternal Grandfather No problems noted. Paternal Grandfather CVD (cardiovascular disease) Paternal Grandmother No problems noted. Child No Financial Resp No problems noted. 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 a hearing aid) Vision needs: Yes Review of Systems Const Denies chills, Denies fatigue, Denies fever(s), Denies frequent falls, Denies weakness, Denies weight gain and Denies weight loss ENT Denies dizziness Card Denies chest pain, Denies leg edema, Denies lightheadedness, Denies palpitations, Denies dyspnea, Denies dyspnea on exertion, Denies orthopnea and Denies other (loss of consciousness) Resp Denies cough, Denies dyspnea and Denies dyspnea on exertion GI Denies hematochezia and Denies change in stool character Musc Denies abnormal gait, Denies muscle weakness, Denies numbness, Denies radiating pain into limb and Denies tingling Neuro Denies abnormal gait, Denies dizziness, Denies frequent falls, Denies numbness, Denies tingling and Denies weakness Endo Denies fatigue and Denies palpitations Physical Exam Vital Signs: Last Vital Signs Pulse 81 07/30/25 14:28 BP 110/64 07/30/25 14:28 Coding
[2025-07-30 14:28] VITALS: BP 110/64; PULSE 81
--- NOTE | 2025-07-30 14:28 | MHC.OFFVIS ---
Vital Signs 07/30/25 14:28 Height 5 ft 4 in BMI Reason not done Patient refused/unable BP 110/64 Blood Pressure Location Lt brachial Position Sitting Pulse 81 Intake Visit Reasons: 3m follow up Intake Note: 3 month follow-up [employer] c/o leg weeping Per patients daughter she is forgetting to take med's [employer] Supervisor Required: No Nutritional Services Director: Nutritional Services Director Present Accompanied by: Daughter Allergies ibuprofen (IBUPROFEN) Allergy (Severe, Verified 07/22/25 13:36) THROAT LUMP olmesartan (From BENICAR) Allergy (Severe, Verified 07/22/25 13:36) WHEEZING Gadolinium-Containing Contrast Medi (Gadolinium-Containing Agents) Allergy (Mild, Verified 07/22/25 13:36) HIVES Iodinated Contrast Media (IV Dye, Iodine Containing) Allergy (Mild, Verified 07/22/25 13:36) RASH oneil Allergy (Mild, Verified 07/22/25 13:36) RASH Sulfa (Sulfonamide Antibiotics) Allergy (Mild, Verified 07/22/25 13:36) RASH amiodarone (AMIODARONE) Allergy (Unknown, Verified 07/22/25 13:36) THYROID TOXICOSIS amlodipine (From NORVASC) Allergy (Unknown, Verified 07/22/25 13:36) WHEEZING aspirin (ASPIRIN) Allergy (Unknown, Verified 07/22/25 13:36) THROAT LUMP HEAVY WHEEZING, wheezing, wheezing azithromycin (From ZITHROMAX) Allergy (Unknown, Verified 07/22/25 13:36) NAUSEA/VOMITING, nausea and vomiting bee pollen (Bee Stings) Allergy (Unknown, Verified 07/22/25 13:36) EDEMA, ALL INSECT STINGS capsaicin (CAPSAICIN) Allergy (Unknown, Verified 07/22/25 13:36) RASH clopidogrel (From PLAVIX) Allergy (Unknown, Verified 07/22/25 13:36) THROAT LUMP HEAVY WHEEZING diltiazem (Cardizem) Allergy (Unknown, Verified 07/22/25 13:36) rash methimazole (METHIMAZOLE) Allergy (Unknown, Verified 07/22/25 13:36) RASH sulfamethoxazole (From BACTRIM) Allergy (Unknown, Verified 07/22/25 13:36) RASH trimethoprim (From BACTRIM) Allergy (Unknown, Verified 07/22/25 13:36) RASH escitalopram (From Lexapro) Allergy (Verified 07/22/25 13:36) Wheezing clarithromycin (From Biaxin) Adverse Reaction (Mild, Verified 07/22/25 13:36) N/V codeine (Codeine) Adverse Reaction (Mild, Verified 07/22/25 13:36) N/V levofloxacin (From Levaquin) Adverse Reaction (Mild, Verified 07/22/25 13:36) N/V Dye [facility] Blue 1 Allergy (Unknown, Uncoded 06/17/25 14:56) rash Medication List - Last Reconciled 07/30/25 by Leonard Smart MD bumetanide 2 mg PO DAILY escitalopram oxalate 10 mg PO DAILY metolazone 2.5 mg PO DAILY PRN nadolol 20 mg PO DAILY potassium chloride ER (K-Tab) 20 mEq PO DAILY HPI Comments Details: Bobbi comes for follow-up with her daughter. As per the daughter she has been getting more forgetful. She is getting more and more leg edema with a abdominal distention worsening shortness of breath including orthopnea at nighttime. She has not been taking her metolazone as prescribed. Patient has been seen by primary care physician but has not been responding adequately to diuretic regimen. She denies any lightheadedness, syncope. Denies any prolonged palpitation irregular heartbeat. [facility] Medical History History of chcf anticoagulant use (~2009) History of cardiac arrest (~2009) Osteoporosis (~2020) Tubular adenoma of colon (~2000) Pacemaker at end of battery life Blood in urine Superficial bruising of abdominal wall Traumatic ecchymosis of left lower leg Traumatic ecchymosis of left shoulder Traumatic hematoma of head Fall Hip pain, right Abnormal ultrasound of lower extremity AAA (abdominal aortic aneurysm) CAD (coronary artery disease) Cardiac pacemaker in situ (~2009) Mitral regurgitation Tricuspid regurgitation Diverticulosis Ex-smoker Hearing impaired Lactose intolerance History of right breast cancer (~1992) Hypertension, essential Atrial fibrillation, chronic (~2009) Surgical History History of colonoscopy History of hand surgery History of heart artery stent History of pacemaker History of lumpectomy History of cardiac cath History of cardioversion History of eye surgery Family History Father CVD (cardiovascular disease) Mother CVD (cardiovascular disease) Myocardial infarction Maternal Grandmother Unknown family medical history Maternal Grandfather No problems noted. Paternal Grandfather CVD (cardiovascular disease) Paternal Grandmother No problems noted. Child No Financial Resp No problems noted. Social History Household Members: Children Housing: House Are you a primary healthcare technician to a significant other at home: No Do you presently have visiting nurse or other home services: No Alcohol intake: never Patient Tobacco Use Status: Former Tobacco user Tobacco use type: Cigarette Years Smoked: 40 e-Cigarette/Vaping Use: Never Used Advance Directives Date on File: 10/29/17 service: No Current occupational status: retired Cognitive needs: No Hearing needs: Yes (deaf in right ear, left ear has a hearing aid) Vision needs: Yes Review of Systems Const Denies chills, Denies fatigue, Denies fever(s), Denies frequent falls, Denies weakness, Denies weight gain and Denies weight loss ENT Denies dizziness Card Denies chest pain, Denies leg edema, Denies lightheadedness, Denies palpitations, Denies dyspnea, Denies dyspnea on exertion, Denies orthopnea and Denies other (loss of consciousness) Resp Denies cough, Denies dyspnea and Denies dyspnea on exertion GI Denies hematochezia and Denies change in stool character Musc Denies abnormal gait, Denies muscle weakness, Denies numbness, Denies radiating pain into limb and Denies tingling Neuro Denies abnormal gait, Denies dizziness, Denies frequent falls, Denies numbness, Denies tingling and Denies weakness Endo Denies fatigue and Denies palpitations Physical Exam Vital Signs: Last Vital Signs Pulse 81 07/30/25 14:28 BP 110/64 07/30/25 14:28 Const General: cooperative, comfortable and no acute distress Nutritional Appearance: thin and other (Frail elderly woman) Orientation/consciousness: patient oriented x3 Neck Other: Pulsation of neck vein, likely V wave from TR Neck: Yes normal visual inspection and Yes JVD Resp Effort & Inspection: normal respiratory effort Auscultation: clear to auscultation bilaterally, no crackles, no rales, no rhonchi and no wheezes Cardio Rate: regular rate Rhythm: abnormal rhythm Heart sounds: S1 normal heart sound present, S2 normal heart sound present, no gallops, Murmur heart sound present (Systolic murmur in mitral position) systolic holo and no rubs Peripheral pulses: Peripheral pulses 2+ throughout GI Inspection: Yes Abdominal wall edema and Yes distended Neuro General: patient oriented x3 Extrem Other: Trace pitting edema in each lower leg, left upper leg General: Yes normal to inspection, No clubbing, No cyanosis and Yes edema (4+ up to the thigh) Psych Appearance: grossly normal Mental Status: mental status grossly normal Speech and movement: Normal speech and movement present Assessment & Plan Assessment & Plan (1) Acute decompensated heart failure: Code(s): I50.9 - Heart failure, unspecified Plan: Acute decompensated congestive heart failure in patient with multiple cardiac issues including reduced LV systolic function, chronic atrial fibrillation with significant tricuspid regurgitation as well as mitral regurgitation secondary to significant biatrial enlargement. Clinically she is not responding to oral diuretic therapy and has had more than 15 lb weight gain in his clinically short of breath. Patient requires hospitalization. Discussed with the patient. She finally is convinced to get admitted to the hospital. Will need bumetanide drip starting at 0.5 mg an hour. Strict intake and output chart needs to be pursued. Overall short term as well as intermediate term outcome is guarded. She is likely to progress into more advanced congestive heart failure not respond overall diuretic therapy and/or have renal dysfunction. Patient is preferring to pursue palliative care although currently she requires inpatient care to help her with her current symptoms and eventually switch her to oral therapy. She will benefit from VNA services at home on a daily basis to help with the heart failure syndrome. Will follow her as inpatient. Coding Level of Care Code Est Pt Level 4 (47058) Complex EM visit Add On G2211 Diagnoses Acute decompensated heart failure I50.9
--- OUTSIDE RECORDS SUMMARY | 2025-07-30 18:01 | XMS_ITS | Clinical Summary ---
Author Organization [facility] Address [address] [place] [id number] Phone Care Team Providers Care Membership Coordinator Name Role Phone Mimi Benjamin MD Primary Care Provider [phone] Allergies Active Allergy Reactions Criticality Noted Date Comments Allergen Yfa-Ikvkp-Tnlrq Bee 12/19/2021 Edema Amiodarone 12/19/2021 Thyroid toxicosis Amlodipine Wheezing 12/19/2021 Aspirin Wheezing 12/19/2021 Throat lump Azithromycin Nausea and/or Vomiting 12/19/2021 Capsaicin Rash Low 12/19/2021 Clarithromycin Nausea and/or Vomiting 12/19/2021 Clopidogrel Wheezing 12/19/2021 Throat lump Codeine Nausea and/or Vomiting 12/19/2021 Gadolinium-Containing Contrast Media Hives 12/19/2021 Ibuprofen Other (See Comments) 12/19/2021 Throat lumps Iodinated Contrast Media Rash Low 12/19/2021 mri Levofloxacin Nausea and/or Vomiting 12/19/2021 [place] Rash Low 12/19/2021 Methimazole Rash Low 12/19/2021 [...] Active vitamins A,C,E-zinc-eleanor er (PRESERVISION AREDS) 14,[id number] ayca-md-ewuy Cap Take 1 capsule by mouth. Takes [...] D supplements which she can just get utnj-nfk-oavchxm. She does not want to take calcium [...] for repeat DXA scan on 04/07/2023 at [facility] she should continue at the same facility. [...] EDT) SODIUM 138 133 - 146 mmol/L [facility] POTASSIUM 4.3 3.3 - 5.1 mmol/L [facility] CHLORIDE 102 96 - 108 mmol/L [facility] CO2 27 21 - 35 mmol/L [facility] BUN 27(H) 6 - 19 mg/dL [facility] CREATININE 0.90 0.5 - 1.5 mg/dL [facility] GLUCOSE 92 70 - 99 mg/dL [facility] ALBUMIN 4.4 3.9 - 4.8 g/dL [facility] TOTAL PROTEIN 7.7 6.5 - 8.0 g/dL [facility] CALCIUM 9.7 8.4 - 10.3 mg/dL [facility] ALKALINE PHOSPHATASE 91 39 - 117 U/L [facility] TOTAL BILIRUBIN 1.4(H) 0.0 - 1.2 mg/dL [facility] AST 25 0 - 37 U/L [facility] ALT 9 0 - 40 U/L [facility] GLOBULIN 3.3 1 - 4.8 g/dL [facility] EGFR 64 >59 mL/min/1.7 3m2 [facility] Comment:Estimated glomerular filtration rate calculated using the CKD-EPI refit equation. ANION GAP 13 10 - 20 mmol/L [facility] Blood 12/26/2021 8:13 AM EDT 12/26/2021 8:21 AM EDT us Isaiah Pitts DO LAB BLOOD ORDERABLES Final Resul t [facility] [address] [place] [address] * Creatinine, 24 hr urine (12/26/2021 8:13 AM EDT) URINE CREATININE 40 mg/dL [facility] CREATININE OUTPUT 840 600 - 1,800 mg/total output [facility] Urine (Urine) 12/26/2021 8:1 3 AM EDT 12/26/2021 8:20 AM EDT Isaiah Pitts DO URINE ORDERABLES Final Result [address] [address] from Last 3 Months or Most Recently Relevant to Health Maintenance Insurance [employer] MEDEX SUPPLEMENT MEDICARE PART A & [place] [address] [employer] MEDEX SUPPLEMENT MEDICARE PART A & B [employer] MEDEX SUPPLEMENT MEDICARE PART A & B [place] [employer] SUPPLEMENT MEDICARE PART A & B [place] [employer] SUPPLEMENT MEDICARE PART A & B [place] MED[employer] SUPPLEMENT MEDICARE PART A & B [place] MEDEX SUPPLEMENT Member Subscriber Plan / Payer ( fective 2004-Present) Name:Olman Ballard Relation to Subscriber:Self Name:OLMAN BALLARD Payer ID:[id number] (NAIC) Type:Indemnity Address: [place] [phone] MEDICARE PART A & B [place] MED[employer] SUPPLEMENT MEDICARE PART A & B [place] MED[employer] SUPPLEMENT MEDICARE PART A & B Care Teams Membership Coordinator Relationship Specialty Start Date End Date Mimi Benjamin MD [address] [address] PCP - General Internal Medicine 09/26/21 Additional Source Comments The information contained in this document represents components of the legal health record. It is not the complete legal health record.[facility]
--- OUTSIDE RECORDS SUMMARY | 2025-07-30 18:02 | XMS_ITS | Patient Health Record ---
[facility] Address [address] [place] [address] Care Team Providers Care Technical Support Coordinator Name Role Phone Sourav SHIN, [facility] Primary Care Provider Terri Flowers Unavailable [phone] Allergies Allergen (clinical drug ingredient) Drug/Non Drug [...] Duration: 3-4 weeks 04/01/2019 Active Vitamin D3 13717 UNIT as directed Orally Active hydroCHLOROthiazide 12.5 [...] Problem Acquired hammer toe of right foot (27363508280741 05) Other hammer toe(s) (acquired), right foot (M20.41) Active confirmed Problem Acquired hammer toe of left foot (70152455221901 03) Other hammer toe(s) (acquired), left foot (M20.42) Active confirmed Problem Acquired hallux valgus (57638674) Hallux valgus (acquired), right foot (M20.11) Active confirmed Problem Abnormal gait (44612169) Unstable gait (R26.81) Active confirmed Problem 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) Idiopathic neuropathy (G60.9) Active confirmed Plan Of Treatment Pending Test Test Name Order Date X ray : Foot, left 3V 04/01/2019 X ray : Foot, right 3V 04/01/2019 Insurance Providers Payer Name Payer Address Payer Phone Subscriber Number Group Number Insured Name Patient Relationship to Insured Coverage Start Date Coverage End Date Medicare National [employer]t [employer] [address] [place] [address] [id number] Bobbi Dow Self - patient is the insured Medex [employer] [facility] [address] [place] [address] [id number] Bobbi Dow Self - patient is the insured Medical (General) History Medical History History ICD Code Anxiety Arthritis Broken bones CAD (Cholesterol) Cancer Cataracts Depression Heart disease Hepatitis A High blood pressure Numbness Osteoporosis Osteopenia Sciatica chronic sinusitis thyroid Measles Mumps Chicken pox Surgical History Surgery Date(Month/Year) TIA 1947 Hospitalization History Reason Date(Month/Year) [facility]-Nosebleed- ER vis it 10/2018 [facility]-UTI/Hemotoria/Hyp onaturia-Er visit 01/2019 [facility] 6 days - endocarditis, G I Bleeding- went to [facility] for PT 04/02/2020 [facility] ER - fall downstairs - swollen toe - broken toe 05/06/2020
--- OUTSIDE RECORDS SUMMARY | 2025-07-30 18:02 | XMS_ITS | Patient Health Record ---
Author Organization [facility] Address [address] [place] [address] Care Team Providers Care Emergency Department Physician Name Role Phone Yadi Rees DO Primary Care Provider Derek Saavedra Unavailable [phone] Norbert Mack Unavailable Unavailable Allergies Allergen (clinical [...] Status Risk Notes Problem Irritable bowel syndrome (67157168) Irritable bowel syndrome (564.1) Active confirmed Problem Gallstones (106082378) Gallstones (574.20) Active confirmed Problem Generalized abdominal pain (022172652) Abdominal pain, generalized (789.07) Active confirmed Problem Constipation (96892707) Constipation (564.00) Active confirmed Problem Change in bowel habit (91602415) Change in bowel habits (787.99) Active confirmed Problem Colon cancer screening (481776719) Colon cancer screening (V76.51) Active confirmed Problem Liver function tests abnormal (328868281) Abnormal liver function test (790.6) Active confirmed Problem Liver function tests abnormal (317488951) Abnormal liver function tests (790.6) Active confirmed Problem Ascites (210454606) Ascites (789.59) Active confirmed Problem History of adenomatous polyp of colon (780186571) History of adenomatous polyp of colon (V12.72) Active confirmed Problem Flatulence, eructation and gas pain (311925958) Bloating (787.3) Active confirmed Plan Of Treatment Pending Test Test Name Order Date LIVER PROFILE 2013 IRON + IBC (FE) 06/19/2013 FERRITIN 06/19/2013 CBC w DIFF 2013 HEPATITIS B, C PROFILE 06/19/2013 [id number] (A1A) 06/19/2013 CELIAC PANEL #10 06/05/2013 ENDOMYSIAL [...] Date MEDICARE OF [place] [address] [place] [address] [id number] OLMAN BALLARD Self - patient is the insured MEDEX ATTN CLAIMS [address] [place] [address] [id number] OLMAN BALLARD Self - patient is the insured Medical (General) History Medical History History ICD Code Lumpectomy and radiation for breast canc er on right side in Lipoma removed from abdominal wall Hypertension Depression HTN Hyperlipidemia A-fib Depression Lactose Intolerant Pacemaker-set to 60 DE 2009 with cardiac arrests-had 2 stent s [...]
== END 2025-07-30 15:41 | disposition home or self-care (01) ==
LOC: HO.HCS 14:11
PROVIDERS: PCP Internal Medicine; Visit Provider Internal Medicine Cardiovascular Disease
DX: I50.9 Heart failure, unspecified (principal)
CPT/HCPCS: 93010; 99214; G2211

== ENCOUNTER 2025-07-30 14:53 | Inpatient (IN) | payer MEDICARE, SELFPAY ==
--- NOTE | ~2025-07-30 | XR_ITS ---
CLINICAL HISTORY: CHF Single view of the chest. COMPARISON: XR chest dated 08/15/24 at 12:58 EST FINDINGS: Right-sided cardiac pacemaker. Cardiomegaly. Atherosclerotic thoracic aorta. Prominence of the central pulmonary vasculature. No consolidation. Blunting of the right costophrenic angle. Bronchial wall thickening. No pneumothorax. Degenerative changes of the bilateral shoulders. Osteopenia. Dextrocurvature of the midthoracic spine. No acute fracture. IMPRESSION: 1. Bronchial wall thickening. Nonspecific finding can be seen with pulmonary edema (favored) or a multifocal infectious or inflammatory process. 2. Small right pleural effusion. 3. Cardiomegal with central pulmonary vascular congestion. This document has been electronically signed by: Alfred Zafar MD on 07/30/2025 17:54:16
--- NOTE | 2025-07-30 15:04 | ED_ITS ---
HPI - General Adult General Chief complaint: Dyspnea Stated complaint: from cardiology Time Seen by Provider: 07/30/25 15:03 Source: patient, family (Daughter) and RN notes reviewed Mode of arrival: ambulatory Limitations: no limitations History of Present Illness ED Provider: DR. Villarreal HPI narrative: 84-year-old female PMHx multiple cardiac issue including reduced LV systolic function, AFib, tricuspid regurgitation, MR brought in by her daughter from a cardiology office for possible admission and diuresis for acute decompensated CHF. Patient with history of dementia lives home by herself a daughter live nearby with frequent checking on her mother patient had 3 months appointment with her tablet repair today was complaining of shortness of breath, increased paroxysmal nocturnal dyspnea, gained about 20 lb in the past weeks, bilateral lower extremity edema with weeping fluid out of her legs. Daughter thinks that the patient do not comply with her medications at home. Was seen today at Dr. Smart office who recommended to come to the emergency department for further admission and diuresis. Related Data Previous Rx's ?Medication ?Instructions ?Recorded metolazone 2.5 mg tablet 2.5 mg PO DAILY PRN Weight G ain 01/22/25 #20 tabs potassium chloride 20 mEq 20 meq PO DAILY #30 tabs 05/01 tablet,extended release (K-Tab) escitalopram oxalate 10 mg tablet 10 mg PO DAILY #90 t abs 06/17/25 nadolol 20 mg tablet 20 mg PO DAILY #90 tabs 06/08 11/01 bumetanide 2 mg tablet 2 mg PO DAILY #90 tabs 07/14 Allergies Allergy/AdvReac Type Severity Reaction Status Date / Time ibuprofen (IBUPROFEN) Allergy Severe THROAT LUMP Verified 07/30/25 15:10 olmesartan (From BENICAR) Allergy Severe WHEEZING Verified 07/30/25 15:10 Gadolinium-Containing Allergy Mild HIVES Verified 07/30/25 15:10 Contrast Medi (Gadolinium-Containing Agents) Iodinated Contrast Media (IV Allergy Mild RASH Verified 07/30/25 15:10 Dye, Iodine Containing) oneil Allergy Mild RASH Verified 07/30/25 15:10 Sulfa (Sulfonamide Allergy Mild RASH Verified 07/30/25 15:10 Antibiotics) amiodarone (AMIODARONE) Allergy Unknown THYROID Verified 07/30/25 15:10 TOXICOSIS amlodipine (From NORVASC) Allergy Unknown WHEEZING Verified 07/30/25 15:10 aspirin (ASPIRIN) Allergy Unknown THROAT Verified 07/30/25 15:10 LUMP HEAVY WHEEZING, wheezing, wheezing azithromycin (From ZITHROMAX) Allergy Unknown NAUSEA/VOMITING, Verified 07/30/25 15:10 nausea and vomiting bee pollen (Bee Stings) Allergy Unknown EDEMA, ALL Verified 07/30/25 15:10 INSECT STINGS capsaicin (CAPSAICIN) Allergy Unknown RASH Verified 07/30/25 15:10 clopidogrel (From PLAVIX) Allergy Unknown THROAT Verified 07/30/25 15:10 LUMP HEAVY WHEEZING diltiazem (Cardizem) Allergy Unknown rash Verified 07/30/25 15:10 methimazole (METHIMAZOLE) Allergy Unknown RASH Verified 07/30/25 15:10 sulfamethoxazole (From Allergy Unknown RASH Verified 07/30/25 15:10 BACTRIM) trimethoprim (From BACTRIM) Allergy Unknown RASH Verified 07/30/25 15:10 escitalopram (From Lexapro) Allergy Wheezing Verified 07/30/25 15:10 clarithromycin (From Biaxin) AdvReac Mild N/V Verified 07/30/25 15:10 codeine (Codeine) AdvReac Mild N/V Verified 07/30/25 15:10 levofloxacin (From Levaquin) AdvReac Mild N/V Verified 07/30/25 15:10 Dye LONG-TERM Blue 1 Allergy Unknown rash Uncoded 06/17/25 14:56 Review of Systems 2 Review of Systems: All other systems are reviewed and are negative Constitutional: Reports as per HPI and Reports no additional constitutional complaints Eyes: Reports as per HPI and Reports no additional eye complaints Reports system reviewed and no additional complaints, except as documented Cardiovascular: Reports as per HPI and Reports no additional cardiovascular complaints Respiratory: Reports as per HPI and Reports no additional respiratory complaints Gastrointestinal: Reports as per HPI and Reports no additional gastrointestinal complaints Genitourinary: Reports no additional female genitourinary complaints Musculoskeletal: Reports no additional musculoskeletal complaints Skin/Breast: Reports system reviewed and no additional complaints, except as docu Psychiatric: Reports no additional psychiatric complaints Endocrine: Reports no additional endocrine complaints Hematologic/Lymphatic: Reports no additional hematologic/lymphatic complaints Allergic/Immunologic: Reports no additional allergic/immunologic complaints Reports system reviewed and no additional complaints, except as documented and Reports Abnormal speech present PMFSH Past Medical History Medical History 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 (~2009) History of cardiac arrest (~2009) Osteoporosis (~2020) Tubular adenoma of colon (~2000) Pacemaker at end of battery life Blood in urine Superficial bruising of abdominal wall Traumatic ecchymosis of left lower leg Traumatic ecchymosis of left shoulder Traumatic hematoma of head Fall Hip pain, right Abnormal ultrasound of lower extremity AAA (abdominal aortic aneurysm) CAD (coronary artery disease) Cardiac pacemaker in situ (~2009) Mitral regurgitation Tricuspid regurgitation Diverticulosis Ex-smoker Hearing impaired Lactose intolerance History of right breast cancer (~1992) Hypertension, essential Atrial fibrillation, chronic (~2009) Surgical History History of colonoscopy History of hand surgery History of heart artery stent History of pacemaker History of lumpectomy History of cardiac cath History of cardioversion History of eye surgery Family History Family History Father CVD (cardiovascular disease) Mother CVD (cardiovascular disease) Myocardial infarction Maternal Grandmother Unknown family medical history Maternal Grandfather No problems noted. Paternal Grandfather CVD (cardiovascular disease) Paternal Grandmother No problems noted. Child No Financial Resp No problems noted. Social History Social History Household Members: Children Housing: House Are you a primary healthcare project manager to a significant other at home: No Do you presently have visiting nurse or other home services: No Alcohol intake: never Patient Tobacco Use Status: Former Tobacco user Tobacco use type: Cigarette Years Smoked: 40 e-Cigarette/Vaping Use: Never Used Advance Directives: Yes Advance Directives on File: Yes Advance Directives Date on File: 10/29/17 service: No Current occupational status: retired Cognitive needs: No Hearing needs: Yes (deaf in right ear, left ear has a hearing aid) Vision needs: Yes Physical Exam ED Vital Signs: Vital Signs - 24 hr 07/30/25 15:10 07/30/25 16:20 Temperature 97.6 F Pulse Rate 83 67 Respiratory Rate 18 19 Blood Pressure 115/57 L 104/60 Pulse Oximetry 92 98 Oxygen Delivery Method Room Air Room Air BMI result Body Mass Index 25.2 Vital signs have been reviewed and appear to be correct. Blood pressure elevated. Heart rate normal. Respiratory rate normal. Temperature normal. Oxygen saturation normal. Appearance: Alert. Oriented X3. No acute distress. Head: Normal external exam. Normocephalic. Atraumatic. No Khan signs noted. No raccoon eyes noted Eyes: PERRLA. EOMI. Conjunctiva and sclera normal. Eyelids normal. ENT: TM's Normal. Pharynx normal. Uvula midline. Moist mucous membranes. No trismus noted. No drooling noted. No muffled voice noted. Neck: Normal inspection. Neck supple. FROM. No adenopathy. Thyroid Normal. No meningeal signs. No neck mass noted. CVS: Normal heart rate and rhythm. Heart sound normal. No murmurs noted. Pulses normal throughout. Respiratory: No respiratory distress. Painless inspiration. Decreased breathing sounds bilaterally, bilateral pulmonary basis rales, No accessory muscle usage noted or decreased air movement noted. Abdomen: Soft and nontender. Bowel sounds normal in all 4 quadrants. No distention noted. No organomegaly noted. No visible injury noted. Back: No CVA tenderness. Full range of motion noted. Skin: Skin warm and dry. Normal skin color. Normal skin turgor. No rashes/lesions/lacerations noted. Extremities:+3 bilateral lower extremity edema. Extremities exhibit normal range of motion. Extremities nontender. Neuro: Oriented X 3. Cranial nerve exam: II-XII are grossly intact No motor deficit. No sensory deficit. Reflexes normal. Course Reevaluation(s) Reevaluation #1: Acute exacerbation of congestive heart failure needs diuresis with strict in's and out will start on bumetanide IV drip at 0.5 mg as recommended by Dr. Smart and admit to hospital. Time: 17:05 Medications Administered Generic Name Dose Route Start Last Admin Trade Name Freq PRN Reason Stop Dose Admin Bumetanide 25 mg/ IV 100 mls @ 1 mls/hr 07/30/25 15:30 07/30/25 17:11 Miscellaneous Supplies IVCONT 0.25 mg/hr .Q24H YUSEF 1 mls/hr 0.25 MG/HR Administration Medical Decision Making Differential Diagnosis Differential Diagnoses: The differential diagnosis associated with the presentation includes (Decompensated CHF, pneumonia, pneumothorax, pleural effusion, dehydration, electrolyte derangement, severe anemia.) Admission/Observation Consideration of admission/observation: Escalation of care including admission/observation considered Consult Healthcare Provider Management of the patient was discussed with: Hospitalist (Dr. amanda) Lab Data MDM Lab Attestation statement: I reviewed the patient's lab results. 07/30/25 15:23 07/30/25 15:23 Labs: Lab Results 07/30/25 Range/Units 15:23 WBC 5.3 (4.8-10.8) X10*3/uL RBC 3.76 L (4.20-5.50) X10*6/uL Hgb 12.1 (12.0-16.0) g/dl Hct 37.1 (37.0-47.0) % MCV 98.7 H (80.0-98.0) fL MCH 32.2 (27.0-33.0) pg MCHC 32.6 (31.0-35.0) g/dl RDW 14.9 (11.0-16.0) % Plt Count 137 L D (160-400) X10*3/uL MPV 9.9 (9.4-12.3) fL Immature Gran % (Auto) 0.4 (0.0-0.4) % Neut % (Auto) 76.6 H (45-73) % Lymph % (Auto) 11.7 L (20-40) % Dixon % (Auto) 9.3 (2-11) % Eos % (Auto) 1.1 (0-4) % Baso % (Auto) 0.9 (0-2) % Lymph # (Auto) 0.6 L (1.2-4.9) X10*3/uL Dixon # (Auto) 0.5 (0.1-1.2) X10*3/uL Eos # (Auto) 0.1 (0.0-0.4) X10*3/uL Baso # (Auto) 0.1 (0.0-0.2) X10*3/uL Abs Immat Gran (auto) 0.02 (0.00-0.03) X10*3/uL Absolute Neuts (auto) 4.0 (2.0-8.3) x10*3/uL Absolute Nucleated RBC 0.000 (0.0-0.012) X10*3/uL Nucleated RBC % (auto) 0.0 (0.0-0.2) /100WBC PT 14.0 H (10.9-12.4) SEC INR 1.2 H (0.9-1.1) Sodium 142 (135-145) mmol/L Potassium 3.2 L (3.3-5.1) mmol/L Chloride 104 (96-108) mmol/L Carbon Dioxide 29 (22-29) mmol/L Anion Gap 12 (12-20) BUN 36 H (9-16) mg/dL Creatinine 1.48 H (0.5-1.4) mg/dL Estim Creat Clear Calc 24.1 Estimated GFR 34 Random Glucose 96 (60-115) mg/dL Calcium 8.2 L (8.4-10.2) mg/dL Total Bilirubin 2.0 H (0.0-1.0) mg/dL Direct Bilirubin 0.9 H (0.0-0.5) mg/dL AST 34 H (5-31) U/L ALT 8 (0-31) U/L Alkaline Phosphatase 84 (39-117) U/L Troponin I High Sens 27.9 H (<3.5-17.0) ng/L Total Protein 6.4 L (6.5-8.0) g/dL Albumin 3.4 L (3.5-5.0) g/dL Lipase 70 (8-78) U/L Influenza Type A (PCR) NEGATIVE (Negative) Influenza Type B (PCR) NEGATIVE (Negative) RSV RNA Qual (PCR) NEGATIVE (Negative) SARS-CoV-2 RNA (RT-PCR) NEGATIVE (Negative) Independent Interpretation I performed an independent interpretation of an: Plain X-Ray (Chest:. Bronchial wall thickening. Nonspecific finding can be seen with pulmonary edema (favored) or a multifocal infectious or inflammatory process. 2. Small right pleural effusion. 3. Cardiomegal with central pulmonary vascular congestion.) Radiology Impression Discussion of test interpretation with radiology: I have reviewed the radiologist's reading. Critical Care Time Critical Care Time Critical Care Time: Yes Total Critical Care Time: 60 Attestation: The patient was critically ill with a high probability of imminent or life- threatening deterioration. I spent greater than 30 minutes of discontinuous time evaluating the patient, delivering critical care at the bedside, discussing evaluating data with consultants. Critical care time does not include time spent performing separately billable procedures or teaching. Time spent performing critical care was 60 minutes. Discharge Plan Discharge Clinical Impression: Acute decompensated heart failure Patient Disposition: Admitted As Inpatient
[2025-07-30 15:10] VITALS: BP 115/57; PULSE 83; RESP 18; TEMP 36.4; O2SAT 92; BMI 25.2
--- NOTE | 2025-07-30 15:10 | ECG_ITS ---
Test Reason : SOB Blood Pressure : */* mmHG Vent. Rate : 75 BPM Atrial Rate : 76 BPM P-R Int : * ms QRS Dur : 116 ms QT Int : 430 ms P-R-T Axes : * -54 62 degrees QTcB Int : 480 ms Atrial fibrillation with Premature ventricular complexes Left anterior fascicular block Minimal voltage criteria for LVH, may be normal variant ( Saleem product ) Possible Anterior infarct (cited on or before 20-Feb-2022) Abnormal ECG When compared with ECG of 20-Feb-2022 08:11, Previous ECG has undetermined rhythm, needs review Premature ventricular complexes are now Present Referred By: Latasha Villarreal Electronically Signed By: ADA REEVES MD
[2025-07-30 15:28] LABS: MANUAL DIFF FLAG NO
[2025-07-30 15:41] LABS: Hematocrit 37.1 % (37.0-47.0); Hemoglobin 12.1 g/dl (12.0-16.0); Imm Gran Abs Auto 0.02 X10*3/uL (0.00-0.03); Imm Gran Pct Auto 0.4 % (0.0-0.4); Lymphocytes Absolute Auto 0.6 X10*3/uL (1.2-4.9); Mean Corpuscular HGB Conc 32.6 g/dl (31.0-35.0); Mean Corpuscular Hemoglobin 32.2 pg (27.0-33.0); Mean Corpuscular Volume 98.7 fL (80.0-98.0); NRBC Abs Auto 0.000 X10*3/uL (0.0-0.012); NRBC Pct Auto 0.0 /100WBC (0.0-0.2); Platelet Count 137 X10*3/uL (160-400); Red Blood Count 3.76 X10*6/uL (4.20-5.50); White Blood Count 5.3 X10*3/uL (4.8-10.8)
[2025-07-30 15:46] LABS: INTERNATIONAL NORM RATIO 1.2 (0.9-1.1); Prothrombin Time 14.0 SEC (10.9-12.4)
[2025-07-30 15:49] LABS: Alanine Aminotransferase 8 U/L (0-31); Albumin Level 3.4 g/dL (3.5-5.0); Alkaline Phosphatase 84 U/L (39-117); Anion Gap 12 (12-20); Aspartate Amino Transferase 34 U/L (5-31); Blood Urea Nitrogen 36 mg/dL (9-16); Calcium 8.2 mg/dL (8.4-10.2); Carbon Dioxide 29 mmol/L (22-29); Chloride 104 mmol/L (96-108); Creatinine Clr Calc Pharmacy 24.1; Estimated Glomerular Filt Rate 34; Lipase 70 U/L (8-78); Potassium 3.2 mmol/L (3.3-5.1); Sodium 142 mmol/L (135-145); Total Protein 6.4 g/dL (6.5-8.0)
[2025-07-30 15:56] LABS: Troponin-I High Sensitivity 27.9 ng/L (<3.5-17.0)
[2025-07-30 16:07] LABS: Resp Syncy Virus RNA Qual PCR NEGATIVE (Negative); SARS COV2 PCR INHOUSE NEGATIVE (Negative)
[2025-07-30 16:20] VITALS: BP 104/60; PULSE 67; RESP 19; O2SAT 98
[2025-07-30] MEDS: Bumetanide 25 MG in Container,Empty 0 ML IVCONT (17:11)
--- NOTE | 2025-07-30 17:30 | PM.IMHP ---
History of Present Illness Date of Service: 07/30/25 Chief Complaint: weight gain, edema 84F [facility] 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 History obtained from patient and daughter at bedside. Daughter notes that patient has been becoming increasingly forgetful and does not take diuretics consistently partially due to forgetting and partially to avoid having to urinate. She has noted 15 lb weight gain and significant lower extremity edema with weeping. Also complaining of shortness of breaths on minimal exertion and orthopnea. Went to cardiology appointment and due to florid fluid overload recommended admission for Bumex infusion. 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) History of cardiac arrest (~2009) Osteoporosis (~2020) Tubular adenoma of colon (~2000) Pacemaker at end of battery life Blood in urine Superficial bruising of abdominal wall Traumatic ecchymosis of left lower leg Traumatic ecchymosis of left shoulder Traumatic hematoma of head Fall Hip pain, right Abnormal ultrasound of lower extremity AAA (abdominal aortic aneurysm) CAD (coronary artery disease) Cardiac pacemaker in situ (~2009) Mitral regurgitation Tricuspid regurgitation Diverticulosis Ex-smoker Hearing impaired Lactose intolerance History of right breast cancer (~1992) Hypertension, essential Atrial fibrillation, chronic (~2009) Family History Father CVD (cardiovascular disease) Mother CVD (cardiovascular disease) Myocardial infarction Maternal Grandmother Unknown family medical history Maternal Grandfather No problems noted. Paternal Grandfather CVD (cardiovascular disease) Paternal Grandmother No problems noted. Child No Financial Resp No problems noted. Surgical History History of colonoscopy History of hand surgery History of heart artery stent History of pacemaker History of lumpectomy History of cardiac cath History of cardioversion History of eye surgery Social History Household Members: Children Housing: House Are you a primary care support representative to a significant other at home: No Do you presently have visiting nurse or other home services: No Alcohol intake: never Patient Tobacco Use Status: Former Tobacco user Tobacco use type: Cigarette Years Smoked: 40 e-Cigarette/Vaping Use: Never Used Advance Directives: Yes Advance Directives on File: Yes Advance Directives Date on File: 10/29/17 service: No Current occupational status: retired Cognitive needs: No Hearing needs: Yes (deaf in right ear, left ear has a hearing aid) Vision needs: Yes Meds Allergies Allergy/AdvReac Type Severity Reaction Status Date / Time ibuprofen (IBUPROFEN) Allergy Severe THROAT LUMP Verified 07/30/25 15:10 olmesartan (From BENICAR) Allergy Severe WHEEZING Verified 07/30/25 15:10 Gadolinium-Containing Allergy Mild HIVES Verified 07/30/25 15:10 Contrast Medi (Gadolinium-Containing Agents) Iodinated Contrast Media (IV Allergy Mild RASH Verified 07/30/25 15:10 Dye, Iodine Containing) oneil Allergy Mild RASH Verified 07/30/25 15:10 Sulfa (Sulfonamide Allergy Mild RASH Verified 07/30/25 15:10 Antibiotics) amiodarone (AMIODARONE) Allergy Unknown THYROID Verified 07/30/25 15:10 TOXICOSIS amlodipine (From NORVASC) Allergy Unknown WHEEZING Verified 07/30/25 15:10 aspirin (ASPIRIN) Allergy Unknown THROAT Verified 07/30/25 15:10 LUMP HEAVY WHEEZING, wheezing, wheezing azithromycin (From ZITHROMAX) Allergy Unknown NAUSEA/VOMITING, Verified 07/30/25 15:10 nausea and vomiting bee pollen (Bee Stings) Allergy Unknown EDEMA, ALL Verified 07/30/25 15:10 INSECT STINGS capsaicin (CAPSAICIN) Allergy Unknown RASH Verified 07/30/25 15:10 clopidogrel (From PLAVIX) Allergy Unknown THROAT Verified 07/30/25 15:10 LUMP HEAVY WHEEZING diltiazem (Cardizem) Allergy Unknown rash Verified 07/30/25 15:10 methimazole (METHIMAZOLE) Allergy Unknown RASH Verified 07/30/25 15:10 sulfamethoxazole (From Allergy Unknown RASH Verified 07/30/25 15:10 BACTRIM) trimethoprim (From BACTRIM) Allergy Unknown RASH Verified 07/30/25 15:10 escitalopram (From Lexapro) Allergy Wheezing Verified 07/30/25 15:10 clarithromycin (From Biaxin) AdvReac Mild N/V Verified 07/30/25 15:10 codeine (Codeine) AdvReac Mild N/V Verified 07/30/25 15:10 levofloxacin (From Levaquin) AdvReac Mild N/V Verified 07/30/25 15:10 Dye ASSISTED Blue 1 Allergy Unknown rash Uncoded 06/17/25 14:56 Active Medications: Current Medications Acetaminophen (Acetaminophen 325 Mg Tablet) 650 mg PO Q6H PRN PRN Reason: Pain, Mild 1-3,fever,headache Calcium Carbonate (Calcium Carbonate 750 Mg Tab.Chew) 750 mg PO Q4H PRN PRN Reason: Heartburn Bumetanide 25 mg/ IV (Miscellaneous Supplies) 100 mls @ 1 mls/hr IVCONT .Q24H [facility] Last Admin: 07/30/25 17:11 Dose: 0.25 mg/hr, 1 mls/hr Magnesium Hydroxide (Milk Of Magnesia 30 Ml Oral.Susp) 30 ml PO DAILY PRN PRN Reason: Constipation Melatonin (Melatonin 3 Mg Tablet) 6 mg PO BEDTIME PRN PRN Reason: Insomnia Sodium Chloride (0.9 % Sodium Chloride Flush 3 Ml Syringe) 3 ml IVFLUSH QSHIFT [facility] Physical Exam Vital Signs and Narrative: Vital Signs: Last Vital Signs Temp 97.6 F 07/30/25 15:10 Pulse 67 07/30/25 16:20 Resp 19 07/30/25 16:20 BP 104/60 07/30/25 16:20 Pulse Ox 98 07/30/25 16:20 O2 Del Method Room Air 07/30/25 16:20 BMI result Body Mass Index 25.2 General: AO X 3, no acute distress, frail appearing Resp: diminished bilateral, no accessory muscles used CVS: S1,S2, irregular, murmur, 3-4 + bialteral le edema with wheeping GI: soft, non tender, non distended Neuro: motor grossly intact, alert Psych: appropriate affect Results Labs 07/30/25 15:23 07/30/25 15:23 Labs: Laboratory Results - last 24 hr 07/30/25 15:23 MCV 98.7 H MCH 32.2 MCHC 32.6 RDW 14.9 Plt Count 137 L D MPV 9.9 Immature Gran % (Auto) 0.4 Neut % (Auto) 76.6 H Lymph % (Auto) 11.7 L [place] % (Auto) 9.3 Eos % (Auto) 1.1 Baso % (Auto) 0.9 Lymph # (Auto) 0.6 L [place] # (Auto) 0.5 Eos # (Auto) 0.1 Baso # (Auto) 0.1 Abs Immat Gran (auto) 0.02 Absolute Neuts (auto) 4.0 Absolute Nucleated RBC 0.000 Nucleated RBC % (auto) 0.0 PT 14.0 H INR 1.2 H Anion Gap 12 Estim Creat Clear Calc 24.1 Estimated GFR 34 Random Glucose 96 Calcium 8.2 L Total Bilirubin 2.0 H Direct Bilirubin 0.9 H AST 34 H ALT 8 Alkaline Phosphatase 84 Troponin I High Sens 27.9 H Total Protein 6.4 L Albumin 3.4 L Lipase 70 Influenza Type A (PCR) NEGATIVE Influenza Type B (PCR) NEGATIVE RSV RNA Qual (PCR) NEGATIVE SARS-CoV-2 RNA (RT-PCR) NEGATIVE Assessment and Plan (1) Acute decompensated heart failure: Status: Acute Plan [address] [facility] hfref EF 25% with severe TR, chronic afib, alzheimers dementia, CAD, AAA, mood disorder, sent in from cardiology for decompensated hfref Acute on chronic systolic CHF IV Bumex infusion, monitor electrolytes, Cardiology eval Chronic AFib Rate controlled, patient not interested in anticoagulation Alzheimer's dementia Stable, at risk for delirium, orienting strategies DVT prophylaxis with Lovenox DNR/DNI Patient in acute CHF with significant volume overload likely require at least 2 midnights inpatient of continuous IV diuretic with close monitoring due to advanced age and frailty Quality Stroke Does the patient have a stroke diagnosis?: No VTE Prior VTE?: No VTE Risk Level:: Medical - moderate - high VTE Device Contraindication: Treatment Not Indicated VTE Drug Contraindication: N/A - Med Ordered
[2025-07-30 17:31] LABS: Appearance Urine Clear; Glucose Urine UA Negative (Negative); PH 6.0 (5.0-9.0); Specific Gravity - Urine 1.010 (1.005-1.025)
--- NOTE | 2025-07-30 19:07 | PHA.MEDREC ---
Addendum entered by Purvi Forte RPh 07/30/25 19:17: [facility] reviewed. Original Note: Pharmacy Consult ? Medication Reconciliation Pharmacy has completed the medication reconciliation. Spoke with pt and she was a poor historian with her medications and said to call her daughter. I called pt daughter (Radhika) and she was able to confirm pt medications; states pt non compliant with her medications and is only taking Bumetanide 2mg tabs on/off and suppose to be taking Metolazone 2.5mg and Nadolol 20mg tabs but states the pt stopped those herself in the last few weeks.
[2025-07-30 19:58] VITALS: BP 97/49; PULSE 75; RESP 19; TEMP 36.8; O2SAT 96
[2025-07-30 20:17] VITALS: BMI 25.5
[2025-07-30 21:35] VITALS: BP 98/49; PULSE 88; RESP 18; TEMP 36.8; O2SAT 98
[2025-07-30 21:55] VITALS: BMI 24.2
[2025-07-30 22:25] VITALS: BP 111/54; PULSE 96; RESP 16
[2025-07-30 23:49] VITALS: BP 104/56; PULSE 80; RESP 18; TEMP 36.7; O2SAT 93
[2025-07-31] VITALS (7 sets, daily range): BP systolic 88–101; BP diastolic 50–58; PULSE 60–82; RESP 16–18; TEMP 36.1–36.9; O2SAT 94–98
[2025-07-31 07:48] LABS: Hematocrit 32.9 % (37.0-47.0); Hemoglobin 10.8 g/dl (12.0-16.0); Mean Corpuscular HGB Conc 32.8 g/dl (31.0-35.0); Mean Corpuscular Hemoglobin 32.1 pg (27.0-33.0); Mean Corpuscular Volume 97.9 fL (80.0-98.0); NRBC Abs Auto 0.000 X10*3/uL (0.0-0.012); NRBC Pct Auto 0.0 /100WBC (0.0-0.2); Platelet Count 118 X10*3/uL (160-400); Red Blood Count 3.36 X10*6/uL (4.20-5.50); White Blood Count 5.2 X10*3/uL (4.8-10.8)
[2025-07-31 08:08] LABS: Alanine Aminotransferase < 6 U/L (0-31); Albumin Level 2.8 g/dL (3.5-5.0); Alkaline Phosphatase 69 U/L (39-117); Anion Gap 11 (12-20); Aspartate Amino Transferase 32 U/L (5-31); Blood Urea Nitrogen 34 mg/dL (9-16); Calcium 7.9 mg/dL (8.4-10.2); Carbon Dioxide 27 mmol/L (22-29); Chloride 108 mmol/L (96-108); Creatinine Clr Calc Pharmacy 24.2; Estimated Glomerular Filt Rate 38; Magnesium 2.3 mg/dL (1.6-2.6); Potassium 3.5 mmol/L (3.3-5.1); Sodium 142 mmol/L (135-145); Total Protein 5.5 g/dL (6.5-8.0)
[2025-07-31] MEDS: 0.9 % Sodium Chloride Flush 3 ML SYRINGE IVFLUSH ×2 (08:38→20:13)
--- NOTE | 2025-07-31 09:00 | PM.CNCAR ---
History of Present Illness History of Present Illness Date of Service: 07/31/25 Requesting physician: Cl Reese Consult reason: congestive heart failure Chief complaint: chf Narrative: I was consulted to see Bobbi in cardiology consultation today whom I referred to the emergency room yesterday from the office due to decompensated predominantly right heart failure. Patient has been having progressively increasing leg edema, abdominal distention has with shortness of breath. She also has some memory issues and as per the daughter was present in the office yesterday he has not been taking her diuretics appropriately. She has been advised at home to take PRN metolazone dose which she has not been taking. She has been admitted since yesterday in his boot on bumetanide drip but seems like intake and output chart it shows only tepid diuretic response. Not sure if this is accurate. Patient says her breathing is somewhat improved. She continues to have leg edema. Patient has complicated past medical history with prior history of CAD, heart failure with reduced ejection fraction with severely reduced LV ejection fraction, chronic atrial fibrillation he is on corrected with severe biatrial enlargement with secondary mitral and tricuspid regurgitation which has been managed medically with chronic pacemaker single-chamber. Patient is also very hesitant to try medical therapy and has had low blood pressure which limits initiation of neurohormonal modulation. She has been treated with diuretics. Recently had seen GI and was started on nadolol because of cirrhosis and treatment for portal hypertension. Patient has been taking in his medication as per daughter but unclear on that. Patient as mentioned came in with progressive heart failure symptoms. Review of Systems Constitutional: Constitutional: Reports fatigue, Reports lethargy and Reports weakness Cardiovascular: Cardiovascular: Reports Abdominal Distension, Denies chest pain, Denies rapid heart rate, Reports leg edema, Denies lightheadedness, Denies Loss of Consciousness, Reports dyspnea on exertion and Reports orthopnea Respiratory: Respiratory: Reports no additional respiratory complaints and Reports dyspnea on exertion Gastrointestinal: Gastrointestinal: Reports no additional gastrointestinal complaints Genitourinary: Genitourinary: Reports no additional female genitourinary complaints Musculoskeletal: Musculoskeletal: Reports no additional musculoskeletal complaints Neurologic: Reports system reviewed and no additional complaints, except as documented and Reports weakness Endocrine: Endocrine: Reports fatigue PMFSH Past Medical History Medical History 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) History of cardiac arrest (~2009) Osteoporosis (~2020) Tubular adenoma of colon (~2000) Pacemaker at end of battery life Blood in urine Superficial bruising of abdominal wall Traumatic ecchymosis of left lower leg Traumatic ecchymosis of left shoulder Traumatic hematoma of head Fall Hip pain, right Abnormal ultrasound of lower extremity AAA (abdominal aortic aneurysm) CAD (coronary artery disease) Cardiac pacemaker in situ (~2009) Mitral regurgitation Tricuspid regurgitation Diverticulosis Ex-smoker Hearing impaired Lactose intolerance History of right breast cancer (~1992) Hypertension, essential Atrial fibrillation, chronic (~2009) Family History Family History Father CVD (cardiovascular disease) Mother CVD (cardiovascular disease) Myocardial infarction Maternal Grandmother Unknown family medical history Maternal Grandfather No problems noted. Paternal Grandfather CVD (cardiovascular disease) Paternal Grandmother No problems noted. Child No Financial Resp No problems noted. Surgical History Surgical History History of colonoscopy History of hand surgery History of heart artery stent History of pacemaker History of lumpectomy History of cardiac cath History of cardioversion History of eye surgery Social History Social History Household Members: Other Housing: House Are you a primary caretaker resort to a significant other at home: No Do you presently have visiting nurse or other home services: No Alcohol intake: never Patient Tobacco Use Status: Former Tobacco user Tobacco use type: Cigarette Years Smoked: 40 e-Cigarette/Vaping Use: Never Used Advance Directives Date on File: 10/29/17 service: No Current occupational status: retired Cognitive needs: No Hearing needs: Yes (deaf in right ear, left ear has a hearing aid) Vision needs: Yes Meds Allergies Allergy/AdvReac Type Severity Reaction Status Date / Time ibuprofen (IBUPROFEN) Allergy Severe THROAT LUMP Verified 07/30/25 15:10 olmesartan (From BENICAR) Allergy Severe WHEEZING Verified 07/30/25 15:10 Gadolinium-Containing Allergy Mild HIVES Verified 07/30/25 15:10 Contrast Medi (Gadolinium-Containing Agents) Iodinated Contrast Media (IV Allergy Mild RASH Verified 07/30/25 15:10 Dye, Iodine Containing) oneil Allergy Mild RASH Verified 07/30/25 15:10 Sulfa (Sulfonamide Allergy Mild RASH Verified 07/30/25 15:10 Antibiotics) amiodarone (AMIODARONE) Allergy Unknown THYROID Verified 07/30/25 15:10 TOXICOSIS amlodipine (From NORVASC) Allergy Unknown WHEEZING Verified 07/30/25 15:10 aspirin (ASPIRIN) Allergy Unknown THROAT Verified 07/30/25 15:10 LUMP HEAVY WHEEZING, wheezing, wheezing azithromycin (From ZITHROMAX) Allergy Unknown NAUSEA/VOMITING, Verified 07/30/25 15:10 nausea and vomiting bee pollen (Bee Stings) Allergy Unknown EDEMA, ALL Verified 07/30/25 15:10 INSECT STINGS capsaicin (CAPSAICIN) Allergy Unknown RASH Verified 07/30/25 15:10 clopidogrel (From PLAVIX) Allergy Unknown THROAT Verified 07/30/25 15:10 LUMP HEAVY WHEEZING diltiazem (Cardizem) Allergy Unknown rash Verified 07/30/25 15:10 methimazole (METHIMAZOLE) Allergy Unknown RASH Verified 07/30/25 15:10 sulfamethoxazole (From Allergy Unknown RASH Verified 07/30/25 15:10 BACTRIM) trimethoprim (From BACTRIM) Allergy Unknown RASH Verified 07/30/25 15:10 escitalopram (From Lexapro) Allergy Wheezing Verified 07/30/25 15:10 clarithromycin (From Biaxin) AdvReac Mild N/V Verified 07/30/25 15:10 codeine (Codeine) AdvReac Mild N/V Verified 07/30/25 15:10 levofloxacin (From Levaquin) AdvReac Mild N/V Verified 07/30/25 15:10 Dye PRISON Blue 1 Allergy Unknown rash Uncoded 06/17/25 14:56 Active Medications: Current Medications Acetaminophen (Acetaminophen 325 Mg Tablet) 650 mg PO Q6H PRN PRN Reason: Pain, Mild 1-3,fever,headache Last Admin: 07/31/25 08:37 Dose: 650 mg Calcium Carbonate (Calcium Carbonate 750 Mg Tab.Chew) 750 mg PO Q4H PRN PRN Reason: Heartburn Enoxaparin Sodium (Enoxaparin Sodium 30 Mg/0.3 Ml Syringe) 30 mg SUBCUT Q24H YUSEF Last Admin: 07/31/25 08:37 Dose: 30 mg Bumetanide 25 mg/ IV (Miscellaneous Supplies) 100 mls @ 1 mls/hr IVCONT .Q24H [facility] Last Admin: 07/30/25 17:11 Dose: 0.25 mg/hr, 1 mls/hr Magnesium Hydroxide (Milk Of Magnesia 30 Ml Oral.Susp) 30 ml PO DAILY PRN PRN Reason: Constipation Melatonin (Melatonin 3 Mg Tablet) 6 mg PO BEDTIME PRN PRN Reason: Insomnia Nadolol (Nadolol 20 Mg Tablet) 20 mg PO DAILY [facility]; Protocol Last Admin: 07/31/25 08:36 Dose: 20 mg Sodium Chloride (0.9 % Sodium Chloride Flush 3 Ml Syringe) 3 ml IVFLUSH QSHIFT [facility] Last Admin: 07/31/25 08:38 Dose: 3 ml Home Medications ?Medication ?Instructions ?Recorded ?Confirmed ?Last Taken ?Type nadolol 20 mg tablet 20 mg PO DAILY 07/30/25 07/30/25 Unknown History Physical Exam Vital Signs: Vital Signs: Last Vital Signs Temp 97.9 F 07/31/25 07:50 Pulse 82 07/31/25 07:50 Resp 18 07/31/25 07:50 BP 100/58 L 07/31/25 07:50 Pulse Ox 96 07/31/25 07:50 O2 Del Method Room Air 07/31/25 07:50 BMI result Body Mass Index 24.2 Const: General: cooperative, alert, awake and acute distress mild and respiratory Nutritional Appearance: thin Orientation/consciousness: patient oriented x3 HEENT: Head: Yes normocephalic and Yes atraumatic Neck: Neck: Yes trachea midline, Yes supple and Yes JVD Resp: Effort & Inspection: normal respiratory effort Auscultation: crackles and diminished lung sounds Cardio: Jugular venous distension: JVD Palpation: abnormal PMI displaced PMI Rhythm: abnormal rhythm irregularly irregular Heart sounds: S1 normal heart sound present, S2 normal heart sound present, no click, no gallops and Murmur heart sound present GI: Inspection: Yes distended Skin: General skin exam: no rashes or lesions noted Neuro: General: patient oriented x3 and no focal motor deficits Extrem: General: No clubbing, No cyanosis and Yes edema Objective Labs and Meds 07/31/25 07:28 07/31/25 07:28 Lab results: Laboratory Results - last 24 hr 07/30/25 07/30/25 07/31/25 15:23 17:23 07:28 WBC 5.3 5.2 RBC 3.76 L 3.36 L Hgb 12.1 10.8 L Hct 37.1 32.9 L MCV 98.7 H 97.9 MCH 32.2 32.1 MCHC 32.6 32.8 RDW 14.9 14.9 Plt Count 137 L D 118 L MPV 9.9 9.8 Immature Gran % (Auto) 0.4 Neut % (Auto) 76.6 H Lymph % (Auto) 11.7 L [place] % (Auto) 9.3 Eos % (Auto) 1.1 Baso % (Auto) 0.9 Lymph # (Auto) 0.6 L [place] # (Auto) 0.5 Eos # (Auto) 0.1 Baso # (Auto) 0.1 Abs Immat Gran (auto) 0.02 Absolute Neuts (auto) 4.0 Absolute Nucleated RBC 0.000 0.000 Nucleated RBC % (auto) 0.0 0.0 PT 14.0 H INR 1.2 H Sodium 142 142 Potassium 3.2 L 3.5 Chloride 104 108 Carbon Dioxide 29 27 Anion Gap 12 11 L BUN 36 H 34 H Creatinine 1.48 H 1.34 Estim Creat Clear Calc 24.1 24.2 Estimated GFR 34 38 Random Glucose 96 96 Calcium 8.2 L 7.9 L Magnesium 2.3 Total Bilirubin 2.0 H 1.7 H Direct Bilirubin 0.9 H 0.9 H AST 34 H 32 H ALT 8 < 6 Alkaline Phosphatase 84 69 Troponin I High Sens 27.9 H Total Protein 6.4 L 5.5 L Albumin 3.4 L 2.8 L Lipase 70 Urine Color Yellow Urine Appearance Clear Urine pH 6.0 Ur Specific [place] 1.010 Urine Protein Negative Urine Glucose (UA) Negative Urine Ketones Negative Urine Blood Negative Urine Nitrite Negative Ur Leukocyte Esterase Negative Influenza Type A (PCR) NEGATIVE Influenza Type B (PCR) NEGATIVE RSV RNA Qual (PCR) NEGATIVE SARS-CoV-2 RNA (RT-PCR) NEGATIVE Assessment and Plan (1) Acute decompensated heart failure: Status: Acute Acute decompensated congestive heart failure with advanced heart disease in his elderly woman with predominantly irreversible cardiac issues. Treatment would be directed towards gradually decongesting her and trying to avoid hospitalization in the future. There has been consideration for palliative/hospice care by patient and her daughter which is appropriate. I would continue with bumetanide dose and monitor intake and output chart closely. If she has tepid diuretic response I would consider adding metolazone 2.5 mg to her regimen to enhance her diuretic response. Continue monitor blood pressure. Continue strict intake and output chart. Continue monitor electrolytes and replace as needed. Continue monitor renal function which has shown some improvement with diuresis. Her blood pressures in the lower side which precludes addition of any neurohormonal modulation at this point time. She has refused oral anticoagulation in the past in his not willing to restart anything. We discussed management of heart failure again. Will follow with you Procedures Date of Service Date of Service: 07/31/25
--- NOTE | 2025-07-31 09:35 | MHC.CM.PN ---
IMM GIVEN 07/31. THIS CM MET WITH PATIENT AND HER DAUGHTER/HCP NICKIE PRESENT AT BEDSIDE. PATIENT STATES SHE LIVES ALONE IN A 3 FAMILY HOME, SHE IS ON THE 3RD FLOOR, AND HER DAUGHTER LIVES ON THE SECOND FLOOR. PATIENT STATES SHE HAS A HCP, COPY REQUESTED, PATIENTS DAUGHTER STATED SHE WILL BRING IN A COPY. PATIENT HAS BEEN USING A CANE, AND A WALKER. PATIENT AND HER DAUGHTER EXPRESS WANTING TO PURSUE NEW HOSPICE SERVICES, AND ARE IN AGREEMENT WITH THIS CM PLACING A HOSPICE REFERRAL TO [facility]. REFERR[facility] PLACED TO [facility] IN [facility], HOSPICE INFORMATIONAL REQUESTED. PCP: DR. FABIAN CORTEZ
--- NOTE | 2025-07-31 11:51 | P.PNIM_ITS ---
Subjective Subjective Date of Service: 07/31/25 Interval History: improving edema Physical Exam 2 Exam: Exam: General: AO X 3, no acute distress, frail appearing Resp: diminished bilateral, no accessory muscles used CVS: S1,S2, irregular, murmur, 2 + bialteral le edema GI: soft, non tender, non distended Neuro: motor grossly intact, alert Psych: appropriate affect Vital Signs: Vital Signs: Last Vital Signs Temp 97.9 F 07/31/25 07:50 Pulse 82 07/31/25 07:50 Resp 18 07/31/25 07:50 BP 100/58 L 07/31/25 07:50 Pulse Ox 96 07/31/25 07:50 O2 Del Method Room Air 07/31/25 07:50 BMI result Body Mass Index 24.2 Objective Data Active Medications Acetaminophen (Acetaminophen 325 Mg Tablet) 650 mg PO Q6H PRN PRN Reason: Pain, Mild 1-3,fever,headache Last Admin: 07/31/25 08:37 Dose: 650 mg Documented By: LOREE Calcium Carbonate (Calcium Carbonate 750 Mg Tab.Chew) 750 mg PO Q4H PRN PRN Reason: Heartburn Enoxaparin Sodium (Enoxaparin Sodium 30 Mg/0.3 Ml Syringe) 30 mg SUBCUT Q24H [facility] Last Admin: 07/31/25 08:37 Dose: 30 mg Documented By: LOREE Bumetanide 25 mg/ IV (Miscellaneous Supplies) 100 mls @ 1 mls/hr IVCONT .Q24H [facility] Last Admin: 07/30/25 17:11 Dose: 0.25 mg/hr, 1 mls/hr Documented By: PASQUALE Magnesium Hydroxide (Milk Of Magnesia 30 Ml Oral.Susp) 30 ml PO DAILY PRN PRN Reason: Constipation Melatonin (Melatonin 3 Mg Tablet) 6 mg PO BEDTIME PRN PRN Reason: Insomnia Nadolol (Nadolol 20 Mg Tablet) 20 mg PO DAILY [facility]; Protocol Last Admin: 07/31/25 08:36 Dose: 20 mg Documented By: LOREE Sodium Chloride (0.9 % Sodium Chloride Flush 3 Ml Syringe) 3 ml IVFLUSH QSHIFT [facility] Last Admin: 07/31/25 08:38 Dose: 3 ml Documented By: LOREE Labs 07/31/25 07:28 07/31/25 07:28 Labs: Laboratory Results - last 24 hr 07/30/25 07/30/25 07/31/25 15:23 17:23 07:28 MCV 98.7 H 97.9 MCH 32.2 32.1 MCHC 32.6 32.8 RDW 14.9 14.9 Plt Count 137 L D 118 L MPV 9.9 9.8 Immature Gran % (Auto) 0.4 Neut % (Auto) 76.6 H Lymph % (Auto) 11.7 L [place] % (Auto) 9.3 Eos % (Auto) 1.1 Baso % (Auto) 0.9 Lymph # (Auto) 0.6 L [place] # (Auto) 0.5 Eos # (Auto) 0.1 Baso # (Auto) 0.1 Abs Immat Gran (auto) 0.02 Absolute Neuts (auto) 4.0 Absolute Nucleated RBC 0.000 0.000 Nucleated RBC % (auto) 0.0 0.0 PT 14.0 H INR 1.2 H Anion Gap 12 11 L Estim Creat Clear Calc 24.1 24.2 Estimated GFR 34 38 Random Glucose 96 96 Calcium 8.2 L 7.9 L Magnesium 2.3 Total Bilirubin 2.0 H 1.7 H Direct Bilirubin 0.9 H 0.9 H AST 34 H 32 H ALT 8 < 6 Alkaline Phosphatase 84 69 Troponin I High Sens 27.9 H Total Protein 6.4 L 5.5 L Albumin 3.4 L 2.8 L Lipase 70 Urine Color Yellow Urine Appearance Clear Urine pH 6.0 Ur Specific [place] 1.010 Urine Protein Negative Urine Glucose (UA) Negative Urine Ketones Negative Urine Blood Negative Urine Nitrite Negative Ur Leukocyte Esterase Negative Influenza Type A (PCR) NEGATIVE Influenza Type B (PCR) NEGATIVE RSV RNA Qual (PCR) NEGATIVE SARS-CoV-2 RNA (RT-PCR) NEGATIVE Assessment and Plan (1) Non-compliance: Status: Acute Plan 84F PMH hfref EF 25% with severe TR, chronic afib, alzheimers dementia, CAD, AAA, mood disorder, sent in from cardiology for decompensated hfref Acute on chronic systolic CHF conitnue IV Bumex infusion, monitor electrolytes, Cardiology following Chronic AFib Rate controlled, patient declined anticoagulation Alzheimer's dementia Stable, at risk for delirium, orienting strategies DVT prophylaxis with Lovenox DNR/DNI - plan for eventual home hospice once optimized reason for continued hospitalization:still requiring iv diuresis Quality Stroke Does the patient have a stroke diagnosis?: No VTE Prior VTE?: No VTE Risk Level:: Medical - moderate - high VTE Device Contraindication: Treatment Not Indicated VTE Drug Contraindication: N/A - Med Ordered
--- NOTE | 2025-07-31 14:11 | HO.WOUND ---
Wound Consult: Initial 84 yr old female admitted to [facility] on 07/30/25 - See progress notes and H&P for detailed history. Wound consult placed for right leg. Patient agreeable to assessment and photo documentation. Patient reports wrapping her legs at home with gauze due to leakage. Right leg Etiology: wound - possible venous stasis vs skin tear vs ruptured blister Measurements: 1.7cm x 0.7cm x 0.1cm Wound Bed: dry yellow/red Drainage / Odor: no active drainage, patient reports previously weeping Edges: ? attached [place] wound: ? No Induration, Fluctuance or Warmth noted Pain: none Goals of Treatment: ? moist healing with xeroform/foam Recommendations: 1. Turn and Reposition every 2 hours and as needed for patient comfort. Use pillows or wedges to support off loading positions. 2. Off Load all bony prominences with use of pillows and heel boots if needed. Apply Preventative foams where needed. 3. Monitor for incontinence and moisture control, use barrier creams when needed for prevention and treatment. 4. Provide adequate and supplemental nutrition. 5. Order or Continue low air loss mattress. 6. When applicable maintain blood glucose levels per Providers order. Right leg: cleanse with saline, apply skin prep layton wound, apply xeroform to wound bed, cover with foam, change daily and PRN Re-consult wound care Nurse for wound deterioration or wound changes.
--- NOTE | 2025-07-31 14:38 | PC.NURSE ---
BP: 88/50 manually, patient asymptomatic. MD notified, no new orders at this time.
[2025-07-31] MEDS: Bumetanide 25 MG in Container,Empty 0 ML IVCONT (15:58)
[2025-08-01 08:00] VITALS: BP 106/59; PULSE 62; RESP 18; TEMP 36.1; O2SAT 96
[2025-08-01 08:17] LABS: Hematocrit 38.8 % (37.0-47.0); Hemoglobin 12.5 g/dl (12.0-16.0); Mean Corpuscular HGB Conc 32.2 g/dl (31.0-35.0); Mean Corpuscular Hemoglobin 32.1 pg (27.0-33.0); Mean Corpuscular Volume 99.7 fL (80.0-98.0); NRBC Abs Auto 0.000 X10*3/uL (0.0-0.012); NRBC Pct Auto 0.0 /100WBC (0.0-0.2); Platelet Count 161 X10*3/uL (160-400); Red Blood Count 3.89 X10*6/uL (4.20-5.50); White Blood Count 5.4 X10*3/uL (4.8-10.8)
[2025-08-01 08:52] LABS: Anion Gap 15 (12-20); Blood Urea Nitrogen 43 mg/dL (9-16); Calcium 8.5 mg/dL (8.4-10.2); Carbon Dioxide 25 mmol/L (22-29); Chloride 105 mmol/L (96-108); Creatinine Clr Calc Pharmacy 18.4; Estimated Glomerular Filt Rate 27; Potassium 4.1 mmol/L (3.3-5.1); Sodium 141 mmol/L (135-145)
--- NOTE | 2025-08-01 10:23 | PM.PNCARD ---
Subjective Subjective Date of Service: 08/01/25 Principal diagnosis: Decompensated congestive heart failure. Interval history: Overall negative balance of 500 cc on current bumetanide dose. Patient is still remains short of breath. Creatinine has gone up. Patient says she is miserable in the hospital and she would like to go home on hospice. Hospice care has been initiated although not sure if will be set up over the weekend. Review of Systems Constitutional: Reports fatigue and Reports weakness Cardiovascular: Reports Abdominal Distension, Reports leg edema and Reports dyspnea Respiratory: Reports dyspnea Gastrointestinal: Reports no additional gastrointestinal complaints Reports system reviewed and no additional complaints, except as documented and Reports weakness Endocrine: Reports fatigue Physical Exam Vital Signs: Last Vital Signs Temp 97.0 F 08/01/25 08:00 Pulse 62 08/01/25 08:00 Resp 18 08/01/25 08:00 BP 106/59 L 08/01/25 08:00 Pulse Ox 96 08/01/25 08:00 O2 Del Method Room Air 08/01/25 08:00 BMI result Body Mass Index 24.2 Const General: cooperative, alert, awake and acute distress mild and respiratory Nutritional Appearance: thin Orientation/consciousness: patient oriented x3 HEENT Head: Yes normocephalic and Yes atraumatic Neck Neck: Yes trachea midline, Yes supple and Yes JVD Resp Effort & Inspection: normal respiratory effort Auscultation: crackles and diminished lung sounds Cardio Jugular venous distension: JVD Palpation: abnormal PMI displaced PMI Rhythm: abnormal rhythm irregularly irregular Heart sounds: S1 normal heart sound present, S2 normal heart sound present, no click, no gallops and Murmur heart sound present GI Inspection: Yes distended Skin General skin exam: no rashes or lesions noted Neuro General: patient oriented x3 and no focal motor deficits Extrem General: No clubbing, No cyanosis and Yes edema Objective Labs and Meds 08/01/25 07:57 08/01/25 07:57 Lab results: Laboratory Results - last 24 hr 08/01/25 07:57 WBC 5.4 RBC 3.89 L Hgb 12.5 Hct 38.8 MCV 99.7 H MCH 32.1 MCHC 32.2 RDW 15.0 Plt Count 161 D MPV 10.6 Absolute Nucleated RBC 0.000 Nucleated RBC % (auto) 0.0 Sodium 141 Potassium 4.1 Chloride 105 Carbon Dioxide 25 Anion Gap 15 BUN 43 H Creatinine 1.76 H Estim Creat Clear Calc 18.4 Estimated GFR 27 Random Glucose 84 Calcium 8.5 D Progress Note: A&P Assessment and plan (1) Acute decompensated heart failure: Status: Acute Assessment and Plan: Acute decompensated congestive heart failure in this elderly woman with significant underlying cardiac disorder with advanced heart failure with multiple comorbidities including frailty, chronic atrial fibrillation as well as renal insufficiency which is worsening along with noncompliance at home. However patient wishes that she would be home and on hospice care. She does not want any further hospitalization. Understand her concern and her demand. I am at this point time discussed that once hospice set up she can be discharged home to hospice care with ongoing diuretic regimen although chances that oral diuretic regimens will work at home are lower in current state given her significant fluid overload. I did discuss with her if she stays couple of days in the hospital in the hospital systolic up she can be then discharged home. She agreed to that. Hospitalist team is working with case management to see if the hospitalist can be set up today. Meanwhile I would bump her bumetanide up to 0.5 milligrams/hour and give metolazone 2.5 mg to her to boost her diuretic efficacy. Overall prognosis is grim. Patient understands that. Will follow with you patient is still in the hospital Time Spent With Patient Time: Total time managing care of this patient today ____ minutes. Progress Note: Quality Stroke Does the patient have a stroke diagnosis?: No Procedures Date of Service Date of Service: 08/01/25
--- NOTE | 2025-08-01 10:39 | P.PNIM_ITS ---
Subjective Subjective Date of Service: 08/01/25 Interval History: requesting to go home on hospice Physical Exam 2 Vital Signs: Vital Signs: Last Vital Signs Temp 97.0 F 08/01/25 08:00 Pulse 62 08/01/25 08:00 Resp 18 08/01/25 08:00 BP 106/59 L 08/01/25 08:00 Pulse Ox 96 08/01/25 08:00 O2 Del Method Room Air 08/01/25 08:00 BMI result Body Mass Index 24.2 Const: General: cooperative, alert, awake and acute distress mild and respiratory Nutritional Appearance: thin Orientation/consciousness: p atient oriented x3 HEENT: Head: Yes normocephalic and Yes atraumatic Neck: Neck: Yes trachea midline, Yes supple and Yes JVD Resp: Effort & Inspection: normal respiratory effort Auscultation: crackles and diminished lung sounds Cardio: Jugular venous distension: JVD Palpation: abnormal PMI displaced PMI Rhythm: abnormal rhythm irregularly irregular Heart sounds: S1 normal heart sound present, S2 normal heart sound present, no click, no gallops and Murmur heart sound present GI: Inspection: Yes distended Skin: General skin exam: no rashes or lesions noted Neuro: General: patient oriented x3 and no focal motor deficits Extrem: General: No clubbing, No cyanosis and Yes edema Objective Data Active Medications Acetaminophen (Acetaminophen 325 Mg Tablet) 650 mg PO Q6H PRN PRN Reason: Pain, Mild 1-3,fever,headache Last Admin: 07/31/25 22:05 Dose: 650 mg Documented By: JESSICA Calcium Carbonate (Calcium Carbonate 750 Mg Tab.Chew) 750 mg PO Q4H PRN PRN Reason: Heartburn Enoxaparin Sodium (Enoxaparin Sodium 30 Mg/0.3 Ml Syringe) 30 mg SUBCUT Q24H [facility] Last Admin: 08/01/25 09:36 Dose: 30 mg Documented By: LAMONT Bumetanide 25 mg/ IV (Miscellaneous Supplies) 100 mls @ 2 mls/hr IVCONT .Q24H [facility] Last Admin: 07/31/25 15:58 Dose: 0.25 mg/hr, 1 mls/hr Documented By: BIPIN Magnesium Hydroxide (Milk Of Magnesia 30 Ml Oral.Susp) 30 ml PO DAILY PRN PRN Reason: Constipation Melatonin (Melatonin 3 Mg Tablet) 6 mg PO BEDTIME PRN PRN Reason: Insomnia Last Admin: 07/31/25 22:05 Dose: 6 mg Documented By: JESSICA Nadolol (Nadolol 20 Mg Tablet) 20 mg PO DAILY [facility]; Protocol Last Admin: 08/01/25 09:43 Dose: Not Given Documented By: LAMONT Non-Admin Reason: Physician Held Med Sodium Chloride (0.9 % Sodium Chloride Flush 3 Ml Syringe) 3 ml IVFLUSH QSHIFT [facility] Last Admin: 08/01/25 09:43 Dose: Not Given Documented By: LAMONT Non-Admin Reason: IV Running Labs 08/01/25 07:57 08/01/25 07:57 Labs: Laboratory Results - last 24 hr 08/01/25 07:57 MCV 99.7 H MCH 32.1 MCHC 32.2 RDW 15.0 Plt Count 161 D MPV 10.6 Absolute Nucleated RBC 0.000 Nucleated RBC % (auto) 0.0 Anion Gap 15 Estim Creat Clear Calc 18.4 Estimated GFR 27 Random Glucose 84 Calcium 8.5 D Assessment and Plan (1) Non-compliance: Status: Acute Plan 84F PMH 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% with severe TR, chronic afib, alzheimers dementia, CAD, AAA, mood disorder, sent in from cardiology for decompensated hfref Acute on chronic systolic CHF IV Bumex infusion increased, metolazone 2.5mg, monitor electrolytes, Cardiology following Chronic AFib Rate controlled, patient declined anticoagulation Alzheimer's dementia Stable, at risk for delirium, orienting strategies DVT prophylaxis with Lovenox DNR/DNI - plan for eventual home hospice once optimized reason for continued hospitalization:still requiring iv diuresis, setting up home hospice Quality Stroke Does the patient have a stroke diagnosis?: No VTE Prior VTE?: No VTE Risk Level:: Medical - moderate - high VTE Device Contraindication: Treatment Not Indicated VTE Drug Contraindication: N/A - Med Ordered
--- NOTE | 2025-08-01 10:42 | P.DS_ITS ---
DS: Providers Provider Date of Service: 08/04/25 Date of admission: 07/30/25 17:20 Date of discharge: 08/04/25 Primary care physician: Mimi Benjamin MD Consults: 07/30/25 17:28 Consult to Cardiology Routine Consulting Provider: [facility] Reason for consultation: chf Has provider been notified: Yes 07/31/25 12:10 Consult to Wound Care Routine Consulting Provider: [facility] Reason for consultation: small open area to right lower leg DS: Diagnosis Discharge Diagnosis (1) Non-compliance: Status: Acute DS: Summary Hospital Course Hospital Course: from initial hpi: 84F PMH 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 History obtained from patient and daughter at bedside. Daughter notes that patient has been becoming increasingly forgetful and does not take diuretics consistently partially due to forgetting and partially to avoid having to urinate. She has noted 15 lb weight gain and significant lower extremity edema with weeping. Also complaining of shortness of breaths on minimal exertion and orthopnea. Went to cardiology appointment and due to florid fluid overload recommended admission for Bumex infusion. hospital course: Patient was admitted for acute on chronic systolic CHF. Was treated with IV Bumex infusion and had symptomatic improvement and decreased edema. For chronic AFib patient is rate controlled and has previously declined anticoagulation. For Alzheimer's dementia she remained stable with adequate insight into her medical condition. Patient was seen by physical therapy recommended short-term rehab to which patient will be discharged she is expected to require less than 30 days. Time Attestation Discharge Coordination Time (in mins): 34 Quality: Safe Use of Opioids Does Pt have an Active Cancer Diagnosis on the Problem List?: No Quality: Stroke Does the patient have a stroke diagnosis?: No Physical Exam Exam: Exam: General: AO X 3, no acute distress, hard of hearing Resp: CTA bilateral, no accessory muscles used CVS: S1,S2,RRR GI: soft, non tender, non distended Neuro: motor grossly intact, alert Psych: appropriate affect, appropriate insight Vital Signs: Vital Signs: Last Vital Signs Temp 97.0 F 08/01/25 08:00 Pulse 62 08/01/25 08:00 Resp 18 08/01/25 08:00 BP 106/59 L 08/01/25 08:00 Pulse Ox 96 08/01/25 08:00 O2 Del Method Room Air 08/01/25 08:00 BMI result Body Mass Index 24.2 Const: General: cooperative, alert, awake and acute distress mild and respiratory Nutritional Appearance: thin Orientation/consciousness: patient oriented x3 HEENT: Head: Yes normocephalic and Yes atraumatic Neck: Neck: Yes trachea midline, Yes supple and Yes JVD Resp: Effort & Inspection: normal respiratory effort Auscultation: crackles and diminished lung sounds Cardio: Jugular venous distension: JVD Palpation: abnormal PMI displaced PMI Rhythm: abnormal rhythm irregularly irregular Heart sounds: S1 normal heart sound present, S2 normal heart sound present, no click, no gallops and Murmur heart sound present GI: Inspection: Yes distended Skin: General skin exam: no rashes or lesions noted Neuro: General: patient oriented x3 and no focal motor deficits Extrem: General: No clubbing, No cyanosis and Yes edema DS: Data Data Completed and Pending Labs on day of discharge: Laboratory Results - last 24 hr 08/01/25 07:57 WBC 5.4 RBC 3.89 L Hgb 12.5 Hct 38.8 MCV 99.7 H MCH 32.1 MCHC 32.2 RDW 15.0 Plt Count 161 D MPV 10.6 Absolute Nucleated RBC 0.000 Nucleated RBC % (auto) 0.0 Sodium 141 Potassium 4.1 Chloride 105 Carbon Dioxide 25 Anion Gap 15 BUN 43 H Creatinine 1.76 H Estim Creat Clear Calc 18.4 Estimated GFR 27 Random Glucose 84 Calcium 8.5 D Discharge Plan Discharge Anticipated Discharge Date/Time: 08/01/25 10:41 Patient Disposition: Xfer SNF Discharge Diagnosis: chf Referrals: Mimi Benjamin MD [Primary Care Provider, Internal Medicine] - 1 Week Discharge Medications: Continued metolazone 2.5 mg tablet 2.5 mg PO DAILY PRN (Reason: Weight Gain) Qty: 20 2RF nadolol 20 mg tablet 20 mg PO DAILY bumetanide 2 mg tablet 2 mg PO DAILY Qty: 90 1RF Discharge Orders: Discharge Order (Routine); Ordered 08/04/25 Ordered By: Cl Reese Diet: Advance to usual diet Activity on Discharge: As tolerated Stand Alone Forms: Patient Portal Discharge page Print Language: [place]at[place] Care Plan Goals: avoid hospitalizations for chf Health Concerns: chf Plan of Treatment: rehab, continue bumex maintenance Assessment: see above
[2025-08-01 12:00] VITALS: BP 93/55; PULSE 60; RESP 17; TEMP 36.4; O2SAT 96
[2025-08-01 16:00] VITALS: BP 91/51; PULSE 57; RESP 20; TEMP 36.2; O2SAT 92
[2025-08-01] MEDS: Bumetanide 25 MG in Container,Empty 0 ML IVCONT (16:33)
[2025-08-01 19:23] VITALS: BP 101/47; PULSE 65; RESP 18; TEMP 36.9; O2SAT 97
[2025-08-01] MEDS: 0.9 % Sodium Chloride Flush 3 ML SYRINGE IVFLUSH (19:50)
[2025-08-01 23:24] VITALS: BP 105/53; PULSE 61; RESP 18; TEMP 37; O2SAT 97
[2025-08-02 03:19] VITALS: BP 98/50; PULSE 74; RESP 18; TEMP 36.3; O2SAT 96
[2025-08-02 07:43] VITALS: BP 101/66; PULSE 60; RESP 18; TEMP 36.9; O2SAT 96
--- NOTE | 2025-08-02 09:01 | MHC.CM.PN ---
CM met with Patient and her Daughter at bedside. Patient would like to be evaluated for GIP rather than home with Hospice; [facility] and MD are aware of the change in goals.
[2025-08-02 09:24] LABS: Anion Gap 13 (12-20); Blood Urea Nitrogen 54 mg/dL (9-16); Calcium 8.2 mg/dL (8.4-10.2); Carbon Dioxide 27 mmol/L (22-29); Chloride 103 mmol/L (96-108); Creatinine Clr Calc Pharmacy 16.7; Estimated Glomerular Filt Rate 25; Magnesium 2.4 mg/dL (1.6-2.6); Potassium 3.3 mmol/L (3.3-5.1); Sodium 140 mmol/L (135-145)
[2025-08-02 11:57] VITALS: BP 109/56; PULSE 60; RESP 16; TEMP 36.7; O2SAT 100
--- NOTE | 2025-08-02 13:06 | PM.PNCARD ---
Subjective Subjective Date of Service: 08/02/25 Principal diagnosis: Decompensated congestive heart failure. Interval history: Intake and output chart are poorly chart it. Overall patient seems to have responded to metolazone therapy and says she has put out good amount of urine. Leg edema and abdominal distention have improved. Clinically appears to be less short of breath. Creatinine is increased. Patient does wishing to go in hospital hospice at this time and then take it home Review of Systems Constitutional: Reports fatigue, Reports lethargy and Reports weakness Cardiovascular: Denies Abdominal Distension, Denies chest pain, Denies rapid heart rate, Denies leg edema, Denies lightheadedness, Denies Loss of Consciousness and Reports dyspnea on exertion Respiratory: Reports dyspnea on exertion Gastrointestinal: Reports no additional gastrointestinal complaints Reports weakness Endocrine: Reports fatigue Physical Exam Vital Signs: Last Vital Signs Temp 98.0 F 08/02/25 11:57 Pulse 60 08/02/25 11:57 Resp 16 08/02/25 11:57 BP 109/56 L 08/02/25 11:57 Pulse Ox 100 08/02/25 11:57 O2 Del Method Room Air 08/02/25 11:57 BMI result Body Mass Index 24.2 Const General: cooperative, alert, awake and acute distress mild and respiratory Nutritional Appearance: thin Orientation/consciousness: patient oriented x3 HEENT Head: Yes normocephalic and Yes atraumatic Neck Neck: Yes trachea midline, Yes supple and Yes no JVD (Pulsatile V-waves) Resp Effort & Inspection: normal respiratory effort Auscultation: crackles and diminished lung sounds Cardio Jugular venous distension: JVD Palpation: abnormal PMI displaced PMI Rhythm: abnormal rhythm irregularly irregular Heart sounds: S1 normal heart sound present, S2 normal heart sound present, no click, no gallops and Murmur heart sound present GI Inspection: Yes distended Skin General skin exam: no rashes or lesions noted Neuro General: patient oriented x3 and no focal motor deficits Extrem General: No clubbing and No cyanosis Objective Labs and Meds 08/01/25 07:57 08/02/25 08:21 Lab results: Laboratory Results - last 24 hr 08/02/25 08:21 Hold Purple Top SEE NOTE Sodium 140 Potassium 3.3 Chloride 103 Carbon Dioxide 27 Anion Gap 13 BUN 54 H Creatinine 1.94 H Estim Creat Clear Calc 16.7 Estimated GFR 25 Random Glucose 104 Calcium 8.2 L Magnesium 2.4 Progress Note: A&P Assessment and plan (1) Acute decompensated heart failure: Status: Acute Assessment and Plan: Acute decompensated congestive heart failure in this elderly woman with multiple comorbidities including poor cardiac function advanced heart failure with worsening renal function. Patient overall prognosis is poor. Discussed with patient management and she wants to pursue hospice care which is appropriate. At this point time her fluid status looks improved and will switch her to Bumex 2 mg b.i.d. and use metolazone at home PRN. Overall comfort care and palliative care will be pursued here in the hospital and then at home. Most of the therapy will be directed for comfort care. Patient in his agreeable. Will sign off the case. Thank you for allowing me to partake in her care Time Spent With Patient Time: Total time managing care of this patient today ____ minutes. Progress Note: Quality Stroke Does the patient have a stroke diagnosis?: No Procedures Date of Service Date of Service: 08/02/25
[2025-08-02] MEDS: 0.9 % Sodium Chloride Flush 3 ML SYRINGE IVFLUSH (15:53)
[2025-08-02 15:55] VITALS: BP 96/47; PULSE 62; RESP 18; TEMP 37.4; O2SAT 97
[2025-08-02 20:00] VITALS: BP 99/50; PULSE 62; RESP 16; TEMP 36.7; O2SAT 98
[2025-08-02 23:40] VITALS: BP 102/51; PULSE 62; RESP 18; TEMP 36.9; O2SAT 97
[2025-08-03] VITALS (7 sets, daily range): BP systolic 93–108; BP diastolic 50–59; PULSE 55–61; RESP 16–18; TEMP 36.5–37.6; O2SAT 95–98
[2025-08-03] MEDS: 0.9 % Sodium Chloride Flush 3 ML SYRINGE IVFLUSH ×2 (00:30→08:40)
--- NOTE | 2025-08-03 10:24 | P.PNIM_ITS ---
Subjective Subjective Date of Service: 08/03/25 Interval History: no complaints Physical Exam 2 Exam: Exam: General: AO X 3, no acute distress Resp: CTA bilateral, no accessory muscles used CVS: S1,S2,RRR GI: soft, non tender, non distended Neuro: motor grossly intact, alert Psych: appropriate affect, appropriate insight Vital Signs: Vital Signs: Last Vital Signs Temp 97.9 F 08/03/25 07:41 Pulse 61 08/03/25 07:41 Resp 18 08/03/25 07:41 BP 102/57 L 08/03/25 07:41 Pulse Ox 98 08/03/25 07:41 O2 Del Method Room Air 08/03/25 07:41 BMI result Body Mass Index 24.2 Objective Data Active Medications Acetaminophen (Acetaminophen 325 Mg Tablet) 650 mg PO Q6H PRN PRN Reason: Pain, Mild 1-3,fever,headache Last Admin: 08/02/25 15:51 Dose: 650 mg Documented By: BROThu Bumetanide (Bumetanide 1 Mg Tablet) 2 mg PO DAILY [facility]; Protocol Last Admin: 08/03/25 08:39 Dose: 2 mg Documented By: LOREE Calcium Carbonate (Calcium Carbonate 750 Mg Tab.Chew) 750 mg PO Q4H PRN PRN Reason: Heartburn Enoxaparin Sodium (Enoxaparin Sodium 30 Mg/0.3 Ml Syringe) 30 mg SUBCUT Q24H [facility] Last Admin: 08/03/25 08:39 Dose: 30 mg Documented By: LOREE Magnesium Hydroxide (Milk Of Magnesia 30 Ml Oral.Susp) 30 ml PO DAILY PRN PRN Reason: Constipation Melatonin (Melatonin 3 Mg Tablet) 6 mg PO BEDTIME PRN PRN Reason: Insomnia Last Admin: 07/31/25 22:05 Dose: 6 mg Documented By: GENECOMONTRELL Sodium Chloride (0.9 % Sodium Chloride Flush 3 Ml Syringe) 3 ml IVFLUSH QSHIFT [facility] Last Admin: 08/03/25 08:40 Dose: 3 ml Documented By: LOREE Labs 08/01/25 07:57 08/02/25 08:21 Assessment and Plan (1) Non-compliance: Status: Acute Plan 84F PMH 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% with severe TR, chronic afib, alzheimers dementia, CAD, AAA, mood disorder, sent in from cardiology for decompensated hfref Acute on chronic systolic CHF improved with diuresis, now back on po bumex maintenance patient has opted for hospice at this time Chronic AFib Rate controlled, patient declined anticoagulation Alzheimer's dementia Stable, at risk for delirium, orienting strategies DVT prophylaxis with Lovenox DNR/DNI reason for continued hospitalization: dispo planning Quality Stroke Does the patient have a stroke diagnosis?: No VTE Prior VTE?: No VTE Risk Level:: Medical - moderate - high VTE Device Contraindication: Treatment Not Indicated VTE Drug Contraindication: N/A - Med Ordered
--- NOTE | 2025-08-03 10:44 | MHC.CM.PN ---
Per rounds, pt. is not a GIP appropriate pt. CM met with pt. and her dtr, discussed DCP: SNF or home with services and Hospice. Pt. and dtr said they want pt. to be at home with services. Information given to dtr for [facility] live in care and 4 home health agencies that provide private care. GAURANG LM for [facility] to reach out to dtr to discuss 30/04 care. Hospice informed of plan: home with private care and Hospice.
--- NOTE | 2025-08-03 13:09 | MHC.CM.PN ---
Dtr requested to speak with CM, said that pt. now wants to go to [facility], she is feeling better and want to try to get stronger. PT angelika ordered, awaiting report to start referrals.
[2025-08-04 03:51] VITALS: BP 72/38; PULSE 60; RESP 16; TEMP 36.4; O2SAT 95
[2025-08-04 04:12] VITALS: BP 110/56
[2025-08-04 07:25] VITALS: BP 107/58; PULSE 60; RESP 18; TEMP 36.3; O2SAT 98
[2025-08-04] MEDS: Milk of Magnesia 30 ML ORAL.SUSP PO (08:42)
--- NOTE | 2025-08-04 10:50 | MHC.CM.PN ---
Second IMM 08/04/25, Pt. has been medically cleared to go to [facility] at [facility] via BLS today.
[2025-08-04 11:25] VITALS: BP 116/75; PULSE 60; RESP 18; TEMP 36.3; O2SAT 97
== END 2025-08-04 11:53 | disposition skilled nursing facility (03) | DRG 292 ==
LOC: HO.ED 15:52 → HO.EDOVER 17:23 → HO.IMC 19:08
PROVIDERS: Admitting Provider Internal Medicine; Emergency Provider Emergency Medicine; PCP Internal Medicine; Visit Provider Internal Medicine
DX: I50.23 Acute on chronic systolic (congestive) heart failure (principal); I48.20 Chronic atrial fibrillation, unspecified; K76.6 Portal hypertension; G30.9 Alzheimer's disease, unspecified; I07.1 Rheumatic tricuspid insufficiency; Z66 Do not resuscitate; K74.60 Unspecified cirrhosis of liver; F02.80 Dementia in other diseases classified elsewhere, unspecified severity, without behavioral disturbance, psychotic disturbance, mood disturbance, and anxiety; I25.10 Atherosclerotic heart disease of native coronary artery without angina pectoris; Z20.822 Contact with and (suspected) exposure to COVID-19; Z95.0 Presence of cardiac pacemaker; Z79.899 Other long term (current) drug therapy
CPT/HCPCS: 36415; 71045; 80048; 80076; 81003; 83690; 83735; 84484; 85025; 85027; 85610; 87637; 93005; 97162; 99285; J1650; J1939

== ENCOUNTER → 2025-07-30 15:11 | Outpatient (BNV) | payer MEDICARE, SELFPAY | PROVIDERS: Admitting Provider Internal Medicine; Emergency Provider Emergency Medicine; PCP Internal Medicine; Visit Provider Radiology Diagnostic Radiology | DX: J90 Pleural effusion, not elsewhere classified (principal); I51.7 Cardiomegaly; J81.0 Acute pulmonary edema | CPT/HCPCS: 71045 ==

== ENCOUNTER → 2025-07-30 17:20 | Outpatient (BNV) | payer MEDICARE, SELFPAY | PROVIDERS: Admitting Provider Internal Medicine; Emergency Provider Emergency Medicine; PCP Internal Medicine; Visit Provider Internal Medicine Cardiovascular Disease | DX: I50.9 Heart failure, unspecified (principal) | CPT/HCPCS: 99233 ==

== ENCOUNTER → 2025-07-30 17:20 | Outpatient (BNV) | payer MEDICARE, SELFPAY | PROVIDERS: Admitting Provider Internal Medicine; Emergency Provider Emergency Medicine; PCP Internal Medicine; Visit Provider Internal Medicine | DX: Z91.199 Patient's noncompliance with other medical treatment and regimen due to unspecified reason (principal) | CPT/HCPCS: 99232; 99233 ==